=== PATIENT | male | born 1950 | race Caucasian/White ===

== ENCOUNTER 2020-05-06 09:00 | Outpatient (REF) | payer MEDICARE, SELFPAY ==
[2020-05-06 10:52] LABS: Cholesterol 159 mg/dL; HDL Cholesterol 43 mg/dL; LDL Cholesterol Calculated 104 mg/dl; Triglycerides 62 mg/dL
[2020-05-07 16:22] LABS: LDL Cholesterol Direct 100 mg/dL (<100)
== END 2020-05-06 09:01 | disposition home or self-care (01) ==
LOC: HO.LAB 09:00
PROVIDERS: PCP Internal Medicine; Visit Provider Internal Medicine Endocrinology, Diabetes & Metabolism
DX: E78.5 Hyperlipidemia, unspecified (principal)
CPT/HCPCS: 80061; 83721

== ENCOUNTER → 2020-05-09 10:55 | Outpatient (BNVA) | payer MEDICARE, SELFPAY | PROVIDERS: PCP Internal Medicine; Referring Provider Internal Medicine; Visit Provider Internal Medicine Endocrinology, Diabetes & Metabolism | DX: E11.65 Type 2 diabetes mellitus with hyperglycemia (principal); E11.649 Type 2 diabetes mellitus with hypoglycemia without coma; E11.42 Type 2 diabetes mellitus with diabetic polyneuropathy; E11.3559 Type 2 diabetes mellitus with stable proliferative diabetic retinopathy, unspecified eye; I10 Essential (primary) hypertension; E78.5 Hyperlipidemia, unspecified; E53.8 Deficiency of other specified B group vitamins; E55.9 Vitamin D deficiency, unspecified; Z79.899 Other long term (current) drug therapy | CPT/HCPCS: 99212 ==

== ENCOUNTER 2020-07-22 10:00 | Outpatient (REF) | payer MEDICARE, SELFPAY ==
[2020-07-22 10:31] LABS: MANUAL DIFF FLAG NO
[2020-07-22 10:38] LABS: Basophils Percent Auto 0.3 % (0-2); Eosinophils Absolute Auto 0.1 X10*3/uL (0.0-0.4); Eosinophils Percent Auto 3.8 % (0-4); Hemoglobin 13.2 g/dl (14.0-18.0); Imm Gran Abs Auto 0.01 X10*3/uL (0.00-0.03); Imm Gran Pct Auto 0.3 % (0.0-0.4); Lymphocytes Absolute Auto 1.2 X10*3/uL (1.2-4.9); Lymphocytes Percent Auto 31.4 % (20-40); Mean Corpuscular Hemoglobin 28.9 pg (27.0-33.0); Mean Corpuscular Volume 87.7 fL (80-98); Mean Platelet Volume 9.3 fL (9.4-12.4); Monocytes Absolute Auto 0.4 X10*3/uL (0.1-1.2); Monocytes Percent Auto 11.2 % (2-11); Neutrophils Absolute Auto 1.9 X10*3/uL (2.0-8.3); Platelet Count 273 X10*3/uL (160-400); Red Blood Count 4.56 X10*6/uL (4.60-5.80); Red Cell Distribution Width 12.2 % (11.0-16.0); White Blood Count 3.7 X10*3/uL (4.8-10.8)
[2020-07-22 11:04] LABS: Alanine Aminotransferase 38 U/L (0-40); Albumin Level 3.8 g/dL (3.5-5.0); Alkaline Phosphatase 77 U/L (39-117); Anion Gap 11 (12-20); Aspartate Amino Transferase 47 U/L (5-37); Bilirubin Total 0.5 mg/dL (0.0-1.0); Blood Urea Nitrogen 12 mg/dL (9-16); Calcium 8.7 mg/dL (8.4-10.2); Carbon Dioxide 28 mmol/L (22-29); Chloride 105 mmol/L (96-108); Cholesterol 139 mg/dL; Estimated Glomerular Filt Rate > 60; Glucose Fasting 159 mg/dL (60-99); HDL Cholesterol 41 mg/dL; LDL Cholesterol Calculated 89 mg/dl; Potassium 4.8 mmol/l (3.3-5.1); Sodium 139 mmol/L (135-145); Total Protein 6.8 g/dL (6.5-8.0); Triglycerides 46 mg/dL
[2020-07-22 11:25] LABS: TSH reflex Free T4 1.59 mIU/mL (0.32-4.0); Vitamin D 25-OH Total 34.5 ng/mL (>30)
[2020-07-22 11:49] LABS: Folate 17.1 ng/mL (> or = 4.0); Vitamin B12 807 pg/mL (200-900)
== END 2020-07-22 10:01 | disposition home or self-care (01) ==
LOC: HO.LAB 10:00
PROVIDERS: PCP Internal Medicine; Visit Provider Internal Medicine
DX: I10 Essential (primary) hypertension (principal); E11.8 Type 2 diabetes mellitus with unspecified complications; E53.8 Deficiency of other specified B group vitamins; E55.9 Vitamin D deficiency, unspecified; E03.9 Hypothyroidism, unspecified
CPT/HCPCS: 36415; 80053; 80061; 82306; 82607; 82746; 84443; 85025

== ENCOUNTER 2020-08-26 07:52 | Outpatient (REF) | payer MEDICARE, SELFPAY ==
--- NOTE | ~2020-08-26 | US_ITS ---
EXAMINATION: US ABDOMEN COMPLETE CLINICAL INFORMATION: Diseases of blood. COMPARISON: CT abdomen pelvis 03/21/2013. Ultrasound abdomen 03/09/2013. TECHNIQUE: Real-time imaging of the abdominal viscera. FINDINGS: PANCREAS: The visualized pancreatic head is normal but the majority of the pancreas is obscured by bowel gas. ABDOMINAL AORTA: The proximal, mid, and distal segments are normal in caliber. INFERIOR VENA CAVA: Visualized portions are normal. LIVER: Normal. The liver is normal in size. The liver contour is normal. Parenchymal echogenicity is normal. No focal hepatic lesion. There is no intrahepatic biliary duct dilatation seen. GALLBLADDER: Normal. The gallbladder is physiologically distended without evidence of stones, sludge, polyps, wall thickening or pericholecystic fluid. COMMON BILE DUCT: Normal in caliber measuring 0.3 cm in diameter. RIGHT KIDNEY: There are anechoic spaces in the right mid kidney and lower pole which could represent prominent calyces or parapelvic cysts. No renal calculi or focal parenchymal lesions. The kidney measures 10.9 cm in maximum dimension. LEFT KIDNEY: Anechoic structures in the left mid and lower kidney likely correspond to a previously seen parapelvic cysts. No hydronephrosis. No renal calculi or focal parenchymal lesions. The kidney measures 10.9 cm in maximum dimension. SPLEEN: Normal. The spleen measures 9.2 cm in maximum dimension. FREE FLUID: None. US/US abdomen complete IMPRESSION: The spleen is normal in size. Anechoic structures in the left renal pelvis likely correspond to renal parapelvic cysts. There are similar anechoic spaces in the right renal pelvis which may represent additional parapelvic cysts, less likely dilated calyces.
== END 2020-08-26 07:53 | disposition home or self-care (01) ==
LOC: HO.US 07:52
PROVIDERS: PCP Internal Medicine; Visit Provider Internal Medicine Medical Oncology
DX: D75.89 Other specified diseases of blood and blood-forming organs (principal)
CPT/HCPCS: 76700

== ENCOUNTER → 2020-09-06 08:44 | Outpatient (BNVA) | payer MEDICARE, SELFPAY | PROVIDERS: PCP Internal Medicine; Visit Provider Internal Medicine Endocrinology, Diabetes & Metabolism | DX: E11.65 Type 2 diabetes mellitus with hyperglycemia (principal); E11.42 Type 2 diabetes mellitus with diabetic polyneuropathy; E11.3559 Type 2 diabetes mellitus with stable proliferative diabetic retinopathy, unspecified eye; E11.649 Type 2 diabetes mellitus with hypoglycemia without coma; Z79.4 Long term (current) use of insulin; I10 Essential (primary) hypertension; E78.5 Hyperlipidemia, unspecified; E53.8 Deficiency of other specified B group vitamins; E55.9 Vitamin D deficiency, unspecified | CPT/HCPCS: 82947; 99212 ==

== ENCOUNTER → 2020-11-29 08:49 | Outpatient (BNVA) | payer MEDICARE, SELFPAY | PROVIDERS: PCP Internal Medicine; Visit Provider Nurse Practitioner Gerontology | DX: E11.42 Type 2 diabetes mellitus with diabetic polyneuropathy (principal); E11.65 Type 2 diabetes mellitus with hyperglycemia; I10 Essential (primary) hypertension; Z79.4 Long term (current) use of insulin | CPT/HCPCS: 82947; 99212 ==

== ENCOUNTER → 2020-12-20 07:49 | Outpatient (BNVA) | payer MEDICARE, SELFPAY | PROVIDERS: PCP Internal Medicine; Visit Provider Internal Medicine Endocrinology, Diabetes & Metabolism | DX: E11.65 Type 2 diabetes mellitus with hyperglycemia (principal); E11.42 Type 2 diabetes mellitus with diabetic polyneuropathy; E11.3559 Type 2 diabetes mellitus with stable proliferative diabetic retinopathy, unspecified eye; E11.649 Type 2 diabetes mellitus with hypoglycemia without coma; E78.5 Hyperlipidemia, unspecified; E53.8 Deficiency of other specified B group vitamins; E55.9 Vitamin D deficiency, unspecified; I10 Essential (primary) hypertension; Z79.4 Long term (current) use of insulin | CPT/HCPCS: Q3014 ==

== ENCOUNTER 2020-12-23 08:29 | Outpatient (REF) | payer MEDICARE, SELFPAY ==
--- NOTE | ~2020-12-23 | US_ITS ---
EXAMINATION: US ABDOMEN COMPLETE CLINICAL INFORMATION: Pancytopenia. COMPARISON: US abdomen complete 08/26/2020 and 03/09/2013. CT abdomen pelvis 03/21/2013. TECHNIQUE: Real-time imaging of the abdominal viscera. FINDINGS: PANCREAS: Normal. ABDOMINAL AORTA: The proximal, mid, and distal segments are normal in caliber. INFERIOR VENA CAVA: Visualized portions are normal. LIVER: The liver is normal in size. The liver contour is normal. There is slight increased liver echogenicity. No focal hepatic lesion. There is no intrahepatic biliary duct dilatation seen. GALLBLADDER: Normal. The gallbladder is physiologically distended without evidence of stones, sludge, polyps, wall thickening or pericholecystic fluid. COMMON BILE DUCT: Normal in caliber measuring .18 cm in diameter. RIGHT KIDNEY: There is a dilated midpole calyx or small cyst but no hydronephrosis seen. No renal calculi or focal parenchymal lesions. The kidney measures 10.8 cm in maximum dimension. LEFT KIDNEY: There is mild dilated calyces question mild caliectasis or hydronephrosis. No renal calculi or focal parenchymal lesions. The kidney measures 10.8 cm in maximum dimension. SPLEEN: Normal. The spleen measures 10.0 cm in maximum dimension. FREE FLUID: None. US/US abdomen complete IMPRESSION: Slightly increased liver echogenicity. No focal lesion seen. Focal dilated midpole calyx versus parapelvic cyst right kidney. Mild dilated calyces left kidney but no hydronephrosis. Rest of the abdominal ultrasound is unremarkable.
== END 2020-12-23 08:30 | disposition home or self-care (01) ==
LOC: HO.US 08:29
PROVIDERS: Visit Provider Internal Medicine Medical Oncology
DX: D75.89 Other specified diseases of blood and blood-forming organs (principal)
CPT/HCPCS: 76700

== ENCOUNTER 2021-01-21 09:33 | Outpatient (REF) | payer MEDICARE, SELFPAY ==
[2021-01-21 10:12] LABS: Estimated Average Glucose 160 mg/dL; Hemoglobin A1c % 7.2 %
[2021-01-21 10:24] LABS: Alanine Aminotransferase 18 U/L (0-40); Albumin Level 3.9 g/dL (3.5-5.0); Alkaline Phosphatase 87 U/L (39-117); Anion Gap 10 (12-20); Aspartate Amino Transferase 17 U/L (5-37); Bilirubin Total 0.4 mg/dL (0.0-1.0); Blood Urea Nitrogen 16 mg/dL (9-16); Calcium 9.4 mg/dL (8.4-10.2); Carbon Dioxide 28 mmol/L (22-29); Chloride 106 mmol/L (96-108); Cholesterol 146 mg/dL; Estimated Glomerular Filt Rate > 60; Glucose Fasting 179 mg/dL (60-99); HDL Cholesterol 44 mg/dL; LDL Cholesterol Calculated 91 mg/dl; Potassium 4.6 mmol/L (3.3-5.1); Sodium 139 mmol/L (135-145); Total Protein 6.8 g/dL (6.5-8.0); Triglycerides 59 mg/dL
[2021-01-21 10:43] LABS: Thyroid Stimulating Hormone 1.93 uIU/mL (0.32-4.0)
[2021-01-21 11:18] LABS: Creatinine Urine 87.02 mg/dL
[2021-01-22 15:53] LABS: Folate 13.7 ng/mL (> or = 4.0); Vitamin B12 644 pg/mL (200-900)
[2021-01-26 13:27] LABS: Vitamin D 25-OH, D2 <4 ng/mL; Vitamin D 25-OH, D3 25 ng/mL; Vitamin D 25-OH, Total 25 ng/mL (30-100)
== END 2021-01-21 09:34 | disposition home or self-care (01) ==
LOC: HO.LAB 09:33
PROVIDERS: Internal Medicine Endocrinology, Diabetes & Metabolism; PCP Internal Medicine; Visit Provider Internal Medicine
DX: E78.5 Hyperlipidemia, unspecified (principal); E55.9 Vitamin D deficiency, unspecified; E53.8 Deficiency of other specified B group vitamins; E11.42 Type 2 diabetes mellitus with diabetic polyneuropathy; E03.9 Hypothyroidism, unspecified; E11.65 Type 2 diabetes mellitus with hyperglycemia
CPT/HCPCS: 36415; 80053; 80061; 82043; 82306; 82607; 82746; 83036; 84443

== ENCOUNTER → 2021-03-24 09:51 | Outpatient (BNVA) | payer MEDICARE, SELFPAY | PROVIDERS: PCP Internal Medicine; Visit Provider Nurse Practitioner Gerontology | DX: E11.42 Type 2 diabetes mellitus with diabetic polyneuropathy (principal); E11.3559 Type 2 diabetes mellitus with stable proliferative diabetic retinopathy, unspecified eye; I10 Essential (primary) hypertension; E78.5 Hyperlipidemia, unspecified; E53.8 Deficiency of other specified B group vitamins; E55.9 Vitamin D deficiency, unspecified; Z79.4 Long term (current) use of insulin | CPT/HCPCS: 82947; 99212 ==

== ENCOUNTER 2021-05-22 09:00 | Outpatient (RCR) | payer MEDICARE, SELFPAY ==
[2020-08-22 08:06] VITALS: BP 139/65; PULSE 74; RESP 12; TEMP 36.6; O2SAT 98; BMI 25.0
[2020-08-22 09:26] LABS: Baso%MD 0.5 %; Eos%MD 3.2 %; Hemoglobin 13.2 g/dl (14.0-18.0); IG%MD 0.3 %; Lymph%MD 25.8 %; Mean Corpuscular HGB Conc 32.2 g/dl (31.0-36.0); Mean Corpuscular Hemoglobin 28.1 pg (27.0-33.0); Mean Corpuscular Volume 87.2 fL (80-98); Mean Platelet Volume 9.3 fL (9.4-12.4); Mono%MD 9.3 %; Neut%MD 60.9 %; Platelet Count 260 X10*3/uL (160-400); Red Cell Distribution Width 11.9 % (11.0-16.0); White Blood Count 3.8 X10*3/uL (4.8-10.8)
--- NOTE | 2020-08-22 09:38 | MHC.HEMONCMA ---
Patient present for bicytopenia consult. Reviewed history and vocational guidance counselor needed. Labs were drawn and patient to return for follow up in 3 months. U/S of abdomen ordered.
--- NOTE | 2020-08-22 09:58 | MHC.HEMONCMA ---
Ultrasound of abdomen was placed in order wrapper selector. I will check Wednesday to see if it was scheduled.
[2020-08-22 09:59] LABS: Alanine Aminotransferase 24 U/L (0-40); Alkaline Phosphatase 88 U/L (39-117); Anion Gap 12 (12-20); Aspartate Amino Transferase 16 U/L (5-37); Bilirubin Total 0.3 mg/dL (0.0-1.0); Blood Urea Nitrogen 14 mg/dL (9-16); Calcium 8.9 mg/dL (8.4-10.2); Carbon Dioxide 29 mmol/L (22-29); Chloride 102 mmol/L (96-108); Creatinine Clr Calc Pharmacy 59.2; Estimated Glomerular Filt Rate > 60; Glucose Random 272 mg/dL (60-115); Iron 59 mcg/dL (45-160); Lactate Dehydrogenase 190 U/L (118-273); Percent Iron Saturation 20 % (15-50); Potassium 4.5 mmol/L (3.3-5.1); Sodium 138 mmol/L (135-145); Total Iron Binding Capacity 296 mcg/dL (228-428); Total Protein 6.8 g/dL (6.5-8.0); Unsaturated Iron Binding 237 ug/dL
[2020-08-22 10:08] LABS: Rheumatoid Factor < 15.0 IU/mL (<15.0)
[2020-08-22 10:19] LABS: Ferritin 137 ng/mL (20-250)
[2020-08-22 10:32] LABS: HBS Num1 0.24 mIU/mL (0-7.99); HBc Num1 0.13 S/CO (0.00-0.79); Hepatitis B Core Antibody Nonreactive (Nonreactive); ~Hepatitis B Surface Antibody NONREACTIVE (Nonreactive)
[2020-08-22 10:35] LABS: Folate 16.7 ng/mL (> or = 4.0); Vitamin B12 815 pg/mL (200-900)
[2020-08-22 10:39] LABS: HBsAGNum1 0.21 S/CO (0.00-0.99); HIV AB/AG Nonreactive (Nonreactive); HIV Num 1 0.06 S/CO (0.00-0.99); Hepatitis B Surface Antigen Negative (Negative); ~HepC Num1 0.09 S/CO (0.00-0.79); ~Hepatitis C Antibody Nonreactive (Nonreactive)
[2020-08-22 11:06] LABS: Erythrocyte Sedimentation Rate 7 MM/HR (0-15)
[2020-08-22 11:45] LABS: Band Neutrophils Percent 1 % (3-5); Eosinophils Absolute Manual 0.1 X10*3/UL (0.0-0.8); Eosinophils Percent Manual 3 % (0-4); Lymphocytes Absolute Manual 0.8 X10*3/uL (0.6-4.8); Lymphocytes Percent Manual 20 % (20-40); Monocytes Absolute Manual 0.5 X10*3/uL (0.0-1.2); Monocytes Percent Manual 13 % (2-11); Neutrophils Absolute Manual 2.4 X10*3/uL (2.2-7.9); Neutrophils Percent Manual 63 % (45-73); Platelet Estimate NORMAL (NORMAL); Platelet Morphology Comment NORMAL
[2020-08-22 11:48] LABS: RBC Morphology NORMAL
[2020-08-23 13:21] LABS: Anti Nuclear Antibody Screen NEGATIVE (NEGATIVE)
--- NOTE | 2020-08-26 11:10 | MHC.HEMONCMA ---
Left message on voice mail letting patient know of ultrasound results.
[2020-08-26 19:01] LABS: IgA 251 mg/dL (70-320); IgG 1368 mg/dL (600-1540); IgM 25 mg/dL (50-300)
[2020-11-19 09:04] VITALS: BP 124/65; PULSE 72; RESP 12; TEMP 36.6; O2SAT 97; BMI 25.0
--- NOTE | 2020-11-19 09:23 | P.PNHO_ITS ---
Medical Summary - Medical Summary Date of Service: 11/19/20 Chief complaint: Follow-up for: Bicytopenia. Medical Summary: DIAGNOSIS: Bicytopenia. Interval History Interval history: This is a pleasant 70-year-old gentleman here for a follow-up visit. For he tells me that overall he has been doing quite well. Sometimes he feels a bit tired. He denies headache no dizziness. No chest pain or trouble breathing. Denies abdominal pain nausea vomiting heartburn indigestion. His bowels are working without any gross blood in it. His appetite is good. His weight is stable. He is in good spirits. Rest of the review of systems is unremarkable. Family history: He denies any known family history of for hematological or oncological problem. 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 He is . He has 3 children. He used to smoke but quit over 40 years ago. He does have a history of alcohol abuse but that was in the distant past as well. Review of Systems - Constitutional Reports no additional constitutional complaints - Eyes Reports no additional eye complaints - ENT Reports no additional ear, nose, mouth, and throat complaints - Cardiovascular Reports no additional cardiovascular complaints - Respiratory Reports no additional respiratory complaints - Gastrointestinal Reports no additional gastrointestinal complaints - Genitourinary Genitourinary: Reports no additional male genitourinary complaints - Musculoskeletal Reports no additional musculoskeletal complaints - Integumentary/Breasts Skin/Breast: Reports no additional skin complaints - Neurologic Reports no additional neurologic complaints - Psychiatric Reports no additional psychiatric complaints - Endocrine Reports no additional endocrine complaints - Hematologic/Lymphatic Reports no additional hematologic/lymphatic complaints - Allergic/Immunologic Reports no additional allergic/immunologic complaints COUNTS INCLUDE 234 BEDS AT THE [facility] Medical History: Medical History (Last Reviewed 11/19/20 @ 09:05 by Fe Asher) B12 deficiency Bicytopenia Daytime sleepiness Diabetes type 2, uncontrolled Diabetic polyneuropathy associated with type 2 diabetes mellitus Dyslipidemia Hypoglycemia unawareness associated with type 2 diabetes mellitus 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 Stable proliferative diabetic retinopathy Vitamin D deficiency Functional capacity: independent ambulation Patient : No Family History: Family History (Last Reviewed 11/19/20 @ 09:05 by Fe Asher) Father Hypertension Mother Diabetes Anemia Hypothyroidism Family/Other Prostate cancer Hypertension Diabetes Brother Prostate cancer Daughter Hypothyroidism Surgical History: Surgical History (Last Reviewed 11/19/20 @ 09:05 by Fe Asher) History of cardiac catheterization History of cataract surgery History of colonoscopy Social History: Social History (Last Reviewed 11/19/20 @ 09:05 by Fe Asher) Alcohol History: Alcohol intake: former Tobacco History: Smoking Status: Former smoker Tobacco Type: Cigarette Smoking status: Former smoker Oncology Screenings - ECOG Performance Status ECOG Performance Status: 0 Home Medications and Allergies Home Medications Medication Instructions Recorded Confirmed Type blood sugar diagnostic #10 ea 09/06/20 11/19/20 History lancets 28 gauge #100 ea 09/06/20 11/19/20 History Allergies Allergy/AdvReac Type Severity Reaction Status Date / Time penicillin V Allergy Unknown rash, hives Verified 07/24/20 10:45 acetaminophen [Percocet] AdvReac Unknown vomitting Verified 07/24/20 10:45 lisinopril AdvReac Unknown angioedema Verified 07/24/20 10:45 oxycodone [From PERCOCET] AdvReac Unknown STOMACH Verified 07/24/20 10:45 UPSET statins AdvReac Unknown myalgia Uncoded 07/24/20 10:45 Exam Vital signs: Vital Signs Temp 97.9 F 11/19/20 09:04 Pulse 72 11/19/20 09:04 Resp 12 11/19/20 09:04 BP 124/65 11/19/20 09:04 Pulse Ox 97 11/19/20 09:04 Intake & Output 11/18/20 11/19/20 11/19/20 18:59 06:59 18:59 Other: Weight 72.5 kg [place] Weight in Grams 54732 Weight 72.5 kg Body Mass Index 25.0 - Constitutional Present: no acute distress - Routine HEENT Exam Head: Present: normal inspection Eye: Present: normal appearance ENT: Present: mucous membranes moist - Routine Neck Exam Present: full ROM - Routine Respiratory Exam Present: CTAB - Routine Cardiovascular Exam Cardiovascular: Present: RRR, S1, S2 - Routine Abdominal Exam Present: soft, nontender - Routine Extremities Exam Present: nontender - Routine Back/Spine/Pelvis Exam Back/Spine: Present: full ROM - Routine Skin Exam Present: intact - Routine Neurological Exam Present: alert, oriented X3 - Routine Psychiatric Exam Present: normal affect Data - Labs CBC & Chem 7: 11/19/20 09:38 11/19/20 09:38 Labs: 08/22/20 09:18 GUILLERMINA Reflex Titer and Pattern Routine Complete Blood Count Man Dif Routine Comprehensive Met. Panel Routine Erythrocyte Sedimentation Rate Routine Ferritin Routine HIV Ab/Ag Routine Hep B&C Scrn (HBsAg, HBs, HBc, HCV) [Hepatitis B,C Profile] Routine IRON PROFILE Routine Immunofixation Pnl, Serum Routine Lactate Dehydrogenase Routine Rheumatoid Factor Routine Vitamin B12 and Folate Routine Laboratory Last Values WBC 3.8 X10*3/uL (4.8-10.8) L 08/22/20 09:18 RBC 4.70 X10*6/uL (4.60-5.80) 08/22/20 09:18 Hgb 13.2 g/dl (14.0-18.0) L 08/22/20 09:18 Hct 41.0 % (42-52) L 08/22/20 09:18 MCV 87.2 fL (80-98) 08/22/20 09:18 MCH 28.1 pg (27.0-33.0) 08/22/20 09:18 MCHC 32.2 g/dl (31.0-36.0) 08/22/20 09:18 RDW 11.9 % (11.0-16.0) 08/22/20 09:18 Plt Count 260 X10*3/uL (160-400) 08/22/20 09:18 MPV 9.3 fL (9.4-12.4) L 08/22/20 09:18 Absolute Nucleated RBC 0.000 X10*3/uL (0.0-0.012) 08/22/20 09:18 Nucleated RBC % (auto) 0.0 /100WBC (0.0-0.2) 08/22/20 09:18 Neutrophils % (Manual) 63 % (45-73) 08/22/20 09:18 Band Neutrophils % 1 % (3-5) L 08/22/20 09:18 Lymphocytes % (Manual) 20 % (20-40) 08/22/20 09:18 Monocytes % (Manual) 13 % (2-11) H 08/22/20 09:18 Eosinophils % (Manual) 3 % (0-4) 08/22/20 09:18 Abs Neuts (Manual) 2.4 X10*3/uL (2.2-7.9) 08/22/20 09:18 Lymphocytes # (Manual) 0.8 X10*3/uL (0.6-4.8) 08/22/20 09:18 Monocytes # (Manual) 0.5 X10*3/uL (0.0-1.2) 08/22/20 09:18 Eosinophils # (Manual) 0.1 X10*3/UL (0.0-0.8) 08/22/20 09:18 Platelet Estimate NORMAL (NORMAL) 08/22/20 09:18 Plt Morphology Comment NORMAL 08/22/20 09:18 RBC Morphology NORMAL 08/22/20 09:18 ESR 7 MM/HR (0-15) 08/22/20 09:18 Sodium 138 mmol/L (135-145) 08/22/20 09:18 Potassium 4.5 mmol/L (3.3-5.1) 08/22/20 09:18 Chloride 102 mmol/L (96-108) 08/22/20 09:18 Carbon Dioxide 29 mmol/L (22-29) 08/22/20 09:18 Anion Gap 12 (12-20) 08/22/20 09:18 BUN 14 mg/dL (9-16) 08/22/20 09:18 Creatinine 1.07 mg/dL (0.5-1.4) 08/22/20 09:18 Estim Creat Clear Calc 59.2 08/22/20 09:18 Estimated GFR > 60 08/22/20 09:18 Random Glucose 272 mg/dL (60-115) H 08/22/20 09:18 Calcium 8.9 mg/dL (8.4-10.2) 08/22/20 09:18 Iron 59 mcg/dL (45-160) 08/22/20 09:18 TIBC 296 mcg/dL (228-428) 08/22/20 09:18 % Saturation 20 % (15-50) 08/22/20 09:18 Unsat Iron Binding 237 ug/dL 08/22/20 09:18 Ferritin 137 ng/mL (20-250) 08/22/20 09:18 Total Bilirubin 0.3 mg/dL (0.0-1.0) 08/22/20 09:18 AST 16 U/L (5-37) D 08/22/20 09:18 ALT 24 U/L (0-40) 08/22/20 09:18 Alkaline Phosphatase 88 U/L (39-117) 08/22/20 09:18 Lactate Dehydrogenase 190 U/L (118-273) 08/22/20 09:18 Total Protein 6.8 g/dL (6.5-8.0) 08/22/20 09:18 Albumin 4.0 g/dL (3.5-5.0) 08/22/20 09:18 Vitamin B12 815 pg/mL (200-900) 08/22/20 09:18 Folate 16.7 ng/mL (> or = 4.0) 08/22/20 09:18 IgG Total 1368 mg/dL (600-1540) 08/22/20 09:18 IgA Total 251 mg/dL (70-320) 08/22/20 09:18 IgM 25 mg/dL (50-300) L 08/22/20 09:18 POWER Interpretation SEE NOTE 08/22/20 09:18 Rheumatoid Factor < 15.0 IU/mL (<15.0) 08/22/20 09:18 GUILLERMINA Screen NEGATIVE (NEGATIVE) 08/22/20 09:18 GUILLERMINA Titer TNP 08/22/20 09:18 GUILLERMINA Titer 2 TNP 08/22/20 09:18 GUILLERMINA Titer 3 TNP 08/22/20 09:18 GUILLERMINA Pattern TNP 08/22/20 09:18 GUILLERMINA Pattern 2 TNP 08/22/20 09:18 GUILLERMINA Pattern 3 TNP 08/22/20 09:18 Hep Bs Antigen Negative (Negative) 08/22/20 09:18 Hep Bs Antibody NONREACTIVE (Nonreactive) 08/22/20 09:18 Hep B Core Total Ab Nonreactive (Nonreactive) 08/22/20 09:18 Hepatitis C Ab (EIA) Nonreactive (Nonreactive) 08/22/20 09:18 HIV 1&2 Ab/P24 Ag 4thGn Nonreactive (Nonreactive) 08/22/20 09:18 Progress Note: A/P (1) Bicytopenia Status: Acute Assessment and plan: This is a pleasant 70-year-old gentleman, here for a follow-up visit. He has had a chronic Bicytopenia. DIFFERENTIAL DIAGNOSIS: 1. Vitamin B12/folate deficiency: He was checked for that. B12 815. Folate 16.7. 2. Hypersplenism: He does have a remote history of alcohol. 3. Underlying myelo infiltrative disorder: MDS versus multiple myeloma, versus lymphoma. 4. Collagen vascular disorder: Lupus versus rheumatoid arthritis. PLAN: Will proceed with a further evaluation. Will check an ultrasound of the abdomen. Check SIEP: No monoclonal protein and LDH: 179. Check GUILLERMINA: Negative. Rheumatoid factor: 15. He will return in 6 months for a follow-up visit. He will call for any problems prior to that time. Thank you, CC: Dr. Teresa. - Time Spent With Patient Total time spent is greater than 50% in coordination of care (as documented) at patient's floor/unit and/or counseling patient: 25 - 35 minutes
[2020-11-19 10:22] LABS: MANUAL DIFF FLAG NO
[2020-11-19 10:31] LABS: Basophils Percent Auto 0.5 % (0-2); Eosinophils Absolute Auto 0.1 X10*3/uL (0.0-0.4); Eosinophils Percent Auto 3.2 % (0-4); Hematocrit 39.7 % (42-52); Hemoglobin 12.8 g/dl (14.0-18.0); Imm Gran Abs Auto 0.01 X10*3/uL (0.00-0.03); Imm Gran Pct Auto 0.2 % (0.0-0.4); Lymphocytes Percent Auto 23.1 % (20-40); Mean Corpuscular HGB Conc 32.2 g/dl (31.0-36.0); Mean Corpuscular Hemoglobin 28.6 pg (27.0-33.0); Mean Corpuscular Volume 88.6 fL (80-98); Mean Platelet Volume 9.6 fL (9.4-12.4); Monocytes Absolute Auto 0.4 X10*3/uL (0.1-1.2); Neutrophils Absolute Auto 2.6 X10*3/uL (2.0-8.3); Platelet Count 245 X10*3/uL (160-400); Red Blood Count 4.48 X10*6/uL (4.60-5.80); Red Cell Distribution Width 12.3 % (11.0-16.0); White Blood Count 4.1 X10*3/uL (4.8-10.8)
--- NOTE | 2020-11-19 10:56 | MHC.HEMONCMA ---
Pt present to f/u bicytopenia. History reviewed, labs drawn and pt to return in 6 months.
[2020-11-19 10:59] LABS: Alanine Aminotransferase 30 U/L (0-40); Albumin Level 3.7 g/dL (3.5-5.0); Alkaline Phosphatase 80 U/L (39-117); Anion Gap 11 (12-20); Aspartate Amino Transferase 16 U/L (5-37); Bilirubin Total 0.6 mg/dL (0.0-1.0); Blood Urea Nitrogen 15 mg/dL (9-16); Calcium 8.9 mg/dL (8.4-10.2); Carbon Dioxide 30 mmol/L (22-29); Chloride 104 mmol/L (96-108); Creatinine Clr Calc Pharmacy 67.8; Estimated Glomerular Filt Rate > 60; Glucose Random 248 mg/dL (60-115); Lactate Dehydrogenase 179 U/L (118-273); Potassium 4.5 mmol/L (3.3-5.1); Rheumatoid Factor < 15.0 IU/mL (<15.0); Sodium 140 mmol/L (135-145); Total Protein 6.4 g/dL (6.5-8.0)
[2020-11-19 11:17] LABS: Erythrocyte Sedimentation Rate 6 MM/HR (0-15)
[2020-11-19 11:18] LABS: HIV AB/AG Nonreactive (Nonreactive); HIV Num 1 0.09 S/CO (0.00-0.99)
--- NOTE | 2020-11-19 16:59 | PM.HEMONCCN ---
Subjective - Subjective Chief complaint: Consult for: Bicytopenia. Patient: new to practice Consult date: 08/22/20 Requesting Physician: Mlaick. Primary Care Provider: Guillermina Hammer MD Medical Summary: DIAGNOSIS: Bicytopenia. HPI - Consult Narrative Reason for consult: Consult for bicytopenia. Narrative: This is a pleasant 70-year-old gentleman here for a new patient visit. He has been noted to have a low white count and mild anemia. This has been ongoing for years. Serial WBC count dating back from 07/23:5.5, 3.8, 3.8, 3.7, 3.8. Serial hemoglobin dating back to July of 2018:13.8, 13.9, 13.4, 13.2, 13.2. He tells me that overall he has been doing quite well. Sometimes he feels a bit tired. He denies headache no dizziness. No chest pain or trouble breathing. Denies abdominal pain nausea vomiting heartburn indigestion. His bowels are working without any gross blood in it. His appetite is good. His weight is stable. He is in good spirits. Rest of the review of systems is unremarkable. Family history: He denies any known family history of for hematological or oncological problem. 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 He has 3 children. He used to smoke but quit over 40 years ago. He does have a history of alcohol abuse but that was in the distant past as well. Review of Systems - Constitutional Reports no additional constitutional complaints - Eyes Reports no additional eye complaints - ENT Reports no additional ear, nose, mouth, and throat complaints - Cardiovascular Reports no additional cardiovascular complaints - Respiratory Reports no additional respiratory complaints - Gastrointestinal Reports no additional gastrointestinal complaints - Genitourinary Genitourinary: Reports no additional male genitourinary complaints - Musculoskeletal Reports no additional musculoskeletal complaints - Integumentary/Breasts Skin/Breast: Reports no additional skin complaints - Neurologic Reports no additional neurologic complaints - Psychiatric Reports no additional psychiatric complaints - Endocrine Reports no additional endocrine complaints - Hematologic/Lymphatic Reports no additional hematologic/lymphatic complaints - Allergic/Immunologic Reports no additional allergic/immunologic complaints Oncology Screenings - ECOG Performance Status ECOG Performance Status: 0 PMFSH Medical History: Medical History (Last Reviewed 11/19/20 @ 09:05 by Fe Asher) B12 deficiency Bicytopenia Daytime sleepiness Diabetes type 2, uncontrolled Diabetic polyneuropathy associated with type 2 diabetes mellitus Dyslipidemia Hypoglycemia unawareness associated with type 2 diabetes mellitus 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 Stable proliferative diabetic retinopathy Vitamin D deficiency Functional capacity: independent ambulation Patient : No Family History: Family History (Last Reviewed 11/19/20 @ 09:05 by Fe Asher) Father Hypertension Mother Diabetes Anemia Hypothyroidism Family/Other Prostate cancer Hypertension Diabetes Brother Prostate cancer Daughter Hypothyroidism Surgical History: Surgical History (Last Reviewed 11/19/20 @ 09:05 by Fe Asher) History of cardiac catheterization History of cataract surgery History of colonoscopy Social History: Social History (Last Reviewed 11/19/20 @ 09:05 by Fe Asher) Alcohol History: Alcohol intake: former Tobacco History: Smoking Status: Former smoker Tobacco Type: Cigarette Smoking status: Former smoker Home Medications and Allergies Home Medications Medication Instructions Recorded Confirmed Type blood sugar diagnostic #10 ea 09/06/20 11/19/20 History lancets 28 gauge #100 ea 09/06/20 11/19/20 History Allergies Allergy/AdvReac Type Severity Reaction Status Date / Time penicillin V Allergy Unknown rash, hives Verified 07/24/20 10:45 acetaminophen [Percocet] AdvReac Unknown vomitting Verified 07/24/20 10:45 lisinopril AdvReac Unknown angioedema Verified 07/24/20 10:45 oxycodone [From PERCOCET] AdvReac Unknown STOMACH Verified 07/24/20 10:45 UPSET statins AdvReac Unknown myalgia Uncoded 07/24/20 10:45 Physical Exam Vital signs: Vital Signs Temp 97.9 F 11/19/20 09:04 Pulse 72 11/19/20 09:04 Resp 12 11/19/20 09:04 BP 124/65 11/19/20 09:04 Pulse Ox 97 11/19/20 09:04 Intake & Output 11/18/20 11/19/20 11/19/20 18:59 06:59 18:59 Other: Weight 72.5 kg Weight in Grams 15947 Weight 72.5 kg - Constitutional Present: no acute distress - Routine HEENT Exam Head: Present: normal inspection ENT: Present: mucous membranes moist - Routine Neck Exam Present: supple - Routine Respiratory Exam Present: CTAB - Routine Cardiovascular Exam Cardiovascular: Present: RRR, S1, S2 - Routine Abdominal Exam Present: soft, nontender - Routine Rectal Exam Patient deferred: digital exam - Routine Extremities Exam Present: nontender - Routine Skin Exam Present: intact - Routine Neurological Exam Present: alert, oriented X3 - Detailed Neurological Exam: Coma Scale Eye Opening: Spontaneous (4) Verbal Response: Oriented (5) Motor Response: Obeys commands (6) [place] Coma Scale Total: 15 - Routine Psychiatric Exam Present: normal affect Hem/Onc Consult Result - Labs CBC & Chem 7: 11/19/20 09:38 11/19/20 09:38 Labs: Short CBC 11/19/20 Range/Units 09:38 WBC 4.1 L (4.8-10.8) X10*3/uL Hgb 12.8 L (14.0-18.0) g/dl Hct 39.7 L (42-52) % Plt Count 245 (160-400) X10*3/uL BMP 11/19/20 09:38 Sodium 140 Potassium 4.5 Chloride 104 Carbon Dioxide 30 H BUN 15 Creatinine 0.92 Calcium 8.9 Liver Function 11/19/20 Range/Units 09:38 Total Bilirubin 0.6 (0.0-1.0) mg/dL AST 16 (5-37) U/L ALT 30 (0-40) U/L Alkaline Phosphatase 80 (39-117) U/L Albumin 3.7 (3.5-5.0) g/dL Assessment and Plan (1) Bicytopenia Status: Acute (2) Bicytopenia Status: Acute This is a pleasant 70-year-old gentleman, here for a follow-up visit. He has had a chronic Bicytopenia. Serial WBC count dating back from 07/23:5.5, 3.8, 3.8, 3.7, 3.8. Serial hemoglobin dating back to July of 2018:13.8, 13.9, 13.4, 13.2, 13.2. DIFFERENTIAL DIAGNOSIS: 1. Vitamin B12/folate deficiency: He was checked for that. B12 815. Folate 16.7. 2. Hypersplenism: He does have a remote history of alcohol. 3. Underlying myelo infiltrative disorder: MDS versus multiple myeloma, versus lymphoma. 4. Collagen vascular disorder: Lupus versus rheumatoid arthritis. PLAN: Will proceed with a further evaluation. Will check an ultrasound of the abdomen. Check SIEP: No monoclonal protein and LDH: 179. Check GUILLERMINA: Negative. Rheumatoid factor: 15. He will return in 6 months for a follow-up visit. He will call for any problems prior to that time. Thank you, CC: Dr. Teresa.
[2020-11-21 14:21] LABS: IgA 233 mg/dL (70-320); IgG 1388 mg/dL (600-1540); IgM 30 mg/dL (50-300)
[2020-11-22 14:11] LABS: Anti Nuclear Antibody Screen NEGATIVE (NEGATIVE)
[2021-05-22 09:13] LABS: MANUAL DIFF FLAG NO
[2021-05-22 09:21] LABS: Basophils Percent Auto 0.3 % (0-2); Eosinophils Absolute Auto 0.1 X10*3/uL (0.0-0.4); Eosinophils Percent Auto 3.6 % (0-4); Hematocrit 38.5 % (42.0-52.0); Hemoglobin 12.8 g/dl (14.0-18.0); Imm Gran Abs Auto 0.01 X10*3/uL (0.00-0.03); Imm Gran Pct Auto 0.3 % (0.0-0.4); Lymphocytes Percent Auto 28.1 % (20-40); Mean Corpuscular HGB Conc 33.2 g/dl (31.0-36.0); Mean Corpuscular Hemoglobin 28.8 pg (27.0-33.0); Mean Corpuscular Volume 86.5 fL (80.0-98.0); Mean Platelet Volume 8.9 fL (9.4-12.4); Monocytes Absolute Auto 0.4 X10*3/uL (0.1-1.2); Monocytes Percent Auto 11.4 % (2-11); Neutrophils Percent Auto 56.3 % (45-73); Platelet Count 259 X10*3/uL (160-400); Red Blood Count 4.45 X10*6/uL (4.60-5.80); Red Cell Distribution Width 11.9 % (11.0-16.0); White Blood Count 3.6 X10*3/uL (4.8-10.8)
--- NOTE | 2021-05-22 09:22 | PM.HEMONCPN ---
Medical Summary - Medical Summary Date of Service: 05/22/21 Chief complaint: Follow-up for: Bicytopenia. Medical Summary: DIAGNOSIS: Bicytopenia. Interval History Interval history: This is a pleasant 70-year-old gentleman here for a follow-up visit. He tells me that lately he has been more fatigued than usual. He falls asleep all the time, sitting in front of the TV. He has arthritis related pain. His shoulder is acting up. Last year he had intra-articular injection which helped. He is going to be referred to orthopedic again. He denies headache no dizziness. No chest pain or trouble breathing. Denies abdominal pain nausea vomiting. He does get heartburn and indigestion. He had to give up a lot of foods since the upset his stomach. His bowels are working without any gross blood in it. His appetite is good. His weight is stable. He has not been seen by GI lately. He is in good spirits. Rest of the review of systems is unremarkable. Past history: He was noted to have a low white count and mild anemia. This has been ongoing for years. Serial WBC count dating back from 07/23:5.5, 3.8, 3.8, 3.7, 3.8. Serial hemoglobin dating back to July of 2018:13.8, 13.9, 13.4, 13.2, 13.2. Family history: He denies any known family history of for hematological or oncological problem. 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 He is . He has 3 children. He used to smoke but quit over 40 years ago. He does have a history of alcohol abuse but that was in the distant past as well. Review of Systems - Constitutional Reports no additional constitutional complaints, Reports daytime sleepiness, Reports fatigue, Reports lack of energy, Reports malaise, Reports weakness - Eyes Reports no additional eye complaints - ENT Reports no additional ear, nose, mouth, and throat complaints - Cardiovascular Reports no additional cardiovascular complaints - Respiratory Reports no additional respiratory complaints - Gastrointestinal Reports no additional gastrointestinal complaints, Reports change in bowel habits, Reports dyspepsia, Reports heartburn - Genitourinary Genitourinary: Reports no additional male genitourinary complaints - Musculoskeletal Reports no additional musculoskeletal complaints Comments: Right shoulder pain - Integumentary/Breasts Skin/Breast: Reports no additional skin complaints - Neurologic Reports no additional neurologic complaints - Psychiatric Reports no additional psychiatric complaints - Endocrine Reports no additional endocrine complaints - Hematologic/Lymphatic Reports no additional hematologic/lymphatic complaints - Allergic/Immunologic Reports no additional allergic/immunologic complaints [facility] Medical History: Medical History (Last Reviewed 05/22/21 @ 09:31 by Chuck Gamboa RN) B12 deficiency Bicytopenia Daytime sleepiness Diabetes mellitus Diabetes type 2, uncontrolled Diabetic polyneuropathy associated with type 2 diabetes mellitus Dyslipidemia Hypothyroid custodial (current) use of insulin Right shoulder pain Stable proliferative diabetic retinopathy Vitamin D deficiency Functional capacity: independent ambulation Patient : No Family History: Family History (Last Reviewed 05/22/21 @ 09:32 by Chuck Gamboa RN) Father Hypertension Mother Diabetes Anemia Hypothyroidism Family/Other Prostate cancer Hypertension Diabetes Brother Prostate cancer Daughter Hypothyroidism Surgical History: Surgical History (Last Reviewed 05/22/21 @ 09:31 by Chuck Gamboa RN) History of cardiac catheterization History of cataract surgery History of colonoscopy Social History: Social History (Last Reviewed 05/22/21 @ 09:32 by Chuck Gamboa RN) Living Situation History: Household Members: None Housing: Apartment Alcohol History: Alcohol intake: former Tobacco History: Patient Tobacco Use Status: Former Tobacco user Tobacco use type: Cigarette e-Cigarette/Vaping Use: Never Used Second Hand Smoke Exposure: No Occupation Assessmet: service: No Current occupational status: disabled Oncology Screenings - ECOG Performance Status ECOG Performance Status: 0 Home Medications and Allergies Allergies Allergy/AdvReac Type Severity Reaction Status Date / Time penicillin V Allergy Intermediate rash, hives Verified 05/21/21 10:10 acetaminophen [Percocet] AdvReac Intermediate vomitting Verified 05/21/21 10:10 lisinopril AdvReac Intermediate angioedema Verified 05/21/21 10:10 oxycodone [From PERCOCET] AdvReac Intermediate STOMACH Verified 05/21/21 10:10 UPSET statins AdvReac Intermediate myalgia Uncoded 05/21/21 10:10 Exam Vital signs: Vital Signs Temp 97.9 F 11/19/20 09:04 Pulse 72 11/19/20 09:04 Resp 12 11/19/20 09:04 BP 124/65 11/19/20 09:04 Pulse Ox 97 11/19/20 09:04 Weight 72.5 kg Body Mass Index 25.0 - Constitutional Present: no acute distress - Routine HEENT Exam Head: Present: normal inspection Eye: Present: normal appearance ENT: Present: mucous membranes moist - Routine Neck Exam Present: full ROM - Routine Respiratory Exam Present: CTAB - Routine Cardiovascular Exam Cardiovascular: Present: RRR, S1, S2 - Routine Abdominal Exam Present: soft, nontender - Routine Extremities Exam Present: nontender - Routine Back/Spine/Pelvis Exam Back/Spine: Present: full ROM - Routine Skin Exam Present: intact - Routine Neurological Exam Present: alert, oriented X3 - Detailed Neurological Exam: Coma Scale Eye Opening: Spontaneous (4) - Routine Psychiatric Exam Present: normal affect Data - Labs CBC & Chem 7: 05/22/21 09:10 05/22/21 09:10 Assessment and Plan Patient Active problem list reviewed?: Yes (1) Bicytopenia Status: Acute Assessment and plan: This is a pleasant 70-year-old gentleman, here for a follow-up visit. He has had a chronic Bicytopenia. DIFFERENTIAL DIAGNOSIS: 1. Vitamin B12/folate deficiency: He was checked for that. B12 815. Folate 16.7. 2. Hypersplenism: He does have a remote history of alcohol. 3. Underlying myelo infiltrative disorder: MDS versus multiple myeloma, versus lymphoma. 4. Collagen vascular disorder: Lupus versus rheumatoid arthritis. l proceeded with further evaluation. l checked an ultrasound of the abdomen. This was done on 12/24. It showed: Slightly increased liver echogenicity. No focal lesion seen. Focal dilated midpole calyx versus parapelvic cyst right kidney. Mild dilated calyces left kidney but no hydronephrosis. Rest of the abdominal ultrasound is unremarkable. Checked SIEP: No monoclonal protein and LDH: 179. Checked GUILLERMINA: Negative. Rheumatoid factor: 15. Iron studies: 59/296/20/137. He is feeling more fatigued. He has had some dyspepsia and heartburn symptoms. Hemoglobin has dropped. He has not had a recent GI evaluation. PLAN: I will refer him to GI, for further evaluation. Will continue to monitor his counts, over time. He will return in 6 months for a follow-up visit. He will call for any problems prior to that time. Thank you, CC: Dr. Teresa. Karina Taylor. (2) Bicytopenia Status: Acute - Time Spent With Patient Time Spent with Patient (in minutes): 25
[2021-05-22 09:25] VITALS: BP 138/70; PULSE 71; RESP 18; TEMP 36.5; O2SAT 98; BMI 23.9
[2021-05-22 09:43] LABS: Alanine Aminotransferase 16 U/L (0-40); Albumin Level 3.7 g/dL (3.5-5.0); Alkaline Phosphatase 75 U/L (39-117); Anion Gap 9 (12-20); Aspartate Amino Transferase 15 U/L (5-37); Bilirubin Total 0.4 mg/dL (0.0-1.0); Blood Urea Nitrogen 16 mg/dL (9-16); Carbon Dioxide 27 mmol/L (22-29); Chloride 104 mmol/L (96-108); Estimated Glomerular Filt Rate > 60; Glucose Random 224 mg/dL (60-115); Potassium 3.9 mmol/L (3.3-5.1); Sodium 136 mmol/L (135-145); Total Protein 6.4 g/dL (6.5-8.0)
--- NOTE | 2021-05-22 13:38 | MHC.HEMONC ---
Pt arrived for sched Hem f/u appt, [facility] automotive parts interpreter Gianna provided Pashto-language translation. VSS, labs drawn and reviewed. Pt did c/o usual arthritis pain in bilat shoulders and wrists, said he had seen Dr. Teresa yesterday, is interested in receiving another steroid injection to his R shoulder after it was effective the previous year. Pt c/o baseline fatigue, also that he does FSBS TID. Nurse reviewed pt's hx and med list. Dr. Ynag was updated, was in to see pt. Pt received d/c packet and confirmed next Hem f/u for 11/20/21. Dr. Yang asked this nurse for GI referral to ROSANNA Taylor at [facility] for pt's c/o GI upset. Nurse faxed Dr. Yang's Hem Progress note from today's visit to GI dept, spoke w/ Kacy at ROSANNA Collins's office, booked new pt appt for 07/11/21 @ 11:15. Leeanne to notify pt of GI appt by phone.
--- NOTE | 2021-05-22 14:47 | HE.ONCSEC ---
Spoke to Amina Lofton, patient's . I gave her appointment information for GI on 07/11/21 at 11:15am with Karina Taylor NP. She verbalized and agreed.
== END 2021-08-15 | disposition home or self-care (01) ==
LOC: HO.ONC 09:00
PROVIDERS: PCP Internal Medicine; Referring Provider Internal Medicine; Visit Provider Internal Medicine Medical Oncology
DX: D75.89 Other specified diseases of blood and blood-forming organs (principal)
CPT/HCPCS: 36415; 80053; 82607; 82728; 82746; 82784; 83540; 83615; 85007; 85025; 85027; 85652; 86038; 86039; 86334; 86431; 86704; 86706; 86803; 87340; 87389; 99204; 99213; 99214

== ENCOUNTER 2021-06-18 15:55 | Outpatient (REF) | payer MEDICARE, SELFPAY | END 2021-06-18 15:56 | disposition home or self-care (01) | LOC: HO.LAB 15:55 | PROVIDERS: Visit Provider Internal Medicine | DX: Z20.822 Contact with and (suspected) exposure to COVID-19 (principal) | CPT/HCPCS: C9803; U0003; U0005 ==

== ENCOUNTER 2021-06-25 22:21 | Emergency (ER) | payer MEDICARE, SELFPAY ==
--- NOTE | ~2021-06-25 | XR_ITS ---
EXAMINATION: XR CHEST CLINICAL INFORMATION: Dyspnea COMPARISON: 07/27/2018 TECHNIQUE: Frontal view of the chest was obtained. FINDINGS: Lung volumes are low. Bronchial wall thickening present. No dense consolidation or effusion. No pneumothorax. The cardiomediastinal silhouette is within normal limits. XR/XR chest 1V IMPRESSION: No consolidation. Bronchial wall thickening can be seen with a small airways process such as asthma or atypical/viral infection.
--- NOTE | 2021-06-25 22:52 | ECG_ITS ---
Test Reason : COVID SYMPTOMS Blood Pressure : / mmHG Vent. Rate : 093 BPM Atrial Rate : 093 BPM P-R Int : 124 ms QRS Dur : 116 ms QT Int : 376 ms P-R-T Axes : 052 000 020 degrees QTc Int : 467 ms Normal sinus rhythm Right bundle branch block Abnormal ECG When compared with ECG of 03-DEC-2019 12:34, No significant change was found Referred By: Generic ED Physician Electronically Signed By:REA LIM
[2021-06-25 22:56] VITALS: BP 119/66; PULSE 98; RESP 22; TEMP 36.9; O2SAT 92; BMI 23.5
--- NOTE | 2021-06-26 00:04 | ED.SOB ---
HPI - SOB/Dyspnea General Chief Complaint: Dyspnea Stated Complaint: flu like symptoms Time Seen by Provider: 06/25/21 23:00 Source: patient Mode of arrival: ambulatory Limitations: no limitations History of Present Illness HPI Narrative: Patient diabetic 70 years or been coughing since 1211 diagnosis positive on 06/18 comes here for increased cough and shortness of breath saturating 92% at room air patient not vaccinated against COVID-19 his is also sick with same patient had stable labs in 05/25 used arrival was 227 Related Data Previous Rx's Medication Instructions Recorded cyanocobalamin (vitamin B-12) 500 500 mcg SUBLINGUAL DAILY 30 Days 09/06/20 mcg sublingual tablet #30 tab repaglinide 2 mg tablet See Rx Instructions PO BID 90 Days 12/20/20 #270 tab diabetic shoes with inserts #1 ea 01/21/21 blood sugar diagnostic (FreeStyle #300 ea 03/06/21 Lite Strips) levothyroxine 125 mcg tablet 125 mcg PO QAM #90 tab 03/07/21 losartan 50 mg tablet 50 mg PO DAILY #90 tab 03/25/21 lancets 28 gauge (FreeStyle #100 ea 05/05/21 Lancets) amlodipine 2.5 mg tablet 2.5 mg PO DAILY #90 tab 05/12/21 aspirin 81 mg tablet,delayed 81 mg PO DAILY #90 tab 05/12/21 release cholecalciferol (vitamin D3) 50 50 mcg PO DAILY #90 tab 05/12/21 mcg (2,000 unit) tablet (Vitamin D3) fluticasone propionate 50 1 spray INTRANASAL DAILY 30 Days 05/12/21 mcg/actuation nasal #16 g spray,suspension dulaglutide 3 mg/0.5 mL 3 mg (0.5 mL) SUBCUT QWEEK 90 Days 06/12/21 subcutaneous pen injector #6.5 ml (Trulicity) albuterol sulfate 90 mcg/actuation 2 puff INHALATION Q4-6H PRN #8.5 g 06/26/21 aerosol inhaler (ProAir HFA) codeine 10 mg-guaifenesin 100 mg/5 10 ml PO Q6-8H PRN #237 ml 06/26/21 mL oral liquid dexamethasone 6 mg tablet 6 mg PO DAILY #7 tab 06/26/21 (Decadron) Allergies Allergy/AdvReac Type Severity Reaction Status Date / Time penicillin V Allergy Intermediate rash, hives Verified 06/25/21 22:49 acetaminophen [Percocet] AdvReac Intermediate vomitting Verified 06/25/21 22:49 lisinopril AdvReac Intermediate angioedema Verified 06/25/21 22:49 oxycodone [From PERCOCET] AdvReac Intermediate STOMACH Verified 06/25/21 22:49 UPSET statins AdvReac Intermediate myalgia Uncoded 05/21/21 10:10 Review of Systems Review of Systems: Yes all other systems are reviewed and are negative [facility] Past Medical History Medical History B12 deficiency Bicytopenia Daytime sleepiness Diabetes mellitus Diabetes type 2, uncontrolled Diabetic polyneuropathy associated with type 2 diabetes mellitus Dyslipidemia Hypothyroid terminal supervisor (current) use of insulin Right shoulder pain Stable proliferative diabetic retinopathy Vitamin D deficiency Surgical History History of cardiac catheterization History of cataract surgery History of colonoscopy Family History Family History Father Hypertension Mother Diabetes Anemia Hypothyroidism Family/Other Prostate cancer Hypertension Diabetes Brother Prostate cancer Daughter Hypothyroidism Social History Social History Household Members: None Housing: Apartment Alcohol intake: former Patient Tobacco Use Status: Former Tobacco user Tobacco use type: Cigarette e-Cigarette/Vaping Use: Never Used Second Hand Smoke Exposure: No Advance Directives: No service: No Current occupational status: disabled Physical Exam Vital Signs: Vital Signs: Last Vital Signs Temp 98.4 F 06/25/21 22:56 Pulse 98 06/25/21 22:56 Resp 22 H 06/25/21 22:56 BP 119/66 06/25/21 22:56 Pulse Ox 92 06/25/21 22:56 BMI result Body Mass Index 23.5 Appearance: Alert. Oriented X3. No acute distress. Eyes: No pallor or icterus ENT: Pharynx normal. Oral Mucosa moist Neck: Normal inspection. Neck supple. CVS: Normal heart rate and rhythm. Pulses normal. Respiratory: No respiratory distress. Equal air entry bilateral, no wheezing/rales/rhonchi prolonged expiration Abdomen: Soft and nontender. Bowel sounds are present, no mass palpable, no CVA tenderness Skin: Skin warm and dry. Normal skin color. Normal skin turgor. Extremities: No lower extremity edema. No calf tenderness Neuro: Oriented X 3. No motor deficit. MDM - SOB/Dyspnea MDM Narrative Medical decision making narrative: Patient COVID-19 positive 11 days of the sickness with No infiltrate in the chest x-ray saturating 92% on room air no prior lung issues in the past. Will discharge patient home on Decadron advised to take albuterol inhaler report to the ER if saturation less than 90% or feel increased shortness of breath Lab Data Attestation: I reviewed the patient's lab results. Labs: Lab Results 06/26/21 Range/Units 00:29 POC Glucose 227 H (60-115) mg/dL Imaging Data Chest x-ray: Radiologist's impression: [address] [address] XRay Report Signed Patient: Karan Werner MR#: [id number] : 1950 Acct:[id number] Age/Sex: 70 / M ADM Date: 06/25/21 Loc: .ED Attending Dr: Ordering Physician: Oscar Linder MD Date of Service: 06/25/21 Procedure(s): XR chest 1V Accession Number(s): [id number] cc: Oscar Linder MD~ EXAMINATION: XR CHEST CLINICAL INFORMATION: Dyspnea COMPARISON: 07/27/2018 TECHNIQUE: Frontal view of the chest was obtained. FINDINGS: Lung volumes are low. Bronchial wall thickening present. No dense consolidation or effusion. No pneumothorax. The cardiomediastinal silhouette is within normal limits. XR/XR chest 1V IMPRESSION: No consolidation. Bronchial wall thickening can be seen with a small airways process such as asthma or atypical/viral infection. Discharge Plan Discharge Clinical Impression: COVID-19 Patient Disposition: Home, Self-Care Instructions: COVID-19 (Coronavirus Disease 2019) (ED) Additional Instructions: Mantener el distanciamiento social [place] la medicaci?n seg?n lo prescrito [place] 1 tableta de repaglinida media hora antes de las comidas de 3 a 4 veces al d?a mientras wero Decadron para controlar el az?car en simon. Beber mucho l?quido Use el inhalador seg?n lo recomendado Notifique a la jesse de emergencias si la dificultad para respirar empeora Prescriptions: New dexamethasone [Decadron] 6 mg tablet 6 mg PO DAILY Qty: 7 RF: 0 codeine-guaifenesin 10-100 mg/5 mL liquid 10 ml PO Q6-8H PRN (Reason: cough) Qty: 237 RF: 0 albuterol sulfate [ProAir HFA] 90 mcg/actuation HFA aerosol inhaler 2 puff inhalation Q4-6H PRN (Reason: Wheezing) Qty: 8.5 RF: 0 No Action (DME) diabetic shoes with inserts 9 See Rx Instructions .Route .MEDSUPPLY Qty: 1 RF: 0 (DME) FreeStyle Lite Strips Strip See Rx Instructions .ROUTE .MEDSUPPLY Qty: 300 RF: 3 levothyroxine 125 mcg tablet 125 mcg PO QAM Qty: 90 RF: 2 losartan 50 mg tablet 50 mg PO DAILY Qty: 90 RF: 1 (DME) lancets [FreeStyle Lancets] 28 gauge misc See Rx Instructions .Route Qty: 100 RF: 11 cholecalciferol (vitamin D3) [Vitamin D3] 50 mcg (2,000 unit) tablet 50 mcg PO DAILY Qty: 90 RF: 1 amlodipine 2.5 mg tablet 2.5 mg PO DAILY Qty: 90 RF: 2 fluticasone propionate 50 mcg/actuation spray,suspension 1 spray intranasal DAILY 30 Days Qty: 16 RF: 5 aspirin 81 mg tablet,delayed release (DR/EC) 81 mg PO DAILY Qty: 90 RF: 3 Trulicity 3 mg/0.5 mL pen injector 3 mg subcut QWEEK 90 Days Qty: 6.5 RF: 1 repaglinide 2 mg tablet See Rx Instructions PO BID 90 Days Qty: 270 RF: 1 cyanocobalamin (vitamin B-12) 500 mcg tablet, sublingual 500 mcg sublingual DAILY 30 Days Qty: 30 RF: 6 Interventions: ED Discharge Assessment Last Done: 06/26/21 01:21 Print Language: Kinyarwanda
[2021-06-26 00:36] LABS: Glucose, Whole Blood 227 mg/dL (60-115)
[2021-06-26] MEDS: Albuterol Sulfate 90 MCG 8 GM INHALER 4 PUFF INHALE (01:02)
[2021-06-26] MEDS: Benzonatate 100 MG CAPSULE 200 MG PO (01:06)
[2021-06-26] MEDS: dexAMETHasone 6 MG TABLET PO (01:06)
== END 2021-06-26 01:22 | disposition home or self-care (01) ==
PROVIDERS: Emergency Provider Internal Medicine; PCP Internal Medicine
DX: U07.1 COVID-19 (principal); R06.02 Shortness of breath; R50.9 Fever, unspecified; Z87.891 Personal history of nicotine dependence; Z79.899 Other long term (current) drug therapy
CPT/HCPCS: 71045; 82947; 93005; 99283; 99284; J8540

== ENCOUNTER 2021-06-30 10:53 | Inpatient (IN) | payer MEDICARE, SELFPAY ==
--- NOTE | ~2021-06-30 | XR_ITS ---
EXAMINATION: XR CHEST CLINICAL INFORMATION: Hypoxia. COMPARISON: Chest radiograph dated from 06/26/2021. CTA of the chest dated from 06/30/2021. TECHNIQUE: AP view of the chest was obtained. FINDINGS: Stable appearance of the cardiomediastinal silhouette. Multifocal airspace opacities predominantly in the lung bases are increased when compared to the chest radiograph from 06/26/2021. Accurate comparison with the chest CTA from 06/30/2021 is limited given differences in technique. No pleural effusions or pneumothorax. No acute osseous abnormalities. XR/XR chest 1V IMPRESSION: Increased multifocal airspace opacities since 06/26/2021.
--- NOTE | ~2021-06-30 | CT_ITS ---
EXAMINATION: CT ANGIOGRAM OF THE CHEST WITH AND WITHOUT CONTRAST (CT PULMONARY ANGIOGRAM FOR PE) CLINICAL INFORMATION: Hypoxia. Recent COVID. COMPARISON: Chest x-ray of 06/26/2021, 07/27/2018, selected images of the abdomen and pelvic CT of 03/21/2013. TECHNIQUE: Prior to contrast administration, noncontrast localization images were obtained. Subsequently, multidetector volumetric imaging was performed from the thoracic inlet to below the diaphragms following the administration of 61 mL Omnipaque 350 intravenous contrast. No contrast reaction reported. Sagittal, coronal, and MIP oblique sagittal reformatted images were obtained on the CT workstation, uploaded to PACS, and reviewed. This CT examination was performed using dose optimization techniques as appropriate, variously including the following: *Automated exposure control *Adjustment of mA and/or kV according to patient size (this includes techniques or standardized protocols for targeted exams where dose is matched to indication/reason for exam; i.e. extremities or head) *Use of iterative reconstruction technique Total exam dose-length product 283 mGy-cm FINDINGS: QUALITY OF STUDY/CONTRAST BOLUS: Satisfactory. PULMONARY ARTERIES: Filling defects are noted in the right upper lobe segmental and subsegmental branches, right middle lobe segmental and subsegmental branches as well as a few of the left upper lobe segmental and subsegmental pulmonary arteries. No evidence of pulmonary emboli in the main pulmonary arteries. THORACIC AORTA: No aneurysm or dissection. Mild calcific atherosclerosis of the aorta. LUNG: Scattered bilateral peripheral ground-glass opacities are noted, in the mid and lower lung zones, greater in the bilateral lower lobes. PLEURA: No evidence of pleural effusion. Question artifact versus trace left apical pneumothorax anteriorly. MEDIASTINUM: Normal heart size. No pericardial effusion. There is no hilar adenopathy. Subcarinal lymph node is noted measuring 1.5 cm in short axis. No evidence of septal bowing or right heart strain. There is mild pneumomediastinum extending up to the thoracic inlet. CHEST WALL/AXILLA: No axillary or internal mammary lymphadenopathy. OSSEOUS STRUCTURES: No acute or suspicious osseous abnormality. Multilevel mild degenerative changes in the spine. UPPER ABDOMEN: Unremarkable. No reflux of contrast into the hepatic veins to suggest elevated right heart pressures. CT/CT angio chest PE protocol IMPRESSION: 1. [id number] burden pulmonary emboli. 2. Ground-glass opacities in the bilateral mid and lower lung zones, greater in the bilateral lower lobes. Commonly reported imaging features of COVID-19 pneumonia are present. Other processes such as influenza pneumonia and organizing pneumonia, as can be seen with drug toxicity and connective tissue disease, can cause a similar imaging pattern. 3. Small amount of pneumomediastinum. Question artifact versus trace left apical pneumothorax. 4. Prominent subcarinal lymph node. VTE: Positive This critical result was discussed with referring provider Makenzie Reid at 3:25 PM on 06/30/2021 and it was ascertained that the content and urgency of the report was understood at the time of direct communication.
--- NOTE | ~2021-06-30 | US_ITS ---
EXAMINATION: US VENOUS ULTRASOUND WITH DOPPLER LOWER EXTREMITY, BILATERAL CLINICAL INFORMATION: Pain. Covid positive. COMPARISON: None TECHNIQUE: Ultrasound of the deep veins is performed from the hip to the calf with compression sonography and color and pulse Doppler assessment. Spectral analysis with color-flow imaging is performed. FINDINGS: The common femoral, superficial femoral, profunda and popliteal veins are patent bilaterally. There is thrombus in the bilateral peroneal veins in the calves. The posterior tibial veins are patent. No Engel's cyst is seen. US/US venous duplex LE BI IMPRESSION: Bilateral calf DVT in the peroneal veins.
--- NOTE | 2021-06-30 11:00 | ECG_ITS ---
Test Reason : DYSPNEA Blood Pressure : / mmHG Vent. Rate : 088 BPM Atrial Rate : 088 BPM P-R Int : 120 ms QRS Dur : 112 ms QT Int : 394 ms P-R-T Axes : 062 022 031 degrees QTc Int : 476 ms Normal sinus rhythm Right bundle branch block Abnormal ECG When compared with ECG of 25-JUN-2021 23:03, No significant change was found Referred By: Makenzie Reid Electronically Signed By:Barry Long
[2021-06-30 11:01] VITALS: BP 132/64; PULSE 82; PULSE 90; RESP 20; TEMP 36.9; O2SAT 65; O2SAT 94; BMI 23.5
--- NOTE | 2021-06-30 11:25 | ED_ITS ---
HPI - SOB/Dyspnea General Chief Complaint: Dyspnea Stated Complaint: +COVID,SOB 60% RA, 98% 10L NRB PER EMS Time Seen by Provider: 06/30/21 10:58 Source: patient, EMS, old records reviewed and interpreter translator Mode of arrival: EMS Limitations: no limitations History of Present Illness MD elicited complaint: shortness of breath and cough Pertinent past history: other (dx with COVID 06/18 symptoms 06/17 has covid he is not vaccinated, started dexamethasone on 06/26 ) Onset (ago): day(s) (06/18) Context: recent illness (COVID +) Timing: progressively worsening Severity: severe Exacerbating factors: lying flat, exertion, movement and coughing Relieving factors: oxygen and rest Known history of: diabetes Associated symptoms: fever and cough Treatment prior to arrival: oxygen (10L with EMS found to be RA 65%) Related Data Home Medications Medication Instructions Recorded Confirmed levothyroxine 125 mcg tablet 125 mcg PO DAILY@0630 06/30/21 06/30/21 repaglinide 2 mg tablet 1 tab PO DAILY 06/30/21 06/30/21 repaglinide 2 mg tablet 2 tab PO DAILY@1700 06/30/21 06/30/21 Previous Rx's Medication Instructions Recorded cyanocobalamin (vitamin B-12) 500 500 mcg SUBLINGUAL DAILY 30 Days 09/06/20 mcg sublingual tablet #30 tab repaglinide 2 mg tablet See Rx Instructions PO BID 90 Days 12/20/20 #270 tab diabetic shoes with inserts #1 ea 01/21/21 blood sugar diagnostic (FreeStyle #300 ea 03/06/21 Lite Strips) losartan 50 mg tablet 50 mg PO DAILY #90 tab 03/25/21 lancets 28 gauge (FreeStyle #100 ea 05/05/21 Lancets) amlodipine 2.5 mg tablet 2.5 mg PO DAILY #90 tab 05/12/21 aspirin 81 mg tablet,delayed 81 mg PO DAILY #90 tab 05/12/21 release cholecalciferol (vitamin D3) 50 50 mcg PO DAILY #90 tab 05/12/21 mcg (2,000 unit) tablet (Vitamin D3) fluticasone propionate 50 1 spray INTRANASAL DAILY 30 Days 05/12/21 mcg/actuation nasal #16 g spray,suspension dulaglutide 3 mg/0.5 mL 3 mg (0.5 mL) SUBCUT QWEEK 90 Days 06/12/21 subcutaneous pen injector #6.5 ml (Trulicity) albuterol sulfate 90 mcg/actuation 2 puff INHALATION Q4-6H PRN #8.5 g 06/26/21 aerosol inhaler (ProAir HFA) codeine 10 mg-guaifenesin 100 mg/5 10 ml PO Q6-8H PRN #237 ml 06/26/21 mL oral liquid dexamethasone 6 mg tablet 6 mg PO DAILY #7 tab 06/26/21 (Decadron) Allergies Allergy/AdvReac Type Severity Reaction Status Date / Time penicillin V Allergy Intermediate rash, hives Verified 06/25/21 22:49 acetaminophen [Percocet] AdvReac Intermediate vomitting Verified 06/25/21 22:49 lisinopril AdvReac Intermediate angioedema Verified 06/25/21 22:49 oxycodone [From PERCOCET] AdvReac Intermediate STOMACH Verified 06/25/21 22:49 UPSET statins AdvReac Intermediate myalgia Uncoded 05/21/21 10:10 Review of Systems Review of Systems: Constitutional : No Fever, pos Chills, pos malaise, pos anorexia, ENT/Mouth : No sore throat, No Rhinorrhea, No Swallowing Difficulty Eyes: No Eye Pain, No Swelling, No Redness Cardiovascular : No Chest Pain, positive SOB, No Orthopnea, noEdema Respiratory :pos Cough, No Sputum, No Wheezing, positive dyspnea Gastrointestinal : No Nausea, No Vomiting, No Diarrhea, No abdominal Pain, No Hematochezia, No Melena Genitourinary : No Dysuria, No Urinary Frequency, No Hematuria Musculoskeletal : No joint pain, No Myalgias Skin : No Skin Lesions, No rash Neuro : pos Weakness, No Numbness, No Dizziness, No Headache Psych : No Anxiety/Panic, No Depression Heme/Lymph: No Bruising, No Lymphadenopathy Endocrine : No Polyuria, No Polydipsia All other systems reviewed and are negative [facility] Past Medical History Attestation statement: The following information was validated with the patient. 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 Right shoulder pain Stable proliferative diabetic retinopathy Vitamin D deficiency Surgical History History of cardiac catheterization History of cataract surgery History of colonoscopy Family History Family History Father Hypertension Mother Diabetes Anemia Hypothyroidism Family/Other Prostate cancer Hypertension Diabetes Brother Prostate cancer Daughter Hypothyroidism Social History Social History Household Members: None Housing: Apartment Alcohol intake: former Patient Tobacco Use Status: Former Tobacco user Tobacco use type: Cigarette e-Cigarette/Vaping Use: Never Used Second Hand Smoke Exposure: No Use of substances other than those prescribed or required for medical reasons: No Advance Directives: No Advance Directives Information Provided: No service: No Current occupational status: disabled Physical Exam Vital Signs: Vital Signs: Last Vital Signs Temp 98.5 F 06/30/21 11:01 Pulse 75 06/30/21 14:43 Resp 20 06/30/21 14:43 BP 137/66 06/30/21 14:43 Pulse Ox 96 06/30/21 14:43 Oxygen Flow Rate 15 06/30/21 11:01 BMI result Body Mass Index 23.5 Appearance: Alert. Oriented X3. Mild acute distress. Eyes: Pupils equal, round and reactive to light. ENT: Pharynx dry MM Neck: Normal inspection. Neck supple. CVS: Normal heart rate and rhythm. Pulses normal. Respiratory: No respiratory distress appears comfortable on NRB. Breath sounds very diminished in the bases, poor inspiratory effort 98% on NRB on arrival Abdomen: Soft and non-tender. Skin: Skin warm and dry. Normal skin color. Normal skin turgor. Extremities: No lower extremity edema. Neuro: Oriented X 3. No motor deficit. No sensory deficit. Course Course Course Narrative: no WBC count, procalcitonin negative, doing better on high flow RR 20, CTA lungs consistent with COVID pneumonia, antibiotics held as this is viral infection at this time labs do not suggest superimposed bacterial infection doing well on high flow - hospitalist and golf ball marker aware of pneumomediastinum started on lovenox if L PTX - trace at best , repeat images in AM MDM - SOB/Dyspnea MDM Narrative Medical decision making narrative: 70 yo male with DM, hypothyroidism, HTN, HLD, unvaccinated symptoms started 06/17 - dx 06/18 seen here on 06/25 started on dexamethasone 06/26 he comes in with c/o increased shortness of breath, weakness EMS found him 65% on RA he denies prior issues with his lungs. Completed steroid course up to 80s on 10L. In ED up to 90s on NRB - at this time labs, IV dexamethasone, CTA for PE, EKG, COVID labs, planned admit - patient to be started on high flow O2 Lab Data Result diagrams: 06/30/21 11:33 06/30/21 12:29 Labs: Lab Results 06/30/21 06/30/21 06/30/21 Range/Units 11:32 11:32 11:32 WBC (4.8-10.8) X10*3/uL RBC (4.60-5.80) X10*6/uL Hgb (14.0-18.0) g/dl Hct (42.0-52.0) % MCV (80.0-98.0) fL MCH (27.0-33.0) pg MCHC (31.0-36.0) g/dl RDW (11.0-16.0) % Plt Count (160-400) X10*3/uL MPV (9.4-12.4) fL Immature Gran % (Auto) (0.0-0.4) % Neut % (Auto) (45-73) % Lymph % (Auto) (20-40) % [place] % (Auto) (2-11) % Eos % (Auto) (0-4) % Baso % (Auto) (0-2) % Lymph # (Auto) (1.2-4.9) X10*3/uL [place] # (Auto) (0.1-1.2) X10*3/uL Eos # (Auto) (0.0-0.4) X10*3/uL Baso # (Auto) (0.0-0.2) X10*3/uL Abs Immat Gran (auto) (0.00-0.03) X10*3/uL Absolute Neuts (auto) (2.0-8.3) x10*3/uL Absolute Nucleated RBC (0.0-0.012) X10*3/uL Nucleated RBC % (auto) (0.0-0.2) /100WBC Smear Tech's Comments PT 13.1 H (9.9-13.0) SEC INR 1.2 H (0.9-1.1) APTT 25.1 (24.1-38.0) SEC D-Dimer High Sensitivty 8751 NG/ML VBG pH (7.32-7.43) VBG pCO2 mmHg VBG pO2 mmHg VBG HCO3 (22-26) mmol/L VBG O2 Saturation % VBG Base Excess mmol/L Sodium (135-145) mmol/L Potassium (3.3-5.1) mmol/L Chloride (96-108) mmol/L Carbon Dioxide (22-29) mmol/L Anion Gap (12-20) BUN (9-16) mg/dL Creatinine (0.5-1.4) mg/dL Estim Creat Clear Calc Estimated GFR Random Glucose (60-115) mg/dL Lactic Acid (0.5-2.0) mmol/L Calcium (8.4-10.2) mg/dL Magnesium (1.6-2.6) mg/dL Ferritin (20-250) ng/mL Total Bilirubin (0.0-1.0) mg/dL Direct Bilirubin (0.0-0.5) mg/dL AST (5-37) U/L ALT (0-40) U/L Alkaline Phosphatase (39-117) U/L Lactate Dehydrogenase (118-273) U/L Total Creatine Kinase (38-174) U/L Troponin I High Sens 29.0 (<3.5-35.0) ng/L C-Reactive Protein (< or = 0.50) mg/dL B-Natriuretic Peptide < 10 (<100) pg/mL Total Protein (6.5-8.0) g/dL Albumin (3.5-5.0) g/dL Lipase (8-78) U/L Procalcitonin ng/mL COVID-19 (NANI) (Negative) COVID-19 Clin Com 06/30/21 06/30/21 06/30/21 Range/Units 11:33 11:33 11:38 WBC 6.9 (4.8-10.8) X10*3/uL RBC 5.34 (4.60-5.80) X10*6/uL Hgb 15.2 (14.0-18.0) g/dl Hct 44.4 (42.0-52.0) % MCV 83.1 (80.0-98.0) fL MCH 28.5 (27.0-33.0) pg MCHC 34.2 (31.0-36.0) g/dl RDW 11.7 (11.0-16.0) % Plt Count 194 D (160-400) X10*3/uL MPV 9.5 (9.4-12.4) fL Immature Gran % (Auto) 0.6 H (0.0-0.4) % Neut % (Auto) 88.2 H (45-73) % Lymph % (Auto) 7.4 L (20-40) % [place] % (Auto) 3.8 (2-11) % Eos % (Auto) 0.0 (0-4) % Baso % (Auto) 0.0 (0-2) % Lymph # (Auto) 0.5 L (1.2-4.9) X10*3/uL [place] # (Auto) 0.3 (0.1-1.2) X10*3/uL Eos # (Auto) 0.0 (0.0-0.4) X10*3/uL Baso # (Auto) 0.0 (0.0-0.2) X10*3/uL Abs Immat Gran (auto) 0.04 H (0.00-0.03) X10*3/uL Absolute Neuts (auto) 6.0 (2.0-8.3) x10*3/uL Absolute Nucleated RBC 0.000 (0.0-0.012) X10*3/uL Nucleated RBC % (auto) 0.0 (0.0-0.2) /100WBC Smear Tech's Comments VERIFIED PT (9.9-13.0) SEC INR (0.9-1.1) APTT (24.1-38.0) SEC D-Dimer High Sensitivty NG/ML VBG pH 7.41 (7.32-7.43) VBG pCO2 41 mmHg VBG pO2 39 mmHg VBG HCO3 26 (22-26) mmol/L VBG O2 Saturation 59.0 % VBG Base Excess 2.0 mmol/L Sodium (135-145) mmol/L Potassium (3.3-5.1) mmol/L Chloride (96-108) mmol/L Carbon Dioxide (22-29) mmol/L Anion Gap (12-20) BUN (9-16) mg/dL Creatinine (0.5-1.4) mg/dL Estim Creat Clear Calc Estimated GFR Random Glucose (60-115) mg/dL Lactic Acid 1.8 (0.5-2.0) mmol/L Calcium (8.4-10.2) mg/dL Magnesium (1.6-2.6) mg/dL Ferritin (20-250) ng/mL Total Bilirubin (0.0-1.0) mg/dL Direct Bilirubin (0.0-0.5) mg/dL AST (5-37) U/L ALT (0-40) U/L Alkaline Phosphatase (39-117) U/L Lactate Dehydrogenase (118-273) U/L Total Creatine Kinase (38-174) U/L Troponin I High Sens (<3.5-35.0) ng/L C-Reactive Protein (< or = 0.50) mg/dL B-Natriuretic Peptide (<100) pg/mL Total Protein (6.5-8.0) g/dL Albumin (3.5-5.0) g/dL Lipase (8-78) U/L Procalcitonin ng/mL COVID-19 (NANI) (Negative) COVID-19 Clin Com 06/30/21 06/30/21 06/30/21 Range/Units 11:48 12:29 12:29 WBC (4.8-10.8) X10*3/uL RBC (4.60-5.80) X10*6/uL Hgb (14.0-18.0) g/dl Hct (42.0-52.0) % MCV (80.0-98.0) fL MCH (27.0-33.0) pg MCHC (31.0-36.0) g/dl RDW (11.0-16.0) % Plt Count (160-400) X10*3/uL MPV (9.4-12.4) fL Immature Gran % (Auto) (0.0-0.4) % Neut % (Auto) (45-73) % Lymph % (Auto) (20-40) % [place] % (Auto) (2-11) % Eos % (Auto) (0-4) % Baso % (Auto) (0-2) % Lymph # (Auto) (1.2-4.9) X10*3/uL [place] # (Auto) (0.1-1.2) X10*3/uL Eos # (Auto) (0.0-0.4) X10*3/uL Baso # (Auto) (0.0-0.2) X10*3/uL Abs Immat Gran (auto) (0.00-0.03) X10*3/uL Absolute Neuts (auto) (2.0-8.3) x10*3/uL Absolute Nucleated RBC (0.0-0.012) X10*3/uL Nucleated RBC % (auto) (0.0-0.2) /100WBC Smear Tech's Comments PT (9.9-13.0) SEC INR (0.9-1.1) APTT (24.1-38.0) SEC D-Dimer High Sensitivty NG/ML VBG pH (7.32-7.43) VBG pCO2 mmHg VBG pO2 mmHg VBG HCO3 (22-26) mmol/L VBG O2 Saturation % VBG Base Excess mmol/L Sodium 132 L (135-145) mmol/L Potassium 4.6 (3.3-5.1) mmol/L Chloride 97 (96-108) mmol/L Carbon Dioxide 28 (22-29) mmol/L Anion Gap 12 (12-20) BUN 18 H (9-16) mg/dL Creatinine 0.92 (0.5-1.4) mg/dL Estim Creat Clear Calc 67.8 Estimated GFR > 60 Random Glucose 250 H (60-115) mg/dL Lactic Acid (0.5-2.0) mmol/L Calcium 8.6 (8.4-10.2) mg/dL Magnesium 2.1 (1.6-2.6) mg/dL Ferritin 1231 H (20-250) ng/mL Total Bilirubin 0.9 (0.0-1.0) mg/dL Direct Bilirubin 0.4 (0.0-0.5) mg/dL AST 38 H D (5-37) U/L ALT 46 H (0-40) U/L Alkaline Phosphatase 65 (39-117) U/L Lactate Dehydrogenase 759 H (118-273) U/L Total Creatine Kinase 232 H (38-174) U/L Troponin I High Sens (<3.5-35.0) ng/L C-Reactive Protein 2.31 H (< or = 0.50) mg/dL B-Natriuretic Peptide (<100) pg/mL Total Protein 6.6 (6.5-8.0) g/dL Albumin 3.5 (3.5-5.0) g/dL Lipase 93 H (8-78) U/L Procalcitonin 0.05 ng/mL COVID-19 (NAIN) Positive A (Negative) COVID-19 Clin Com See Note ECG Data Attestation: I personally reviewed and interpreted this ECG as follows: ECG interpretation date: 06/30/21 ECG interpretation time: 11:26 Interpretation: Rate: 88 Rhythm: NSR [place]: normal Normal P waves. Normal EDITA. RBBB ST T wave : nonspecific, no NAYELY qTC: normal prior studies: no acute ischemia no change from Jun 25 2021 The study has been interpreted contemporaneously by me. . Critical Care Time Critical Care Time Critical Care Time: Yes Total Critical Care Time: 45 Attestation: review of records, high flow O2 for hypoxia, labs, CTA for PE I attest to this time spent taking care of the patient Discharge Plan Discharge Clinical Impression: COVID-19, Hypoxia, Pneumonia due to 2019 novel coronavirus, Pulmonary embolism, Pneumomediastinum Patient Disposition: Admitted As Inpatient
[2021-06-30] MEDS: dexAMETHasone sod phosphate 4 MG/ML VIAL 6 MG IVPUSH (11:36)
[2021-06-30 11:43] LABS: Hematocrit 44.4 % (42.0-52.0); Hemoglobin 15.2 g/dl (14.0-18.0); Imm Gran Abs Auto 0.04 X10*3/uL (0.00-0.03); Imm Gran Pct Auto 0.6 % (0.0-0.4); Lymphocytes Absolute Auto 0.5 X10*3/uL (1.2-4.9); Lymphocytes Percent Auto 7.4 % (20-40); MANUAL DIFF FLAG SCAN; Mean Corpuscular HGB Conc 34.2 g/dl (31.0-36.0); Mean Corpuscular Hemoglobin 28.5 pg (27.0-33.0); Mean Corpuscular Volume 83.1 fL (80.0-98.0); Mean Platelet Volume 9.5 fL (9.4-12.4); Monocytes Absolute Auto 0.3 X10*3/uL (0.1-1.2); Monocytes Percent Auto 3.8 % (2-11); Neutrophils Percent Auto 88.2 % (45-73); Platelet Count 194 X10*3/uL (160-400); Red Blood Count 5.34 X10*6/uL (4.60-5.80); Red Cell Distribution Width 11.7 % (11.0-16.0); SCAN SMEAR FLAG 1; White Blood Count 6.9 X10*3/uL (4.8-10.8)
[2021-06-30 11:43] LABS: Venous Blood Gas Refer to POC result
[2021-06-30 11:44] LABS: VBG HCO3 26 mmol/L (22-26); VBG pCO2 41 mmHg; VBG pH 7.41 (7.32-7.43); VBG pO2 39 mmHg
[2021-06-30 11:49] LABS: INTERNATIONAL NORM RATIO 1.2 (0.9-1.1); Prothrombin Time 13.1 SEC (9.9-13.0)
[2021-06-30 11:52] LABS: Partial Thromboplastin Time 25.1 SEC (24.1-38.0)
[2021-06-30 11:52] LABS: Lactic Acid 1.8 mmol/L (0.5-2.0)
[2021-06-30 12:00] LABS: D Dimer High Sensitivity 8751 NG/ML
[2021-06-30 12:02] LABS: B Type Natriuretic Peptide < 10 pg/mL (<100)
[2021-06-30 12:04] VITALS: PULSE 88; RESP 20; O2SAT 100
[2021-06-30 12:06] LABS: SLIDE REVIEW VERIFIED
[2021-06-30 12:17] LABS: COVID-19 Test Positive (Negative); IDNOW Serial# 08D9AD1C
[2021-06-30 12:58] LABS: Alanine Aminotransferase 46 U/L (0-40); Albumin Level 3.5 g/dL (3.5-5.0); Alkaline Phosphatase 65 U/L (39-117); Anion Gap 12 (12-20); Aspartate Amino Transferase 38 U/L (5-37); Bilirubin Direct 0.4 mg/dL (0.0-0.5); Bilirubin Total 0.9 mg/dL (0.0-1.0); Blood Urea Nitrogen 18 mg/dL (9-16); C Reactive Protein 2.31 mg/dL (< or = 0.50); Calcium 8.6 mg/dL (8.4-10.2); Carbon Dioxide 28 mmol/L (22-29); Chloride 97 mmol/L (96-108); Creatinine Clr Calc Pharmacy 67.8; Estimated Glomerular Filt Rate > 60; Glucose Random 250 mg/dL (60-115); Lipase 93 U/L (8-78); Magnesium 2.1 mg/dL (1.6-2.6); Potassium 4.6 mmol/L (3.3-5.1); Sodium 132 mmol/L (135-145); Total Protein 6.6 g/dL (6.5-8.0)
[2021-06-30 13:13] LABS: Procalcitonin 0.05 ng/mL
[2021-06-30 13:16] LABS: Ferritin 1231 ng/mL (20-250)
--- NOTE | 2021-06-30 13:27 | PHA.MEDREC ---
Addendum entered by Kiersten Campuzano [facility] 06/30/21 15:04: SPOKE WITH PATIENTS NIECE AND SHE CONFIRMED MEDICATIONS Original Note: Pharmacy Consult ? Medication Reconciliation Pharmacy has completed the medication reconciliation.
[2021-06-30 13:59] LABS: Lactate Dehydrogenase 759 U/L (118-273)
[2021-06-30] MEDS: iohexoL 350 MG/ML 100 ML INFUS..BTL IV (14:36)
[2021-06-30 14:43] VITALS: BP 137/66; PULSE 75; RESP 20; O2SAT 96
--- NOTE | 2021-06-30 14:44 | PC.NURSE ---
Pt to and from CT scan without incident, tolerated NRB for transport. Placed back on high flow, 45 l/min, sat 96%. Appear comfortable, breathing is unlabored,. Skin normal for ethnicity. nsr on tele
--- NOTE | 2021-06-30 15:10 | P.HPHOSP_ITS ---
History of Present Illness Date of Service: 06/30/21 Chief Complaint: Shortness of breath 70 year old male with diabetes and multiple other medical problems who is not yet vaccinated for covid 19 and tested positive for the virus on June 18, however was having symptoms for at least 2 days before that. He was seen in ED 2 days before [place] [facility] at that time was not hypoxic to be admitted. He comes back today hypoxic, persistent cough. He is put on high flow to maintain O2 and seems more comfortable with that. He has no fever, breathing at 20 and no tachycardia. CRP is 2.3, LDH 759, Ferritin 1231, Ddimer 8000+. CTA shows PE Review of Systems Review of Systems: Gen: no fever Resp: + sob, + cough CV: no chest, no GUERRERO, no leg edema GI: No n/v, no abd pain Neuro: No confusion Yes all other systems are reviewed and are negative [facility] Medical History B12 deficiency Bicytopenia Daytime sleepiness Diabetes mellitus Diabetes type 2, uncontrolled Diabetic polyneuropathy associated with type 2 diabetes mellitus Dyslipidemia Hypothyroid [facility] (current) use of insulin Right shoulder pain Stable proliferative diabetic retinopathy Vitamin D deficiency Family History Father Hypertension Mother Diabetes Anemia Hypothyroidism Family/Other Prostate cancer Hypertension Diabetes Brother Prostate cancer Daughter Hypothyroidism Surgical History History of cardiac catheterization History of cataract surgery History of colonoscopy Social History Household Members: None Housing: Apartment Alcohol intake: former Patient Tobacco Use Status: Former Tobacco user Tobacco use type: Cigarette e-Cigarette/Vaping Use: Never Used Second Hand Smoke Exposure: No Use of substances other than those prescribed or required for medical reasons: No Advance Directives: No Advance Directives Information Provided: No service: No Current occupational status: disabled Meds Allergies Allergy/AdvReac Type Severity Reaction Status Date / Time penicillin V Allergy Intermediate rash, hives Verified 06/25/21 22:49 acetaminophen [Percocet] AdvReac Intermediate vomitting Verified 06/25/21 22:49 lisinopril AdvReac Intermediate angioedema Verified 06/25/21 22:49 oxycodone [From PERCOCET] AdvReac Intermediate STOMACH Verified 06/25/21 22:49 UPSET statins AdvReac Intermediate myalgia Uncoded 05/21/21 10:10 Active Medications: Current Medications Pharmacy Consult (Consult Rx Perform Med Rec) 1 each MISCELLANE ONCE PRN PRN Reason: Consult order Home Medications Medication Instructions Recorded Confirmed Last Taken Type levothyroxine 125 mcg tablet 125 mcg PO DAILY@0630 06/30/21 06/30/21 Unknown History repaglinide 2 mg tablet 1 tab PO DAILY 06/30/21 06/30/21 Unknown History repaglinide 2 mg tablet 2 tab PO DAILY@1700 06/30/21 06/30/21 Unknown History Physical Exam Vital Signs and Narrative: Vital Signs: Last Vital Signs Temp 98.5 F 06/30/21 11:01 Pulse 75 06/30/21 14:43 Resp 20 06/30/21 14:43 BP 137/66 06/30/21 14:43 Pulse Ox 96 06/30/21 14:43 Oxygen Flow Rate 15 06/30/21 11:01 BMI result Body Mass Index 23.5 Results Labs CBC and Chem 7: 06/30/21 11:33 06/30/21 12:29 Labs: Laboratory Results - last 24 hr 06/30/21 06/30/21 06/30/21 11:32 11:32 11:32 MCV MCH MCHC RDW Plt Count MPV Immature Gran % (Auto) Neut % (Auto) Lymph % (Auto) [place] % (Auto) Eos % (Auto) Baso % (Auto) Lymph # (Auto) [place] # (Auto) Eos # (Auto) Baso # (Auto) Abs Immat Gran (auto) Absolute Neuts (auto) Absolute Nucleated RBC Nucleated RBC % (auto) Smear Tech's Comments PT 13.1 H INR 1.2 H APTT 25.1 D-Dimer High Sensitivty 8751 VBG pH VBG pCO2 VBG pO2 VBG HCO3 VBG O2 Saturation VBG Base Excess Anion Gap Estim Creat Clear Calc Estimated GFR Random Glucose Lactic Acid Calcium Magnesium Ferritin Total Bilirubin Direct Bilirubin AST ALT Alkaline Phosphatase Lactate Dehydrogenase Total Creatine Kinase Troponin I High Sens 29.0 C-Reactive Protein B-Natriuretic Peptide < 10 Total Protein Albumin Lipase Procalcitonin COVID-19 (NANI) COVID-19 Clin Com 06/30/21 06/30/21 06/30/21 11:33 11:33 11:38 MCV 83.1 MCH 28.5 MCHC 34.2 RDW 11.7 Plt Count 194 D MPV 9.5 Immature Gran % (Auto) 0.6 H Neut % (Auto) 88.2 H Lymph % (Auto) 7.4 L [place] % (Auto) 3.8 Eos % (Auto) 0.0 Baso % (Auto) 0.0 Lymph # (Auto) 0.5 L [place] # (Auto) 0.3 Eos # (Auto) 0.0 Baso # (Auto) 0.0 Abs Immat Gran (auto) 0.04 H Absolute Neuts (auto) 6.0 Absolute Nucleated RBC 0.000 Nucleated RBC % (auto) 0.0 Smear Tech's Comments VERIFIED PT INR APTT D-Dimer High Sensitivty VBG pH 7.41 VBG pCO2 41 VBG pO2 39 VBG HCO3 26 VBG O2 Saturation 59.0 VBG Base Excess 2.0 Anion Gap Estim Creat Clear Calc Estimated GFR Random Glucose Lactic Acid 1.8 Calcium Magnesium Ferritin Total Bilirubin Direct Bilirubin AST ALT Alkaline Phosphatase Lactate Dehydrogenase Total Creatine Kinase Troponin I High Sens C-Reactive Protein B-Natriuretic Peptide Total Protein Albumin Lipase Procalcitonin COVID-19 (NANI) COVID-19 Clin Com 06/30/21 06/30/21 06/30/21 11:48 12:29 12:29 MCV MCH MCHC RDW Plt Count MPV Immature Gran % (Auto) Neut % (Auto) Lymph % (Auto) [place] % (Auto) Eos % (Auto) Baso % (Auto) Lymph # (Auto) [place] # (Auto) Eos # (Auto) Baso # (Auto) Abs Immat Gran (auto) Absolute Neuts (auto) Absolute Nucleated RBC Nucleated RBC % (auto) Smear Tech's Comments PT INR APTT D-Dimer High Sensitivty VBG pH VBG pCO2 VBG pO2 VBG HCO3 VBG O2 Saturation VBG Base Excess Anion Gap 12 Estim Creat Clear Calc 67.8 Estimated GFR > 60 Random Glucose 250 H Lactic Acid Calcium 8.6 Magnesium 2.1 Ferritin 1231 H Total Bilirubin 0.9 Direct Bilirubin 0.4 AST 38 H D ALT 46 H Alkaline Phosphatase 65 Lactate Dehydrogenase 759 H Total Creatine Kinase 232 H Troponin I High Sens C-Reactive Protein 2.31 H B-Natriuretic Peptide Total Protein 6.6 Albumin 3.5 Lipase 93 H Procalcitonin 0.05 COVID-19 (NANI) Positive A COVID-19 Clin Com See Note Assessment and Plan (1) COVID-19: Status: Acute (2) Hypoxia: Status: Acute (3) Pneumonia due to 2019 novel coronavirus: Status: Acute (4) Diabetes mellitus: Status: Acute 70/ male with DM, and multiple other comorbidity, not yet vaccinated against covid vaccine and here with acute hypoxic respiratory failure due to covid--symptoms since 06/15 and tested postive 06/18, CTA shows PE #Acute hypoxic respriatory failure due to covid 19 #covid 19 PNA -Out of time frame for Remdesevir -Will ask ID or pulmonary for Baritinib' #Pulmonary emboli--started on Lovenox Diabetes--on dulaglutide and rpglinide--not on formulary, start sliding scale and if needed start Lantus HTN--continue home meds of Losartan, and amlodipine Hypothyroidism--levothyroxine B12 def--B12 replcement DVT prophylaxis;--Levenox Quality Stroke Does the patient have a stroke diagnosis?: No VTE Prior VTE?: No VTE Risk Level:: Medical - moderate - high VTE Device Contraindication: N/A - Device Ordered VTE Drug Contraindication: N/A - Med Ordered
--- NOTE | 2021-06-30 16:11 | P.CONPL_ITS ---
History of Present Illness History of Present Illness Consult date: 06/30/21 Requesting physician: Makenzie Reid Chief complaint: covid pna,hypoxia Narrative: 70-year-old gentleman, nonsmoker, COVID-19 positive on 06/18/2021, symptomatic on 06/16/2021 admitted on 06/30/2021 with progressive dyspnea and hypoxemia requiring high-flow oxygen support. On ER evaluation patient has had CT angiogram of his chest performed demonstrated pulmonary emboli and pneumomed iastinum. Pulmonary evaluation has been requested. Patient complains of shortness of breath and mild cough. Review of Systems Constitutional: Constitutional: Denies daytime sleepiness, Denies excessive sweating, Denies fatigue, Denies fever(s), Denies lethargy, Denies malaise, Denies night sweats, Denies snoring and Denies weight loss Eyes: Eyes: Denies blurry vision and Denies itchy eyes ENT: Denies nasal congestion, Denies post nasal drip, Denies sinus pain, Denies sinus pressure and Denies other ( Thrush) Cardiovascular: Cardiovascular: Denies chest pain, Denies pedal edema, Reports dyspnea, Denies orthopnea and Denies paroxysmal nocturnal dyspnea Respiratory: Respiratory: Reports cough, Denies hemoptysis, Denies excessive phlegm production, Reports dyspnea, Denies snoring and Denies wheezing Gastrointestinal: Gastrointestinal: Denies abdominal pain and Denies heartburn Musculoskeletal: Musculoskeletal: Denies myalgias, Denies arthralgias and Denies joint swelling Integumentary/Breasts: Skin/Breast: Denies rash Neurologic: Denies memory loss and Denies seizure-like activity Psychiatric: Psychiatric: Denies abnormal sleep pattern, Denies anxiety and Denies memory loss Endocrine: Endocrine: Denies excessive sweating, Denies fatigue and Denies heat intolerance Hematologic/Lymphatic: Hematologic/Lymphatic: Denies easy bruising Allergic/Immunologic: Allergic/Immunologic: Denies itchy eyes, Denies seasonal rhinorrhea and Denies wheezing PMFSH Past Medical History Medical History B12 deficiency Bicytopenia Daytime sleepiness Diabetes mellitus Diabetes type 2, uncontrolled Diabetic polyneuropathy associated with type 2 diabetes mellitus Dyslipidemia Hypothyroid meterman (current) use of insulin Right shoulder pain Stable proliferative diabetic retinopathy Vitamin D deficiency Family History Family History Father Hypertension Mother Diabetes Anemia Hypothyroidism Family/Other Prostate cancer Hypertension Diabetes Brother Prostate cancer Daughter Hypothyroidism Surgical History Surgical History History of cardiac catheterization History of cataract surgery History of colonoscopy Social History Social History Household Members: None Housing: Apartment Alcohol intake: former Patient Tobacco Use Status: Former Tobacco user Tobacco use type: Cigarette e-Cigarette/Vaping Use: Never Used Second Hand Smoke Exposure: No Use of substances other than those prescribed or required for medical reasons: No Advance Directives: No Advance Directives Information Provided: No service: No Current occupational status: disabled Meds Allergies Allergy/AdvReac Type Severity Reaction Status Date / Time penicillin V Allergy Intermediate rash, hives Verified 06/25/21 22:49 acetaminophen [Percocet] AdvReac Intermediate vomitting Verified 06/25/21 22:49 lisinopril AdvReac Intermediate angioedema Verified 06/25/21 22:49 oxycodone [From PERCOCET] AdvReac Intermediate STOMACH Verified 06/25/21 22:49 UPSET statins AdvReac Intermediate myalgia Uncoded 05/21/21 10:10 Active Medications: Current Medications Acetaminophen (Acetaminophen 325 Mg Tablet) 650 mg PO Q6H PRN PRN Reason: Pain, Mild (Pain Scale 1-3) Docusate Sodium (Docusate Sodium 100 Mg Capsule) 100 mg PO BID [facility] Enoxaparin Sodium (Enoxaparin Sodium 80 Mg/0.8 Ml Syringe) 70 mg SUBCUT Q12H [facility] Insulin Human Lispro (Insulin Lispro 100 Unit/Ml 3 Ml Vial) 0 unit SUBCUT QIDACHS [facility]; Protocol Magnesium Hydroxide (Milk Of Magnesia 30 Ml Oral.Susp) 30 ml PO DAILY PRN PRN Reason: Constipation Morphine Sulfate (Morphine Sulfate 4 Mg/Ml Cartridge) 2 mg IVPUSH Q6H PRN; Protocol PRN Reason: respiratory distress Ondansetron HCl (Ondansetron Hcl 4 Mg/2 Ml Vial) 4 mg IVPUSH Q8H PRN PRN Reason: Nausea and Vomiting Pharmacy Consult (Consult Rx Perform Med Rec) 1 each MISCELLANE ONCE PRN PRN Reason: Consult order Sodium Chloride (0.9 % Sodium Chloride Flush 3 Ml Syringe) 3 ml IVFLUSH QSHIFT [facility] Home Medications Medication Instructions Recorded Confirmed Last Taken Type levothyroxine 125 mcg tablet 125 mcg PO DAILY@0630 06/30/21 06/30/21 Unknown History repaglinide 2 mg tablet 1 tab PO DAILY 06/30/21 06/30/21 Unknown History repaglinide 2 mg tablet 2 tab PO DAILY@1700 06/30/21 06/30/21 Unknown History Physical Exam Vital Signs: Vital Signs: Last Vital Signs Temp 98.5 F 06/30/21 11:01 Pulse 75 06/30/21 14:43 Resp 20 06/30/21 14:43 BP 137/66 06/30/21 14:43 Pulse Ox 96 06/30/21 14:43 Oxygen Flow Rate 15 06/30/21 11:01 BMI result Body Mass Index 23.5 Const: General: no acute distress, alert and awake Eyes: Sclerae: sclerae normal EOM: EOMs intact bilaterally Neck: Neck: Yes no lymphadenopathy, Yes trachea midline and Yes supple Resp: Effort & Inspection: normal respiratory effort and no respiratory distress Auscultation: crackles ( Diffuse bilateral) Cardio: Rate: regular rate Rhythm: regular rhythm Heart sounds: no gallops, no murmurs and no rubs GI: Palpation (GI): Soft to palpation and Other GI palpation findings present ( Nontender) Auscultation: normal bowel sounds Extrem: General: Yes no pedal edema, No clubbing and No cyanosis Results Laboratory Findings CBC and BMP: 06/30/21 11:33 06/30/21 12:29 ABG, PT/INR, D-dimer: PT/INR, D-dimer PT 13.1 SEC (9.9-13.0) H 06/30/21 11:32 INR 1.2 (0.9-1.1) H 06/30/21 11:32 Abnormal lab findings: Abnormal Labs 06/30/21 06/30/21 06/30/21 11:32 11:33 11:48 Immature Gran % (Auto) 0.6 H Neut % (Auto) 88.2 H Lymph % (Auto) 7.4 L Lymph # (Auto) 0.5 L Abs Immat Gran (auto) 0.04 H PT 13.1 H INR 1.2 H Sodium BUN Random Glucose Ferritin AST ALT Lactate Dehydrogenase Total Creatine Kinase C-Reactive Protein Lipase COVID-19 (NANI) Positive A 06/30/21 12:29 Immature Gran % (Auto) Neut % (Auto) Lymph % (Auto) Lymph # (Auto) Abs Immat Gran (auto) PT INR Sodium 132 L BUN 18 H Random Glucose 250 H Ferritin 1231 H AST 38 H D ALT 46 H Lactate Dehydrogenase 759 H Total Creatine Kinase 232 H C-Reactive Protein 2.31 H Lipase 93 H COVID-19 (NANI) Assessment and Plan (1) Acute respiratory distress syndrome (ARDS) due to COVID-19 virus: Status: Acute (2) Acute respiratory failure with hypoxia: Status: Acute (3) Pneumomediastinum: Status: Acute Impression: 70-year-old gentleman admitted with shortness of breath secondary to COVID-19 ARDS resulting in hypoxic respiratory failure requiring high-flow supplemental oxygen support, further complicated by pneumomediastinum. Recommendation: Agree with dexamethasone and baricitinib. Continue supplemental oxygen to maintain O2 saturation above 88%. Procedures Date of Service Date of Service: 06/30/21
[2021-06-30] MEDS: Enoxaparin Sodium 80 MG/0.8 ML SYRINGE 70 MG SUBCUT (17:52)
[2021-06-30] MEDS: 0.9 % Sodium Chloride Flush 3 ML SYRINGE IVFLUSH (17:53)
[2021-06-30 18:47] LABS: Glucose, Whole Blood 321 mg/dL (60-115)
[2021-06-30 19:23] VITALS: RESP 18
[2021-06-30] MEDS: Morphine Sulfate 4 MG/ML CARTRIDGE 2 MG IVPUSH (19:23)
--- NOTE | 2021-06-30 19:39 | PC.NURSE ---
Assumed care of pt, with materials recycler pt c/o pain all over . pt medicated as per emar for discomfort. pt remains on high chris with po of 96%, will continue to monitor pt.
[2021-06-30 20:16] VITALS: PULSE 73; RESP 19; O2SAT 96
[2021-06-30 22:24] LABS: Glucose, Whole Blood 260 mg/dL (60-115)
[2021-06-30] MEDS: Insulin Lispro 100 UNIT/ML 3 ML VIAL SUBCUT (22:27)
--- NOTE | 2021-06-30 22:29 | PC.NURSE ---
pt's bs 260 pt medicated as per emar.
[2021-06-30 23:21] VITALS: BP 128/64; PULSE 63; RESP 21; O2SAT 99
--- NOTE | 2021-06-30 23:44 | PC.NURSE ---
report to ADELINA Woodruff. Awaiting for respiratory for transport to floor.
[2021-07-01] VITALS (12 sets, daily range): BP systolic 115–133; BP diastolic 60–69; PULSE 63–80; RESP 16–20; TEMP 36.4–37.2; O2SAT 92–97; BMI 20.9
[2021-07-01] MEDS: Morphine Sulfate 4 MG/ML CARTRIDGE 2 MG IVPUSH (01:01)
--- NOTE | 2021-07-01 01:02 | PC.NURSE ---
pt medicated p/t transport to floor. Pt denies complaints at this time. Report given to ADELINA Stevens.
--- NOTE | 2021-07-01 04:00 | PC.NURSE ---
pt briefly desatted to 60's with good o2 pleth, while on HF 40L 50%. Pt sat up straight in bed, continued to be A+O x3. O2 sat increased back to low 90's. Respiratory called to the room. Increased o2 to 40L 55% HFNC. Pt tolerating o2 well. Other vitals are stable. Oxygen monitoring probe was intact and working during the time of desatting. MD notified. No new orders at this time.
[2021-07-01] MEDS: Enoxaparin Sodium 80 MG/0.8 ML SYRINGE 70 MG SUBCUT ×2 (04:16→17:17)
[2021-07-01 08:04] LABS: Glucose, Whole Blood 111 mg/dL (60-115)
[2021-07-01 08:27] LABS: Eosinophils Percent Auto 0.2 % (0-4); Hematocrit 44.7 % (42.0-52.0); Imm Gran Abs Auto 0.02 X10*3/uL (0.00-0.03); Imm Gran Pct Auto 0.4 % (0.0-0.4); Lymphocytes Absolute Auto 0.8 X10*3/uL (1.2-4.9); MANUAL DIFF FLAG SCAN; Mean Corpuscular HGB Conc 33.6 g/dl (31.0-36.0); Mean Corpuscular Hemoglobin 28.1 pg (27.0-33.0); Mean Corpuscular Volume 83.9 fL (80.0-98.0); Mean Platelet Volume 9.5 fL (9.4-12.4); Monocytes Absolute Auto 0.2 X10*3/uL (0.1-1.2); Monocytes Percent Auto 4.6 % (2-11); Neutrophils Absolute Auto 3.9 x10*3/uL (2.0-8.3); Neutrophils Percent Auto 78.8 % (45-73); Platelet Count 210 X10*3/uL (160-400); Red Blood Count 5.33 X10*6/uL (4.60-5.80); Red Cell Distribution Width 11.9 % (11.0-16.0); SCAN SMEAR FLAG 1
[2021-07-01 08:44] LABS: Anion Gap 10 (12-20); Blood Urea Nitrogen 22 mg/dL (9-16); Calcium 8.7 mg/dL (8.4-10.2); Carbon Dioxide 29 mmol/L (22-29); Chloride 102 mmol/L (96-108); Creatinine Clr Calc Pharmacy 67.2; Estimated Glomerular Filt Rate > 60; Glucose Random 106 mg/dL (60-115); Potassium 4.5 mmol/L (3.3-5.1); Sodium 136 mmol/L (135-145)
[2021-07-01 08:47] LABS: SLIDE REVIEW VERIFIED
[2021-07-01] MEDS: Docusate Sodium 100 MG CAPSULE PO (09:09)
[2021-07-01] MEDS: 0.9 % Sodium Chloride Flush 3 ML SYRINGE IVFLUSH ×2 (09:10→17:17)
--- NOTE | 2021-07-01 09:51 | MHC.CM.PN ---
IMM 07/01/21 Male 70 DX Covid+ Lives with Family. He is independent all functional mobility. DP home with family assist and transport.
[2021-07-01 11:16] LABS: Glucose, Whole Blood 319 mg/dL (60-115)
[2021-07-01] MEDS: Insulin Lispro 100 UNIT/ML 3 ML VIAL SUBCUT ×2 (11:56→17:17)
--- NOTE | 2021-07-01 14:17 | HO.PM.IMPN ---
Subjective Subjective Date of Service: 07/01/21 Interval History: Acute hypoxemic respiratory failure secondary to COVID pneumonia. Review of Systems Patient has short of breath but breathin comfortably otherwise without increase in the breathing work, cough dry no fever or chest pain or nausea or vomiting Physical Exam Vital Signs: Vital Signs: Last Vital Signs Temp 98.9 F 07/01/21 11:08 Pulse 69 07/01/21 11:08 Resp 20 07/01/21 11:40 BP 127/64 07/01/21 11:08 Pulse Ox 95 07/01/21 11:08 Oxygen Flow Rate 15 06/30/21 11:01 BMI result Body Mass Index 20.9 physical exam: Appearance: Alert.? Oriented X3.? not in distress.? Eyes: Pupils equal, round and reactive to light.? Sclera nonicteric.? ENT: Pharynx normal.? Moist mucous membranes. cvs: rrr, [id number] , no murmur res: fair air entry , slightly diminshed at bases, few rhonchii abd: no rebound or guarding ,nt, bs present. ext pulses present , no cyanosis ,Gait well balanced well coordinated. neuro: axo3 , nonfocal. Objective Data Active Medications Acetaminophen (Acetaminophen 325 Mg Tablet) 650 mg PO Q6H PRN PRN Reason: Pain, Mild (Pain Scale 1-3) Baricitinib (Baricitinib 2 Mg Tablet) 4 mg PO DAILY [facility] Stop: 07/14/21 16:26 Last Admin: 07/01/21 09:03 Dose: 4 mg Documented by: MARLINE Docusate Sodium (Docusate Sodium 100 Mg Capsule) 100 mg PO BID [facility] Last Admin: 07/01/21 09:09 Dose: 100 mg Documented by: MARLINE Enoxaparin Sodium (Enoxaparin Sodium 80 Mg/0.8 Ml Syringe) 70 mg SUBCUT Q12H [facility] Last Admin: 07/01/21 04:16 Dose: 70 mg Documented by: GLYNN Insulin Human Lispro (Insulin Lispro 100 Unit/Ml 3 Ml Vial) 0 unit SUBCUT QIDACHS [facility]; Protocol Last Admin: 07/01/21 11:56 Dose: 8 unit Documented by: MARLINE Magnesium Hydroxide (Milk Of Magnesia 30 Ml Oral.Susp) 30 ml PO DAILY PRN PRN Reason: Constipation Morphine Sulfate (Morphine Sulfate 4 Mg/Ml Cartridge) 2 mg IVPUSH Q6H PRN; Protocol PRN Reason: respiratory distress Last Admin: 07/01/21 01:01 Dose: 2 mg Documented by: YENI Ondansetron HCl (Ondansetron Hcl 4 Mg/2 Ml Vial) 4 mg IVPUSH Q8H PRN PRN Reason: Nausea and Vomiting Pharmacy Consult (Consult Rx Perform Med Rec) 1 each MISCELLANE ONCE PRN PRN Reason: Consult order Sodium Chloride (0.9 % Sodium Chloride Flush 3 Ml Syringe) 3 ml IVFLUSH QSHIFT [facility] Last Admin: 07/01/21 09:10 Dose: 3 ml Documented by: MARLINE Labs CBC & Chem 7: 07/01/21 08:05 07/01/21 08:05 Labs: Laboratory Results - last 24 hr 06/30/21 06/30/21 07/01/21 18:36 22:17 07:59 MCV MCH MCHC RDW Plt Count MPV Immature Gran % (Auto) Neut % (Auto) Lymph % (Auto) Knott % (Auto) Eos % (Auto) Baso % (Auto) Lymph # (Auto) Knott # (Auto) Eos # (Auto) Baso # (Auto) Abs Immat Gran (auto) Absolute Neuts (auto) Absolute Nucleated RBC Nucleated RBC % (auto) Smear Tech's Comments Anion Gap Estim Creat Clear Calc Estimated GFR POC Glucose 321 H 260 H 111 Random Glucose Calcium 07/01/21 07/01/21 07/01/21 08:05 08:05 11:10 MCV 83.9 MCH 28.1 MCHC 33.6 RDW 11.9 Plt Count 210 MPV 9.5 Immature Gran % (Auto) 0.4 Neut % (Auto) 78.8 H Lymph % (Auto) 16.0 L Knott % (Auto) 4.6 Eos % (Auto) 0.2 Baso % (Auto) 0.0 Lymph # (Auto) 0.8 L Knott # (Auto) 0.2 Eos # (Auto) 0.0 Baso # (Auto) 0.0 Abs Immat Gran (auto) 0.02 Absolute Neuts (auto) 3.9 Absolute Nucleated RBC 0.000 Nucleated RBC % (auto) 0.0 Smear Tech's Comments VERIFIED Anion Gap 10 L Estim Creat Clear Calc 67.2 Estimated GFR > 60 POC Glucose 319 H Random Glucose 106 D Calcium 8.7 Microbiology Microbiology Results: Microbiology 06/30/21 12:03 Blood Culture - Preliminary Blood - Venous No growth after 24 hours. 06/30/21 11:33 Blood Culture - Preliminary Blood - Venous No growth after 24 hours. Assessment and Plan (1) Acute respiratory failure with hypoxia: Status: Acute (2) COVID-19: Status: Acute Assessment and Plan: 70/ male with DM, and multiple other comorbidity, not yet vaccinated against covid vaccine and here with acute hypoxic respiratory failure due to covid--symptoms since 06/15 and tested postive 06/18, CTA shows PE 1.Acute hypoxic respriatory failure due to covid 19 #covid 19 PNA Out of time frame for Remdesevir onr Baritinib day2 2.Pulmonary emboli--started on Lovenox 3.Diabetes--fs flactuating from 100-300's: on dulaglutide and rpglinide--not on formulary, start sliding scale and if needed start Lantus Hba1c levels 4.HTN--continue home meds of Losartan, and amlodipine 5.Hypothyroidism--levothyroxine 6.B12 def--B12 replcement DVT prophylaxis;--Levenox Quality Stroke Does the patient have a stroke diagnosis?: No VTE Prior VTE?: No VTE Risk Level:: Medical - moderate - high VTE Device Contraindication: N/A - Device Ordered VTE Drug Contraindication: N/A - Med Ordered
[2021-07-01 15:06] LABS: Estimated Average Glucose 197 mg/dL; Hemoglobin A1c % 8.5 %
[2021-07-01 16:49] LABS: Glucose, Whole Blood 251 mg/dL (60-115)
[2021-07-01 20:37] LABS: Glucose, Whole Blood 108 mg/dL (60-115)
[2021-07-02] VITALS (8 sets, daily range): BP systolic 115–153; BP diastolic 60–69; PULSE 71–98; RESP 16–20; TEMP 36.7–37.4; O2SAT 89–95; BMI 20.9
[2021-07-02] MEDS: Enoxaparin Sodium 80 MG/0.8 ML SYRINGE 70 MG SUBCUT ×2 (02:29→17:39)
[2021-07-02] MEDS: 0.9 % Sodium Chloride Flush 3 ML SYRINGE IVFLUSH ×4 (02:30→22:05)
[2021-07-02 06:58] LABS: Anion Gap 11 (12-20); Blood Urea Nitrogen 23 mg/dL (9-16); C Reactive Protein 6.56 mg/dL (< or = 0.50); Calcium 8.6 mg/dL (8.4-10.2); Carbon Dioxide 28 mmol/L (22-29); Chloride 102 mmol/L (96-108); Creatinine Clr Calc Pharmacy 68.8; Estimated Glomerular Filt Rate > 60; Glucose Random 162 mg/dL (60-115); Lactate Dehydrogenase 675 U/L (118-273); Potassium 4.7 mmol/L (3.3-5.1); Sodium 136 mmol/L (135-145)
--- NOTE | 2021-07-02 07:28 | MHC.PIE ---
At start of shift patient oxygen down to 70's on 5 liters nasal cannula - Patient put on non rebreather with good affect. Patient oxygen upper 90's at rest - at 0230, put patient on villafana 15 liters - patient tolerated and oxygen low to mid 90's. Patient denies SOB - no distress noted.
[2021-07-02 07:30] LABS: Glucose, Whole Blood 206 mg/dL (60-115)
[2021-07-02] MEDS: Insulin Lispro 100 UNIT/ML 3 ML VIAL SUBCUT ×3 (07:55→22:05)
[2021-07-02] MEDS: Docusate Sodium 100 MG CAPSULE PO ×2 (07:56→22:05)
[2021-07-02 10:50] LABS: VBG Base Excess -6.2 mmol/L; VBG HCO3 13 mmol/L (22-26); VBG pCO2 16 mmHg; VBG pH 7.51 (7.32-7.43); VBG pO2 77 mmHg
[2021-07-02 10:51] LABS: Venous Blood Gas Refer to POC result
[2021-07-02 11:15] LABS: Glucose, Whole Blood 327 mg/dL (60-115)
--- NOTE | 2021-07-02 12:02 | MHC.CM.PN ---
Per ROUNDS discussion, Patient is not yet medically cleared for dc (10Lo2); Home is the goal for dc and CM will follow for possible need to adjust the dc plan.
--- NOTE | 2021-07-02 14:51 | HO.PM.IMPN ---
Subjective Subjective Date of Service: 07/02/21 Interval History: Acute hypoxemic respiratory failure secondary to COVID. Review of Systems Patient had worsening or shortness of breath last night but feeling comfortable this morning, oxygen demand is increased - 11 L now. This morning otherwise was talking in full sentences, no chest pain or abdominal pain or fever chills. Physical Exam Vital Signs: Vital Signs: Last Vital Signs Temp 98.7 F 07/02/21 11:17 Pulse 79 07/02/21 11:17 Resp 20 07/02/21 11:17 BP 126/62 07/02/21 11:17 Pulse Ox 95 07/02/21 11:17 Oxygen Flow Rate 15 06/30/21 11:01 BMI result Body Mass Index 20.9 ?Appearance: Alert.? Oriented X3.? not in distress.? Eyes: Pupils equal, round and reactive to light.? Sclera nonicteric.? ENT: Pharynx normal.? Moist mucous membranes. cvs: rrr, [id number] , no murmur res: fair air entry , slightly diminshed at bases few sacttered rhonchii abd: no rebound or guarding ,nt, bs present. ext pulses present , no cyanosis ,Gait well balanced well coordinated. neuro: axo3 , nonfocal. ? Objective Data Active Medications Acetaminophen (Acetaminophen 325 Mg Tablet) 650 mg PO Q6H PRN PRN Reason: Pain, Mild (Pain Scale 1-3) Baricitinib (Baricitinib 2 Mg Tablet) 4 mg PO DAILY [facility] Stop: 07/14/21 16:26 Last Admin: 07/02/21 07:55 Dose: 4 mg Documented by: CHERYLE Docusate Sodium (Docusate Sodium 100 Mg Capsule) 100 mg PO BID [facility] Last Admin: 07/02/21 07:56 Dose: 100 mg Documented by: CHERYLE Enoxaparin Sodium (Enoxaparin Sodium 80 Mg/0.8 Ml Syringe) 70 mg SUBCUT Q12H [facility] Last Admin: 07/02/21 02:29 Dose: 70 mg Documented by: CASH Insulin Human Lispro (Insulin Lispro 100 Unit/Ml 3 Ml Vial) 0 unit SUBCUT QIDACHS [facility]; Protocol Last Admin: 07/02/21 11:32 Dose: 8 unit Documented by: CHERYLE Magnesium Hydroxide (Milk Of Magnesia 30 Ml Oral.Susp) 30 ml PO DAILY PRN PRN Reason: Constipation Morphine Sulfate (Morphine Sulfate 4 Mg/Ml Cartridge) 2 mg IVPUSH Q6H PRN; Protocol PRN Reason: respiratory distress Last Admin: 07/01/21 01:01 Dose: 2 mg Documented by: YENI Ondansetron HCl (Ondansetron Hcl 4 Mg/2 Ml Vial) 4 mg IVPUSH Q8H PRN PRN Reason: Nausea and Vomiting Pharmacy Consult (Consult Rx Perform Med Rec) 1 each MISCELLANE ONCE PRN PRN Reason: Consult order Sodium Chloride (0.9 % Sodium Chloride Flush 3 Ml Syringe) 3 ml IVFLUSH QSHIFT [facility] Last Admin: 07/02/21 07:55 Dose: 3 ml Documented by: CHERYLE Labs CBC & Chem 7: 07/01/21 08:05 07/02/21 06:12 Labs: Laboratory Results - last 24 hr 07/01/21 07/01/21 07/01/21 08:05 16:45 20:32 VBG pH VBG pCO2 VBG pO2 VBG HCO3 VBG O2 Saturation VBG Base Excess Anion Gap Estim Creat Clear Calc Estimated GFR POC Glucose 251 H 108 Random Glucose Estimat Average Glucose 197 Hemoglobin A1c % 8.5 Calcium Lactate Dehydrogenase C-Reactive Protein 07/02/21 07/02/21 07/02/21 06:12 07:17 10:44 VBG pH 7.51 H VBG pCO2 16 VBG pO2 77 VBG HCO3 13 L VBG O2 Saturation 96.0 VBG Base Excess -6.2 Anion Gap 11 L Estim Creat Clear Calc 68.8 Estimated GFR > 60 POC Glucose 206 H Random Glucose 162 H D Estimat Average Glucose Hemoglobin A1c % Calcium 8.6 Lactate Dehydrogenase 675 H C-Reactive Protein 6.56 H 07/02/21 11:09 VBG pH VBG pCO2 VBG pO2 VBG HCO3 VBG O2 Saturation VBG Base Excess Anion Gap Estim Creat Clear Calc Estimated GFR POC Glucose 327 H Random Glucose Estimat Average Glucose Hemoglobin A1c % Calcium Lactate Dehydrogenase C-Reactive Protein Microbiology Microbiology Results: Microbiology 06/30/21 12:03 Blood Culture - Preliminary Blood - Venous No growth after 48 hours. 06/30/21 11:33 Blood Culture - Preliminary Blood - Venous No growth after 48 hours. Assessment and Plan (1) Acute respiratory failure with hypoxia: Status: Acute (2) Acute respiratory distress syndrome (ARDS) due to COVID-19 virus: Status: Acute (3) Diabetes mellitus: Status: Acute Assessment and Plan: 70/ male with DM, and multiple other comorbidity, not yet vaccinated against covid vaccine and here with acute hypoxic respiratory failure due to covid--symptoms since 06/15 and tested postive 06/18, CTA shows PE 1.Acute hypoxic respriatory failure due to covid 19 covid 19 PNA Out of time frame for Remdesevir onr Baritinib day3 2.Pulmonary emboli--started on Lovenox 3.Diabetes--fs flactuating from 100-300's: on dulaglutide and rpglinide--not on formulary, start sliding scale and if needed start Lantus Hba1c levels: 8.5 4.HTN--continue home meds of Losartan, and amlodipine 5.Hypothyroidism--levothyroxine 6.B12 def--B12 replcement DVT prophylaxis;--Levenox Quality Stroke Does the patient have a stroke diagnosis?: No VTE Prior VTE?: No VTE Risk Level:: Medical - moderate - high VTE Device Contraindication: N/A - Device Ordered VTE Drug Contraindication: N/A - Med Ordered
[2021-07-02 16:23] LABS: Glucose, Whole Blood 168 mg/dL (60-115)
--- NOTE | 2021-07-02 16:40 | MHC.CLN ---
NUTRITION CONSULT FOR POOR PO AND WEIGHT LOSS. CURRENT WEIGHT NOT IN LINE WITH PRIOR WEIGHTS. POSSIBLE 14.8% WEIGHT LOSS X 7 MONTHS. ADDING GLUCERNA BID FOR ADDITIONAL CALORIES/NUTRITION (474 KCAL, 20 G PROTEIN).
[2021-07-02 20:50] LABS: Glucose, Whole Blood 275 mg/dL (60-115)
[2021-07-02] MEDS: Acetaminophen 325 MG TABLET 650 MG PO (22:16)
[2021-07-03] VITALS (12 sets, daily range): BP systolic 112–146; BP diastolic 58–83; PULSE 62–88; RESP 2–20; TEMP 36.4–38.9; O2SAT 93–99
[2021-07-03] MEDS: Enoxaparin Sodium 80 MG/0.8 ML SYRINGE 70 MG SUBCUT ×2 (03:09→15:05)
[2021-07-03] MEDS: Morphine Sulfate 4 MG/ML CARTRIDGE 2 MG IVPUSH (03:09)
--- NOTE | 2021-07-03 04:40 | PC.NURSE ---
Attempted to call daughter Laura last night for updates as requested but phone number is unreachable. Pt seen on bed alert and oriented, still with SOB and plueritic pain with deep breathing, LS dim with scattered fine crackles and exp rhonchi, was on 8L/min via fonseca at first but was maintaining only high 80s, O2 increased to 12L/min via [place] and sats on the low 90s. Around 3am, pt desats and sustained at low 80s again ,O2 increased to 15L/min via fonseca and sats only went up to 85%,alert but more tachypneic, prn Morphine given, RT paged, pt was shifted to HFNC at 55L/min 100% Fio2 with 15L NRB mask, pt recovered slowly to high 90s after, NRB mask was removed by RT after an hr, O2 sats was maintained at low to mid 90s. will cont to monitor.
[2021-07-03] MEDS: Acetaminophen 325 MG TABLET 650 MG PO (05:32)
[2021-07-03 07:21] LABS: Glucose, Whole Blood 180 mg/dL (60-115)
[2021-07-03] MEDS: Insulin Lispro 100 UNIT/ML 3 ML VIAL SUBCUT ×4 (08:20→20:39)
[2021-07-03] MEDS: 0.9 % Sodium Chloride Flush 3 ML SYRINGE IVFLUSH ×3 (08:20→20:39)
[2021-07-03] MEDS: Docusate Sodium 100 MG CAPSULE PO ×2 (08:21→20:38)
--- NOTE | 2021-07-03 08:25 | HO.PM.IMPN ---
Subjective Subjective Date of Service: 07/03/21 Interval History: Acute hypoxemic respiratory failure secondary to COVID. Review of Systems Still short of breath but could able to speak still in full sentences does not seem to be using any accessory muscles, denies any chest pain or abdominal pain or fever chills or cough or phlegm. Physical Exam Vital Signs: Vital Signs: Last Vital Signs Temp 99.3 F 07/03/21 03:56 Pulse 86 07/03/21 03:56 Resp 20 07/03/21 07:20 BP 141/72 H 07/03/21 03:56 Pulse Ox 96 07/03/21 03:56 Oxygen Flow Rate 15 06/30/21 11:01 BMI result Body Mass Index 20.9 ?Appearance: Alert.? Oriented X3.? not in distress.? cvs: rrr, [id number] , no murmur res: fair air entry , slightly diminshed at bases similar as yesterday. abd: no rebound or guarding ,nt, bs present. ext pulses present , no cyanosis. neuro: axo3 , nonfocal. Objective Data Active Medications Acetaminophen (Acetaminophen 325 Mg Tablet) 650 mg PO Q6H PRN PRN Reason: Pain, Mild (Pain Scale 1-3) Last Admin: 07/03/21 05:32 Dose: 650 mg Documented by: HORACIO Baricitinib (Baricitinib 2 Mg Tablet) 4 mg PO DAILY [facility] Stop: 07/14/21 16:26 Last Admin: 07/03/21 08:21 Dose: 4 mg Documented by: CIARA Docusate Sodium (Docusate Sodium 100 Mg Capsule) 100 mg PO BID [facility] Last Admin: 07/03/21 08:21 Dose: 100 mg Documented by: CIARA Enoxaparin Sodium (Enoxaparin Sodium 80 Mg/0.8 Ml Syringe) 70 mg SUBCUT Q12H [facility] Last Admin: 07/03/21 03:09 Dose: 70 mg Documented by: HORACIO Insulin Human Lispro (Insulin Lispro 100 Unit/Ml 3 Ml Vial) 0 unit SUBCUT QIDACHS [facility]; Protocol Last Admin: 07/03/21 08:20 Dose: 2 unit Documented by: CIARA Magnesium Hydroxide (Milk Of Magnesia 30 Ml Oral.Susp) 30 ml PO DAILY PRN PRN Reason: Constipation Morphine Sulfate (Morphine Sulfate 4 Mg/Ml Cartridge) 2 mg IVPUSH Q6H PRN; Protocol PRN Reason: respiratory distress Last Admin: 07/03/21 03:09 Dose: 2 mg Documented by: HORACIO Ondansetron HCl (Ondansetron Hcl 4 Mg/2 Ml Vial) 4 mg IVPUSH Q8H PRN PRN Reason: Nausea and Vomiting Pharmacy Consult (Consult Rx Perform Med Rec) 1 each MISCELLANE ONCE PRN PRN Reason: Consult order Sodium Chloride (0.9 % Sodium Chloride Flush 3 Ml Syringe) 3 ml IVFLUSH QSHIFT [facility] Last Admin: 07/03/21 08:20 Dose: 3 ml Documented by: CIARA Labs CBC & Chem 7: 07/01/21 08:05 07/02/21 06:12 Labs: Laboratory Results - last 24 hr 07/02/21 07/02/21 07/02/21 10:44 11:09 16:18 VBG pH 7.51 H VBG pCO2 16 VBG pO2 77 VBG HCO3 13 L VBG O2 Saturation 96.0 VBG Base Excess -6.2 POC Glucose 327 H 168 H 07/02/21 07/03/21 20:44 07:17 VBG pH VBG pCO2 VBG pO2 VBG HCO3 VBG O2 Saturation VBG Base Excess POC Glucose 275 H 180 H Microbiology Microbiology Results: Microbiology 06/30/21 12:03 Blood Culture - Preliminary Blood - Venous No growth after 48 hours. 06/30/21 11:33 Blood Culture - Preliminary Blood - Venous No growth after 48 hours. Assessment and Plan (1) Acute respiratory failure with hypoxia: Status: Acute (2) Diabetes mellitus: Status: Acute Assessment and Plan: 70/ male with DM, and multiple other comorbidity, not yet vaccinated against covid vaccine and here with acute hypoxic respiratory failure due to covid--symptoms since 06/15 and tested postive 06/18, CTA shows PE 1.Acute hypoxic respriatory failure due to covid 19 covid 19 PNA Out of time frame for Remdesevir onr Baritinib day4 2.Pulmonary emboli--started on Lovenox 3.Diabetes--fs flactuating from 100-200's: on dulaglutide and rpglinide--not on formulary, start sliding scale and if needed start Lantus Hba1c levels: 8.5 4.HTN--continue home meds of Losartan, and amlodipine 5.Hypothyroidism--levothyroxine 6.B12 def--B12 replcement DVT prophylaxis;--Levenox Quality Stroke Does the patient have a stroke diagnosis?: No VTE Prior VTE?: No VTE Risk Level:: Medical - moderate - high VTE Device Contraindication: N/A - Device Ordered VTE Drug Contraindication: N/A - Med Ordered
[2021-07-03 11:04] LABS: Glucose, Whole Blood 227 mg/dL (60-115)
[2021-07-03 16:04] LABS: Glucose, Whole Blood 220 mg/dL (60-115)
[2021-07-03 20:26] LABS: Glucose, Whole Blood 240 mg/dL (60-115)
[2021-07-04] VITALS (14 sets, daily range): BP systolic 122–143; BP diastolic 60–66; PULSE 74–83; RESP 16–20; TEMP 36.6–38.3; O2SAT 90–97
[2021-07-04] MEDS: Acetaminophen 325 MG TABLET 650 MG PO ×2 (00:43→22:58)
[2021-07-04] MEDS: Enoxaparin Sodium 80 MG/0.8 ML SYRINGE 70 MG SUBCUT ×2 (03:56→18:08)
[2021-07-04] MEDS: Insulin Lispro 100 UNIT/ML 3 ML VIAL SUBCUT ×2 (07:28→22:06)
[2021-07-04 07:41] LABS: Glucose, Whole Blood 169 mg/dL (60-115)
[2021-07-04] MEDS: Docusate Sodium 100 MG CAPSULE PO ×2 (10:28→22:06)
[2021-07-04] MEDS: 0.9 % Sodium Chloride Flush 3 ML SYRINGE IVFLUSH ×2 (10:28→16:09)
[2021-07-04 12:15] LABS: Glucose, Whole Blood 141 mg/dL (60-115)
--- NOTE | 2021-07-04 12:22 | P.PNIM_ITS ---
Subjective Subjective Date of Service: 07/04/21 Interval History: Acute hypoxemic respiratory failure secondary to COVID. Review of Systems sob seems improving denies any chest pain or abdominal pain or fever chills or cough or phlegm. Physical Exam Vital Signs: Vital Signs: Last Vital Signs Temp 99.9 F 07/04/21 08:00 Pulse 81 07/04/21 08:00 Resp 19 07/04/21 11:29 BP 143/63 H 07/04/21 08:00 Pulse Ox 92 07/04/21 08:00 Oxygen Flow Rate 15 06/30/21 11:01 BMI result Body Mass Index 20.9 ?Appearance: Alert.? Oriented X3.? not in distress.? cvs: rrr, [id number] , no murmur res: fair air entry , slightly diminshed at bases similar as yesterday. abd: no rebound or guarding ,nt, bs present. ext pulses present , no cyanosis. neuro: axo3 , nonfocal. Objective Data Active Medications Acetaminophen (Acetaminophen 325 Mg Tablet) 650 mg PO Q6H PRN PRN Reason: Pain, Mild (Pain Scale 1-3) Last Admin: 07/04/21 00:43 Dose: 650 mg Documented by: ERICH Baricitinib (Baricitinib 2 Mg Tablet) 4 mg PO DAILY [facility] Stop: 07/14/21 16:26 Last Admin: 07/04/21 10:27 Dose: 4 mg Documented by: NATHEN Docusate Sodium (Docusate Sodium 100 Mg Capsule) 100 mg PO BID [facility] Last Admin: 07/04/21 10:28 Dose: 100 mg Documented by: NATHEN Enoxaparin Sodium (Enoxaparin Sodium 80 Mg/0.8 Ml Syringe) 70 mg SUBCUT Q12H [facility] Last Admin: 07/04/21 03:56 Dose: 70 mg Documented by: ERICH Insulin Human Lispro (Insulin Lispro 100 Unit/Ml 3 Ml Vial) 0 unit SUBCUT QIDACHS [facility]; Protocol Last Admin: 07/04/21 07:28 Dose: 2 unit Documented by: NATHEN Magnesium Hydroxide (Milk Of Magnesia 30 Ml Oral.Susp) 30 ml PO DAILY PRN PRN Reason: Constipation Morphine Sulfate (Morphine Sulfate 4 Mg/Ml Cartridge) 2 mg IVPUSH Q6H PRN; Protocol PRN Reason: respiratory distress Last Admin: 07/03/21 03:09 Dose: 2 mg Documented by: HORACIO Ondansetron HCl (Ondansetron Hcl 4 Mg/2 Ml Vial) 4 mg IVPUSH Q8H PRN PRN Reason: Nausea and Vomiting Pharmacy Consult (Consult Rx Perform Med Rec) 1 each MISCELLANE ONCE PRN PRN Reason: Consult order Sodium Chloride (0.9 % Sodium Chloride Flush 3 Ml Syringe) 3 ml IVFLUSH QSHIFT [facility] Last Admin: 07/04/21 10:28 Dose: 3 ml Documented by: NATHEN Labs CBC & Chem 7: 07/01/21 08:05 07/02/21 06:12 Labs: Laboratory Results - last 24 hr 07/03/21 07/03/21 07/04/21 15:53 20:12 07:34 POC Glucose 220 H 240 H 169 H 07/04/21 12:08 POC Glucose 141 H Assessment and Plan (1) Acute respiratory failure with hypoxia: Status: Acute (2) Acute respiratory distress syndrome (ARDS) due to COVID-19 virus: Status: Acute Assessment and Plan: 70/ male with DM, and multiple other comorbidity, not yet vaccinated against covid vaccine and here with acute hypoxic respiratory failure due to covid--symptoms since 06/15 and tested postive 06/18, CTA shows PE 1.Acute hypoxic respriatory failure due to covid 19 covid 19 PNA Out of time frame for Remdesevir onr Baritinib day5 2.Pulmonary emboli--started on Lovenox 3.Diabetes--fs flactuating from 140-200's: on dulaglutide and rpglinide--not on formulary, start sliding scale and if needed start Lantus Hba1c levels: 8.5 4.HTN--continue home meds of Losartan, and amlodipine 5.Hypothyroidism--levothyroxine 6.B12 def--B12 replcement DVT prophylaxis;--Levenox Quality Stroke Does the patient have a stroke diagnosis?: No VTE Prior VTE?: No VTE Risk Level:: Medical - moderate - high VTE Device Contraindication: N/A - Device Ordered VTE Drug Contraindication: N/A - Med Ordered
[2021-07-04 16:35] LABS: Glucose, Whole Blood 112 mg/dL (60-115)
--- NOTE | 2021-07-04 19:00 | MHC.CLN ---
F/U PO PER DOCUMENTATION 75-100% MOST MEALS. CONTINUE DIET DIABETIC 1800 KCAL WITH GLUCERNA BID.
[2021-07-04 20:53] LABS: Glucose, Whole Blood 169 mg/dL (60-115)
[2021-07-05] VITALS (12 sets, daily range): BP systolic 121–142; BP diastolic 57–66; PULSE 63–92; RESP 18–20; TEMP 36.4–38.3; O2SAT 91–98
[2021-07-05] MEDS: 0.9 % Sodium Chloride Flush 3 ML SYRINGE IVFLUSH ×4 (00:23→22:14)
[2021-07-05] MEDS: Enoxaparin Sodium 80 MG/0.8 ML SYRINGE 70 MG SUBCUT ×2 (03:55→16:25)
[2021-07-05 08:33] LABS: Glucose, Whole Blood 114 mg/dL (60-115)
[2021-07-05] MEDS: Docusate Sodium 100 MG CAPSULE PO ×2 (09:12→22:13)
[2021-07-05 11:47] LABS: Glucose, Whole Blood 221 mg/dL (60-115)
[2021-07-05] MEDS: Insulin Lispro 100 UNIT/ML 3 ML VIAL SUBCUT ×3 (11:59→22:14)
--- NOTE | 2021-07-05 12:21 | P.PNIM_ITS ---
Subjective Subjective Date of Service: 07/05/21 Interval History: Acute hypoxemic respiratory failure secondary to COVID. Review of Systems sob seems improving denies any chest pain or abdominal pain or fever chills or cough or phlegm. Physical Exam Vital Signs: Vital Signs: Last Vital Signs Temp 99.7 F 07/05/21 08:00 Pulse 92 07/05/21 08:00 Resp 20 07/05/21 11:37 BP 121/57 L 07/05/21 08:00 Pulse Ox 92 07/05/21 08:00 Oxygen Flow Rate 15 06/30/21 11:01 BMI result Body Mass Index 20.9 Appearance: Alert.? Oriented X3.? not in distress.? cvs: rrr, [id number] , no murmur res: fair air entry , slightly diminshed at bases similar as yesterday. abd: no rebound or guarding ,nt, bs present. ext pulses present , no cyanosis. neuro: axo3 , nonfocal. Objective Data Active Medications Acetaminophen (Acetaminophen 325 Mg Tablet) 650 mg PO Q6H PRN PRN Reason: Pain, Mild (Pain Scale 1-3) Last Admin: 07/04/21 22:58 Dose: 650 mg Documented by: GLYNN Baricitinib (Baricitinib 2 Mg Tablet) 4 mg PO DAILY [facility] Stop: 07/14/21 16:26 Last Admin: 07/05/21 09:12 Dose: 4 mg Documented by: ERIC Docusate Sodium (Docusate Sodium 100 Mg Capsule) 100 mg PO BID [facility] Last Admin: 07/05/21 09:12 Dose: 100 mg Documented by: ERIC Enoxaparin Sodium (Enoxaparin Sodium 80 Mg/0.8 Ml Syringe) 70 mg SUBCUT Q12H [facility] Last Admin: 07/05/21 03:55 Dose: 70 mg Documented by: GLYNN Insulin Human Lispro (Insulin Lispro 100 Unit/Ml 3 Ml Vial) 0 unit SUBCUT QIDACHS [facility]; Protocol Last Admin: 07/05/21 11:59 Dose: 4 unit Documented by: ERIC Magnesium Hydroxide (Milk Of Magnesia 30 Ml Oral.Susp) 30 ml PO DAILY PRN PRN Reason: Constipation Morphine Sulfate (Morphine Sulfate 4 Mg/Ml Cartridge) 2 mg IVPUSH Q6H PRN; Protocol PRN Reason: respiratory distress Last Admin: 07/03/21 03:09 Dose: 2 mg Documented by: HORACIO Ondansetron HCl (Ondansetron Hcl 4 Mg/2 Ml Vial) 4 mg IVPUSH Q8H PRN PRN Reason: Nausea and Vomiting Pharmacy Consult (Consult Rx Perform Med Rec) 1 each MISCELLANE ONCE PRN PRN Reason: Consult order Sodium Chloride (0.9 % Sodium Chloride Flush 3 Ml Syringe) 3 ml IVFLUSH QSHIFT [facility] Last Admin: 07/05/21 09:12 Dose: 3 ml Documented by: ERIC Labs CBC & Chem 7: 07/01/21 08:05 07/02/21 06:12 Labs: Laboratory Results - last 24 hr 07/04/21 07/04/21 07/05/21 16:25 20:47 07:23 POC Glucose 112 169 H 114 07/05/21 11:34 POC Glucose 221 H Assessment and Plan (1) Acute respiratory failure with hypoxia: Status: Acute (2) COVID-19: Status: Acute Assessment and Plan: 70/ male with DM, and multiple other comorbidity, not yet vaccinated against covid vaccine and here with acute hypoxic respiratory failure due to covid--symptoms since 06/15 and tested postive 06/18, CTA shows PE 1.Acute hypoxic respriatory failure due to covid 19 covid 19 PNA Out of time frame for Remdesevir onr Baritinib day5 2.Pulmonary emboli--started on Lovenox 3.Diabetes--fs flactuating from 110-200's: on dulaglutide and rpglinide--not on formulary, start sliding scale and if needed start Lantus Hba1c levels: 8.5 4.HTN--continue home meds of Losartan, and amlodipine 5.Hypothyroidism--levothyroxine 6.B12 def--B12 replcement DVT prophylaxis;--Levenox Quality Stroke Does the patient have a stroke diagnosis?: No VTE Prior VTE?: No VTE Risk Level:: Medical - moderate - high VTE Device Contraindication: N/A - Device Ordered VTE Drug Contraindication: N/A - Med Ordered
[2021-07-05 16:37] LABS: Glucose, Whole Blood 207 mg/dL (60-115)
[2021-07-05 20:43] LABS: Glucose, Whole Blood 307 mg/dL (60-115)
--- NOTE | 2021-07-05 22:03 | PC.NURSE ---
pt oral temp 101. Given tylenol, notified . ordered Tylenol for now, no labs.
[2021-07-05] MEDS: Acetaminophen 325 MG TABLET 650 MG PO (22:13)
[2021-07-06] VITALS (10 sets, daily range): BP systolic 100–135; BP diastolic 59–71; PULSE 64–77; RESP 16–18; TEMP 36.2–38.3; O2SAT 95–98
[2021-07-06] MEDS: Enoxaparin Sodium 80 MG/0.8 ML SYRINGE 70 MG SUBCUT ×2 (05:16→17:20)
[2021-07-06 07:50] LABS: Glucose, Whole Blood 122 mg/dL (60-115)
[2021-07-06] MEDS: Docusate Sodium 100 MG CAPSULE PO ×2 (08:20→20:45)
[2021-07-06] MEDS: 0.9 % Sodium Chloride Flush 3 ML SYRINGE IVFLUSH ×3 (08:20→20:46)
[2021-07-06 09:23] LABS: Hematocrit 39.7 % (42.0-52.0); Hemoglobin 13.5 g/dl (14.0-18.0); Mean Corpuscular Hemoglobin 28.4 pg (27.0-33.0); Mean Corpuscular Volume 83.4 fL (80.0-98.0); Mean Platelet Volume 8.9 fL (9.4-12.4); Platelet Count 300 X10*3/uL (160-400); Red Blood Count 4.76 X10*6/uL (4.60-5.80); Red Cell Distribution Width 11.7 % (11.0-16.0); White Blood Count 5.2 X10*3/uL (4.8-10.8)
[2021-07-06 09:48] LABS: Anion Gap 9 (12-20); Blood Urea Nitrogen 13 mg/dL (9-16); Calcium 7.9 mg/dL (8.4-10.2); Carbon Dioxide 30 mmol/L (22-29); Chloride 97 mmol/L (96-108); Creatinine Clr Calc Pharmacy 78.2; Estimated Glomerular Filt Rate > 60; Glucose Random 160 mg/dL (60-115); Sodium 132 mmol/L (135-145)
[2021-07-06 11:14] LABS: Glucose, Whole Blood 258 mg/dL (60-115)
--- NOTE | 2021-07-06 11:25 | HO.PM.IMPN ---
Subjective Subjective Date of Service: 07/06/21 Interval History: Acute hypoxemic respiratory failure secondary to COVID pneumonia. Review of Systems Shortness of breath seems to be improving slowly. Denies any chest pain or abdominal pain or fever chills. Physical Exam Vital Signs: Vital Signs: Last Vital Signs Temp 98.1 F 07/06/21 07:48 Pulse 72 07/06/21 07:48 Resp 18 07/06/21 08:09 BP 135/65 07/06/21 07:48 Pulse Ox 98 07/06/21 07:48 Oxygen Flow Rate 15 06/30/21 11:01 BMI result Body Mass Index 20.9 Appearance: Alert.? Oriented X3.? not in distress.? cvs: rrr, [id number] , no murmur res: fair air entry , slightly diminshed at bases similar as yesterday. abd: no rebound or guarding ,nt, bs present. ext pulses present , no cyanosis. neuro: axo3 , nonfocal. Objective Data Active Medications Acetaminophen (Acetaminophen 325 Mg Tablet) 650 mg PO Q6H PRN PRN Reason: Pain, Mild (Pain Scale 1-3) Last Admin: 07/05/21 22:13 Dose: 650 mg Documented by: GLYNN Baricitinib (Baricitinib 2 Mg Tablet) 4 mg PO DAILY [facility] Stop: 07/14/21 16:26 Last Admin: 07/06/21 08:20 Dose: 4 mg Documented by: CIARA Docusate Sodium (Docusate Sodium 100 Mg Capsule) 100 mg PO BID [facility] Last Admin: 07/06/21 08:20 Dose: 100 mg Documented by: CIARA Enoxaparin Sodium (Enoxaparin Sodium 80 Mg/0.8 Ml Syringe) 70 mg SUBCUT Q12H [facility] Last Admin: 07/06/21 05:16 Dose: 70 mg Documented by: GLYNN Insulin Human Lispro (Insulin Lispro 100 Unit/Ml 3 Ml Vial) 0 unit SUBCUT QIDACHS [facility]; Protocol Last Admin: 07/06/21 08:16 Dose: Not Given Documented by: CIARA Non-Admin Reason: No Insulin Coverage Magnesium Hydroxide (Milk Of Magnesia 30 Ml Oral.Susp) 30 ml PO DAILY PRN PRN Reason: Constipation Ondansetron HCl (Ondansetron Hcl 4 Mg/2 Ml Vial) 4 mg IVPUSH Q8H PRN PRN Reason: Nausea and Vomiting Pharmacy Consult (Consult Rx Perform Med Rec) 1 each MISCELLANE ONCE PRN PRN Reason: Consult order Sodium Chloride (0.9 % Sodium Chloride Flush 3 Ml Syringe) 3 ml IVFLUSH QSHIFT [facility] Last Admin: 07/06/21 08:20 Dose: 3 ml Documented by: CIARA Labs CBC & Chem 7: 07/06/21 09:01 07/06/21 09:01 Labs: Laboratory Results - last 24 hr 07/05/21 07/05/21 07/05/21 11:34 16:25 20:35 MCV MCH MCHC RDW Plt Count MPV Absolute Nucleated RBC Nucleated RBC % (auto) Anion Gap Estim Creat Clear Calc Estimated GFR POC Glucose 221 H 207 H 307 H Random Glucose Calcium 07/06/21 07/06/21 07/06/21 07:32 09:01 09:01 MCV 83.4 MCH 28.4 MCHC 34.0 RDW 11.7 Plt Count 300 D MPV 8.9 L Absolute Nucleated RBC 0.000 Nucleated RBC % (auto) 0.0 Anion Gap 9 L Estim Creat Clear Calc 78.2 Estimated GFR > 60 POC Glucose 122 H Random Glucose 160 H Calcium 7.9 L D 07/06/21 11:10 MCV MCH MCHC RDW Plt Count MPV Absolute Nucleated RBC Nucleated RBC % (auto) Anion Gap Estim Creat Clear Calc Estimated GFR POC Glucose 258 H Random Glucose Calcium Microbiology Microbiology Results: Microbiology 06/30/21 12:03 Blood Culture - Final Blood - Venous No growth after 5 days. 06/30/21 11:33 Blood Culture - Final Blood - Venous No growth after 5 days. Assessment and Plan (1) Acute respiratory failure with hypoxia: Status: Acute (2) Pneumomediastinum: Status: Acute Assessment and Plan: 70/ male with DM, and multiple other comorbidity, not yet vaccinated against covid vaccine and here with acute hypoxic respiratory failure due to covid--symptoms since 06/15 and tested postive 06/18, CTA shows PE 1.Acute hypoxic respriatory failure due to covid 19 covid 19 PNA Out of time frame for Remdesevir onr Baritinib day7 2.Pulmonary emboli--started on Lovenox 3.Diabetes--fs flactuating from 110-200's: on dulaglutide and rpglinide--not on formulary, start sliding scale and if needed start Lantus Hba1c levels: 8.5 4.HTN--continue home meds of Losartan, and amlodipine 5.Hypothyroidism--levothyroxine 6.B12 def--B12 replcement DVT prophylaxis;--Levenox Quality Stroke Does the patient have a stroke diagnosis?: No VTE Prior VTE?: No VTE Risk Level:: Medical - moderate - high VTE Device Contraindication: N/A - Device Ordered VTE Drug Contraindication: N/A - Med Ordered
[2021-07-06] MEDS: Insulin Lispro 100 UNIT/ML 3 ML VIAL SUBCUT ×3 (12:26→20:46)
[2021-07-06 16:07] LABS: Glucose, Whole Blood 264 mg/dL (60-115)
[2021-07-06 20:05] LABS: Glucose, Whole Blood 213 mg/dL (60-115)
[2021-07-07 03:35] VITALS: BP 127/60; PULSE 74; RESP 18; TEMP 37.1; O2SAT 95
[2021-07-07] MEDS: Enoxaparin Sodium 80 MG/0.8 ML SYRINGE 70 MG SUBCUT ×2 (04:44→17:29)
[2021-07-07 07:32] LABS: Glucose, Whole Blood 129 mg/dL (60-115)
[2021-07-07 07:49] VITALS: BP 122/72; PULSE 69; RESP 18; TEMP 37.1; O2SAT 97
[2021-07-07] MEDS: Docusate Sodium 100 MG CAPSULE PO ×2 (08:51→20:53)
[2021-07-07] MEDS: 0.9 % Sodium Chloride Flush 3 ML SYRINGE IVFLUSH ×3 (08:52→20:54)
[2021-07-07 11:06] LABS: Glucose, Whole Blood 248 mg/dL (60-115)
[2021-07-07 11:27] VITALS: BP 119/60; PULSE 73; RESP 19; TEMP 36.5; O2SAT 96
[2021-07-07] MEDS: Insulin Lispro 100 UNIT/ML 3 ML VIAL SUBCUT ×3 (11:51→20:54)
--- NOTE | 2021-07-07 12:11 | MHC.CLN ---
F/U PO INTAKE 75-100% DIET RX: 1800DM -APPROPRIATE PT RECEIVING GLUCERNA BID TO INCREASE KCALS SUPP PROVIDES 474KCALS, 20G PROTEIN WILL F/U X 7DAYS
--- NOTE | 2021-07-07 13:16 | HO.PM.IMPN ---
Subjective Subjective Date of Service: 07/07/21 Interval History: Acute hypoxemic respiratory failure secondary to COVID pneumonia. Review of Systems Oxygen demand improving, shortness of breath also improving Denies any chest pain or abdominal pain or nausea or vomiting or fever Physical Exam Vital Signs: Vital Signs: Last Vital Signs Temp 97.7 F 07/07/21 11:27 Pulse 73 07/07/21 11:27 Resp 19 07/07/21 11:27 BP 119/60 07/07/21 11:27 Pulse Ox 96 07/07/21 11:27 Oxygen Flow Rate 15 06/30/21 11:01 BMI result Body Mass Index 20.9 Appearance: Alert.? Oriented X3.? not in distress.? cvs: rrr, [id number] , no murmur res: fair air entry , slightly diminshed at bases similar as yesterday. abd: no rebound or guarding ,nt, bs present. ext pulses present , no cyanosis. neuro: axo3 , nonfocal. Objective Data Active Medications Acetaminophen (Acetaminophen 325 Mg Tablet) 650 mg PO Q6H PRN PRN Reason: Pain, Mild (Pain Scale 1-3) Last Admin: 07/05/21 22:13 Dose: 650 mg Documented by: GLYNN Baricitinib (Baricitinib 2 Mg Tablet) 4 mg PO DAILY [facility] Stop: 07/14/21 16:26 Last Admin: 07/07/21 08:51 Dose: 4 mg Documented by: AG Docusate Sodium (Docusate Sodium 100 Mg Capsule) 100 mg PO BID [facility] Last Admin: 07/07/21 08:51 Dose: 100 mg Documented by: AG Enoxaparin Sodium (Enoxaparin Sodium 80 Mg/0.8 Ml Syringe) 70 mg SUBCUT Q12H [facility] Last Admin: 07/07/21 04:44 Dose: 70 mg Documented by: ALDO Insulin Human Lispro (Insulin Lispro 100 Unit/Ml 3 Ml Vial) 0 unit SUBCUT QIDACHS [facility]; Protocol Last Admin: 07/07/21 11:51 Dose: 4 unit Documented by: AG Magnesium Hydroxide (Milk Of Magnesia 30 Ml Oral.Susp) 30 ml PO DAILY PRN PRN Reason: Constipation Ondansetron HCl (Ondansetron Hcl 4 Mg/2 Ml Vial) 4 mg IVPUSH Q8H PRN PRN Reason: Nausea and Vomiting Pharmacy Consult (Consult Rx Perform Med Rec) 1 each MISCELLANE ONCE PRN PRN Reason: Consult order Sodium Chloride (0.9 % Sodium Chloride Flush 3 Ml Syringe) 3 ml IVFLUSH QSHIFT [facility] Last Admin: 07/07/21 08:52 Dose: 3 ml Documented by: AG Labs CBC & Chem 7: 07/06/21 09:01 07/06/21 09:01 Labs: Laboratory Results - last 24 hr 07/06/21 07/06/21 07/07/21 15:56 19:56 07:19 POC Glucose 264 H 213 H 129 H 07/07/21 11:01 POC Glucose 248 H Assessment and Plan (1) Acute respiratory failure with hypoxia: Status: Acute Assessment and Plan: 70/ male with DM, and multiple other comorbidity, not yet vaccinated against covid vaccine and here with acute hypoxic respiratory failure due to covid--symptoms since 06/15 and tested postive 06/18, CTA shows PE 1.Acute hypoxic respriatory failure due to covid 19 Of high-flow, oxygen demand is improving now on 4 L covid 19 PNA Out of time frame for Remdesevir onr Baritinib day8 2.Pulmonary emboli--started on Lovenox 3.Diabetes--fs flactuating from 110-200's: on dulaglutide and rpglinide--not on formulary, start sliding scale and if needed start Lantus Hba1c levels: 8.5 4.HTN--continue home meds of Losartan, and amlodipine 5.Hypothyroidism--levothyroxine 6.B12 def--B12 replcement DVT prophylaxis;--Levenox Quality Stroke Does the patient have a stroke diagnosis?: No VTE Prior VTE?: No VTE Risk Level:: Medical - moderate - high VTE Device Contraindication: N/A - Device Ordered VTE Drug Contraindication: N/A - Med Ordered
[2021-07-07 15:36] VITALS: BP 114/56; PULSE 66; RESP 18; TEMP 36.6; O2SAT 95
[2021-07-07 16:27] LABS: Glucose, Whole Blood 202 mg/dL (60-115)
[2021-07-07 19:37] VITALS: BP 120/68; PULSE 66; RESP 15; TEMP 36.6; O2SAT 99
[2021-07-07 20:43] LABS: Glucose, Whole Blood 179 mg/dL (60-115)
[2021-07-07] MEDS: Ibuprofen 400 MG TABLET PO (21:33)
[2021-07-07 23:59] VITALS: BP 121/64; PULSE 55; RESP 18; TEMP 36.4; O2SAT 99
[2021-07-08] VITALS (7 sets, daily range): BP systolic 104–138; BP diastolic 58–70; PULSE 51–75; RESP 16–20; TEMP 36–37.3; O2SAT 90–98
[2021-07-08] MEDS: Enoxaparin Sodium 80 MG/0.8 ML SYRINGE 70 MG SUBCUT (03:35)
[2021-07-08 07:12] LABS: Glucose, Whole Blood 87 mg/dL (60-115)
[2021-07-08] MEDS: Acetaminophen 325 MG TABLET 650 MG PO ×2 (09:12→22:58)
[2021-07-08] MEDS: Docusate Sodium 100 MG CAPSULE PO ×2 (09:12→20:41)
[2021-07-08] MEDS: 0.9 % Sodium Chloride Flush 3 ML SYRINGE IVFLUSH ×2 (09:13→16:13)
[2021-07-08 11:20] LABS: Glucose, Whole Blood 256 mg/dL (60-115)
--- NOTE | 2021-07-08 12:14 | P.PNIM_ITS ---
Subjective Subjective Date of Service: 07/08/21 Interval History: f/u on covid, off 2, unsteady gait Review of Systems no fever no hypoxia Physical Exam Vital Signs: Vital Signs: Last Vital Signs Temp 97.5 F 07/08/21 11:03 Pulse 71 07/08/21 11:03 Resp 16 07/08/21 11:03 BP 104/58 L 07/08/21 11:03 Pulse Ox 96 07/08/21 11:03 Oxygen Flow Rate 15 06/30/21 11:01 BMI result Body Mass Index 20.9 Const: Other: General: AO X 3, no acute distress Resp: CTA bilateral CVS: S1,S2,RRR GI: +BS, NT, no distention Skin: No rash Neuro: motor grossly intact Psych: appropriate affect Objective Data Active Medications Acetaminophen (Acetaminophen 325 Mg Tablet) 650 mg PO Q6H PRN PRN Reason: Pain, Mild (Pain Scale 1-3) Last Admin: 07/08/21 09:12 Dose: 650 mg Documented by: AG Baricitinib (Baricitinib 2 Mg Tablet) 4 mg PO DAILY [facility] Stop: 07/14/21 16:26 Last Admin: 07/08/21 09:12 Dose: 4 mg Documented by: AG Docusate Sodium (Docusate Sodium 100 Mg Capsule) 100 mg PO BID [facility] Last Admin: 07/08/21 09:12 Dose: 100 mg Documented by: AG Enoxaparin Sodium (Enoxaparin Sodium 80 Mg/0.8 Ml Syringe) 70 mg SUBCUT Q12H [facility] Last Admin: 07/08/21 03:35 Dose: 70 mg Documented by: ALDO Insulin Human Lispro (Insulin Lispro 100 Unit/Ml 3 Ml Vial) 0 unit SUBCUT QIDACHS [facility]; Protocol Last Admin: 07/08/21 09:11 Dose: Not Given Documented by: AG Non-Admin Reason: No Insulin Coverage Magnesium Hydroxide (Milk Of Magnesia 30 Ml Oral.Susp) 30 ml PO DAILY PRN PRN Reason: Constipation Ondansetron HCl (Ondansetron Hcl 4 Mg/2 Ml Vial) 4 mg IVPUSH Q8H PRN PRN Reason: Nausea and Vomiting Pharmacy Consult (Consult Rx Perform Med Rec) 1 each MISCELLANE ONCE PRN PRN Reason: Consult order Sodium Chloride (0.9 % Sodium Chloride Flush 3 Ml Syringe) 3 ml IVFLUSH QSHIFT [facility] Last Admin: 07/08/21 09:13 Dose: 3 ml Documented by: AG Labs CBC & Chem 7: 07/06/21 09:01 07/06/21 09:01 Labs: Laboratory Results - last 24 hr 07/07/21 07/07/21 07/08/21 16:20 20:24 07:05 POC Glucose 202 H 179 H 87 07/08/21 11:02 POC Glucose 256 H Assessment and Plan (1) Acute respiratory failure with hypoxia: Status: Acute Assessment and Plan: 70/ male with DM, and multiple other comorbidity, not yet vaccinated against covid vaccine and here with acute hypoxic respiratory failure due to covid--symptoms since 06/15 and tested postive 06/18, CTA shows PE 1.Acute hypoxic respriatory failure due to covid 19 Of high-flow, oxygen demand is improving now on 4 L covid 19 PNA Out of time frame for Remdesevir onr Baritinib day9 2.Pulmonary emboli--started on Lovenox, change to Eliquis 3.Diabetes--fs flactuating from 110-200's: on dulaglutide and rpglinide--not on formulary, start sliding scale and if needed start Lantus Hba1c levels: 8.5 4.HTN--continue home meds of Losartan, and amlodipine 5.Hypothyroidism--levothyroxine 6.B12 def--B12 replcement DVT prophylaxis;--Levenox Quality Stroke Does the patient have a stroke diagnosis?: No VTE Prior VTE?: No VTE Risk Level:: Medical - moderate - high VTE Device Contraindication: N/A - Device Ordered VTE Drug Contraindication: N/A - Med Ordered
--- NOTE | 2021-07-08 12:17 | PC.NURSE ---
venous doppler being done at this time at bedside
[2021-07-08] MEDS: Insulin Lispro 100 UNIT/ML 3 ML VIAL SUBCUT ×3 (12:32→20:41)
--- NOTE | 2021-07-08 14:48 | PC.NURSE ---
Dr Hollins made aware of Venous duplex results
--- NOTE | 2021-07-08 15:09 | MHC.CM.PN ---
CM spoke with Patient over the phone on his cell to discuss PT'S recommendation for STR. Per this conversation, referrals to snf's have been made and CM will follow for dc planning.
[2021-07-08 16:20] LABS: Glucose, Whole Blood 196 mg/dL (60-115)
[2021-07-08] MEDS: Enoxaparin Sodium 60 MG/0.6 ML SYRINGE SUBCUT (16:45)
[2021-07-08 19:58] LABS: Glucose, Whole Blood 231 mg/dL (60-115)
[2021-07-08] MEDS: Milk of Magnesia 30 ML ORAL.SUSP PO (22:58)
[2021-07-09] MEDS: 0.9 % Sodium Chloride Flush 3 ML SYRINGE IVFLUSH ×4 (00:03→21:59)
[2021-07-09 03:25] VITALS: BP 130/66; PULSE 73; RESP 18; TEMP 37.2; O2SAT 94
[2021-07-09] MEDS: Enoxaparin Sodium 60 MG/0.6 ML SYRINGE SUBCUT (04:48)
[2021-07-09 06:39] LABS: Anion Gap 11 (12-20); Blood Urea Nitrogen 17 mg/dL (9-16); Calcium 7.9 mg/dL (8.4-10.2); Carbon Dioxide 29 mmol/L (22-29); Chloride 98 mmol/L (96-108); Creatinine Clr Calc Pharmacy 68.8; Estimated Glomerular Filt Rate > 60; Glucose Random 162 mg/dL (60-115); Potassium 5.1 mmol/L (3.3-5.1); Sodium 133 mmol/L (135-145)
[2021-07-09 07:20] VITALS: BP 139/64; PULSE 74; RESP 18; TEMP 36.4; O2SAT 94
[2021-07-09 07:42] LABS: Glucose, Whole Blood 145 mg/dL (60-115)
[2021-07-09] MEDS: Docusate Sodium 100 MG CAPSULE PO ×2 (08:59→21:53)
[2021-07-09 11:13] VITALS: BP 133/65; PULSE 74; RESP 18; TEMP 36.4; O2SAT 96
[2021-07-09 11:27] LABS: Glucose, Whole Blood 256 mg/dL (60-115)
--- NOTE | 2021-07-09 11:41 | PC.NURSE ---
1045- Patient OOB to commode, stand and pivot, x2 assist. While on the commode patient oxygen level noted to be 85% on RA. Per patient he was feeling SOB and shaky. O2 place on 2L via NC with no affect. O2 increased in 2L increments, until patient O2 was above 90%. O2 reached 90% on 6L via NC. Patient assisted back to bed. Patient starting to feel better. O2 weaned down once patient had fully recovered. Patient O2 now at 95% on RA. Dr. Hollins made aware. No new orders. Patient has no complaints at this time.
[2021-07-09] MEDS: Insulin Lispro 100 UNIT/ML 3 ML VIAL SUBCUT ×3 (11:52→21:53)
--- NOTE | 2021-07-09 12:03 | P.PNIM_ITS ---
Subjective Subjective Date of Service: 07/09/21 Interval History: f/u on covid, off 2, unsteady gait Review of Systems no fever no hypoxia Physical Exam Vital Signs: Vital Signs: Last Vital Signs Temp 97.6 F 07/09/21 11:13 Pulse 74 07/09/21 11:13 Resp 18 07/09/21 11:13 BP 133/65 07/09/21 11:13 Pulse Ox 96 07/09/21 11:13 Oxygen Flow Rate 15 06/30/21 11:01 BMI result Body Mass Index 20.9 Const: Other: General: AO X 3, no acute distress Resp: CTA bilateral CVS: S1,S2,RRR GI: +BS, NT, no distention Skin: No rash Neuro: motor grossly intact Psych: appropriate affect Objective Data Active Medications Acetaminophen (Acetaminophen 325 Mg Tablet) 650 mg PO Q6H PRN PRN Reason: Pain, Mild (Pain Scale 1-3) Last Admin: 07/08/21 22:58 Dose: 650 mg Documented by: MELANIE Baricitinib (Baricitinib 2 Mg Tablet) 4 mg PO DAILY [facility] Stop: 07/14/21 16:26 Last Admin: 07/09/21 08:59 Dose: 4 mg Documented by: CATRACHITA Docusate Sodium (Docusate Sodium 100 Mg Capsule) 100 mg PO BID [facility] Last Admin: 07/09/21 08:59 Dose: 100 mg Documented by: CATRACHITA Enoxaparin Sodium (Enoxaparin Sodium 60 Mg/0.6 Ml Syringe) 60 mg 1 mg/kg (60 mg) SUBCUT Q12H [facility] Last Admin: 07/09/21 04:48 Dose: 60 mg Documented by: FRANCESCO Insulin Human Lispro (Insulin Lispro 100 Unit/Ml 3 Ml Vial) 0 unit SUBCUT QIDACHS [facility]; Protocol Last Admin: 07/09/21 11:52 Dose: 6 unit Documented by: CATRACHITA Magnesium Hydroxide (Milk Of Magnesia 30 Ml Oral.Susp) 30 ml PO DAILY PRN PRN Reason: Constipation Last Admin: 07/08/21 22:58 Dose: 30 ml Documented by: MELANIE Ondansetron HCl (Ondansetron Hcl 4 Mg/2 Ml Vial) 4 mg IVPUSH Q8H PRN PRN Reason: Nausea and Vomiting Pharmacy Consult (Consult Rx Perform Med Rec) 1 each MISCELLANE ONCE PRN PRN Reason: Consult order Sodium Chloride (0.9 % Sodium Chloride Flush 3 Ml Syringe) [facility] Last Admin: 07/09/21 08:58 Dose: 3 ml Documented by: CATRACHITA Labs CBC & Chem 7: 07/06/21 09:01 07/09/21 05:51 Labs: Laboratory Results - last 24 hr 07/08/21 07/08/21 07/09/21 16:10 19:38 05:51 Anion Gap 11 L Estim Creat Clear Calc 68.8 Estimated GFR > 60 POC Glucose 196 H 231 H Random Glucose 162 H Calcium 7.9 L 07/09/21 07/09/21 07:22 11:12 Anion Gap Estim Creat Clear Calc Estimated GFR POC Glucose 145 H 256 H Random Glucose Calcium Assessment and Plan (1) Acute respiratory failure with hypoxia: Status: Acute Assessment and Plan: 70/ male with DM, and multiple other comorbidity, not yet vaccinated against covid vaccine and here with acute hypoxic respiratory failure due to covid--symptoms since 06/15 and tested postive 06/18, CTA shows PE 1.Acute hypoxic respriatory failure due to covid 19 Of high-flow, oxygen demand is improving now on 4 L covid 19 PNA Out of time frame for Remdesevir onr Baritinib [id number], doesn't need to comlete 14 days if has bed for dc 2.Pulmonary emboli and bilteral -started on Lovenox, change to Eliquis at dc, vascular consult to see if filter indicated 3.Diabetes--fs flactuating from 110-200's: on dulaglutide and rpglinide--not on formulary, start sliding scale and if needed start Lantus Hba1c levels: 8.5 4.HTN--continue home meds of Losartan, and amlodipine 5.Hypothyroidism--levothyroxine 6.B12 def--B12 replcement DVT prophylaxis;--[facility] PT is recommending SOB rehab Quality Stroke Does the patient have a stroke diagnosis?: No VTE Prior VTE?: No VTE Risk Level:: Medical - moderate - high VTE Device Contraindication: N/A - Device Ordered VTE Drug Contraindication: N/A - Med Ordered
--- NOTE | 2021-07-09 12:15 | MHC.CM.PN ---
STR is the goal for dc and a broad SNF search is ongoing. CM will follow.
[2021-07-09 15:58] VITALS: BP 128/66; PULSE 76; RESP 18; TEMP 36.9; O2SAT 94
[2021-07-09 16:29] LABS: Glucose, Whole Blood 201 mg/dL (60-115)
[2021-07-09] MEDS: Apixaban 5 MG TABLET 10 MG PO (16:37)
[2021-07-09 19:23] VITALS: BP 132/61; PULSE 89; RESP 18; TEMP 36.6; O2SAT 98
[2021-07-09 20:15] LABS: Glucose, Whole Blood 250 mg/dL (60-115)
[2021-07-10] VITALS (7 sets, daily range): BP systolic 115–145; BP diastolic 58–80; PULSE 61–80; RESP 16–19; TEMP 36.3–37; O2SAT 92–98
[2021-07-10] MEDS: Acetaminophen 325 MG TABLET 650 MG PO (04:17)
[2021-07-10] MEDS: Apixaban 5 MG TABLET 10 MG PO ×2 (05:11→17:37)
[2021-07-10 07:18] LABS: Glucose, Whole Blood 182 mg/dL (60-115)
[2021-07-10] MEDS: Insulin Lispro 100 UNIT/ML 3 ML VIAL SUBCUT ×4 (08:02→21:18)
[2021-07-10] MEDS: Docusate Sodium 100 MG CAPSULE PO ×2 (08:02→21:17)
[2021-07-10] MEDS: 0.9 % Sodium Chloride Flush 3 ML SYRINGE IVFLUSH ×3 (08:03→21:19)
[2021-07-10 11:04] LABS: Glucose, Whole Blood 272 mg/dL (60-115)
--- NOTE | 2021-07-10 13:04 | P.PNIM_ITS ---
Subjective Subjective Date of Service: 07/10/21 Interval History: f/u on covid, put back on O2 this morning, not sure if he needs it, awaiting placement Review of Systems no fever no hypoxia Physical Exam Vital Signs: Vital Signs: Last Vital Signs Temp 97.4 F 07/10/21 11:50 Pulse 69 07/10/21 11:50 Resp 18 07/10/21 11:50 BP 119/69 07/10/21 11:50 Pulse Ox 97 07/10/21 11:50 Oxygen Flow Rate 15 06/30/21 11:01 BMI result Body Mass Index 20.9 Const: Other: General: AO X 3, no acute distress Resp: CTA bilateral CVS: S1,S2,RRR GI: +BS, NT, no distention Skin: No rash Neuro: motor grossly intact Psych: appropriate affect Objective Data Active Medications Acetaminophen (Acetaminophen 325 Mg Tablet) 650 mg PO Q6H PRN PRN Reason: Pain, Mild (Pain Scale 1-3) Last Admin: 07/10/21 04:17 Dose: 650 mg Documented by: SHANNA Apixaban (Apixaban 5 Mg Tablet) 10 mg PO Q12H COUNTS [facility]CLUDE 234 BEDS AT THE [facility] Stop: 07/16/21 18:01 Last Admin: 07/10/21 05:11 Dose: 10 mg Documented by: SHANNA Baricitinib (Baricitinib 2 Mg Tablet) 4 mg PO DAILY [facility]S [facility] 234 BEDS AT THE [facility] Stop: 07/14/21 16:26 Last Admin: 07/10/21 08:02 Dose: 4 mg Documented by: WILL Docusate Sodium (Docusate Sodium 100 Mg Capsule) 100 mg PO BID [facility]S [facility]CLUDE 234 BEDS AT THE [facility] Last Admin: 07/10/21 08:02 Dose: 100 mg Documented by: WILL Insulin Human Lispro (Insulin Lispro 100 Unit/Ml 3 Ml Vial) 0 unit SUBCUT QIDACHS COUNTS [facility]CLUDE 234 BEDS AT THE [facility]; Protocol Last Admin: 07/10/21 12:00 Dose: 6 unit Documented by: WILL Magnesium Hydroxide (Milk Of Magnesia 30 Ml Oral.Susp) 30 ml PO DAILY PRN PRN Reason: Constipation Last Admin: 07/08/21 22:58 Dose: 30 ml Documented by: MELANIE Ondansetron HCl (Ondansetron Hcl 4 Mg/2 Ml Vial) 4 mg IVPUSH Q8H PRN PRN Reason: Nausea and Vomiting Pharmacy Consult (Consult Rx Perform Med Rec) 1 each MISCELLANE ONCE PRN PRN Reason: Consult order Sodium Chloride (0.9 % Sodium Chloride Flush 3 Ml Syringe) [facility] Last Admin: 07/10/21 08:03 Dose: 3 ml Documented by: WILL Labs CBC & Chem 7: 07/06/21 09:01 07/09/21 05:51 Labs: Laboratory Results - last 24 hr 07/09/21 07/09/21 07/10/21 16:23 20:09 07:04 POC Glucose 201 H 250 H 182 H 07/10/21 10:57 POC Glucose 272 H Assessment and Plan (1) Acute respiratory failure with hypoxia: Status: Acute Assessment and Plan: 70/ male with DM, and multiple other comorbidity, not yet vaccinated against covid vaccine and here with acute hypoxic respiratory failure due to covid--symptoms since 06/15 and tested postive 06/18, CTA shows PE 1.Acute hypoxic respriatory failure due to covid 19 Was off O2 yesterday and now back was out of time frame for Remdesevir onr Baritinib day 11, doesn't need to comlete 14 days if has bed for dc 2.Pulmonary emboli and bilteral -started on Lovenox, change to Eliquis at dc, vascular consult= non indication for filter 3.Diabetes-- on dulaglutide and rpglinide--not on formulary, start sliding scale and if needed start Lantus Hba1c levels: 8.5 4.HTN--continue home meds of Losartan, and amlodipine 5.Hypothyroidism--levothyroxine 6.B12 def--B12 replcement DVT prophylaxis;--[facility] PT is recommending SOB rehab, placement limitted d/t covid status Quality Stroke Does the patient have a stroke diagnosis?: No VTE Prior VTE?: No VTE Risk Level:: Medical - moderate - high VTE Device Contraindication: N/A - Device Ordered VTE Drug Contraindication: N/A - Med Ordered
[2021-07-10 16:28] LABS: Glucose, Whole Blood 221 mg/dL (60-115)
[2021-07-10 20:51] LABS: Glucose, Whole Blood 202 mg/dL (60-115)
[2021-07-11] VITALS (7 sets, daily range): BP systolic 98–134; BP diastolic 57–72; PULSE 65–77; RESP 16–22; TEMP 36.4–37.8; O2SAT 93–98
[2021-07-11] MEDS: Apixaban 5 MG TABLET 10 MG PO ×2 (05:12→17:19)
[2021-07-11 07:56] LABS: Glucose, Whole Blood 131 mg/dL (60-115)
[2021-07-11] MEDS: Docusate Sodium 100 MG CAPSULE PO ×2 (09:44→21:12)
[2021-07-11] MEDS: 0.9 % Sodium Chloride Flush 3 ML SYRINGE IVFLUSH ×2 (09:44→17:19)
--- NOTE | 2021-07-11 10:18 | HO.PM.IMPN ---
Subjective Subjective Date of Service: 07/12/21 Interval History: f/u on covid, put back on O2 this morning, not sure if he needs it, awaiting placement Physical Exam Vital Signs: Vital Signs: Last Vital Signs Temp 98.6 F 07/11/21 08:45 Pulse 77 07/11/21 08:45 Resp 22 H 07/11/21 08:45 BP 98/57 L 07/11/21 08:45 Pulse Ox 96 07/11/21 08:45 Oxygen Flow Rate 15 06/30/21 11:01 BMI result Body Mass Index 20.9 Const: Other: General: AO X 3, no acute distress Resp: CTA bilateral CVS: S1,S2,RRR GI: +BS, NT, no distention Skin: No rash Neuro: motor grossly intact Psych: appropriate affect Objective Data Active Medications Acetaminophen (Acetaminophen 325 Mg Tablet) 650 mg PO Q6H PRN PRN Reason: Pain, Mild (Pain Scale 1-3) Last Admin: 07/10/21 04:17 Dose: 650 mg Documented by: SHANNA Apixaban (Apixaban 5 Mg Tablet) 10 mg PO Q12H [facility] Stop: 07/16/21 18:01 Last Admin: 07/11/21 05:12 Dose: 10 mg Documented by: SHANNA Baricitinib (Baricitinib 2 Mg Tablet) 4 mg PO DAILY [facility] Stop: 07/14/21 16:26 Last Admin: 07/11/21 09:43 Dose: 4 mg Documented by: NATHEN Docusate Sodium (Docusate Sodium 100 Mg Capsule) 100 mg PO BID [facility] Last Admin: 07/11/21 09:44 Dose: 100 mg Documented by: NATHEN Insulin Human Lispro (Insulin Lispro 100 Unit/Ml 3 Ml Vial) 0 unit SUBCUT QIDACHS [facility]; Protocol Last Admin: 07/11/21 07:30 Dose: Not Given Documented by: NATHEN Non-Admin Reason: No Insulin Coverage Magnesium Hydroxide (Milk Of Magnesia 30 Ml Oral.Susp) 30 ml PO DAILY PRN PRN Reason: Constipation Last Admin: 07/08/21 22:58 Dose: 30 ml Documented by: MELANIE Ondansetron HCl (Ondansetron Hcl 4 Mg/2 Ml Vial) 4 mg IVPUSH Q8H PRN PRN Reason: Nausea and Vomiting Pharmacy Consult (Consult Rx Perform Med Rec) 1 each MISCELLANE ONCE PRN PRN Reason: Consult order Sodium Chloride (0.9 % Sodium Chloride Flush 3 Ml Syringe) 3 ml IVFLUSH QSHIFT [facility] Last Admin: 07/11/21 09:44 Dose: 3 ml Documented by: NATHEN Labs CBC & Chem 7: 07/06/21 09:01 07/09/21 05:51 Labs: Laboratory Results - last 24 hr 07/10/21 07/10/21 07/10/21 10:57 16:19 20:47 POC Glucose 272 H 221 H 202 H 07/11/21 07:48 POC Glucose 131 H Assessment and Plan (1) Acute respiratory failure with hypoxia: Status: Acute Assessment and Plan: 70/ male with DM, and multiple other comorbidity, not yet vaccinated against covid vaccine and here with acute hypoxic respiratory failure due to covid--symptoms since 06/15 and tested postive 06/18, CTA shows PE 1.Acute hypoxic respriatory failure due to covid 19 Was off O2 yesterday and now back was out of time frame for Remdesevir onr Baritinib day 11, doesn't need to comlete 14 days if has bed for dc 2.Pulmonary emboli and bilteral -started on Lovenox, change to Eliquis at dc, vascular consult= non indication for filter 3.Diabetes-- on dulaglutide and rpglinide--not on formulary, start sliding scale and if needed start Lantus Hba1c levels: 8.5 4.HTN--continue home meds of Losartan, and amlodipine 5.Hypothyroidism--levothyroxine 6.B12 def--B12 replcement DVT prophylaxis;--[facility] PT is recommending SOB rehab, placement limitted d/t covid status Quality Stroke Does the patient have a stroke diagnosis?: No VTE Prior VTE?: No VTE Risk Level:: Medical - moderate - high VTE Device Contraindication: N/A - Device Ordered VTE Drug Contraindication: N/A - Med Ordered
[2021-07-11 11:28] LABS: Glucose, Whole Blood 235 mg/dL (60-115)
[2021-07-11] MEDS: Insulin Lispro 100 UNIT/ML 3 ML VIAL SUBCUT ×3 (11:35→21:12)
--- NOTE | 2021-07-11 13:13 | MHC.CM.PN ---
Broad SNF search is ongoing and all referrals have been updated. Patient is covid (+) and not vaccinated which appears to be the barriers to dc. CM will follow.
[2021-07-11 16:27] LABS: Glucose, Whole Blood 273 mg/dL (60-115)
[2021-07-11 20:44] LABS: Glucose, Whole Blood 285 mg/dL (60-115)
[2021-07-12] VITALS (7 sets, daily range): BP systolic 112–130; BP diastolic 62–69; PULSE 74–93; RESP 18–20; TEMP 36.6–39.3; O2SAT 92–99
[2021-07-12] MEDS: Apixaban 5 MG TABLET 10 MG PO ×2 (06:14→16:48)
[2021-07-12] MEDS: 0.9 % Sodium Chloride Flush 3 ML SYRINGE IVFLUSH ×4 (06:15→21:05)
[2021-07-12 08:00] LABS: Glucose, Whole Blood 150 mg/dL (60-115)
[2021-07-12] MEDS: Docusate Sodium 100 MG CAPSULE PO ×2 (08:36→21:04)
--- NOTE | 2021-07-12 11:04 | HO.PM.IMPN ---
Subjective Subjective Date of Service: 07/12/21 Interval History: f/u on covid, No sob, on room air Review of Systems no fever no hypoxia Physical Exam Vital Signs: Vital Signs: Last Vital Signs Temp 98.2 F 07/12/21 07:36 Pulse 74 07/12/21 07:36 Resp 18 07/12/21 07:36 BP 112/65 07/12/21 07:36 Pulse Ox 93 07/12/21 07:36 Oxygen Flow Rate 15 06/30/21 11:01 BMI result Body Mass Index 20.9 Const: Other: General: AO X 3, no acute distress Resp: CTA bilateral CVS: S1,S2,RRR GI: +BS, NT, no distention Skin: No rash Neuro: motor grossly intact Psych: appropriate affect Objective Data Active Medications Acetaminophen (Acetaminophen 325 Mg Tablet) 650 mg PO Q6H PRN PRN Reason: Pain, Mild (Pain Scale 1-3) Last Admin: 07/10/21 04:17 Dose: 650 mg Documented by: SHANNA Apixaban (Apixaban 5 Mg Tablet) 10 mg PO Q12H [facility] Stop: 07/16/21 18:01 Last Admin: 07/12/21 06:14 Dose: 10 mg Documented by: ALDO Baricitinib (Baricitinib 2 Mg Tablet) 4 mg PO DAILY [facility] Stop: 07/14/21 16:26 Last Admin: 07/12/21 08:36 Dose: 4 mg Documented by: KALIA Docusate Sodium (Docusate Sodium 100 Mg Capsule) 100 mg PO BID [facility] Last Admin: 07/12/21 08:36 Dose: 100 mg Documented by: KALIA Insulin Human Lispro (Insulin Lispro 100 Unit/Ml 3 Ml Vial) 0 unit SUBCUT QIDACHS [facility]; Protocol Last Admin: 07/12/21 08:11 Dose: Not Given Documented by: KALIA Non-Admin Reason: No Insulin Coverage Magnesium Hydroxide (Milk Of Magnesia 30 Ml Oral.Susp) 30 ml PO DAILY PRN PRN Reason: Constipation Last Admin: 07/08/21 22:58 Dose: 30 ml Documented by: MELANIE Ondansetron HCl (Ondansetron Hcl 4 Mg/2 Ml Vial) 4 mg IVPUSH Q8H PRN PRN Reason: Nausea and Vomiting Pharmacy Consult (Consult Rx Perform Med Rec) 1 each MISCELLANE ONCE PRN PRN Reason: Consult order Sodium Chloride (0.9 % Sodium Chloride Flush 3 Ml Syringe) [facility] Last Admin: 07/12/21 08:37 Dose: 3 ml Documented by: KALIA Labs CBC & Chem 7: 07/06/21 09:01 07/09/21 05:51 Labs: Laboratory Results - last 24 hr 07/11/21 07/11/21 07/11/21 11:12 16:16 20:40 POC Glucose 235 H 273 H 285 H 07/12/21 07:38 POC Glucose 150 H Assessment and Plan (1) Acute respiratory failure with hypoxia: Status: Acute Assessment and Plan: 70/ male with DM, and multiple other comorbidity, not yet vaccinated against covid vaccine and here with acute hypoxic respiratory failure due to covid--symptoms since 06/15 and tested postive 06/18, CTA shows PE 1.Acute hypoxic respriatory failure due to covid 19 Was off O2 yesterday and now back was out of time frame for Remdesevir onr Baritinib day 11, doesn't need to comlete 14 days if has bed for dc 2.Pulmonary emboli and bilteral -started on Lovenox, changed to Eliquis for dc, vascular consult= non indication for filter 3.Diabetes-- on dulaglutide and rpglinide--not on formulary, start sliding scale and if needed start Lantus Hba1c levels: 8.5 4.HTN--continue home meds of Losartan, and amlodipine 5.Hypothyroidism--levothyroxine 6.B12 def--B12 replcement DVT prophylaxis;--[facility] PT is recommending SOB rehab, placement limitted d/t covid status Quality Stroke Does the patient have a stroke diagnosis?: No VTE Prior VTE?: No VTE Risk Level:: Medical - moderate - high VTE Device Contraindication: N/A - Device Ordered VTE Drug Contraindication: N/A - Med Ordered
[2021-07-12 11:15] LABS: Glucose, Whole Blood 294 mg/dL (60-115)
[2021-07-12] MEDS: Insulin Lispro 100 UNIT/ML 3 ML VIAL SUBCUT ×3 (12:02→21:04)
[2021-07-12 16:23] LABS: Glucose, Whole Blood 258 mg/dL (60-115)
[2021-07-12 20:10] LABS: Glucose, Whole Blood 350 mg/dL (60-115)
[2021-07-12] MEDS: Acetaminophen 325 MG TABLET 650 MG PO (21:04)
[2021-07-13] VITALS (7 sets, daily range): BP systolic 100–125; BP diastolic 56–72; PULSE 73–118; RESP 18–20; TEMP 36.1–37.9; O2SAT 91–97
[2021-07-13] MEDS: Acetaminophen 325 MG TABLET 650 MG PO (05:55)
[2021-07-13] MEDS: Apixaban 5 MG TABLET 10 MG PO ×2 (05:55→17:50)
[2021-07-13 07:36] LABS: Glucose, Whole Blood 207 mg/dL (60-115)
[2021-07-13] MEDS: 0.9 % Sodium Chloride Flush 3 ML SYRINGE IVFLUSH ×3 (08:05→21:09)
[2021-07-13] MEDS: Insulin Lispro 100 UNIT/ML 3 ML VIAL SUBCUT ×4 (08:05→21:09)
[2021-07-13] MEDS: Docusate Sodium 100 MG CAPSULE PO ×2 (08:06→21:09)
--- NOTE | 2021-07-13 10:06 | HO.PM.IMPN ---
Subjective Subjective Date of Service: 07/13/21 Interval History: f/u on covid, No sob, on room air..no new issues Physical Exam Vital Signs: Vital Signs: Last Vital Signs Temp 98.9 F 07/13/21 08:00 Pulse 73 07/13/21 08:00 Resp 20 07/13/21 08:00 BP 113/60 07/13/21 08:00 Pulse Ox 94 07/13/21 08:00 Oxygen Flow Rate 15 06/30/21 11:01 BMI result Body Mass Index 20.9 Const: Other: General: AO X 3, no acute distress Resp: CTA bilateral CVS: S1,S2,RRR GI: +BS, NT, no distention Skin: No rash Neuro: motor grossly intact Psych: appropriate affect Objective Data Active Medications Acetaminophen (Acetaminophen 325 Mg Tablet) 650 mg PO Q6H PRN PRN Reason: Pain, Mild (Pain Scale 1-3) Last Admin: 07/13/21 05:55 Dose: 650 mg Documented by: ALDO Apixaban (Apixaban 5 Mg Tablet) 10 mg PO Q12H [facility] Stop: 07/16/21 18:01 Last Admin: 07/13/21 05:55 Dose: 10 mg Documented by: ALDO Baricitinib (Baricitinib 2 Mg Tablet) 4 mg PO DAILY [facility] Stop: 07/14/21 16:26 Last Admin: 07/13/21 08:06 Dose: 4 mg Documented by: DANIELA Docusate Sodium (Docusate Sodium 100 Mg Capsule) 100 mg PO BID [facility] Last Admin: 07/13/21 08:06 Dose: 100 mg Documented by: DANIELA Insulin Human Lispro (Insulin Lispro 100 Unit/Ml 3 Ml Vial) 0 unit SUBCUT QIDACHS [facility]; Protocol Last Admin: 07/13/21 08:05 Dose: 4 unit Documented by: DANIELA Magnesium Hydroxide (Milk Of Magnesia 30 Ml Oral.Susp) 30 ml PO DAILY PRN PRN Reason: Constipation Last Admin: 07/08/21 22:58 Dose: 30 ml Documented by: MELANIE Ondansetron HCl (Ondansetron Hcl 4 Mg/2 Ml Vial) 4 mg IVPUSH Q8H PRN PRN Reason: Nausea and Vomiting Pharmacy Consult (Consult Rx Perform Med Rec) 1 each MISCELLANE ONCE PRN PRN Reason: Consult order Sodium Chloride (0.9 % Sodium Chloride Flush 3 Ml Syringe) 3 ml IVFLUSH QSHIFT [facility] Last Admin: 07/13/21 08:05 Dose: 3 ml Documented by: DANIELA Labs CBC & Chem 7: 07/06/21 09:01 07/09/21 05:51 Labs: Laboratory Results - last 24 hr 07/12/21 07/12/21 07/12/21 11:08 16:14 20:04 POC Glucose 294 H 258 H 350 H* 07/13/21 07:31 POC Glucose 207 H Assessment and Plan (1) Acute respiratory failure with hypoxia: Status: Acute Assessment and Plan: 70/ male with DM, and multiple other comorbidity, not yet vaccinated against covid vaccine and here with acute hypoxic respiratory failure due to covid--symptoms since 06/15 and tested postive 06/18, CTA shows PE 1.Acute hypoxic respriatory failure due to covid 19 On room air was out of time frame for Remdesevir onr Baritinib day 11, doesn't need to comlete 14 days if has bed for dc 2.Pulmonary emboli and bilteral -started on Lovenox, and now on Eliquis for dc, vascular consult => non indication for filter 3.Diabetes-- on dulaglutide and rpglinide--not on formulary, start sliding scale and if needed start Lantus Hba1c levels: 8.5 4.HTN--continue home meds of Losartan, and amlodipine 5.Hypothyroidism--levothyroxine 6.B12 def--B12 replcement DVT prophylaxis;--[facility] PT is recommending SOB rehab, placement limitted d/t covid status retest for covid today Quality Stroke Does the patient have a stroke diagnosis?: No VTE Prior VTE?: No VTE Risk Level:: Medical - moderate - high VTE Device Contraindication: N/A - Device Ordered VTE Drug Contraindication: N/A - Med Ordered
[2021-07-13 11:47] LABS: Glucose, Whole Blood 263 mg/dL (60-115)
[2021-07-13 12:59] LABS: COVID-19 Test Negative (Negative)
--- NOTE | 2021-07-13 14:22 | PM.EVENT ---
Event Note Date of Service: 07/13/21 Event Note: first tested postivie for shanti li 2020, admitted on presently assymptomatic, has been off oxygen and tested negative today. Moving out of isolation discussed with ID
--- NOTE | 2021-07-13 15:53 | PC.NURSE ---
Pt transferred to [facility] and report given to RN.
[2021-07-13 16:42] LABS: Glucose, Whole Blood 264 mg/dL (60-115)
[2021-07-13 21:14] LABS: Glucose, Whole Blood 261 mg/dL (60-115)
[2021-07-14] VITALS (7 sets, daily range): BP systolic 114–135; BP diastolic 61–73; PULSE 69–79; RESP 18–20; TEMP 36.3–37.4; O2SAT 94–96
[2021-07-14] MEDS: Apixaban 5 MG TABLET 10 MG PO ×2 (05:02→17:44)
[2021-07-14 07:51] LABS: Glucose, Whole Blood 147 mg/dL (60-115)
[2021-07-14] MEDS: Docusate Sodium 100 MG CAPSULE PO ×2 (08:44→21:41)
[2021-07-14] MEDS: 0.9 % Sodium Chloride Flush 3 ML SYRINGE IVFLUSH ×2 (08:44→17:46)
[2021-07-14 09:15] LABS: Anion Gap 11 (12-20); Blood Urea Nitrogen 13 mg/dL (9-16); Calcium 8.3 mg/dL (8.4-10.2); Carbon Dioxide 30 mmol/L (22-29); Chloride 94 mmol/L (96-108); Creatinine Clr Calc Pharmacy 65.6; Estimated Glomerular Filt Rate > 60; Glucose Random 202 mg/dL (60-115); Potassium 4.5 mmol/L (3.3-5.1); Sodium 130 mmol/L (135-145)
--- NOTE | 2021-07-14 10:16 | P.PNIM_ITS ---
Subjective Subjective Date of Service: 07/14/21 Interval History: f/u on covid, No sob, on room air..no new issues Physical Exam Vital Signs: Vital Signs: Last Vital Signs Temp 98.1 F 07/14/21 07:34 Pulse 72 07/14/21 07:34 Resp 18 07/14/21 07:34 BP 124/63 07/14/21 07:34 Pulse Ox 95 07/14/21 07:34 Oxygen Flow Rate 15 06/30/21 11:01 BMI result Body Mass Index 20.9 Const: Other: General: AO X 3, no acute distress Resp: CTA bilateral CVS: S1,S2,RRR GI: +BS, NT, no distention Skin: No rash Neuro: motor grossly intact Psych: appropriate affect Objective Data Active Medications Acetaminophen (Acetaminophen 325 Mg Tablet) 650 mg PO Q6H PRN PRN Reason: Pain, Mild (Pain Scale 1-3) Last Admin: 07/13/21 05:55 Dose: 650 mg Documented by: ALDO Apixaban (Apixaban 5 Mg Tablet) 10 mg PO Q12H [facility] Stop: 07/16/21 18:01 Last Admin: 07/14/21 05:02 Dose: 10 mg Documented by: FRANCESCO Baricitinib (Baricitinib 2 Mg Tablet) 4 mg PO DAILY [facility] Stop: 07/14/21 16:26 Last Admin: 07/14/21 08:44 Dose: 4 mg Documented by: AG Docusate Sodium (Docusate Sodium 100 Mg Capsule) 100 mg PO BID [facility] Last Admin: 07/14/21 08:44 Dose: 100 mg Documented by: AG Insulin Human Lispro (Insulin Lispro 100 Unit/Ml 3 Ml Vial) 0 unit SUBCUT QIDACHS [facility]; Protocol Last Admin: 07/14/21 08:43 Dose: Not Given Documented by: AG Non-Admin Reason: No Insulin Coverage Magnesium Hydroxide (Milk Of Magnesia 30 Ml Oral.Susp) 30 ml PO DAILY PRN PRN Reason: Constipation Last Admin: 07/08/21 22:58 Dose: 30 ml Documented by: MELANIE Ondansetron HCl (Ondansetron Hcl 4 Mg/2 Ml Vial) 4 mg IVPUSH Q8H PRN PRN Reason: Nausea and Vomiting Pharmacy Consult (Consult Rx Perform Med Rec) 1 each MISCELLANE ONCE PRN PRN Reason: Consult order Sodium Chloride (0.9 % Sodium Chloride Flush 3 Ml Syringe) 3 ml IVFLUSH QSHIFT [facility] Last Admin: 07/14/21 08:44 Dose: 3 ml Documented by: AG Labs CBC & Chem 7: 07/06/21 09:01 07/14/21 08:34 Labs: Laboratory Results - last 24 hr 07/13/21 07/13/21 07/13/21 11:30 12:29 16:35 Anion Gap Estim Creat Clear Calc Estimated GFR POC Glucose 263 H 264 H Random Glucose Calcium COVID-19 (NANI) Negative COVID-19 Clin Com See Note 07/13/21 07/14/21 07/14/21 21:05 07:36 08:34 Anion Gap 11 L Estim Creat Clear Calc 65.6 Estimated GFR > 60 POC Glucose 261 H 147 H Random Glucose 202 H Calcium 8.3 L COVID-19 (NANI) COVID-19 Clin Com Assessment and Plan (1) Acute respiratory failure with hypoxia: Status: Acute Assessment and Plan: 70/ male with DM, and multiple other comorbidity, not yet vaccinated against covid vaccine and here with acute hypoxic respiratory failure due to covid--symptoms since 06/15 and tested postive 06/18, CTA shows PE 1.Acute hypoxic respriatory failure due to covid 19 On room air was out of time frame for Remdesevir onr Baritinib day 11, doesn't need to comlete 14 days if has bed for dc 2.Pulmonary emboli and bilteral -started on Lovenox, and now on Eliquis for dc, vascular consult => non indication for filter 3.Diabetes-- on dulaglutide and rpglinide--not on formulary, start sliding scale and if needed start Lantus Hba1c levels: 8.5 4.HTN--continue home meds of Losartan, and amlodipine 5.Hypothyroidism--levothyroxine 6.B12 def--B12 replcement DVT prophylaxis;--Eliquis PT is recommending SOB rehab, placement limitted d/t covid status retest for covid on 07/13 negative Quality Stroke Does the patient have a stroke diagnosis?: No VTE Prior VTE?: No VTE Risk Level:: Medical - moderate - high VTE Device Contraindication: N/A - Device Ordered VTE Drug Contraindication: N/A - Med Ordered
[2021-07-14 11:23] LABS: Glucose, Whole Blood 231 mg/dL (60-115)
[2021-07-14] MEDS: Insulin Lispro 100 UNIT/ML 3 ML VIAL SUBCUT ×3 (13:13→21:41)
[2021-07-14 16:22] LABS: Glucose, Whole Blood 247 mg/dL (60-115)
[2021-07-14 19:59] LABS: Glucose, Whole Blood 211 mg/dL (60-115)
--- NOTE | 2021-07-14 22:12 | PC.NURSE ---
Tonight patient reported some freqency urination and burning sensation with urination. Patient reported that burning sensation started 3 days ago. Patient is urinating 150 ml per one void,urine is clear no odor. Bladder scanned for 97 ml
[2021-07-14 22:53] LABS: Appearance Urine HAZY; Color Urine YELLOW; Glucose Urine UA NEG (NEG); Leukocyte Esterase Urine 3+ (NEG); Nitrite Urine NEG (NEG); PH 5.5 (5.0-8.0); Urine Blood 2+ (NEG); Urine Ketones NEG (NEG); Urine Protein NEG (NEG-TRACE)
[2021-07-14 23:20] LABS: Bacteria Urine 3+ /LPF; Squamous Epithelial Cell Urine TRACE /LPF
[2021-07-15 04:00] VITALS: BP 140/65; PULSE 72; RESP 18; TEMP 36.4; O2SAT 98
[2021-07-15] MEDS: Apixaban 5 MG TABLET 10 MG PO ×2 (05:40→16:44)
[2021-07-15 07:08] VITALS: BP 112/61; PULSE 67; RESP 18; TEMP 37.6; O2SAT 95
[2021-07-15 07:19] LABS: Glucose, Whole Blood 107 mg/dL (60-115)
[2021-07-15] MEDS: 0.9 % Sodium Chloride Flush 3 ML SYRINGE IVFLUSH ×2 (07:29→16:44)
[2021-07-15] MEDS: Docusate Sodium 100 MG CAPSULE PO (07:29)
--- NOTE | 2021-07-15 10:57 | P.PNIM_ITS ---
Subjective Subjective Date of Service: 07/15/21 Interval History: f/u on covid, No sob, on room air..no new issues, pain in the leg is better Review of Systems no fever no hypoxia Physical Exam Vital Signs: Vital Signs: Last Vital Signs Temp 99.7 F 07/15/21 07:08 Pulse 67 07/15/21 07:08 Resp 18 07/15/21 07:08 BP 112/61 07/15/21 07:08 Pulse Ox 95 07/15/21 07:08 Oxygen Flow Rate 15 06/30/21 11:01 BMI result Body Mass Index 20.9 Const: Other: General: AO X 3, no acute distress Resp: CTA bilateral CVS: S1,S2,RRR GI: +BS, NT, no distention Skin: No rash Neuro: motor grossly intact Psych: appropriate affect Objective Data Active Medications Acetaminophen (Acetaminophen 325 Mg Tablet) 650 mg PO Q6H PRN PRN Reason: Pain, Mild (Pain Scale 1-3) Last Admin: 07/13/21 05:55 Dose: 650 mg Documented by: ALDO Apixaban (Apixaban 5 Mg Tablet) 10 mg PO Q12H [facility] Stop: 07/16/21 18:01 Last Admin: 07/15/21 05:40 Dose: 10 mg Documented by: ANITA Docusate Sodium (Docusate Sodium 100 Mg Capsule) 100 mg PO BID [facility] Last Admin: 07/15/21 07:29 Dose: 100 mg Documented by: EDEL Insulin Human Lispro (Insulin Lispro 100 Unit/Ml 3 Ml Vial) 0 unit SUBCUT QIDACHS [facility]; Protocol Last Admin: 07/15/21 07:25 Dose: Not Given Documented by: EDEL Non-Admin Reason: No Insulin Coverage Magnesium Hydroxide (Milk Of Magnesia 30 Ml Oral.Susp) 30 ml PO DAILY PRN PRN Reason: Constipation Last Admin: 07/08/21 22:58 Dose: 30 ml Documented by: MELANIE Ondansetron HCl (Ondansetron Hcl 4 Mg/2 Ml Vial) 4 mg IVPUSH Q8H PRN PRN Reason: Nausea and Vomiting Pharmacy Consult (Consult Rx Perform Med Rec) 1 each MISCELLANE ONCE PRN PRN Reason: Consult order Sodium Chloride (0.9 % Sodium Chloride Flush 3 Ml Syringe) 3 ml IVFLUSH QSHIFT [facility] Last Admin: 07/15/21 07:29 Dose: 3 ml Documented by: EDEL Labs CBC & Chem 7: 07/06/21 09:01 07/14/21 08:34 Labs: Laboratory Results - last 24 hr 07/14/21 07/14/21 07/14/21 11:14 16:12 19:55 POC Glucose 231 H 247 H 211 H Urine Color Urine Appearance Urine pH Ur Specific Clare Urine Protein Urine Glucose (UA) Urine Ketones Urine Blood Urine Nitrite Ur Leukocyte Esterase Urine RBC Urine WBC Ur Squamous Epith Cells Urine Bacteria 07/14/21 07/15/21 22:41 07:15 POC Glucose 107 Urine Color YELLOW Urine Appearance HAZY Urine pH 5.5 Ur Specific Clare 1.010 Urine Protein NEG Urine Glucose (UA) NEG Urine Ketones NEG Urine Blood 2+ H Urine Nitrite NEG Ur Leukocyte Esterase 3+ H Urine RBC 1-4 Urine WBC 15-29 H Ur Squamous Epith Cells TRACE Urine Bacteria 3+ Assessment and Plan (1) Acute respiratory failure with hypoxia: Status: Acute Assessment and Plan: 70/ male with DM, and multiple other comorbidity, not yet vaccinated against covid vaccine and here with acute hypoxic respiratory failure due to covid--symptoms since 06/15 and tested postive 06/18, CTA shows PE 1.Acute hypoxic respriatory failure due to covid 19 On room air was out of time frame for Remdesevir onr Baritinib day 12, doesn't need to complete 14 days if has bed for dc 2.Pulmonary emboli and bilteral -started on Lovenox, and now on Eliquis for dc, vascular consult => non indication for filter 3.Diabetes-- on dulaglutide and rpglinide--not on formulary, start sliding scale and if needed start Lantus Hba1c levels: 8.5 4.HTN--continue home meds of Losartan, and amlodipine 5.Hypothyroidism--levothyroxine 6.B12 def--B12 replcement DVT prophylaxis;--Eliquis PT is recommending SOB rehab, placement limitted d/t covid status retest for covid on 07/13 negative Awaiting rehab placment Quality Stroke Does the patient have a stroke diagnosis?: No VTE Prior VTE?: No VTE Risk Level:: Medical - moderate - high VTE Device Contraindication: N/A - Device Ordered VTE Drug Contraindication: N/A - Med Ordered
[2021-07-15 11:05] VITALS: BP 126/71; PULSE 71; RESP 20; TEMP 36.8; O2SAT 94
[2021-07-15 11:14] LABS: Glucose, Whole Blood 214 mg/dL (60-115)
[2021-07-15] MEDS: Insulin Lispro 100 UNIT/ML 3 ML VIAL SUBCUT ×3 (11:27→20:53)
[2021-07-15 14:57] VITALS: BP 135/70; PULSE 68; RESP 18; TEMP 36.7; O2SAT 95
[2021-07-15 16:05] LABS: Glucose, Whole Blood 226 mg/dL (60-115)
[2021-07-15 20:00] VITALS: BP 145/73; PULSE 88; RESP 18; TEMP 36.9; O2SAT 98
[2021-07-15 20:26] LABS: Glucose, Whole Blood 192 mg/dL (60-115)
[2021-07-15 23:08] VITALS: BP 145/73; PULSE 89; RESP 19; TEMP 36.4; O2SAT 92
[2021-07-16] VITALS (7 sets, daily range): BP systolic 128–135; BP diastolic 60–70; PULSE 66–88; RESP 18–20; TEMP 36.2–37.2; O2SAT 91–95
[2021-07-16] MEDS: 0.9 % Sodium Chloride Flush 3 ML SYRINGE IVFLUSH ×3 (00:19→16:25)
[2021-07-16] MEDS: Acetaminophen 325 MG TABLET 650 MG PO (00:19)
[2021-07-16] MEDS: Apixaban 5 MG TABLET 10 MG PO ×2 (06:23→16:25)
[2021-07-16 08:03] LABS: Glucose, Whole Blood 168 mg/dL (60-115)
[2021-07-16] MEDS: Insulin Lispro 100 UNIT/ML 3 ML VIAL SUBCUT ×4 (08:19→22:11)
[2021-07-16 11:08] LABS: Glucose, Whole Blood 273 mg/dL (60-115)
--- NOTE | 2021-07-16 12:30 | MHC.CM.PN ---
pt remanins ready for dc bed search in progress
--- NOTE | 2021-07-16 14:15 | HO.PM.IMPN ---
Subjective Subjective Date of Service: 07/16/21 Interval History: no acute events overnight. Sats improving Review of Systems denies chest pain Denies shortness of breath Denies nausea vomiting diarrhea Physical Exam Vital Signs: Vital Signs: Last Vital Signs Temp 98.6 F 07/16/21 11:15 Pulse 88 07/16/21 11:15 Resp 20 07/16/21 11:15 BP 132/69 07/16/21 11:15 Pulse Ox 91 L 07/16/21 11:15 Oxygen Flow Rate 15 06/30/21 11:01 BMI result Body Mass Index 20.9 Const: Other: no acute distress Resp: Other: clear to auscultation bilaterally no rales rhonchi or wheezes Cardio: Other: no S4; positive S1-S2; no S3 murmurs rubs or gallops GI: Other: soft nontender nondistended with normoactive bowel sounds Extrem: Other: no edema bilaterally Objective Data Active Medications Acetaminophen (Acetaminophen 325 Mg Tablet) 650 mg PO Q6H PRN PRN Reason: Pain, Mild (Pain Scale 1-3) Last Admin: 07/16/21 00:19 Dose: 650 mg Documented by: NINO Apixaban (Apixaban 5 Mg Tablet) 10 mg PO Q12H [facility] Stop: 07/16/21 18:01 Last Admin: 07/16/21 06:23 Dose: 10 mg Documented by: NINO Docusate Sodium (Docusate Sodium 100 Mg Capsule) 100 mg PO BID [facility] Last Admin: 07/16/21 08:21 Dose: Not Given Documented by: NICHOLE Non-Admin Reason: Patient Refused Insulin Human Lispro (Insulin Lispro 100 Unit/Ml 3 Ml Vial) 0 unit SUBCUT QIDACHS [facility]; Protocol Last Admin: 07/16/21 11:26 Dose: 6 unit Documented by: NICHOLE Magnesium Hydroxide (Milk Of Magnesia 30 Ml Oral.Susp) 30 ml PO DAILY PRN PRN Reason: Constipation Last Admin: 07/08/21 22:58 Dose: 30 ml Documented by: MELANIE Ondansetron HCl (Ondansetron Hcl 4 Mg/2 Ml Vial) 4 mg IVPUSH Q8H PRN PRN Reason: Nausea and Vomiting Pharmacy Consult (Consult Rx Perform Med Rec) 1 each MISCELLANE ONCE PRN PRN Reason: Consult order Sodium Chloride (0.9 % Sodium Chloride Flush 3 Ml Syringe) 3 ml IVFLUSH QSHIFT [facility] Last Admin: 07/16/21 07:43 Dose: 3 ml Documented by: NICHOLE Labs CBC & Chem 7: 07/06/21 09:01 07/14/21 08:34 Labs: Laboratory Results - last 24 hr 07/15/21 07/15/21 07/16/21 15:00 20:23 07:59 POC Glucose 226 H 192 H 168 H 07/16/21 10:56 POC Glucose 273 H Assessment and Plan (1) Acute respiratory distress syndrome (ARDS) due to COVID-19 virus: Status: Acute (2) Diabetes mellitus: Status: Acute (3) Hypothyroid: Status: Acute Assessment and Plan: 70/ male with DM, and multiple other comorbidity, not yet vaccinated against covid vaccine and here with acute hypoxic respiratory failure due to covid--symptoms since 06/15 and tested postive 06/18, CTA shows PE 1.Acute hypoxic respriatory failure due to covid 19 good response to therapy . . . Conservatives at this time 2.Pulmonary emboli continue Eliquis as ordered 3.DMII acceptable control Add back oral therapies upon discharge 4.HTN Acceptable control Continue Losartan/ amlodipine 5.Hypothyroidism Continue levothyroxine DVT prophylaxis;--Eliquis PT is recommending SOB rehab, placement limitted d/t covid status Quality Stroke Does the patient have a stroke diagnosis?: No VTE Prior VTE?: No VTE Risk Level:: Medical - moderate - high VTE Device Contraindication: N/A - Device Ordered VTE Drug Contraindication: N/A - Med Ordered
[2021-07-16 16:09] LABS: Glucose, Whole Blood 267 mg/dL (60-115)
[2021-07-16 21:09] LABS: Glucose, Whole Blood 202 mg/dL (60-115)
[2021-07-17] MEDS: 0.9 % Sodium Chloride Flush 3 ML SYRINGE IVFLUSH ×4 (00:38→21:23)
[2021-07-17 03:27] VITALS: BP 110/60; PULSE 72; RESP 18; TEMP 36.3; O2SAT 91
[2021-07-17 07:25] VITALS: BP 111/67; PULSE 74; RESP 18; TEMP 36.7; O2SAT 94
[2021-07-17 08:16] LABS: Glucose, Whole Blood 118 mg/dL (60-115)
[2021-07-17 11:17] VITALS: BP 117/60; PULSE 77; RESP 18; TEMP 36.9; O2SAT 96
[2021-07-17 11:23] LABS: Glucose, Whole Blood 257 mg/dL (60-115)
[2021-07-17] MEDS: Insulin Lispro 100 UNIT/ML 3 ML VIAL SUBCUT ×3 (11:36→21:18)
[2021-07-17] MEDS: Acetaminophen 325 MG TABLET 650 MG PO (12:39)
--- NOTE | 2021-07-17 13:24 | P.PNIM_ITS ---
Subjective Subjective Date of Service: 07/17/21 Interval History: no acute changes overnight Review of Systems denies chest pain Denies shortness of breath Denies nausea vomiting diarrhea Physical Exam Vital Signs: Vital Signs: Last Vital Signs Temp 98.4 F 07/17/21 11:17 Pulse 77 07/17/21 11:17 Resp 18 07/17/21 11:17 BP 117/60 07/17/21 11:17 Pulse Ox 96 07/17/21 11:17 Oxygen Flow Rate 15 06/30/21 11:01 BMI result Body Mass Index 20.9 Const: Other: no acute distress Resp: Other: clear to auscultation bilaterally no rales rhonchi or wheezes Cardio: Other: no S4; positive S1-S2; no S3 murmurs rubs or gallops GI: Other: soft nontender nondistended with normoactive bowel sounds Extrem: Other: no edema bilaterally Objective Data Active Medications Acetaminophen (Acetaminophen 325 Mg Tablet) 650 mg PO Q6H PRN PRN Reason: Pain, Mild (Pain Scale 1-3) Last Admin: 07/17/21 12:39 Dose: 650 mg Documented by: NICHOLE Docusate Sodium (Docusate Sodium 100 Mg Capsule) 100 mg PO BID [facility] Last Admin: 07/17/21 07:52 Dose: Not Given Documented by: NICHOLE Non-Admin Reason: Patient Refused Insulin Human Lispro (Insulin Lispro 100 Unit/Ml 3 Ml Vial) 0 unit SUBCUT QIDAS [facility]; Protocol Last Admin: 07/17/21 11:36 Dose: 6 unit Documented by: NICHOLE Magnesium Hydroxide (Milk Of Magnesia 30 Ml Oral.Susp) 30 ml PO DAILY PRN PRN Reason: Constipation Last Admin: 07/08/21 22:58 Dose: 30 ml Documented by: MELANIE Ondansetron HCl (Ondansetron Hcl 4 Mg/2 Ml Vial) 4 mg IVPUSH Q8H PRN PRN Reason: Nausea and Vomiting Pharmacy Consult (Consult Rx Perform Med Rec) 1 each MISCELLANE ONCE PRN PRN Reason: Consult order Sodium Chloride (0.9 % Sodium Chloride Flush 3 Ml Syringe) 3 ml IVFLUSH [facility] Last Admin: 07/17/21 08:48 Dose: 3 ml Documented by: NICHOLE Labs CBC & Chem 7: 07/06/21 09:01 07/14/21 08:34 Labs: Laboratory Results - last 24 hr 07/16/21 07/16/21 07/17/21 15:37 21:02 07:23 POC Glucose 267 H 202 H 118 H 07/17/21 11:20 POC Glucose 257 H Assessment and Plan (1) COVID-19: Status: Acute (2) Diabetes type 2, uncontrolled: Status: Acute Assessment and Plan: 70/ male with DM, and multiple other comorbidity, not yet vaccinated against covid vaccine and here with acute hypoxic respiratory failure due to covid--symptoms since 06/15 and tested postive 06/18, CTA shows PE 1.Acute hypoxic respriatory failure due to covid 19 good response to therapy . . . Conservatives at this time 2.Pulmonary emboli continue Eliquis as ordered 3.DMII acceptable control Add back oral therapies upon discharge 4.HTN Acceptable control Continue Losartan/ amlodipine 5.Hypothyroidism Continue levothyroxine DVT prophylaxis;--Eliquis PT is recommending SOB rehab, placement limitted d/t covid status Quality Stroke Does the patient have a stroke diagnosis?: No VTE Prior VTE?: No VTE Risk Level:: Medical - moderate - high VTE Device Contraindication: N/A - Device Ordered VTE Drug Contraindication: N/A - Med Ordered
[2021-07-17 15:34] VITALS: BP 109/68; PULSE 67; RESP 20; TEMP 37.2; O2SAT 98
[2021-07-17 17:04] LABS: Glucose, Whole Blood 187 mg/dL (60-115)
[2021-07-17 19:24] VITALS: BP 127/66; PULSE 69; RESP 14; TEMP 36.6; O2SAT 96
[2021-07-17 21:06] LABS: Glucose, Whole Blood 216 mg/dL (60-115)
[2021-07-17] MEDS: Docusate Sodium 100 MG CAPSULE PO (21:18)
[2021-07-17 23:44] VITALS: BP 130/70; PULSE 67; RESP 20; TEMP 37.1; O2SAT 97
[2021-07-18] VITALS (7 sets, daily range): BP systolic 117–146; BP diastolic 64–73; PULSE 68–80; RESP 18–20; TEMP 36.2–37.2; O2SAT 95–99
[2021-07-18 07:40] LABS: Glucose, Whole Blood 122 mg/dL (60-115)
[2021-07-18] MEDS: 0.9 % Sodium Chloride Flush 3 ML SYRINGE IVFLUSH ×3 (09:51→22:11)
[2021-07-18 11:44] LABS: Glucose, Whole Blood 291 mg/dL (60-115)
[2021-07-18] MEDS: Insulin Lispro 100 UNIT/ML 3 ML VIAL SUBCUT ×3 (12:24→22:11)
--- NOTE | 2021-07-18 12:43 | PM.DS ---
DS: Providers Provider Date of Service: 07/18/21 Date of admission: 06/30/21 15:50 Date of discharge: 07/18/21 Primary care physician: Amina Hammer MD Consults: 07/09/21 10:03 Consult to Vascular Surgery Routine Consulting Provider: Felipe Jimenes Reason for consultation: dvts DS: Diagnosis Discharge Diagnosis (1) COVID-19: Status: Acute (2) Diabetes type 2, uncontrolled: Status: Acute DS: Summary Hospital Course Hospital Course: 70 year old male with diabetes and multiple other medical problems who is not yet vaccinated for covid 19 and tested positive for the virus on June 18, however was having symptoms for at least 2 days before that. He was seen in ED 2 days before [place] [facility] at that time was not hypoxic? to be admitted. He comes back today hypoxic, persistent cough. He is put on high flow to maintain O2 and seems more comfortable with that. He has no fever, breathing at 20 and no tachycardia. CRP is 2.3, LDH 759, Ferritin 1231, Ddimer 8000+. CTA shows PE Hospital Course patient was admitted to the floor and given supplemental oxygen for hypoxia. He was out of time frame for remdesivir. Completed 14 days of Baritinib without issue. He was transitioned from Lovenox to Eliquis after completing at 10 mg course of Eliquis b.i.d. he is now on Eliquis 5 mg b.i.d.. He has remained afebrile his white count has been stable. He will be discharged to SNF for rehab as purpose of therapy ? Time Spent with Patient Time attestation: Total time spent providing and/or coordinating discharge services: Discharge coordination time: Greater than 30 minutes Quality: Stroke Does the patient have a stroke diagnosis?: No Physical Exam Vital Signs: Vital Signs: Last Vital Signs Temp 97.6 F 07/18/21 11:32 Pulse 73 07/18/21 11:32 Resp 18 07/18/21 11:32 BP 146/73 H 07/18/21 11:32 Pulse Ox 96 07/18/21 11:32 Oxygen Flow Rate 15 06/30/21 11:01 BMI result Body Mass Index 20.9 Const: Other: no acute distress Resp: Other: clear to auscultation bilaterally no rales rhonchi or wheezes Cardio: Other: no S4; positive S1-S2; no S3 murmurs rubs or gallops GI: Other: soft nontender nondistended with normoactive bowel sounds Extrem: Other: no edema bilaterally DS: Data Data Completed and Pending Labs on day of discharge: Laboratory Results - last 24 hr 07/17/21 07/17/21 07/18/21 17:00 20:49 07:33 POC Glucose 187 H 216 H 122 H 07/18/21 11:33 POC Glucose 291 H Discharge Plan Discharge Patient Disposition: er Inpatient Rehab Fac Discharge Diagnosis: Pulmonary Embolus Referrals: Amina Ochoa MD [Primary Care Provider] - 1 Week Discharge Medications: Continued (DME) diabetic shoes with inserts 9 See Rx Instructions .Route .MEDSUPPLY Qty: 1 RF: 0 (DME) FreeStyle Lite Strips Strip See Rx Instructions .ROUTE .MEDSUPPLY Qty: 300 RF: 3 losartan 50 mg tablet 50 mg PO DAILY Qty: 90 RF: 1 (DME) lancets [FreeStyle Lancets] 28 gauge misc See Rx Instructions .Route Qty: 100 RF: 11 cholecalciferol (vitamin D3) [Vitamin D3] 50 mcg (2,000 unit) tablet 50 mcg PO DAILY Qty: 90 RF: 1 amlodipine 2.5 mg tablet 2.5 mg PO DAILY Qty: 90 RF: 2 fluticasone propionate 50 mcg/actuation spray,suspension 1 spray intranasal DAILY 30 Days Qty: 16 RF: 5 aspirin 81 mg tablet,delayed release (DR/EC) 81 mg PO DAILY Qty: 90 RF: 3 Trulicity 3 mg/0.5 mL pen injector 3 mg subcut QWEEK 90 Days Qty: 6.5 RF: 1 repaglinide 2 mg tablet 2 tab PO DAILY@1700 RF: 0 repaglinide 2 mg tablet 1 tab PO DAILY RF: 0 levothyroxine 125 mcg tablet 125 mcg PO DAILY@0630 RF: 0 dexamethasone [Decadron] 6 mg tablet 6 mg PO DAILY Qty: 7 RF: 0 codeine-guaifenesin 10-100 mg/5 mL liquid 10 ml PO Q6-8H PRN (Reason: cough) Qty: 237 RF: 0 albuterol sulfate [ProAir HFA] 90 mcg/actuation HFA aerosol inhaler 2 puff inhalation Q4-6H PRN (Reason: Wheezing) Qty: 8.5 RF: 0 repaglinide 2 mg tablet See Rx Instructions PO BID 90 Days Qty: 270 RF: 1 cyanocobalamin (vitamin B-12) 500 mcg tablet, sublingual 500 mcg sublingual DAILY 30 Days Qty: 30 RF: 6 Discharge Orders: Discharge Order (Routine); Ordered 07/18/21 Ordered By: Dustin Bee Diet: advance to usual diet Activity on Discharge: As tolerated Stand Alone Forms: Patient Portal Discharge page Care Plan Goals: complete at least 6 months course of Eliquis to. Follow-up as per receiving physician Health Concerns: recovered from COVID-19; treatment for pulmonary embolus Plan of Treatment: maintain highest level of function Assessment: as per DC summary Patient Instructions: Enoxaparin (By injection), Deep Vein Thrombosis (GEN)
[2021-07-18 16:21] LABS: Glucose, Whole Blood 205 mg/dL (60-115)
[2021-07-18 19:58] LABS: Glucose, Whole Blood 206 mg/dL (60-115)
[2021-07-18] MEDS: Apixaban 5 MG TABLET PO (22:11)
[2021-07-18] MEDS: Docusate Sodium 100 MG CAPSULE PO (22:11)
[2021-07-19 03:14] VITALS: BP 126/69; PULSE 80; RESP 20; TEMP 36.3; O2SAT 96
[2021-07-19 07:43] LABS: Glucose, Whole Blood 172 mg/dL (60-115)
[2021-07-19 08:00] VITALS: BP 120/66; PULSE 84; RESP 22; TEMP 37.3; O2SAT 94
[2021-07-19] MEDS: 0.9 % Sodium Chloride Flush 3 ML SYRINGE IVFLUSH ×3 (08:36→22:07)
[2021-07-19] MEDS: Apixaban 5 MG TABLET PO ×2 (08:36→22:05)
[2021-07-19] MEDS: Docusate Sodium 100 MG CAPSULE PO ×2 (08:36→22:05)
[2021-07-19] MEDS: Insulin Lispro 100 UNIT/ML 3 ML VIAL SUBCUT ×4 (08:36→22:05)
[2021-07-19] MEDS: Acetaminophen 325 MG TABLET 650 MG PO (08:42)
[2021-07-19 12:00] VITALS: BP 105/57; PULSE 71; RESP 20; TEMP 37.1; O2SAT 96
[2021-07-19 12:07] LABS: Glucose, Whole Blood 264 mg/dL (60-115)
--- NOTE | 2021-07-19 14:03 | P.PNIM_ITS ---
Subjective Subjective Date of Service: 07/19/21 Interval History: no acute changes overnight Review of Systems denies chest pain Denies nausea vomiting diarrhea Denies shortness of breath Physical Exam Vital Signs: Vital Signs: Last Vital Signs Temp 99.2 F 07/19/21 08:00 Pulse 84 07/19/21 08:00 Resp 22 H 07/19/21 08:00 BP 120/66 07/19/21 08:00 Pulse Ox 94 07/19/21 08:00 Oxygen Flow Rate 15 06/30/21 11:01 BMI result Body Mass Index 20.9 Const: Other: no acute distress Resp: Other: clear to auscultation bilaterally no rales rhonchi or wheezes Cardio: Other: no S4; positive S1-S2; no S3 murmurs rubs or gallops GI: Other: soft nontender nondistended with normoactive bowel sounds Extrem: Other: no edema bilaterally Objective Data Active Medications Acetaminophen (Acetaminophen 325 Mg Tablet) 650 mg PO Q6H PRN PRN Reason: Pain, Mild (Pain Scale 1-3) Last Admin: 07/19/21 08:42 Dose: 650 mg Documented by: RAJEEV Apixaban (Apixaban 5 Mg Tablet) 5 mg PO BID [facility] Last Admin: 07/19/21 08:36 Dose: 5 mg Documented by: RAJEEV Docusate Sodium (Docusate Sodium 100 Mg Capsule) 100 mg PO BID [facility] Last Admin: 07/19/21 08:36 Dose: 100 mg Documented by: RAJEEV Insulin Human Lispro (Insulin Lispro 100 Unit/Ml 3 Ml Vial) 0 unit SUBCUT QIDAS [facility]; Protocol Last Admin: 07/19/21 12:38 Dose: 6 unit Documented by: RAJEEV Magnesium Hydroxide (Milk Of Magnesia 30 Ml Oral.Susp) 30 ml PO DAILY PRN PRN Reason: Constipation Last Admin: 07/08/21 22:58 Dose: 30 ml Documented by: MELANIE Ondansetron HCl (Ondansetron Hcl 4 Mg/2 Ml Vial) 4 mg IVPUSH Q8H PRN PRN Reason: Nausea and Vomiting Pharmacy Consult (Consult Rx Perform Med Rec) 1 each MISCELLANE ONCE PRN PRN Reason: Consult order Sodium Chloride (0.9 % Sodium Chloride Flush 3 Ml Syringe) 3 ml IVFLUSH QSHIFT [facility] Last Admin: 07/19/21 08:36 Dose: 3 ml Documented by: RAJEEV Labs CBC & Chem 7: 07/06/21 09:01 07/14/21 08:34 Labs: Laboratory Results - last 24 hr 07/18/21 07/18/21 07/19/21 16:13 19:51 07:35 POC Glucose 205 H 206 H 172 H 07/19/21 11:59 POC Glucose 264 H Assessment and Plan (1) COVID-19: Status: Acute (2) Pulmonary emboli: Status: Acute Assessment and Plan: 70/ male with DM, and multiple other comorbidity, not yet vaccinated against covid vaccine and here with acute hypoxic respiratory failure due to covid--symptoms since 06/15 and tested postive 06/18, CTA shows PE 1.Acute hypoxic respriatory failure due to covid 19 good response to therapy . . . Conservatives at this time 2.Pulmonary emboli continue Eliquis 3.DMII acceptable control Add back oral therapies upon discharge 4.HTN Acceptable control Continue Losartan/ amlodipine 5.Hypothyroidism Continue levothyroxine DVT prophylaxis;--Eliquis PT is recommending SOB rehab, placement limitted d/t covid status Quality Stroke Does the patient have a stroke diagnosis?: No VTE Prior VTE?: No VTE Risk Level:: Medical - moderate - high VTE Device Contraindication: N/A - Device Ordered VTE Drug Contraindication: N/A - Med Ordered
[2021-07-19 15:39] VITALS: BP 112/58; PULSE 69; RESP 20; TEMP 36.9; O2SAT 97
[2021-07-19 16:32] LABS: Glucose, Whole Blood 206 mg/dL (60-115)
[2021-07-19 19:20] VITALS: BP 118/59; PULSE 80; RESP 20; TEMP 37.1; O2SAT 97
[2021-07-19 20:36] LABS: Glucose, Whole Blood 205 mg/dL (60-115)
[2021-07-19 23:24] VITALS: BP 130/65; PULSE 80; RESP 20; TEMP 37.3; O2SAT 98
[2021-07-20 03:22] VITALS: BP 138/65; PULSE 93; RESP 18; TEMP 36.7; O2SAT 92
[2021-07-20 07:39] LABS: Glucose, Whole Blood 171 mg/dL (60-115)
[2021-07-20 08:00] VITALS: BP 155/79; PULSE 95; RESP 20; TEMP 38; O2SAT 94
[2021-07-20] MEDS: Insulin Lispro 100 UNIT/ML 3 ML VIAL SUBCUT ×4 (09:33→20:31)
[2021-07-20] MEDS: Acetaminophen 325 MG TABLET 650 MG PO (09:33)
[2021-07-20] MEDS: Apixaban 5 MG TABLET PO ×2 (09:34→20:31)
[2021-07-20] MEDS: 0.9 % Sodium Chloride Flush 3 ML SYRINGE IVFLUSH ×2 (09:34→16:59)
[2021-07-20 11:09] LABS: Glucose, Whole Blood 223 mg/dL (60-115)
[2021-07-20 12:00] VITALS: BP 130/70; PULSE 82; RESP 20; TEMP 37.2; O2SAT 95
--- NOTE | 2021-07-20 14:23 | HO.PM.IMPN ---
Subjective Subjective Date of Service: 07/20/21 Interval History: No acute interval issues...awaiting placement Review of Systems Denies chest pain Denies SOB Denies N/V/D Physical Exam Vital Signs: Vital Signs: Last Vital Signs Temp 98.9 F 07/20/21 12:00 Pulse 82 07/20/21 12:00 Resp 20 07/20/21 12:00 BP 130/70 07/20/21 12:00 Pulse Ox 95 07/20/21 12:00 Oxygen Flow Rate 15 06/30/21 11:01 BMI result Body Mass Index 20.9 Const: Other: no acute distress Resp: Other: clear to auscultation bilaterally no rales rhonchi or wheezes Cardio: Other: no S4; positive S1-S2; no S3 murmurs rubs or gallops GI: Other: soft nontender nondistended with normoactive bowel sounds Extrem: Other: no edema bilaterally Objective Data Active Medications Acetaminophen (Acetaminophen 325 Mg Tablet) 650 mg PO Q6H PRN PRN Reason: Pain, Mild (Pain Scale 1-3) Last Admin: 07/20/21 09:33 Dose: 650 mg Documented by: RAJEEV Apixaban (Apixaban 5 Mg Tablet) 5 mg PO BID [facility] Last Admin: 07/20/21 09:34 Dose: 5 mg Documented by: RAJEEV Docusate Sodium (Docusate Sodium 100 Mg Capsule) 100 mg PO BID [facility] Last Admin: 07/20/21 09:34 Dose: Not Given Documented by: RAJEEV Non-Admin Reason: loose stools Insulin Human Lispro (Insulin Lispro 100 Unit/Ml 3 Ml Vial) 0 unit SUBCUT QIDACHS [facility]; Protocol Last Admin: 07/20/21 12:27 Dose: 4 unit Documented by: RAJEEV Magnesium Hydroxide (Milk Of Magnesia 30 Ml Oral.Susp) 30 ml PO DAILY PRN PRN Reason: Constipation Last Admin: 07/08/21 22:58 Dose: 30 ml Documented by: MELANIE Ondansetron HCl (Ondansetron Hcl 4 Mg/2 Ml Vial) 4 mg IVPUSH Q8H PRN PRN Reason: Nausea and Vomiting Pharmacy Consult (Consult Rx Perform Med Rec) 1 each MISCELLANE ONCE PRN PRN Reason: Consult order Sodium Chloride (0.9 % Sodium Chloride Flush 3 Ml Syringe) 3 ml IVFLUSH QSHIFT [facility] Last Admin: 07/20/21 09:34 Dose: 3 ml Documented by: RAJEEV Labs CBC & Chem 7: 07/06/21 09:01 07/14/21 08:34 Labs: Laboratory Results - last 24 hr 07/19/21 07/19/21 07/20/21 16:26 20:10 07:29 POC Glucose 206 H 205 H 171 H 07/20/21 10:54 POC Glucose 223 H Assessment and Plan (1) Acute respiratory failure with hypoxia: Status: Acute (2) COVID-19: Status: Acute (3) Diabetes mellitus: Status: Acute Assessment and Plan: 70/ male with DM, and multiple other comorbidity, not yet vaccinated against covid vaccine and here with acute hypoxic respiratory failure due to covid--symptoms since 06/15 and tested postive 06/18, CTA shows PE 1.Acute hypoxic respriatory failure due to covid 19 good response to therapy . . . Conservatives at this time 2.Pulmonary emboli continue Eliquis 3.DMII acceptable control Add back oral therapies upon discharge 4.HTN Acceptable control Continue Losartan/ amlodipine 5.Hypothyroidism Continue levothyroxine DVT prophylaxis;--Eliquis PT is recommending SOB rehab, placement limitted d/t covid status Quality Stroke Does the patient have a stroke diagnosis?: No VTE Prior VTE?: No VTE Risk Level:: Medical - moderate - high VTE Device Contraindication: N/A - Device Ordered VTE Drug Contraindication: N/A - Med Ordered
[2021-07-20 16:00] VITALS: BP 129/66; PULSE 79; RESP 20; TEMP 37.3; O2SAT 100
[2021-07-20 16:31] LABS: Glucose, Whole Blood 288 mg/dL (60-115)
[2021-07-20 19:43] LABS: Glucose, Whole Blood 257 mg/dL (60-115)
[2021-07-20 19:48] VITALS: BP 127/60; PULSE 89; RESP 18; TEMP 37.3; O2SAT 94
[2021-07-20] MEDS: Docusate Sodium 100 MG CAPSULE PO (20:31)
[2021-07-20 23:13] VITALS: BP 128/66; PULSE 122; RESP 20; TEMP 36.5; O2SAT 97
[2021-07-21] VITALS (7 sets, daily range): BP systolic 118–134; BP diastolic 59–81; PULSE 74–94; RESP 16–24; TEMP 36.3–37.5; O2SAT 92–96
[2021-07-21] MEDS: 0.9 % Sodium Chloride Flush 3 ML SYRINGE IVFLUSH ×4 (03:37→22:26)
[2021-07-21 07:40] LABS: Glucose, Whole Blood 183 mg/dL (60-115)
[2021-07-21] MEDS: Docusate Sodium 100 MG CAPSULE PO ×2 (08:30→22:26)
[2021-07-21] MEDS: Apixaban 5 MG TABLET PO ×2 (08:30→22:25)
[2021-07-21] MEDS: Insulin Lispro 100 UNIT/ML 3 ML VIAL SUBCUT ×4 (08:31→22:26)
[2021-07-21 11:13] LABS: Glucose, Whole Blood 290 mg/dL (60-115)
--- NOTE | 2021-07-21 13:52 | MHC.CM.PN ---
Requested STR bed today from facilities that accept Covid patients. Patient also not vaccinated. No beds available. Call to and discussed possible dc home. They live in 2 story home with bathroom on 1st and 2nd floor. Bedroom on 2nd floor. She would like patient to come home and feels able to help him with help of HUM[employer]OURCES BENEFITS ASSISTANT and VNA. Question if able to get hospital bed for 1st floor until patient able to climb stairs. Health insurance, [facility] closed today. Call to Jenna, transitions of care case management coordinator at [facility] and left voice message requesting hospital bed, CONTROL INSPECTOR, and VNA for dc home tomorrow. Informed
--- NOTE | 2021-07-21 14:12 | HO.PM.IMPN ---
Subjective Subjective Date of Service: 07/21/21 Interval History: no acute issues. Remains clinically stable but week Review of Systems denies chest pain Denies shortness of breath denies nausea vomiting diarrhea Physical Exam Vital Signs: Vital Signs: Last Vital Signs Temp 97.4 F 07/21/21 11:30 Pulse 81 07/21/21 11:52 Resp 24 H 07/21/21 11:30 BP 127/60 07/21/21 11:52 Pulse Ox 92 07/21/21 11:52 Oxygen Flow Rate 15 06/30/21 11:01 BMI result Body Mass Index 20.9 Const: Other: no acute distress Resp: Other: clear to auscultation bilaterally no rales rhonchi or wheezes Cardio: Other: no S4; positive S1-S2; no S3 murmurs rubs or gallops GI: Other: soft nontender nondistended with normoactive bowel sounds Extrem: Other: no edema bilaterally Objective Data Active Medications Acetaminophen (Acetaminophen 325 Mg Tablet) 650 mg PO Q6H PRN PRN Reason: Pain, Mild (Pain Scale 1-3) Last Admin: 07/20/21 09:33 Dose: 650 mg Documented by: RAJEEV Apixaban (Apixaban 5 Mg Tablet) 5 mg PO BID [facility] Last Admin: 07/21/21 08:30 Dose: 5 mg Documented by: KALIA Docusate Sodium (Docusate Sodium 100 Mg Capsule) 100 mg PO BID [facility] Last Admin: 07/21/21 08:30 Dose: 100 mg Documented by: KALIA Insulin Human Lispro (Insulin Lispro 100 Unit/Ml 3 Ml Vial) 0 unit SUBCUT QIDACHS [facility]; Protocol Last Admin: 07/21/21 12:22 Dose: 6 unit Documented by: KALIA Magnesium Hydroxide (Milk Of Magnesia 30 Ml Oral.Susp) 30 ml PO DAILY PRN PRN Reason: Constipation Last Admin: 07/08/21 22:58 Dose: 30 ml Documented by: MELANIE Ondansetron HCl (Ondansetron Hcl 4 Mg/2 Ml Vial) 4 mg IVPUSH Q8H PRN PRN Reason: Nausea and Vomiting Pharmacy Consult (Consult Rx Perform Med Rec) 1 each MISCELLANE ONCE PRN PRN Reason: Consult order Sodium Chloride (0.9 % Sodium Chloride Flush 3 Ml Syringe) 3 ml IVFLUSH QSHIFT [facility] Last Admin: 07/21/21 08:31 Dose: 3 ml Documented by: KALIA Labs CBC & Chem 7: 07/06/21 09:01 07/14/21 08:34 Labs: Laboratory Results - last 24 hr 07/20/21 07/20/21 07/21/21 16:15 19:38 07:36 POC Glucose 288 H 257 H 183 H 07/21/21 11:08 POC Glucose 290 H Assessment and Plan (1) COVID-19: Status: Acute (2) Pneumonia due to 2019 novel coronavirus: Status: Acute (3) Hypertension: Status: Acute Assessment and Plan: 70/ male with DM, and multiple other comorbidity, not yet vaccinated against covid vaccine and here with acute hypoxic respiratory failure due to covid--symptoms since 06/15 and tested postive 06/18, CTA shows PE 1.Acute hypoxic respriatory failure due to covid 19 good response to therapy . . . [employer] at this time 2.Pulmonary emboli continue Eliquis 3.DMII acceptable control Add back oral therapies upon discharge 4.HTN Acceptable control Continue Losartan/ amlodipine 5.Hypothyroidism Continue levothyroxine DVT prophylaxis;--Eliquis PT is recommending SOB rehab, placement limitted d/t covid status. per therapy notes patient increasingly fatigable and did not participate today. Will reassess Quality Stroke Does the patient have a stroke diagnosis?: No VTE Prior VTE?: No VTE Risk Level:: Medical - moderate - high VTE Device Contraindication: N/A - Device Ordered VTE Drug Contraindication: N/A - Med Ordered
[2021-07-21 16:22] LABS: Glucose, Whole Blood 312 mg/dL (60-115)
[2021-07-21 21:18] LABS: Glucose, Whole Blood 234 mg/dL (60-115)
[2021-07-22 04:00] VITALS: BP 116/66; PULSE 75; RESP 18; TEMP 36.9; O2SAT 96
[2021-07-22 07:56] VITALS: BP 109/60; PULSE 74; RESP 18; TEMP 36.7; O2SAT 94
[2021-07-22 07:58] LABS: Glucose, Whole Blood 124 mg/dL (60-115)
[2021-07-22] MEDS: Docusate Sodium 100 MG CAPSULE PO (09:18)
[2021-07-22] MEDS: 0.9 % Sodium Chloride Flush 3 ML SYRINGE IVFLUSH ×3 (09:18→21:18)
[2021-07-22] MEDS: Apixaban 5 MG TABLET PO ×2 (09:18→21:18)
--- NOTE | 2021-07-22 09:32 | MHC.CM.PN ---
DP call received fro [facility]. She does not appove dc to home with hospital bed. She requested additional and follow up on referrals made. ELS she specifically requested be reproached for placement. Will F/U late am with [facility] with results of search. Updatedclinical info has been sent out. CM will follow.
[2021-07-22 11:10] VITALS: BP 133/64; PULSE 76; RESP 18; TEMP 37.1; O2SAT 97
[2021-07-22 11:40] LABS: Glucose, Whole Blood 279 mg/dL (60-115)
[2021-07-22] MEDS: Insulin Lispro 100 UNIT/ML 3 ML VIAL SUBCUT ×2 (11:57→16:50)
--- NOTE | 2021-07-22 13:06 | HO.PM.IMPN ---
Subjective Subjective Date of Service: 07/22/21 Interval History: cc: sob itnerval history: feeling well Cardiovascular Cardiovascular: Reports no additional cardiovascular complaints Gastrointestinal Gastrointestinal: Reports no additional gastrointestinal complaints Physical Exam Vital Signs: Vital Signs: Last Vital Signs Temp 98.7 F 07/22/21 11:10 Pulse 76 07/22/21 11:10 Resp 18 07/22/21 11:10 BP 133/64 07/22/21 11:10 Pulse Ox 97 07/22/21 11:10 Oxygen Flow Rate 15 06/30/21 11:01 BMI result Body Mass Index 20.9 General: AO X 3, no acute distress Resp: CTA bilateral, no accessory muscles used CVS: S1,S2,RRR GI: soft, non tender, non distended Neuro: motor grossly intact, alert Psych: appropriate affect, appropriate insight Objective Data Active Medications Acetaminophen (Acetaminophen 325 Mg Tablet) 650 mg PO Q6H PRN PRN Reason: Pain, Mild (Pain Scale 1-3) Last Admin: 07/20/21 09:33 Dose: 650 mg Documented by: RAJEEV Apixaban (Apixaban 5 Mg Tablet) 5 mg PO BID [facility] Last Admin: 07/22/21 09:18 Dose: 5 mg Documented by: PAT Docusate Sodium (Docusate Sodium 100 Mg Capsule) 100 mg PO BID [facility] Last Admin: 07/22/21 09:18 Dose: 100 mg Documented by: PAT Insulin Human Lispro (Insulin Lispro 100 Unit/Ml 3 Ml Vial) [facility]; Protocol Last Admin: 07/22/21 11:57 Dose: 6 unit Documented by: PAT Magnesium Hydroxide (Milk Of Magnesia 30 Ml Oral.Susp) 30 ml PO DAILY PRN PRN Reason: Constipation Last Admin: 07/08/21 22:58 Dose: 30 ml Documented by: MELANIE Ondansetron HCl (Ondansetron Hcl 4 Mg/2 Ml Vial) 4 mg IVPUSH Q8H PRN PRN Reason: Nausea and Vomiting Pharmacy Consult (Consult Rx Perform Med Rec) 1 each MISCELLANE ONCE PRN PRN Reason: Consult order Sodium Chloride (0.9 % Sodium Chloride Flush 3 Ml Syringe) 3 ml IVFLUSH [facility] Last Admin: 07/22/21 09:18 Dose: 3 ml Documented by: PAT Labs CBC & Chem 7: 07/06/21 09:01 07/14/21 08:34 Labs: Laboratory Results - last 24 hr 07/21/21 07/21/21 07/22/21 15:55 21:11 07:54 POC Glucose 312 H 234 H 124 H 07/22/21 11:07 POC Glucose 279 H Assessment and Plan (1) COVID-19: Status: Acute (2) Pneumonia due to 2019 novel coronavirus: Status: Acute (3) Hypertension: Status: Acute Assessment and Plan: 70/ male with DM, and multiple other comorbidity, not yet vaccinated against covid vaccine and here with acute hypoxic respiratory failure due to covid--symptoms since 06/15 and tested postive 06/18, CTA shows PE Acute hypoxic respiratory failure due to covid 19 resolved negative from 07/13/21 acute Pulmonary emboli continue Eliquis DMII insulin Hypothyroidism levothyroxine DVT prophylaxis;--Eliquis Quality Stroke Does the patient have a stroke diagnosis?: No VTE Prior VTE?: No VTE Risk Level:: Medical - moderate - high VTE Device Contraindication: N/A - Device Ordered VTE Drug Contraindication: N/A - Med Ordered
[2021-07-22 15:31] VITALS: BP 120/65; PULSE 70; RESP 20; TEMP 37.3; O2SAT 96
[2021-07-22 16:08] LABS: Glucose, Whole Blood 182 mg/dL (60-115)
--- NOTE | 2021-07-22 18:30 | PC.NURSE ---
Pt alert and oriented x3. C/O Arthritic pain to the left hand/shoulder. Scheduled pain medications given with good effect. LS clear but dim to the bases. pt is indepedent OOB with a walk to the bedside commode. Pt si satting in the mid-high 90s on RA.pt is pending placement.
[2021-07-22 19:13] VITALS: BP 113/62; PULSE 93; RESP 20; TEMP 36.2; O2SAT 90
[2021-07-22 19:50] LABS: Glucose, Whole Blood 127 mg/dL (60-115)
[2021-07-22 23:21] VITALS: BP 106/62; PULSE 65; RESP 20; TEMP 36.1; O2SAT 96
[2021-07-23 04:00] VITALS: BP 95/53; PULSE 70; RESP 18; TEMP 36.6; O2SAT 97
[2021-07-23 07:20] LABS: Leukocytes Stool Qualitative FEW: < 2/OIF (NEGATIVE)
[2021-07-23 07:37] VITALS: BP 118/67; PULSE 65; RESP 18; TEMP 36.8; O2SAT 98
[2021-07-23 07:37] LABS: Glucose, Whole Blood 117 mg/dL (60-115)
[2021-07-23] MEDS: 0.9 % Sodium Chloride Flush 3 ML SYRINGE IVFLUSH ×3 (08:15→21:42)
[2021-07-23] MEDS: Apixaban 5 MG TABLET PO ×2 (08:15→21:42)
--- NOTE | 2021-07-23 10:53 | HO.PM.IMPN ---
Subjective Subjective Date of Service: 07/23/21 Interval History: cc: sob itnerval history: feeling well Cardiovascular Cardiovascular: Reports no additional cardiovascular complaints Gastrointestinal Gastrointestinal: Reports no additional gastrointestinal complaints Physical Exam Vital Signs: Vital Signs: Last Vital Signs Temp 98.3 F 07/23/21 07:37 Pulse 65 07/23/21 07:37 Resp 18 07/23/21 07:37 BP 118/67 07/23/21 07:37 Pulse Ox 98 07/23/21 07:37 Oxygen Flow Rate 15 06/30/21 11:01 BMI result Body Mass Index 20.9 General: AO X 3, no acute distress Resp:? CTA bilateral, no accessory muscles used CVS: S1,S2,RRR GI: soft, non tender, non distended Neuro:? motor grossly intact, alert Psych: appropriate affect, appropriate insight? Objective Data Active Medications Acetaminophen (Acetaminophen 325 Mg Tablet) 650 mg PO Q6H PRN PRN Reason: Pain, Mild (Pain Scale 1-3) Last Admin: 07/20/21 09:33 Dose: 650 mg Documented by: RAJEEV Apixaban (Apixaban 5 Mg Tablet) 5 mg PO BID [facility] Last Admin: 07/23/21 08:15 Dose: 5 mg Documented by: PAT Docusate Sodium (Docusate Sodium 100 Mg Capsule) 100 mg PO BID [facility] Last Admin: 07/23/21 08:14 Dose: Not Given Documented by: PAT Non-Admin Reason: Physician Held Med Insulin Human Lispro (Insulin Lispro 100 Unit/Ml 3 Ml Vial) 0 unit SUBCUT QIDACHS [facility]; Protocol Last Admin: 07/23/21 08:09 Dose: Not Given Documented by: PAT Non-Admin Reason: No Insulin Coverage Magnesium Hydroxide (Milk Of Magnesia 30 Ml Oral.Susp) 30 ml PO DAILY PRN PRN Reason: Constipation Last Admin: 07/08/21 22:58 Dose: 30 ml Documented by: MELANIE Ondansetron HCl (Ondansetron Hcl 4 Mg/2 Ml Vial) 4 mg IVPUSH Q8H PRN PRN Reason: Nausea and Vomiting Pharmacy Consult (Consult Rx Perform Med Rec) 1 each MISCELLANE ONCE PRN PRN Reason: Consult order Sodium Chloride (0.9 % Sodium Chloride Flush 3 Ml Syringe) 3 ml IVFLUSH QSHIFT [facility] Last Admin: 07/23/21 08:15 Dose: 3 ml Documented by: PAT Labs CBC & Chem 7: 07/06/21 09:01 07/14/21 08:34 Labs: Laboratory Results - last 24 hr 07/22/21 07/22/21 07/22/21 11:07 16:03 19:46 POC Glucose 279 H 182 H 127 H Stool Leukocytes, Qual 07/23/21 07/23/21 04:58 07:34 POC Glucose 117 H Stool Leukocytes, Qual FEW: < 2/OIF Assessment and Plan (1) COVID-19: Status: Acute (2) Pneumonia due to 2019 novel coronavirus: Status: Acute (3) Hypertension: Status: Acute Assessment and Plan: 70/ male with DM, and multiple other comorbidity, not yet vaccinated against covid vaccine and here with acute hypoxic respiratory failure due to covid--symptoms since 06/15 and tested postive 06/18, CTA shows PE Acute hypoxic respiratory failure due to covid 19 resolved negative from 07/13/21 acute Pulmonary emboli continue Eliquis DMII insulin Hypothyroidism levothyroxine DVT prophylaxis;--Eliquis dispo: ? snf vs home with services Quality Stroke Does the patient have a stroke diagnosis?: No VTE Prior VTE?: No VTE Risk Level:: Medical - moderate - high VTE Device Contraindication: N/A - Device Ordered VTE Drug Contraindication: N/A - Med Ordered
[2021-07-23 12:00] VITALS: BP 117/61; PULSE 71; RESP 18; TEMP 36.4; O2SAT 98
[2021-07-23 12:06] LABS: Glucose, Whole Blood 228 mg/dL (60-115)
[2021-07-23] MEDS: Insulin Lispro 100 UNIT/ML 3 ML VIAL SUBCUT ×3 (12:23→21:42)
[2021-07-23 15:16] VITALS: BP 108/62; PULSE 80; RESP 20; TEMP 36.2; O2SAT 96
[2021-07-23 16:30] LABS: Glucose, Whole Blood 236 mg/dL (60-115)
[2021-07-23 19:17] VITALS: BP 119/59; PULSE 80; RESP 20; TEMP 36.3; O2SAT 92
[2021-07-23 19:50] LABS: Glucose, Whole Blood 219 mg/dL (60-115)
[2021-07-23 23:16] VITALS: BP 114/68; PULSE 87; RESP 20; TEMP 36.7; O2SAT 99
[2021-07-24 03:30] VITALS: BP 116/64; PULSE 65; RESP 16; TEMP 36.6; O2SAT 97
[2021-07-24 07:12] VITALS: BP 114/64; PULSE 67; RESP 18; TEMP 37.2; O2SAT 96
[2021-07-24 07:22] LABS: Glucose, Whole Blood 126 mg/dL (60-115)
[2021-07-24] MEDS: 0.9 % Sodium Chloride Flush 3 ML SYRINGE IVFLUSH (07:55)
[2021-07-24] MEDS: Apixaban 5 MG TABLET PO (07:55)
[2021-07-24 11:13] VITALS: BP 144/72; PULSE 81; RESP 18; TEMP 36.6; O2SAT 96
[2021-07-24 11:39] LABS: Glucose, Whole Blood 301 mg/dL (60-115)
[2021-07-24] MEDS: Insulin Lispro 100 UNIT/ML 3 ML VIAL SUBCUT (11:47)
--- NOTE | 2021-07-24 12:04 | P.DS_ITS ---
DS: Providers Provider Date of Service: 07/24/21 Date of admission: 06/30/21 15:50 Primary care physician: Amina Hammer MD Consults: 07/09/21 10:03 Consult to Vascular Surgery Routine Consulting Provider: Felipe Jimenes Reason for consultation: dvts DS: Diagnosis Discharge Diagnosis (1) COVID-19: Status: Acute (2) Pneumonia due to 2019 novel coronavirus: Status: Acute (3) Hypertension: Status: Acute DS: Summary Hospital Course Hospital Course: 70 year old male with diabetes and multiple other medical problems who is not yet vaccinated for covid 19 and tested positive for the virus on June 18, however was having symptoms for at least 2 days before that. He was seen in ED 2 days before [facility] at that time was not hypoxic? to be admitted. He comes back today hypoxic, persistent cough. He is put on high flow to maintain O2 and seems more comfortable with that. He has no fever, breathing at 20 and no tachycardia. CRP is 2.3, LDH 759, Ferritin 1231, Ddimer 8000+. CTA shows PE Hospital Course patient was admitted to the floor and given supplemental oxygen for hypoxia. He was out of time frame for remdesivir. Completed 14 days of Baritinib without issue. He was transitioned from Lovenox to Eliquis after completing at 10 mg course of Eliquis b.i.d. he is now on Eliquis 5 mg b.i.d.. He has remained afebrile his white count has been stable. He will be discharged home with home pt Time Spent with Patient Time attestation: Total time spent providing and/or coordinating discharge services: Discharge coordination time: Greater than 30 minutes Quality: Stroke Does the patient have a stroke diagnosis?: No Physical Exam Vital Signs: Vital Signs: Last Vital Signs Temp 97.9 F 07/24/21 11:13 Pulse 81 07/24/21 11:13 Resp 18 07/24/21 11:13 BP 144/72 H 07/24/21 11:13 Pulse Ox 96 07/24/21 11:13 Oxygen Flow Rate 15 06/30/21 11:01 BMI result Body Mass Index 20.9 General: AO X 3, no acute distress Resp: CTA bilateral, no accessory muscles used CVS: S1,S2,RRR GI: soft, non tender, non distended Neuro: motor grossly intact, alert Psych: appropriate affect, appropriate insight DS: Data Data Completed and Pending Labs on day of discharge: Laboratory Results - last 24 hr 07/23/21 07/23/21 07/23/21 11:59 16:16 19:45 POC Glucose 228 H 236 H 219 H 07/24/21 07/24/21 07:12 11:19 POC Glucose 126 H 301 H Preliminary micro results at discharge 07/23/21 04:58 Stool Culture - Preliminary Stool Culture in progress. Discharge Plan Discharge Patient Disposition: Home Health Service Discharge Diagnosis: Pulmonary Embolus Referrals: [facility] [place] [Outside] - 1 Week Amina Ochoa MD [Primary Care Provider] - 1 Week Discharge Medications: New Eliquis 5 mg Tablet 5 mg PO BID Qty: 60 RF: 0 Continued (DME) diabetic shoes with inserts 9 See Rx Instructions .Route .MEDSUPPLY Qty: 1 RF: 0 (DME) FreeStyle Lite Strips Strip See Rx Instructions .ROUTE .MEDSUPPLY Qty: 300 RF: 3 losartan 50 mg tablet 50 mg PO DAILY Qty: 90 RF: 1 (DME) lancets [FreeStyle Lancets] 28 gauge misc See Rx Instructions .Route Qty: 100 RF: 11 cholecalciferol (vitamin D3) [Vitamin D3] 50 mcg (2,000 unit) tablet 50 mcg PO DAILY Qty: 90 RF: 1 fluticasone propionate 50 mcg/actuation spray,suspension 1 spray intranasal DAILY 30 Days Qty: 16 RF: 5 Trulicity 3 mg/0.5 mL pen injector 3 mg subcut QWEEK 90 Days Qty: 6.5 RF: 1 repaglinide 2 mg tablet 2 tab PO DAILY@1700 RF: 0 repaglinide 2 mg tablet 1 tab PO DAILY RF: 0 levothyroxine 125 mcg tablet 125 mcg PO DAILY@0630 RF: 0 codeine-guaifenesin 10-100 mg/5 mL liquid 10 ml PO Q6-8H PRN (Reason: cough) Qty: 237 RF: 0 albuterol sulfate [ProAir HFA] 90 mcg/actuation HFA aerosol inhaler 2 puff inhalation Q4-6H PRN (Reason: Wheezing) Qty: 8.5 RF: 0 repaglinide 2 mg tablet See Rx Instructions PO BID 90 Days Qty: 270 RF: 1 cyanocobalamin (vitamin B-12) 500 mcg tablet, sublingual 500 mcg sublingual DAILY 30 Days Qty: 30 RF: 6 Discontinued amlodipine 2.5 mg tablet 2.5 mg PO DAILY Qty: 90 RF: 2 aspirin 81 mg tablet,delayed release (DR/EC) 81 mg PO DAILY Qty: 90 RF: 3 dexamethasone [Decadron] 6 mg tablet 6 mg PO DAILY Qty: 7 RF: 0 Discharge Orders: Discharge Order (Routine); Ordered 07/18/21 Ordered By: Dustin Bee Diet: advance to usual diet Activity on Discharge: As tolerated Stand Alone Forms: Patient Portal Discharge page Care Plan Goals: complete at least 6 months course of Eliquis to. Follow-up as per receiving physician Health Concerns: recovered from COVID-19; treatment for pulmonary embolus Plan of Treatment: maintain highest level of function Assessment: as per DC summary Patient Instructions: Enoxaparin (By injection), Deep Vein Thrombosis (GEN) Discharge Date/Time: 07/24/21 14:56
--- NOTE | 2021-07-24 12:49 | MHC.CM.PN ---
IMM 07/24/21 Male 70 DX Covid now recovered. He is discharged to home with PT services provided by [facility]. [facility] agreed to transport. He will leave via Chair van. His has been notified and agrees with the discharge plan.
== END 2021-07-24 14:56 | disposition home health service (06) | DRG 177 ==
LOC: HO.ED 11:55 → HO.EDOVER 16:08 → HO.IMC 22:43
PROVIDERS: Hospitalist; Internal Medicine; Admitting Provider Internal Medicine; Emergency Provider Emergency Medicine; PCP Internal Medicine; Visit Provider Internal Medicine
DX: U07.1 COVID-19 (principal); J12.82 Pneumonia due to coronavirus disease 2019; I26.99 Other pulmonary embolism without acute cor pulmonale; J80 Acute respiratory distress syndrome; E11.9 Type 2 diabetes mellitus without complications; I10 Essential (primary) hypertension; E03.9 Hypothyroidism, unspecified; E53.8 Deficiency of other specified B group vitamins; Z87.891 Personal history of nicotine dependence; Z88.0 Allergy status to penicillin; J98.2 Interstitial emphysema; Z88.5 Allergy status to narcotic agent; Z88.6 Allergy status to analgesic agent; Z79.01 Long term (current) use of anticoagulants; Z79.4 Long term (current) use of insulin; Z79.890 Hormone replacement therapy; Z79.899 Other long term (current) drug therapy
CPT/HCPCS: 36415; 71045; 71275; 80048; 80076; 81001; 82550; 82728; 82803; 82947; 83036; 83605; 83615; 83690; 83735; 83880; 84145; 84484; 85025; 85027; 85379; 85610; 85730; 86140; 87040; 87045; 87046; 87635; 89055; 93005; 93970; 96374; 97110; 97116; 97162; 97530; 99285; 99291; J1100; J1650; J2270; Q9967

== ENCOUNTER 2021-07-29 07:55 | Inpatient (IN) | payer MEDICARE, SELFPAY ==
[2021-07-29] VITALS (18 sets, daily range): BP systolic 105–130; BP diastolic 62–76; PULSE 85–122; RESP 18–30; TEMP 36.7–36.9; O2SAT 50–100; BMI 22.4
--- NOTE | ~2021-07-29 | XR_ITS ---
EXAMINATION: XR CHEST CLINICAL INFORMATION: Hypoxia COMPARISON: Chest x-ray earlier this morning at 6:30 AM TECHNIQUE: Frontal view of the chest was obtained. FINDINGS: Endotracheal tube terminates approximately 4 cm above the level the riky. Enteric tube terminates well below the level the diaphragm. Left-sided jugular catheter is stable with tip terminating at the cavoatrial junction. Patchy bilateral airspace disease is unchanged from earlier today. No gross lobar consolidation identified. No large pleural effusion. No pneumothorax appreciated. Lucency beneath the left hemidiaphragm possibly represents mild gaseous distention of the stomach or prominent gaseous distention of the splenic flexure. This may be further evaluated with dedicated abdominal radiographs as deemed clinically appropriate. XR/XR chest 1V IMPRESSION: -Support apparatus in expected position. -Patchy bilateral airspace disease.
--- NOTE | ~2021-07-29 | US_ITS ---
EXAMINATION: US VENOUS ULTRASOUND WITH DOPPLER LOWER EXTREMITY, BILATERAL CLINICAL INFORMATION: Evaluate for DVT COMPARISON: None TECHNIQUE: Ultrasound of the deep veins is performed from the hip to the calf with compression sonography and color and pulse Doppler assessment. Spectral analysis with color-flow imaging is performed. FINDINGS: RIGHT: There is normal venous compression and respiratory variation and augmented flow. The visualized common femoral vein, superficial femoral vein, profunda femoral vein, popliteal vein, and the trifurcation region shows no evidence of deep venous thrombosis. There is no significant popliteal fossa cyst. LEFT: There is normal venous compression and respiratory variation and augmented flow. The visualized common femoral vein, superficial femoral vein, profunda femoral vein, popliteal vein, and the trifurcation region shows no evidence of deep venous thrombosis. There is no significant popliteal fossa cyst. If the patient's symptoms persist, followup ultrasound in 5 days 7 days might be of value to exclude proximal propagation from a non-visualized calf vein. US/US venous duplex LE BI IMPRESSION: No DVT demonstrated in the bilateral lower extremities.
--- NOTE | ~2021-07-29 | CT_ITS ---
EXAMINATION: CTA OF THE HEAD/NECK CLINICAL INFORMATION: Head CT showing evolving CVA. Altered mental status. COMPARISON: CT head from earlier in the evening. TECHNIQUE: A routine non contrast head CT was performed earlier in the evening. This is followed by a 70 mL bolus of Omnipaque 350. Subsequent multidetector helical imaging was performed of the head and neck. Delayed post contrast imaging was also performed through the head. Multiplanar reformats and MIP were also obtained. Internal carotid artery stenoses are assessed in accordance with NASCET criteria unless otherwise indicated. This CT examination was performed using dose optimization techniques as appropriate, variously including the following: *Automated exposure control *Adjustment of mA and/or kV according to patient size (this includes techniques or standardized protocols for targeted exams where dose is matched to indication/reason for exam; i.e. extremities or head) *Use of iterative reconstruction technique DLP: 1338 mGy-cm. FINDINGS: CT HEAD: There is no evidence of acute intracranial hemorrhage or territorial infarction. No abnormal mass effect or midline shift is seen. As seen on the recent prior head CT, area of hypoattenuation in the left MCA territory losing steward to white matter differentiation, mostly through the left frontal and parietal lobes.. No extra-axial fluid collections are identified. No suspicious leptomeningeal or parenchymal enhancement on the post-contrast images. No hydrocephalus. Proportional prominence of the ventricles and sulcal spaces is consistent with mild volume loss. Patchy periventricular and deep white matter hypoattenuation is consistent with mild small vessel ischemic changes. The osseous structures and soft tissues are normal. The mastoid air cells and visualized portions of the paranasal sinuses are well aerated. CTA NECK: The aortic arch is of normal caliber and the origins of the great vessels are patent without evidence of significant stenosis. The cervical portion of the vertebral arteries are patent bilaterally. No luminal irregularities in the common carotid arteries and the carotid bifurcations are patent bilaterally. The cervical portion of the internal carotid arteries are of normal caliber. The laryngeal structures and pharyngeal mucosal spaces are unremarkable. The oral cavity appears normal. The parotid and submandibular glands are normal. No pathologically enlarged lymph nodes. The thyroid gland is unremarkable. Extensive groundglass opacities are seen in the lungs, increased from the prior chest CT . More dependent consolidation. No pneumothorax. Spinal alignment is maintained. Mild cervical spondylosis is noted. CTA HEAD: The intradural portion of the vertebral arteries are of normal caliber. The basilar, superior cerebellar, and posterior communicating arteries are patent. The posterior, middle, and anterior cerebral arteries are of normal caliber without evidence of significant luminal irregularity. No definite intracranial aneurysms. CT/CT angio head neck stroke IMPRESSION: 1. No acute vascular abnormality. No large vessel occlusion or flow-limiting stenosis. 2. Redemonstration of the regions of hypoattenuation throughout the left MCA territory. This is suggestive of infarct of uncertain chronicity. This critical result was discussed with Ilya Bonner MD by telephone at 08/01/2021 12:58 AM and it was ascertained that the content and urgency of the report was understood at the time of direct communication.
--- NOTE | ~2021-07-29 | XR_ITS ---
EXAMINATION: XR CHEST CLINICAL INFORMATION: Follow-up pneumothoraces COMPARISON: 08/10/2021 TECHNIQUE: Frontal view of the chest was obtained. FINDINGS: Endotracheal tube tip lies 5.3 cm above the riky. Enteric tube courses into the stomach. Left IJ central line tip lies in the region of the proximal right atrium. No appreciable pneumothorax. Lungs are somewhat. Heterogeneous bilateral opacities diffusely appear overall mildly improved since 08/10/2021. Small pleural effusions are difficult to exclude. The cardiomediastinal silhouette is stable. No acute osseous findings are seen. XR/XR chest 1V IMPRESSION: No appreciable pneumothorax. Extensive heterogeneous bilateral opacities appear overall mildly improved since 08/10/2021.
--- NOTE | ~2021-07-29 | XR_ITS ---
EXAMINATION: XR CHEST CLINICAL INFORMATION: Hypoxia. COMPARISON: Chest x-ray 08/10/2021 TECHNIQUE: Frontal view of the chest was obtained. FINDINGS: The lungs are hyperinflated with bilateral patchy diffuse airspace disease similar to previous study. At size is normal. Pulmonary vascularity is normal. Left central venous catheter, endotracheal tube and enteric tube are in satisfactory position. No gross bony abnormality seen. Previously questioned tiny pneumothorax is apparently visible acute stable. No gross bony abnormality seen. XR/XR chest 1V IMPRESSION: Stable, hypovolemic lungs with bilateral airspace disease. Support lines and catheters and bilateral barely visible pneumothoraces are all stable. Support lines and catheters are stable as well from last exam.
--- NOTE | ~2021-07-29 | CT_ITS ---
EXAMINATION: CT ANGIOGRAM OF THE CHEST WITH AND WITHOUT CONTRAST (CT PULMONARY ANGIOGRAM FOR PE) CLINICAL INFORMATION: Increased shortness of breath. Recent COVID/PE. COMPARISON: Chest x-ray 07/29/2021 and CTA chest 06/30/2021. TECHNIQUE: Prior to contrast administration, noncontrast localization images were obtained. Subsequently, multidetector volumetric imaging was performed from the thoracic inlet to below the diaphragms following the administration of 65 mL Omnipaque 350 intravenous contrast. No contrast reaction reported. Sagittal, coronal, and MIP oblique sagittal reformatted images were obtained on the CT workstation, uploaded to PACS, and reviewed. This CT examination was performed using dose optimization techniques as appropriate, variously including the following: *Automated exposure control *Adjustment of mA and/or kV according to patient size (this includes techniques or standardized protocols for targeted exams where dose is matched to indication/reason for exam; i.e. extremities or head) *Use of iterative reconstruction technique Total exam dose-length product 466 mGy-cm. FINDINGS: QUALITY OF STUDY/CONTRAST BOLUS: Satisfactory. PULMONARY ARTERIES: No central or segmental pulmonary emboli. THORACIC AORTA: No aneurysm or dissection. LUNGS: The lungs are expanded with diffuse ground-glass attenuation in both upper lobes, lower lobes, lingula and right middle lobe. There is airspace bronchogram in both lower lobes. Findings are consistent panlobular infiltrate. PLEURA: No pleural effusion or pneumothorax. MEDIASTINUM: The heart size is normal. There is no pericardial effusion. Central trachea and the bronchi are widely patent. There are small shotty lymph nodes in the pretracheal space, anterior mediastinum and subcarinal space. The largest lymph node in the subcarinal space measures 1.8 cm in the anterior mediastinum. No evidence of septal bowing or right heart strain. CHEST WALL/AXILLAE: No axillary or internal mammary lymphadenopathy. OSSEOUS STRUCTURES: No lytic or sclerotic process is seen. There is moderate ventral spondylosis in the mid and dorsal spine. UPPER ABDOMEN: Visualized liver, spleen, pancreas and gallbladder appear unremarkable. No reflux of contrast into the hepatic veins to suggest elevated right heart pressures. CT/CT angio chest PE protocol IMPRESSION: No evidence of PE. No evidence aortic dissection or aneurysm. Panlobular infiltrate and residual changes. The infiltrate has progressed into the upper lobes at this time. There appears be no change in infiltrate in the lower lobe and lingular segments. Inflammatory lymph nodes in the mediastinum. VTE: negative
--- NOTE | ~2021-07-29 | XR_ITS ---
EXAMINATION: XR CHEST CLINICAL INFORMATION: Hypoxia. COMPARISON: Chest radiograph done on 08/06/2021. TECHNIQUE: Frontal view of the chest was obtained. FINDINGS: The tip of the endotracheal tube is located 4.3 cm above the level of the riky. A left IJ central line tip is projecting at the level of the SVC/RA junction. The tip of the NG tube is below the level of the diaphragm with proximal most sidehole also below the level of the diaphragm. Bilateral low lung volume is present with bilateral patchy diffuse airspace disease, appears similar to prior study. Specific note is made of curvilinear peripheral radiopaque density seen at both upper lung field superolaterally with subtle radiolucencies, may represent calcified pleural plaque within without subtle pneumothorax. Evaluation is technically limited. However, this appears to be new since 08/24/2021. XR/XR chest 1V IMPRESSION: 1. The tip of the endotracheal tube is located 4.3 cm above the level of the riky. 2. The remainder of the catheter and tubes appear unchanged since the prior study dated 08/06/2021. 3. Persistent stable low lung volume and superimposed patchy bilateral near diffuse airspace disease, appear unchanged 2021. 4. Subtle curvilinear peripheral radiopaque density associated with radiolucencies are noted along the superolateral aspect of the both upper lung herrera, appear new since prior study, may represent calcified pleural plaque within without. Pneumothoraces. Attention to follow up is recommended. This critical result was discussed with Dr. Roblero at 7:40 AM on 08/10/2021 and it was ascertained that the content and urgency of the report was understood at the time of direct communication.
--- NOTE | ~2021-07-29 | XR_ITS ---
EXAMINATION: XR CHEST CLINICAL INFORMATION: Previous chest x-ray and chest CTA June 2021 COMPARISON: Shortness of breath TECHNIQUE: Frontal view of the chest was obtained. FINDINGS: The cardiac and mediastinal contours are stable. The lung volumes are low. There is dense bilateral multilobar airspace disease. There are air bronchograms seen throughout the left lung and at the right lung base. No pleural effusion is appreciated. There is no pneumothorax. There are degenerative changes of the spine. XR/XR chest 1V IMPRESSION: Low lung volumes and dense multilobar airspace disease, left greater than right, significantly increased from June 2021 exams. Differential would include pneumonia, pulmonary edema in the right clinical setting pulmonary hemorrhage.
--- NOTE | ~2021-07-29 | CT_ITS ---
EXAMINATION: CT ANGIOGRAM OF THE CHEST WITH AND WITHOUT CONTRAST (CT PULMONARY ANGIOGRAM FOR PE) CLINICAL INFORMATION: Reason for Exam hypxia; recent PE; recent covid COMPARISON: CT PE study 3 days ago on 07/29/2021 TECHNIQUE: Prior to contrast administration, noncontrast localization images were obtained. Subsequently, multidetector volumetric imaging was performed from the thoracic inlet to below the diaphragms following the administration of 65 mL Omnipaque 350 intravenous contrast. No contrast reaction reported Sagittal, coronal, and MIP oblique sagittal reformatted images were obtained on the CT workstation, uploaded to PACS, and reviewed. This CT examination was performed using dose optimization techniques as appropriate, variously including the following: *Automated exposure control *Adjustment of mA and/or kV according to patient size (this includes techniques or standardized protocols for targeted exams where dose is matched to indication/reason for exam; i.e. extremities or head) *Use of iterative reconstruction technique Total exam dose-length product 119 mGy-cm FINDINGS: QUALITY OF STUDY/CONTRAST BOLUS: Satisfactory. PULMONARY ARTERIES: No central or segmental pulmonary emboli. THORACIC AORTA: No aneurysm or dissection. LUNG: Diffuse groundglass infiltrates are present throughout the lungs with some relative sparing in the apices. There is more confluence with air bronchograms at the lung bases. Compared to the prior study, findings appear slightly worse. PLEURA: No significant pleural effusion or pneumothorax. MEDIASTINUM: Normal heart size. No pericardial effusion. Again seen are some small shotty lymph nodes but no hilar or mediastinal lymphadenopathy. No evidence of septal bowing or right heart strain. CHEST WALL/AXILLA: No axillary or internal mammary lymphadenopathy. OSSEOUS STRUCTURES: No acute or suspicious osseous abnormality. UPPER ABDOMEN: No reflux of contrast into the hepatic veins to suggest elevated right heart pressures. CT/CT angio chest PE protocol IMPRESSION: 1. No pulmonary emboli detected. 2. Diffuse pulmonary infiltrates slightly worse when compared to prior. VTE: negative
--- NOTE | ~2021-07-29 | CT_ITS ---
EXAMINATION: CT HEAD WITHOUT CONTRAST CLINICAL INFORMATION: Altered mental status COMPARISON: CT head 10/07/2012 TECHNIQUE: Contiguous axial imaging was performed from the skull base to vertex without intravenous administration of contrast. Coronal and sagittal reformatted images are performed at the CT scanner. [This CT examination was performed using dose optimization techniques as appropriate, variously including the following: *Automated exposure control *Adjustment of mA and/or kV according to patient size (this includes techniques or standardized protocols for targeted exams where dose is matched to indication/reason for exam; i.e. extremities or head) *Use of iterative reconstruction technique] DLP: 630 mGy-cm. FINDINGS: There is a large area of patchy low attenuation involving the left cerebral hemisphere involving the left MCA territory consistent with developing infarct. Regions of the frontal parietal lobes are involved. No intracranial hemorrhage. No significant mass effect. No hydrocephalus. There is generalized global volume loss. There is moderate prominence of the ventricles and the sulci . There is mild hypodensity of the periventricular white matter due to chronic small vessel ischemic disease. There are vascular calcifications of the internal carotid arteries bilaterally. There is no osseous abnormality. The mastoid air cells and visualized portions of the paranasal sinuses are well-aerated. CT/CT head/brain wo con IMPRESSION: Large area of patchy low attenuation involving the left cerebral hemisphere in the left MCA territory is joint effusion consistent with developing infarct. MRI would be helpful for further evaluation. No intracranial hemorrhage.
--- NOTE | ~2021-07-29 | XR_ITS ---
EXAMINATION: XR CHEST CLINICAL INFORMATION: Line and tube placement COMPARISON: Previous chest x-ray 07/29/2021 and CTA of the chest most recent 08/01/2021 TECHNIQUE: Frontal view of the chest was obtained. FINDINGS: There is an endotracheal tube with tip 1 cm above the riky. There is a left jugular line with tip projecting over the cavoatrial junction. There is a nasogastric tube that projects over the distal stomach. The cardiac and mediastinal contours are stable. There is bilateral diffuse airspace disease. This appears slightly improved from 07/29/2021 chest x-ray. There is no pleural effusion or pneumothorax. There are degenerative changes of the spine. XR/XR chest 1V IMPRESSION: Endotracheal tube 1 cm above the riky and should be pulled back slightly. Left jugular line projects over cavoatrial junction. Nasogastric tube tip projects over distal stomach. Bilateral diffuse airspace disease which appears improved from most recent chest x-ray. No pneumothorax. Findings will be communicated by the [place] work flow special services director Joanne Chaudhary.
--- NOTE | 2021-07-29 08:12 | ED_ITS ---
HPI - General Adult General Chief complaint: Dyspnea Stated complaint: ?SEPSIS,PNEUMONIA Time Seen by Provider: 07/29/21 08:07 Source: patient and EMS Limitations: altered mental status History of Present Illness HPI narrative: This is a 70-year-old male with a history recently of pulmonary embolism and COVID infection, pneumonia, who was discharged a few weeks ago and is supposed to be on Eliquis. The patient has had increasing weakness and shortness of breath and the family called an ambulance this morning. EMS said that the patient was too weak to get up and walk. They noted his oxygen saturation was initially in the 50s, came up to around 93% on a non-rebreather. Patient self is a poor historian, seems mildly confused, answers questions but does not seem to answer accurately as he denies any significant past medical history. Patient has been weak and short of breath. He denies fever. Denies headache. Denies any swelling in his legs, abdominal pain, vomiting, chest pain. Related Data Home Medications Medication Instructions Recorded Confirmed levothyroxine 125 mcg tablet 125 mcg PO DAILY@0630 06/30/21 07/29/21 repaglinide 2 mg tablet 1 tab PO DAILY 06/30/21 07/29/21 repaglinide 2 mg tablet 2 tab PO DAILY@1700 06/30/21 07/29/21 albuterol sulfate 90 mcg/actuation 2 puff INHALATION Q4H PRN 07/29/21 07/29/21 aerosol inhaler (ProAir HFA) doxycycline hyclate 100 mg capsule 1 cap PO BID 07/29/21 07/29/21 prednisone 50 mg tablet 1 tab PO DAILY 07/29/21 07/29/21 Previous Rx's Medication Instructions Recorded cyanocobalamin (vitamin B-12) 500 500 mcg SUBLINGUAL DAILY 30 Days 09/06/20 mcg sublingual tablet #30 tab diabetic shoes with inserts #1 ea 01/21/21 blood sugar diagnostic (FreeStyle #300 ea 03/06/21 Lite Strips) losartan 50 mg tablet 50 mg PO DAILY #90 tab 03/25/21 lancets 28 gauge (FreeStyle #100 ea 05/05/21 Lancets) cholecalciferol (vitamin D3) 50 50 mcg PO DAILY #90 tab 05/12/21 mcg (2,000 unit) tablet (Vitamin D3) fluticasone propionate 50 1 spray INTRANASAL DAILY 30 Days 05/12/21 mcg/actuation nasal #16 g spray,suspension dulaglutide 3 mg/0.5 mL 3 mg (0.5 mL) SUBCUT QWEEK 90 Days 06/12/21 subcutaneous pen injector #6.5 ml (Trulicity) apixaban 5 mg tablet (Eliquis) 5 mg PO BID #60 tab 07/24/21 Allergies Allergy/AdvReac Type Severity Reaction Status Date / Time penicillin V Allergy Intermediate rash, hives Verified 06/25/21 22:49 acetaminophen [Percocet] AdvReac Intermediate vomitting Verified 06/25/21 22:49 lisinopril AdvReac Intermediate angioedema Verified 06/25/21 22:49 oxycodone [From PERCOCET] AdvReac Intermediate STOMACH Verified 06/25/21 22:49 UPSET statins AdvReac Intermediate myalgia Uncoded 05/21/21 10:10 Review of Systems Review of Systems: Yes Unobtainable due to mental status Constitutional: Constitutional: Denies fever(s) and Reports weakness Eyes: Eyes: Reports no additional eye complaints ENT: Reports system reviewed and no additional complaints, except as documented Cardiovascular: Cardiovascular: Reports no additional cardiovascular complaints and Reports dyspnea Respiratory: Respiratory: Reports dyspnea Gastrointestinal: Gastrointestinal: Denies abdominal pain and Denies vomiting Musculoskeletal: Musculoskeletal: Reports no additional musculoskeletal complaints Neurologic: Reports system reviewed and no additional complaints, except as documented, Denies Sensory deficit (Neuro) and Reports weakness PMFSH Past Medical History Medical History B12 deficiency Bicytopenia Daytime sleepiness Diabetes mellitus Diabetes type 2, uncontrolled Diabetic polyneuropathy associated with type 2 diabetes mellitus Dyslipidemia 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 Right shoulder pain Stable proliferative diabetic retinopathy Vitamin D deficiency Surgical History History of cardiac catheterization History of cataract surgery History of colonoscopy Family History Family History Father Hypertension Mother Diabetes Anemia Hypothyroidism Family/Other Prostate cancer Hypertension Diabetes Brother Prostate cancer Daughter Hypothyroidism Social History Social History Household Members: Spouse and Family Housing: House Do you presently have visiting nurse or other home services: No Alcohol intake: former Patient Tobacco Use Status: Former Tobacco user Tobacco use type: Cigarette e-Cigarette/Vaping Use: Never Used Second Hand Smoke Exposure: No Use of substances other than those prescribed or required for medical reasons: No Advance Directives: No Advance Directives Information Provided: No service: No Current occupational status: disabled Physical Exam Vital Signs: Vital Signs: Last Vital Signs Temp 98.0 F 07/29/21 08:03 Pulse 94 07/29/21 13:35 Resp 29 H 07/29/21 13:35 BP 117/62 07/29/21 13:35 Pulse Ox 100 07/29/21 12:51 BMI result Body Mass Index 22.4 Const: Other: Patient mildly tachypneic, but is speaking in full sentences. Patient mildly pale appearing. General: cooperative, no acute distress and alert Orientation/consciousness: oriented to person HENMT: Head: Yes normal to inspection Eyes: General: appearance normal, both eyes and all related structures Eyelids: Yes eyelids normal Conjunctivae: conjunctivae normal Pupils: Equal, round and reactive pupils present Neck: Neck: Yes normal visual inspection and Yes supple Chest: Chest palpation & inspection: normal inspection of the chest Resp: Auscultation: crackles (Bilateral posterolateral) Cardio: Rate: regular rate and tachycardic Rhythm: regular rhythm Heart sounds: S1 normal heart sound present, S2 normal heart sound present, no gallops, no murmurs and no rubs GI: Palpation (GI): Soft to palpation, nontender and Other GI palpation findings present (Non-distended) Auscultation: normal bowel sounds Skin: General skin exam: no rashes or lesions noted Neuro: General: oriented to person, no focal motor deficits and CN's II-XI intact bilaterally Cranial nerves: Yes Equal, round and reactive pupils present Cognition (Neuro): normal cognition Motor exam (neuro): 5/5 motor strength present throughout Sensory Exam: No Sensory deficit (Neuro) Extrem: General: Yes normal to inspection and Yes no pedal edema Psych: Appearance: grossly normal Affect: normal affect Medical Decision Making MDM Narrative Medical decision making narrative: Patient presents with shortness of breath and hypoxia approximately 7 weeks after he may have initially contracted COVID-19. Patient had been discharged on July 24, 5 days ago, with normal pulse oximetry on room air. Patient did have pulmonary emboli diagnosed during his hospitalization has been on Eliquis. CTA today did not show any pulmonary emboli. Patient does have some progression of his infiltrates, the many are similar to they were previously. The patient presumably has pneumonia superimposed on his COVID pneumonitis. His white blood cell count is elevated. Lactate was elevated, which could be due to sepsis or due to his profound hypoxia when he was 1st found by EMS. His creatinine is increased over baseline but is not elevated, at 1.2. Was not clear if this patient should be treated as COVID pneumonitis versus bacterial pneumonia with sepsis. I consulted Dr. Riggins of the handicraft or hobby shop manager service, who assessed the patient at bedside, did a bedside echo and then the patient was not in fluid overload. He stated initially that he did not feel that the patient's decompensation this many weeks later should be due to COVID. He also felt the patient likely did not have bacterial pneumonia given that he is not in respiratory distress. Patient's blood gas, which was done when the patient was put on a nasal cannula, revealed a pH is 7.49, pCO2 of 31, PO2 55. This demonstrates a respiratory alkalosis, as well as hypoxia. Patient was subsequently placed on high-flow oxygen by face mask. His pulse oximetry was in the mid 90s. Patient was given a total of 3 L of normal saline IV, also was given Levaquin IV, vancomycin, cefoxipime. The case was discussed with the plant technician/control room operator on-call, Dr. Lyons , who felt the patient likely had a bacterial superinfection and should be treated with steroids and antibiotics. Case was discussed with Dr. Jacinto of the hospitalist service who will admit the patient. The patient had an initial potassium was 6.4 but given his lack of acidosis and his lack of renal failure, I felt this was likely artifactual and a repeat 1 was done it was 5.4. Patient initially had an elevated troponin, and this checked about 3 hours later and had increased. This was likely due to tachycardia and hypoxia. Lab Data Lab results reviewed: Yes I reviewed the patient's lab results. Result diagrams: 07/29/21 08:54 07/29/21 11:32 Labs: Lab Results 07/29/21 07/29/21 07/29/21 Range/Units 08:07 08:53 08:53 WBC (4.8-10.8) X10*3/uL RBC (4.60-5.80) X10*6/uL Hgb (14.0-18.0) g/dl Hct (42.0-52.0) % MCV (80.0-98.0) fL MCH (27.0-33.0) pg MCHC (31.0-36.0) g/dl RDW (11.0-16.0) % Plt Count (160-400) X10*3/uL MPV (9.4-12.4) fL Immature Gran % (Auto) (0.0-0.4) % Neut % (Auto) (45-73) % Lymph % (Auto) (20-40) % [place] % (Auto) (2-11) % Eos % (Auto) (0-4) % Baso % (Auto) (0-2) % Lymph # (Auto) (1.2-4.9) X10*3/uL [place] # (Auto) (0.1-1.2) X10*3/uL Eos # (Auto) (0.0-0.4) X10*3/uL Baso # (Auto) (0.0-0.2) X10*3/uL Abs Immat Gran (auto) (0.00-0.03) X10*3/uL Absolute Neuts (auto) (2.0-8.3) x10*3/uL Absolute Nucleated RBC (0.0-0.012) X10*3/uL Nucleated RBC % (auto) (0.0-0.2) /100WBC PT (9.9-13.0) SEC INR (0.9-1.1) APTT (24.1-38.0) SEC D-Dimer High Sensitivty NG/ML O2 Saturation % ABG pH at Pt Temp (7.35-7.45) ABG pH (Temp Correct) (7.35-7.45) ABG pCO2 at Pt Temp (32-45) mmHg ABG pCO2 (Temp Corrct (32-45) mmHg ABG pO2 at Pt Temp (83-108) mmHg ABG pO2 (Temp Correct (83-108) ABG HCO3 (22-26) mmol/L ABG Base Excess (Actual) mmol/L Sodium 123 L (135-145) mmol/L Potassium 6.5 H* D (3.3-5.1) mmol/L Chloride 90 L (96-108) mmol/L Carbon Dioxide 22 (22-29) mmol/L Anion Gap 18 (12-20) BUN 20 H D (9-16) mg/dL Creatinine 1.21 (0.5-1.4) mg/dL Estim Creat Clear Calc 50.8 Estimated GFR 59 POC Glucose 401 H* (60-115) mg/dL Random Glucose 403 H* (60-115) mg/dL Lactic Acid 4.2 H* (0.5-2.0) mmol/L Lactic Acid F/U @ 2Hr (0.5-2.0) mmol/L Calcium 8.0 L (8.4-10.2) mg/dL Total Bilirubin 0.5 (0.0-1.0) mg/dL AST 65 H (5-37) U/L ALT 90 H (0-40) U/L Alkaline Phosphatase 90 D (39-117) U/L Lactate Dehydrogenase 742 H (118-273) U/L Troponin I High Sens (<3.5-35.0) ng/L B-Natriuretic Peptide (<100) pg/mL Total Protein 6.5 (6.5-8.0) g/dL Albumin 2.7 L D (3.5-5.0) g/dL Urine Color Urine Appearance Urine pH (5.0-8.0) Ur Specific [place] (1.005-1.025) Urine Protein (NEG-TRACE) MG/DL Urine Glucose (UA) (NEG) MG/DL Urine Ketones (NEG) MG/DL Urine Blood (NEG) Urine Nitrite (NEG) Ur Leukocyte Esterase (NEG) Urine RBC (0) /HPF Urine WBC (0-4) /HPF Ur Squamous Epith Cells /LPF Urine Bacteria /LPF Urine Mucus /LPF Urine Sperm COVID-19 (NANI) (Negative) COVID-19 Clin Com 07/29/21 07/29/21 07/29/21 Range/Units 08:53 08:53 08:54 WBC 15.2 H (4.8-10.8) X10*3/uL RBC 4.16 L (4.60-5.80) X10*6/uL Hgb 11.7 L (14.0-18.0) g/dl Hct 34.4 L (42.0-52.0) % MCV 82.7 (80.0-98.0) fL MCH 28.1 (27.0-33.0) pg MCHC 34.0 (31.0-36.0) g/dl RDW 12.7 (11.0-16.0) % Plt Count 435 H D (160-400) X10*3/uL MPV 8.4 L (9.4-12.4) fL Immature Gran % (Auto) 0.9 H (0.0-0.4) % Neut % (Auto) 87.9 H (45-73) % Lymph % (Auto) 6.7 L (20-40) % [place] % (Auto) 4.4 (2-11) % Eos % (Auto) 0.0 (0-4) % Baso % (Auto) 0.1 (0-2) % Lymph # (Auto) 1.0 L (1.2-4.9) X10*3/uL [place] # (Auto) 0.7 (0.1-1.2) X10*3/uL Eos # (Auto) 0.0 (0.0-0.4) X10*3/uL Baso # (Auto) 0.0 (0.0-0.2) X10*3/uL Abs Immat Gran (auto) 0.13 H (0.00-0.03) X10*3/uL Absolute Neuts (auto) 13.3 H (2.0-8.3) x10*3/uL Absolute Nucleated RBC 0.000 (0.0-0.012) X10*3/uL Nucleated RBC % (auto) 0.0 (0.0-0.2) /100WBC PT 27.2 H (9.9-13.0) SEC INR 2.3 H (0.9-1.1) APTT 30.1 (24.1-38.0) SEC D-Dimer High Sensitivty 2150 NG/ML O2 Saturation % ABG pH at Pt Temp (7.35-7.45) ABG pH (Temp Correct) (7.35-7.45) ABG pCO2 at Pt Temp (32-45) mmHg ABG pCO2 (Temp Corrct (32-45) mmHg ABG pO2 at Pt Temp (83-108) mmHg ABG pO2 (Temp Correct (83-108) ABG HCO3 (22-26) mmol/L ABG Base Excess (Actual) mmol/L Sodium (135-145) mmol/L Potassium (3.3-5.1) mmol/L Chloride (96-108) mmol/L Carbon Dioxide (22-29) mmol/L Anion Gap (12-20) BUN (9-16) mg/dL Creatinine (0.5-1.4) mg/dL Estim Creat Clear Calc Estimated GFR POC Glucose (60-115) mg/dL Random Glucose (60-115) mg/dL Lactic Acid (0.5-2.0) mmol/L Lactic Acid F/U @ 2Hr (0.5-2.0) mmol/L Calcium (8.4-10.2) mg/dL Total Bilirubin (0.0-1.0) mg/dL AST (5-37) U/L ALT (0-40) U/L Alkaline Phosphatase (39-117) U/L Lactate Dehydrogenase (118-273) U/L Troponin I High Sens (<3.5-35.0) ng/L B-Natriuretic Peptide (<100) pg/mL Total Protein (6.5-8.0) g/dL Albumin (3.5-5.0) g/dL Urine Color Urine Appearance Urine pH (5.0-8.0) Ur Specific [place] (1.005-1.025) Urine Protein (NEG-TRACE) MG/DL Urine Glucose (UA) (NEG) MG/DL Urine Ketones (NEG) MG/DL Urine Blood (NEG) Urine Nitrite (NEG) Ur Leukocyte Esterase (NEG) Urine RBC (0) /HPF Urine WBC (0-4) /HPF Ur Squamous Epith Cells /LPF Urine Bacteria /LPF Urine Mucus /LPF Urine Sperm COVID-19 (NANI) (Negative) COVID-19 Clin Com 07/29/21 07/29/21 07/29/21 Range/Units 09:11 09:34 10:02 WBC (4.8-10.8) X10*3/uL RBC (4.60-5.80) X10*6/uL Hgb (14.0-18.0) g/dl Hct (42.0-52.0) % MCV (80.0-98.0) fL MCH (27.0-33.0) pg MCHC (31.0-36.0) g/dl RDW (11.0-16.0) % Plt Count (160-400) X10*3/uL MPV (9.4-12.4) fL Immature Gran % (Auto) (0.0-0.4) % Neut % (Auto) (45-73) % Lymph % (Auto) (20-40) % [place] % (Auto) (2-11) % Eos % (Auto) (0-4) % Baso % (Auto) (0-2) % Lymph # (Auto) (1.2-4.9) X10*3/uL [place] # (Auto) (0.1-1.2) X10*3/uL Eos # (Auto) (0.0-0.4) X10*3/uL Baso # (Auto) (0.0-0.2) X10*3/uL Abs Immat Gran (auto) (0.00-0.03) X10*3/uL Absolute Neuts (auto) (2.0-8.3) x10*3/uL Absolute Nucleated RBC (0.0-0.012) X10*3/uL Nucleated RBC % (auto) (0.0-0.2) /100WBC PT (9.9-13.0) SEC INR (0.9-1.1) APTT (24.1-38.0) SEC D-Dimer High Sensitivty NG/ML O2 Saturation 83.0 % ABG pH at Pt Temp 7.49 H (7.35-7.45) ABG pH (Temp Correct) 7.49 H (7.35-7.45) ABG pCO2 at Pt Temp 31 L (32-45) mmHg ABG pCO2 (Temp Corrct 30 L (32-45) mmHg ABG pO2 at Pt Temp 55 L (83-108) mmHg ABG pO2 (Temp Correct 54 L (83-108) ABG HCO3 23 (22-26) mmol/L ABG Base Excess (Actual) 1.4 mmol/L Sodium (135-145) mmol/L Potassium (3.3-5.1) mmol/L Chloride (96-108) mmol/L Carbon Dioxide (22-29) mmol/L Anion Gap (12-20) BUN (9-16) mg/dL Creatinine (0.5-1.4) mg/dL Estim Creat Clear Calc Estimated GFR POC Glucose (60-115) mg/dL Random Glucose (60-115) mg/dL Lactic Acid (0.5-2.0) mmol/L Lactic Acid F/U @ 2Hr (0.5-2.0) mmol/L Calcium (8.4-10.2) mg/dL Total Bilirubin (0.0-1.0) mg/dL AST (5-37) U/L ALT (0-40) U/L Alkaline Phosphatase (39-117) U/L Lactate Dehydrogenase (118-273) U/L Troponin I High Sens 127.8 H* D (<3.5-35.0) ng/L B-Natriuretic Peptide 343 H (<100) pg/mL Total Protein (6.5-8.0) g/dL Albumin (3.5-5.0) g/dL Urine Color YELLOW Urine Appearance CLEAR Urine pH 5.5 (5.0-8.0) Ur Specific [place] 1.020 (1.005-1.025) Urine Protein 1+ H (NEG-TRACE) MG/DL Urine Glucose (UA) >=1000 H (NEG) MG/DL Urine Ketones NEG (NEG) MG/DL Urine Blood 1+ H (NEG) Urine Nitrite NEG (NEG) Ur Leukocyte Esterase NEG (NEG) Urine RBC 0 (0) /HPF Urine WBC 1-4 (0-4) /HPF Ur Squamous Epith Cells TRACE /LPF Urine Bacteria NONE /LPF Urine Mucus 1+ /LPF Urine Sperm NOTED COVID-19 (NANI) (Negative) COVID-19 Clin Com 07/29/21 07/29/21 07/29/21 Range/Units 11:29 11:32 11:32 WBC (4.8-10.8) X10*3/uL RBC (4.60-5.80) X10*6/uL Hgb (14.0-18.0) g/dl Hct (42.0-52.0) % MCV (80.0-98.0) fL MCH (27.0-33.0) pg MCHC (31.0-36.0) g/dl RDW (11.0-16.0) % Plt Count (160-400) X10*3/uL MPV (9.4-12.4) fL Immature Gran % (Auto) (0.0-0.4) % Neut % (Auto) (45-73) % Lymph % (Auto) (20-40) % [place] % (Auto) (2-11) % Eos % (Auto) (0-4) % Baso % (Auto) (0-2) % Lymph # (Auto) (1.2-4.9) X10*3/uL [place] # (Auto) (0.1-1.2) X10*3/uL Eos # (Auto) (0.0-0.4) X10*3/uL Baso # (Auto) (0.0-0.2) X10*3/uL Abs Immat Gran (auto) (0.00-0.03) X10*3/uL Absolute Neuts (auto) (2.0-8.3) x10*3/uL Absolute Nucleated RBC (0.0-0.012) X10*3/uL Nucleated RBC % (auto) (0.0-0.2) /100WBC PT (9.9-13.0) SEC INR (0.9-1.1) APTT (24.1-38.0) SEC D-Dimer High Sensitivty NG/ML O2 Saturation % ABG pH at Pt Temp (7.35-7.45) ABG pH (Temp Correct) (7.35-7.45) ABG pCO2 at Pt Temp (32-45) mmHg ABG pCO2 (Temp Corrct (32-45) mmHg ABG pO2 at Pt Temp (83-108) mmHg ABG pO2 (Temp Correct (83-108) ABG HCO3 (22-26) mmol/L ABG Base Excess (Actual) mmol/L Sodium (135-145) mmol/L Potassium 5.4 H (3.3-5.1) mmol/L Chloride (96-108) mmol/L Carbon Dioxide (22-29) mmol/L Anion Gap (12-20) BUN (9-16) mg/dL Creatinine (0.5-1.4) mg/dL Estim Creat Clear Calc Estimated GFR POC Glucose (60-115) mg/dL Random Glucose (60-115) mg/dL Lactic Acid (0.5-2.0) mmol/L Lactic Acid F/U @ 2Hr 3.1 H* (0.5-2.0) mmol/L Calcium (8.4-10.2) mg/dL Total Bilirubin (0.0-1.0) mg/dL AST (5-37) U/L ALT (0-40) U/L Alkaline Phosphatase (39-117) U/L Lactate Dehydrogenase (118-273) U/L Troponin I High Sens (<3.5-35.0) ng/L B-Natriuretic Peptide (<100) pg/mL Total Protein (6.5-8.0) g/dL Albumin (3.5-5.0) g/dL Urine Color Urine Appearance Urine pH (5.0-8.0) Ur Specific [place] (1.005-1.025) Urine Protein (NEG-TRACE) MG/DL Urine Glucose (UA) (NEG) MG/DL Urine Ketones (NEG) MG/DL Urine Blood (NEG) Urine Nitrite (NEG) Ur Leukocyte Esterase (NEG) Urine RBC (0) /HPF Urine WBC (0-4) /HPF Ur Squamous Epith Cells /LPF Urine Bacteria /LPF Urine Mucus /LPF Urine Sperm COVID-19 (NANI) Negative (Negative) COVID-19 Clin Com See Note Imaging Data Chest x-ray: Radiologist's impression: IMPRESSION: Low lung volumes and dense multilobar airspace disease, left greater than right, significantly increased from June 2021 exams. Differential would include pneumonia, pulmonary edema in the right clinical setting pulmonary hemorrhage. ? CTA of the chest: Radiologist's impression: No evidence of PE. ? No evidence aortic dissection or aneurysm. ? Panlobular infiltrate and residual changes. The infiltrate has progressed into the upper lobes at this time. There appears be no change in infiltrate in the lower lobe and lingular segments. ? Inflammatory lymph nodes in the mediastinum. ECG Data Attestation: I personally reviewed and interpreted this ECG as follows: Interpretation: Sinus rhythm with a rate of 99. Right bundle-branch block. Baseline artifact. Inverted T-waves in leads 3 and F. Critical Care Time Critical Care Time Critical Care Time: Yes Total Critical Care Time: 80 Attestation: Critical care time for this life-threatening illness exclusive of all other billable procedures was approximately 80 minutes including initial evaluation of the patient, ordering tests, x-ray interpretation, EKG interpretation, medical consultation, documentation, reevaluation. Discharge Plan Discharge Clinical Impression: Pneumonia, Hypoxia, Sepsis, Acute respiratory alkalosis Patient Disposition: Admitted As Inpatient Prescriptions: No Action (DME) diabetic shoes with inserts 9 See Rx Instructions .Route .MEDSUPPLY Qty: 1 RF: 0 (DME) FreeStyle Lite Strips Strip See Rx Instructions .ROUTE .MEDSUPPLY Qty: 300 RF: 3 losartan 50 mg tablet 50 mg PO DAILY Qty: 90 RF: 1 (DME) lancets [FreeStyle Lancets] 28 gauge misc See Rx Instructions .Route Qty: 100 RF: 11 cholecalciferol (vitamin D3) [Vitamin D3] 50 mcg (2,000 unit) tablet 50 mcg PO DAILY Qty: 90 RF: 1 fluticasone propionate 50 mcg/actuation spray,suspension 1 spray intranasal DAILY 30 Days Qty: 16 RF: 5 Trulicity 3 mg/0.5 mL pen injector 3 mg subcut QWEEK 90 Days Qty: 6.5 RF: 1 repaglinide 2 mg tablet 2 tab PO DAILY@1700 RF: 0 repaglinide 2 mg tablet 1 tab PO DAILY RF: 0 levothyroxine 125 mcg tablet 125 mcg PO DAILY@0630 RF: 0 Eliquis 5 mg Tablet 5 mg PO BID Qty: 60 RF: 0 doxycycline hyclate 100 mg capsule 1 cap PO BID RF: 0 prednisone 50 mg tablet 1 tab PO DAILY RF: 0 albuterol sulfate [ProAir HFA] 90 mcg/actuation HFA aerosol inhaler 2 puff inhalation Q4H PRN (Reason: Wheezing) RF: 0 cyanocobalamin (vitamin B-12) 500 mcg tablet, sublingual 500 mcg sublingual DAILY 30 Days Qty: 30 RF: 6
[2021-07-29] MEDS: 0.9 % Sodium Chloride 500 ML 999 ML IV (08:13)
[2021-07-29 08:14] LABS: Glucose, Whole Blood 401 mg/dL (60-115)
--- NOTE | 2021-07-29 08:18 | ECG_ITS ---
Test Reason : SOB Blood Pressure : / mmHG Vent. Rate : 099 BPM Atrial Rate : 099 BPM P-R Int : 132 ms QRS Dur : 124 ms QT Int : 362 ms P-R-T Axes : 049 003 -09 degrees QTc Int : 464 ms Normal sinus rhythm Right bundle branch block T wave abnormality, consider inferior ischemia Abnormal ECG When compared with ECG of 30-JUN-2021 11:15, T wave inversion now evident in Inferior leads T wave inversion now evident in Anterior leads Referred By: Mauricio Beatty Electronically Signed By:CHON MAK MD
[2021-07-29 09:03] LABS: MANUAL DIFF FLAG NO
[2021-07-29 09:05] LABS: Basophils Percent Auto 0.1 % (0-2); Hematocrit 34.4 % (42.0-52.0); Hemoglobin 11.7 g/dl (14.0-18.0); Imm Gran Abs Auto 0.13 X10*3/uL (0.00-0.03); Imm Gran Pct Auto 0.9 % (0.0-0.4); Lymphocytes Percent Auto 6.7 % (20-40); Mean Corpuscular Hemoglobin 28.1 pg (27.0-33.0); Mean Corpuscular Volume 82.7 fL (80.0-98.0); Mean Platelet Volume 8.4 fL (9.4-12.4); Monocytes Absolute Auto 0.7 X10*3/uL (0.1-1.2); Monocytes Percent Auto 4.4 % (2-11); Neutrophils Absolute Auto 13.3 x10*3/uL (2.0-8.3); Neutrophils Percent Auto 87.9 % (45-73); Platelet Count 435 X10*3/uL (160-400); Red Blood Count 4.16 X10*6/uL (4.60-5.80); Red Cell Distribution Width 12.7 % (11.0-16.0); White Blood Count 15.2 X10*3/uL (4.8-10.8)
[2021-07-29 09:12] LABS: INTERNATIONAL NORM RATIO 2.3 (0.9-1.1); Prothrombin Time 27.2 SEC (9.9-13.0)
[2021-07-29 09:14] LABS: D Dimer High Sensitivity 2150 NG/ML
[2021-07-29 09:15] LABS: Partial Thromboplastin Time 30.1 SEC (24.1-38.0)
[2021-07-29 09:17] LABS: ABG Base Excess 1.4 mmol/L; ABG HCO3 23 mmol/L (22-26); ABG pCO2 31 mmHg (32-45); ABG pCO2 TC 30 mmHg (32-45); ABG pH 7.49 (7.35-7.45); ABG pH TC 7.49 (7.35-7.45); ABG pO2 55 mmHg (83-108); ABG pO2 TC 54 (83-108)
[2021-07-29 09:28] LABS: Lactic Acid 4.2 mmol/L (0.5-2.0)
--- NOTE | 2021-07-29 09:30 | PC.NURSE ---
pt was seen in the ed approximately 2wks ago for +covid and PE. pt returns today with difficulty breathing with sats mid - high 80s. pt sleepy and lethargic, easily awakes when spoken to. Respiratory Therapist at bedside, pt placed on high flow with non rebreather 100% @55 L, pt currently satting 97-100% will continue to monitor.
[2021-07-29 09:57] LABS: ABG Refer to POC result
[2021-07-29 09:57] LABS: Alanine Aminotransferase 90 U/L (0-40); Albumin Level 2.7 g/dL (3.5-5.0); Alkaline Phosphatase 90 U/L (39-117); Anion Gap 18 (12-20); Aspartate Amino Transferase 65 U/L (5-37); Bilirubin Total 0.5 mg/dL (0.0-1.0); Blood Urea Nitrogen 20 mg/dL (9-16); Carbon Dioxide 22 mmol/L (22-29); Chloride 90 mmol/L (96-108); Creatinine Clr Calc Pharmacy 50.8; Estimated Glomerular Filt Rate 59; Glucose Random 403 mg/dL (60-115); Potassium 6.5 mmol/L (3.3-5.1); Sodium 123 mmol/L (135-145); Total Protein 6.5 g/dL (6.5-8.0)
[2021-07-29 10:09] LABS: Appearance Urine CLEAR; Color Urine YELLOW; Glucose Urine UA >=1000 MG/DL (NEG); Leukocyte Esterase Urine NEG (NEG); Nitrite Urine NEG (NEG); PH 5.5 (5.0-8.0); UACC Culture Trigger NO; Urine Blood 1+ (NEG); Urine Ketones NEG (NEG); Urine Protein 1+ MG/DL (NEG-TRACE)
[2021-07-29 10:19] LABS: B Type Natriuretic Peptide 343 pg/mL (<100); Troponin-I High Sensitivity 127.8 ng/L (<3.5-35.0)
[2021-07-29] MEDS: levoFLOXacin/D5W 750 MG/150 ML PIGGYBACK 100 MG IV (10:45)
[2021-07-29] MEDS: 0.9 % Sodium Chloride 1,000 ML 999 ML IV ×2 (10:46→12:13)
--- NOTE | 2021-07-29 10:55 | PC.NURSE ---
pt returns from ct scan. o2 sat 99% on high flow with nonrebreather 100% @ 55L. vss. pt sleeping awakes easily when spoken to.
[2021-07-29 11:01] LABS: Reflex Lactate? Lactic Acid Added
--- NOTE | 2021-07-29 11:25 | CA_ITS ---
Transthoracic Echocardiogram Patient (Last, First, Middle): Karan Werner, Gender: Male Date of : 1950 Age: 70 Procedure Date: 07/29/2021 Procedure Type: Transthoracic Echocardiogram Location: ER Height: 170.18 cm Weight: 64.86 kg BSA: 1.75 m2 Heart Rate: bpm BP: 118 / 70 mmHg Car Rental Service Attendant: CAMPBELL Referring MD: Rom Riggins MD Tour Production Supervisor: Renny Mo MD Symptoms: Acute resp failure; r/o CHF, r/o RHF, STAT Study Quality: Technically Difficult ECG Rhythm: Sinus Conclusions: - 1. Normal LV systolic function 2. Small loculated pericardial effusion more prominent near the LV 3. RV systolic pressure of 36 mmHg plus right atrial pressures 4. This was a limited study Findings Left Ventricle Normal left ventricular size and systolic function. The visually estimated ejection fraction is between 55-60%. Right Ventricle The right ventricle was not well visualized. Tricuspid Valve RV systolic pressure could not be accurately estimated, is equal to 36 mmHg plus right atrial pressures which are difficult to determine on this study Venous The inferior vena cava was not well visualized. Pericardium/Pleural There is a small loculated pericardial effusion overlying the left ventricle. Prior Study Comparison no previous study in the last 5 years for comparison Measurements Diastolic Function IVC Diam Insp: 1.53 IVC Diam Exp: 2.53 Tricuspid Valve TR Pk Roque: 2.22 TR Pk Grad: 36.00 IVC Diam Exp: 2.53 IVC Diam Insp: 1.53 Updated in Other Vendor System with Status of Final Renny Mo MD electronically signed on 07/29/2021 3:43:52 PM with status of Final
[2021-07-29 11:51] LABS: Potassium 5.4 mmol/L (3.3-5.1)
[2021-07-29 11:57] LABS: COVID-19 Test Negative (Negative)
[2021-07-29 12:04] LABS: ~Lactic Acid-LAB USE ONLY 3.1 mmol/L (0.5-2.0)
[2021-07-29 12:05] LABS: Lactate Dehydrogenase 742 U/L (118-273)
--- NOTE | 2021-07-29 12:23 | W.PM.CCCN ---
History of Present Illness Data of Consult Service Date: 07/29/21 Requesting physician: Mauricio Beatty Primary Care Provider: Amina Hammer MD HPI I was asked by Dr. Beatty in the ED to look at Mr. Rolly Mc who was BIBA this morning bec of weakness and SOB. The patient is a 70 yo M with PMHx of Bicytopenia, DM on insulin, diabetic polyneuropathy and diabetic retinopathy, hypothyroidism, and vitamin-D deficiency.? The patient has not been COVID vaccinated. On June 18, the patient had a positive COVID test here.? His symptom onset date was June 14.? On June 26, the patient presented to the ED here with shortness of breath.? A chest x-ray was normal or near normal.? The sat was 92% on room air.? The patient was discharged home on Decadron.? On June 30, the patient was admitted to the hospital with COVID pneumonia.? D-dimer that day was 8751. ?CTA at that time showed moderate disease. ?The CTA also showed multiple segmental and subsegmental pulmonary emboli on both sides.? On that CT scan (my reading), the pulmonary artery is normal-sized, the LV is normally filled, and the right heart is normal or top-normal sized.? BNP was < 10.? Patient was treated in the hospital for COVID pneumonia and pulmonary embolism and was discharged on July 24 on Eliquis, asymptomatic, with a room air SpO2 of 96-99%.? Notably, during that hospitalization, the patient's white count and hemoglobin were normal.? I spoke with Dr. Yang, and she said that that rules out the diagnosis of bicytopenia. HISTORY OF PRESENT ILLNESS: ?The family called the ambulance this morning because of weakness and shortness of breath.? In the field, the sat was in the 50s on room air, and came up to 93% on a NRBFM.? In the ED, sat was 87% on the NRBFM, with respiratory rate of 30.? HFNC was added to the NRBFM, and the Sat pedro to 100%. Labs in the ED notable for white count of 15.2, and hemoglobin down to 11.7 (down from 13.5 on July 06).? INR today is 2.3 (suggesting that the patient is in fact taking his Eliquis).? D-dimer today's 2150.? Sodium is 123, BUN/creatinine 20/1.2 (previously 17/0.8).? Bicarb 22, potassium 6.5, random glucose 403, mild transaminase elevation, LDH 742 (was 759 on 06/30), troponin 127, BNP 343, albumin 2.7, and Lactic acid 4.2.? Arterial blood gas (on unstated FiO2) showed 7.49/31/55/+1. Chest x-ray shows severe dense multilobar airspace disease markedly different than the previous film from last month.? Differential includes pneumonia, pulmonary edema, and pulmonary hemorrhage.? CT pulmonary angiogram shows no pulmonary emboli.? The main pulmonary joanne is normal sized.? By my reading, the right heart is definitely enlarged and the LV is under filled.? The lungs showed diffuse ground-glass attenuation in both lungs, with air bronchograms in both lower lobes. I saw the patient in the ED at approximately 11:30.? On my exam, the patient was tachypneic with minimal accessory muscle.? He looked quite comfortable, and thoroughly nontoxic.? He talked easily.? His mental status looked intact from the few words that he understood me saying.? Sat was 98% on HFNC 55L/98%.? The patient had no jugular venous distension and no peripheral edema.? Mucous membranes looked on the dry side to me. I watched the consulting technical manager do a limited bedside echo.? Image quality was excellent.? Findings:? LV wall thickness normal.? LV cavity size normal.? LV function probably normal, with no gross RWMAs.? RV size and fxn normal.? Normal AV, MV, TV.? No AI or .? No MR.? Trace TR, with CWD measuring 3.0m/sec (gradient 36mm).? IVC measured about 2.5 cm with about 50% insp collapse.? CVP estimate 8mm, RVSP 44mm.? Both atria were enlarged. IMPRESSION: 1. S/P COVID infection.? The patient left the hospital on Jul 24 with a room air Sat of up to 99%, which means his lungs were normal (or very close to it).? Symptom onset date for that infection was Jun 14.? So at 40 days, he should have significant wainwright immune protection that?s good against any COVID variant. 2. Acute bilat pulmon infiltrates.? Unclear etiology.? On the one hand, COVID is highl unlikely, for two reasons: First, it is unlikely that he would have COVID again so soon.? I have never heard of such a case.? And secondly, the patient's symptom onset date for this episode of whatever it is he has is probably July 26, according to the .? In other words, 3 days ago.? The pulmonary phase of COVID, typically starts about 9 days or so after symptom onset, [facility] In this patient, we are talking about 2 days.? That would be almost unheard of. ??? On the other hand, the only disease I know of that manifests with a horrendous looking CXR, but a patient who is breathing easy and looks thoroughly nontoxic is COVID. ??? It is a certainty that the primary process involved here is not any typical bacterial pneumonia.? If this were bacterial pneumonia, the patient would be .? The chest x-ray could conceivably be an atypical pneumonia (e.g. mycoplasma), but in 20 minutes or so that I was with the patient, I didn?t hear him cough once. ??? The pulmonary infiltrates could be PCP pneumonia.? But the clinical picture is inconsistent with that, in that the patient is almost completely lacking in respiratory distress. ??? Pulmonary infiltrates and the CT scan could be consistent with pulmonary edema, and the patient's oxygenation is certainly consistent with pulmonary edema of the degrees shown in the chest x-ray and CT scan.? The BNP is also elevated, c/w the Rt heart enlargement on CT. However, even there, I would expect the patient's work of breathing to be much much greater than it is now.? A patient with a chest x-ray/CT scan such as this caused by pulmonary edema would almost certainly be intubated. ??? Lastly, could this be diffuse alveolar hemorrhage, especially given that the patient is on anticoagulation?? I?m no expert on that, but I discussed it with Dr. Villareal from Radiology and he didn't think that the CT scan was consistent with DAH. 3. ?Acute hypoxemic respiratory failure.? Should be managed with high-flow nasal cannula + opiates.? The patient can be admitted to [facility]. 4.? Other issues to be addressed include the hyperglycemia and the hyponatremia and the hyperkalemia. 5.? Regardless of the cause of the pulmonary infiltrates, the patient needs to be run as dry as possible.? I would not be bamboozled by the lactate into volume resuscitating him. 6.? IMO, the patient is not septic (ie. bacterial sepsis). I have discussed the case at great length, in mult conversations, with Dr. Beatty, Dr. Sloan, and Dr. Jacinto. Time:? 130 min.? ([id number] [phone]) [facility] Past Medical History Medical History B12 deficiency Bicytopenia Daytime sleepiness Diabetes mellitus Diabetes type 2, uncontrolled Diabetic polyneuropathy associated with type 2 diabetes mellitus Dyslipidemia Hypothyroid long-term (current) use of insulin Right shoulder pain Stable proliferative diabetic retinopathy Vitamin D deficiency Family History Family History Father Hypertension Mother Diabetes Anemia Hypothyroidism Family/Other Prostate cancer Hypertension Diabetes Brother Prostate cancer Daughter Hypothyroidism Surgical History Surgical History History of cardiac catheterization History of cataract surgery History of colonoscopy Social History Social History Household Members: Spouse and Family Housing: House Do you presently have visiting nurse or other home services: No Alcohol intake: former Patient Tobacco Use Status: Former Tobacco user Tobacco use type: Cigarette e-Cigarette/Vaping Use: Never Used Second Hand Smoke Exposure: No Use of substances other than those prescribed or required for medical reasons: No Advance Directives: No Advance Directives Information Provided: No service: No Current occupational status: disabled Meds Allergies Allergy/AdvReac Type Severity Reaction Status Date / Time penicillin V Allergy Intermediate rash, hives Verified 06/25/21 22:49 acetaminophen [Percocet] AdvReac Intermediate vomitting Verified 06/25/21 22:49 lisinopril AdvReac Intermediate angioedema Verified 06/25/21 22:49 oxycodone [From PERCOCET] AdvReac Intermediate STOMACH Verified 06/25/21 22:49 UPSET statins AdvReac Intermediate myalgia Uncoded 05/21/21 10:10 Active Medications: Current Medications Vancomycin HCl 1,500 mg/ (Sodium Chloride) 500 mls @ 333.333 mls/hr IV ONCE ONE Stop: 07/29/21 12:28 Home Medications Medication Instructions Recorded Confirmed Last Taken Type levothyroxine 125 mcg tablet 125 mcg PO DAILY@0630 06/30/21 06/30/21 Unknown History repaglinide 2 mg tablet 1 tab PO DAILY 06/30/21 06/30/21 Unknown History repaglinide 2 mg tablet 2 tab PO DAILY@1700 06/30/21 06/30/21 Unknown History albuterol sulfate 90 mcg/actuation 2 puff INHALATION Q4H PRN 07/29/21 07/29/21 Unknown History aerosol inhaler (ProAir HFA) doxycycline hyclate 100 mg capsule 1 cap PO BID 07/29/21 07/29/21 Unknown History prednisone 50 mg tablet 1 tab PO DAILY 07/29/21 07/29/21 Unknown History Physical Exam Vital Signs: Vital Signs: Last Vital Signs Temp 98.0 F 07/29/21 08:03 Pulse 96 07/29/21 12:00 Resp 28 H 07/29/21 12:00 BP 106/72 07/29/21 12:00 Pulse Ox 100 07/29/21 11:10 BMI result Body Mass Index 22.4 Results Labs CBC & Chem 7: 07/29/21 08:54 07/29/21 11:32 Labs: Short CBC 07/29/21 Range/Units 08:54 WBC 15.2 H (4.8-10.8) X10*3/uL Hgb 11.7 L (14.0-18.0) g/dl Hct 34.4 L (42.0-52.0) % Plt Count 435 H D (160-400) X10*3/uL BMP 07/29/21 07/29/21 08:53 11:32 Sodium 123 L Potassium 6.5 H* D 5.4 H Chloride 90 L Carbon Dioxide 22 BUN 20 H D Creatinine 1.21 Calcium 8.0 L Liver Function 07/29/21 Range/Units 08:53 Total Bilirubin 0.5 (0.0-1.0) mg/dL AST 65 H (5-37) U/L ALT 90 H (0-40) U/L Alkaline Phosphatase 90 D (39-117) U/L Albumin 2.7 L D (3.5-5.0) g/dL Urine 07/29/21 Range/Units 10:02 Urine Color YELLOW Urine Appearance CLEAR Urine pH 5.5 (5.0-8.0) Ur Specific [place] 1.020 (1.005-1.025) Urine Protein 1+ H (NEG-TRACE) MG/DL Urine Glucose (UA) >=1000 H (NEG) MG/DL
[2021-07-29] MEDS: cefEPime HCl 2 GM in 0.9 % Sodium Chloride 50 ML IV (12:30)
[2021-07-29] MEDS: Morphine Sulfate 4 MG/ML CARTRIDGE 2 MG IVPUSH ×2 (12:31→20:01)
[2021-07-29] MEDS: dexAMETHasone sod phosphate 4 MG/ML VIAL 6 MG IVPUSH (12:31)
[2021-07-29] MEDS: vancomycin HCL 1,500 MG in 0.9 % Sodium Chloride 500 ML 333.33 MG IV (12:32)
[2021-07-29 12:56] LABS: RBC Urine 0 /HPF (0)
[2021-07-29 12:57] LABS: Mucus Urine 1+ /LPF; Sperm Urine NOTED; Squamous Epithelial Cell Urine TRACE /LPF
--- NOTE | 2021-07-29 13:12 | PHA.MEDREC ---
Pharmacy Consult ? Medication Reconciliation Pharmacy has completed the medication reconciliation. Doxycycline was to be started on 07/27/21 for 10 days and prednisone also to be started 07/27/21 for a 7 day supply. Esthela Mendoza, DanaeD
[2021-07-29 13:36] LABS: Reflex Lactate? 2 Y
--- NOTE | 2021-07-29 13:39 | PC.NURSE ---
fluids infused, vs documented. pt seen by Dr. Jacinto. pt desatted to high 70s to mid 80s. respiratory therapist increased oxygen to 60 L/m which brought sat up to mid to high 90s. pt on high flow nonrebreather 100% @60 l/m. will continue to monitor.
[2021-07-29] MEDS: Furosemide 40 MG/4 ML VIAL IVPUSH (13:59)
--- NOTE | 2021-07-29 14:12 | P.HPHOSP_ITS ---
History of Present Illness Date of Service: 07/29/21 Chief Complaint: fevers This is a 70 yo M who was admitted to [facility] [place] from 06/30/2021 to 07/24/2021 for a prolonged course of COVID, complicated by Pulmonary Embolism/DVT, acute respiratory failure with hypoxia and generalized weakness. The patient was initially positive for COVID on 06/18/21. At the time of previous admission, his CTA confirmed mild to moderate PE burden. He was treated with Lovenox and subsequently transitioned to Eliuqis. In regards to his COVID, he was out of the window for Remdesivir, but did complete a 14 day course of Baricitinib. Mirela mistry reveals that he was off oxygen at least from July 08 and was discharge without any supplemental oxygen. He now arrives with complaints of generalized weakness. Despite the use of a foreman/project manager, the history if limited from the patient himself and as such, a phone conversation with the patients was pursued. She reports that since Wednesday (3 days HVAC ENGINEERING TECHNICIAN) the patient has had fevers with TMax 101.5. She reports that he was evaluated Wednesday (? by [facility]) and was subsequently placed on dual antibiotics. She reports that the day prior to admission, she noticed that he was experiencing labored breathing and was becoming increasing confused. Today, she reports that he was so weak that he was unable to ambulate and hence the reason for ED visit. Upon arrival to the ED, the patient was in visible respiratory distress. He was stablized with HFNC 100%. Work up in the ED revealed Leukocytosis with a left shift. CTA of the chest revealed significant findings (see report below), but no PE. He was found to have an elevated BNP with mild elevation in HS trop-I. His EKG did have some t-wave inversions. His Rapid COVID was negative. He was given broad spec IV antibiotics, IVF, IV decadron and admission was requested. He has been evaluated by critical care and at this time, has been deemed stable for admission to [facility] [place]. Review of Systems Review of Systems: negative exept HPI [facility] Medical History B12 deficiency Bicytopenia Daytime sleepiness Diabetes mellitus Diabetes type 2, uncontrolled Diabetic polyneuropathy associated with type 2 diabetes mellitus Dyslipidemia Hypothyroid long term care phlebotomist (current) use of insulin Right shoulder pain Stable proliferative diabetic retinopathy Vitamin D deficiency Family History Father Hypertension Mother Diabetes Anemia Hypothyroidism Family/Other Prostate cancer Hypertension Diabetes Brother Prostate cancer Daughter Hypothyroidism Surgical History History of cardiac catheterization History of cataract surgery History of colonoscopy Social History Household Members: Spouse and Family Housing: House Do you presently have visiting nurse or other home services: No Alcohol intake: former Patient Tobacco Use Status: Former Tobacco user Tobacco use type: Cigarette e-Cigarette/Vaping Use: Never Used Second Hand Smoke Exposure: No Use of substances other than those prescribed or required for medical reasons: No Advance Directives: No Advance Directives Information Provided: No service: No Current occupational status: disabled Meds Allergies Allergy/AdvReac Type Severity Reaction Status Date / Time penicillin V Allergy Intermediate rash, hives Verified 06/25/21 22:49 acetaminophen [Percocet] AdvReac Intermediate vomitting Verified 06/25/21 22:49 lisinopril AdvReac Intermediate angioedema Verified 06/25/21 22:49 oxycodone [From PERCOCET] AdvReac Intermediate STOMACH Verified 06/25/21 22:49 UPSET statins AdvReac Intermediate myalgia Uncoded 05/21/21 10:10 Active Medications: Current Medications Pharmacy Consult (Consult Rx Perform Med Rec) 1 each MISCELLANE ONCE PRN PRN Reason: Consult order Home Medications Medication Instructions Recorded Confirmed Last Taken Type levothyroxine 125 mcg tablet 125 mcg PO DAILY@0630 06/30/21 07/29/21 Unknown History repaglinide 2 mg tablet 1 tab PO DAILY 06/30/21 07/29/21 Unknown History repaglinide 2 mg tablet 2 tab PO DAILY@1700 06/30/21 07/29/21 Unknown History albuterol sulfate 90 mcg/actuation 2 puff INHALATION Q4H PRN 07/29/21 07/29/21 Unknown History aerosol inhaler (ProAir HFA) doxycycline hyclate 100 mg capsule 1 cap PO BID 07/29/21 07/29/21 Unknown History prednisone 50 mg tablet 1 tab PO DAILY 07/29/21 07/29/21 Unknown History Physical Exam Vital Signs and Narrative: Vital Signs: Last Vital Signs Temp 98.0 F 07/29/21 08:03 Pulse 94 07/29/21 13:35 Resp 29 H 07/29/21 13:35 BP 117/62 07/29/21 13:35 Pulse Ox 100 07/29/21 12:51 BMI result Body Mass Index 22.4 Const: Other: Constitutional - Awake and Alert, +respiratory distress with pursed lip breathing, able to speak in full sentences Eyes - PERRLA, EOMI Cardiovascular - S1S2, No significant JVD appreciated; minimal b/l LE edema Respiratory - Mild accessory muscle use with RR in the mid to uppers 20s; bilateral lower lobe fine rales Gastrointestinal - NT / ND; +BS; No rebound or guarding - No CVA tenderness Extremities - no calf tenderness bilaterally, no swelling Musculoskeletal - Normal inspection, normal ROM Skin - Warm/Dry Neurological - Oriented to year, but otherwise disoriented; able to move all 4 extremities; no focal deficits Psychological - Appropriate affect Results Labs CBC and Chem 7: 07/29/21 08:54 07/29/21 11:32 Labs: Laboratory Results - last 24 hr 07/29/21 07/29/21 07/29/21 08:07 08:53 08:53 MCV MCH MCHC RDW Plt Count MPV Immature Gran % (Auto) Neut % (Auto) Lymph % (Auto) [place] % (Auto) Eos % (Auto) Baso % (Auto) Lymph # (Auto) [place] # (Auto) Eos # (Auto) Baso # (Auto) Abs Immat Gran (auto) Absolute Neuts (auto) Absolute Nucleated RBC Nucleated RBC % (auto) PT INR APTT D-Dimer High Sensitivty O2 Saturation ABG pH at Pt Temp ABG pH (Temp Correct) ABG pCO2 at Pt Temp ABG pCO2 (Temp Corrct ABG pO2 at Pt Temp ABG pO2 (Temp Correct ABG HCO3 ABG Base Excess (Actual) Anion Gap 18 Estim Creat Clear Calc 50.8 Estimated GFR 59 POC Glucose 401 H* Random Glucose 403 H* Lactic Acid 4.2 H* Lactic Acid F/U @ 2Hr Calcium 8.0 L Total Bilirubin 0.5 AST 65 H ALT 90 H Alkaline Phosphatase 90 D Lactate Dehydrogenase 742 H Troponin I High Sens B-Natriuretic Peptide Total Protein 6.5 Albumin 2.7 L D Urine Color Urine Appearance Urine pH Ur Specific [place] Urine Protein Urine Glucose (UA) Urine Ketones Urine Blood Urine Nitrite Ur Leukocyte Esterase Urine RBC Urine WBC Ur Squamous Epith Cells Urine Bacteria Urine Mucus Urine Sperm COVID-19 (NANI) COVID-19 FOLUP Com 07/29/21 07/29/21 07/29/21 08:53 08:53 08:54 MCV 82.7 MCH 28.1 MCHC 34.0 RDW 12.7 Plt Count 435 H D MPV 8.4 L Immature Gran % (Auto) 0.9 H Neut % (Auto) 87.9 H Lymph % (Auto) 6.7 L [place] % (Auto) 4.4 Eos % (Auto) 0.0 Baso % (Auto) 0.1 Lymph # (Auto) 1.0 L [place] # (Auto) 0.7 Eos # (Auto) 0.0 Baso # (Auto) 0.0 Abs Immat Gran (auto) 0.13 H Absolute Neuts (auto) 13.3 H Absolute Nucleated RBC 0.000 Nucleated RBC % (auto) 0.0 PT 27.2 H INR 2.3 H APTT 30.1 D-Dimer High Sensitivty 2150 O2 Saturation ABG pH at Pt Temp ABG pH (Temp Correct) ABG pCO2 at Pt Temp ABG pCO2 (Temp Corrct ABG pO2 at Pt Temp ABG pO2 (Temp Correct ABG HCO3 ABG Base Excess (Actual) Anion Gap Estim Creat Clear Calc Estimated GFR POC Glucose Random Glucose Lactic Acid Lactic Acid F/U @ 2Hr Calcium Total Bilirubin AST ALT Alkaline Phosphatase Lactate Dehydrogenase Troponin I High Sens B-Natriuretic Peptide Total Protein Albumin Urine Color Urine Appearance Urine pH Ur Specific [place] Urine Protein Urine Glucose (UA) Urine Ketones Urine Blood Urine Nitrite Ur Leukocyte Esterase Urine RBC Urine WBC Ur Squamous Epith Cells Urine Bacteria Urine Mucus Urine Sperm COVID-19 (NANI) COVID-19 FOLUP Com 07/29/21 07/29/21 07/29/21 09:11 09:34 10:02 MCV MCH MCHC RDW Plt Count MPV Immature Gran % (Auto) Neut % (Auto) Lymph % (Auto) [place] % (Auto) Eos % (Auto) Baso % (Auto) Lymph # (Auto) [place] # (Auto) Eos # (Auto) Baso # (Auto) Abs Immat Gran (auto) Absolute Neuts (auto) Absolute Nucleated RBC Nucleated RBC % (auto) PT INR APTT D-Dimer High Sensitivty O2 Saturation 83.0 ABG pH at Pt Temp 7.49 H ABG pH (Temp Correct) 7.49 H ABG pCO2 at Pt Temp 31 L ABG pCO2 (Temp Corrct 30 L ABG pO2 at Pt Temp 55 L ABG pO2 (Temp Correct 54 L ABG HCO3 23 ABG Base Excess (Actual) 1.4 Anion Gap Estim Creat Clear Calc Estimated GFR POC Glucose Random Glucose Lactic Acid Lactic Acid F/U @ 2Hr Calcium Total Bilirubin AST ALT Alkaline Phosphatase Lactate Dehydrogenase Troponin I High Sens 127.8 H* D B-Natriuretic Peptide 343 H Total Protein Albumin Urine Color YELLOW Urine Appearance CLEAR Urine pH 5.5 Ur Specific [place] 1.020 Urine Protein 1+ H Urine Glucose (UA) >=1000 H Urine Ketones NEG Urine Blood 1+ H Urine Nitrite NEG Ur Leukocyte Esterase NEG Urine RBC 0 Urine WBC 1-4 Ur Squamous Epith Cells TRACE Urine Bacteria NONE Urine Mucus 1+ Urine Sperm NOTED COVID-19 (NANI) COVID-19 Clin Com 07/29/21 07/29/21 07/29/21 11:29 11:32 13:39 MCV MCH MCHC RDW Plt Count MPV Immature Gran % (Auto) Neut % (Auto) Lymph % (Auto) [place] % (Auto) Eos % (Auto) Baso % (Auto) Lymph # (Auto) [place] # (Auto) Eos # (Auto) Baso # (Auto) Abs Immat Gran (auto) Absolute Neuts (auto) Absolute Nucleated RBC Nucleated RBC % (auto) PT INR APTT D-Dimer High Sensitivty O2 Saturation ABG pH at Pt Temp ABG pH (Temp Correct) ABG pCO2 at Pt Temp ABG pCO2 (Temp Corrct ABG pO2 at Pt Temp ABG pO2 (Temp Correct ABG HCO3 ABG Base Excess (Actual) Anion Gap Estim Creat Clear Calc Estimated GFR POC Glucose Random Glucose Lactic Acid Lactic Acid F/U @ 2Hr 3.1 H* Calcium Total Bilirubin AST ALT Alkaline Phosphatase Lactate Dehydrogenase Troponin I High Sens 41.0 H D B-Natriuretic Peptide Total Protein Albumin Urine Color Urine Appearance Urine pH Ur Specific [place] Urine Protein Urine Glucose (UA) Urine Ketones Urine Blood Urine Nitrite Ur Leukocyte Esterase Urine RBC Urine WBC Ur Squamous Epith Cells Urine Bacteria Urine Mucus Urine Sperm COVID-19 (NANI) Negative COVID-19 Clin Com See Note Imaging Radiologist's Impressions: Impressions Chest X-Ray 07/29/21 09:55 IMPRESSION: Low lung volumes and dense multilobar airspace disease, left greater than right, significantly increased from June 2021 exams. Differential would include pneumonia, pulmonary edema in the right clinical setting pulmonary hemorrhage. Chest CTA 07/29/21 10:55 IMPRESSION: No evidence of PE. No evidence aortic dissection or aneurysm. Panlobular infiltrate and residual changes. The infiltrate has progressed into the upper lobes at this time. There appears be no change in infiltrate in the lower lobe and lingular segments. Inflammatory lymph nodes in the mediastinum. VTE: negative Assessment and Plan (1) Sepsis: Status: Acute (2) Acute and chronic respiratory failure with hypoxia: Status: Acute This is a 70 yo M with PMH of DM, recent prolonged COVID hospitalization who presents to the emergency room with fevers, generalized weakness and confusion. His work-up thus far reveals CT findings suggestive of lungs findings related to covid with ? superimposed bacterial pneumonia. Furthermore, he has profounding hypoxia requiring HFNC 100% (he was off oxygen for the last 16 days of his hospitalization previous prior to discharge). He will be admitted for further work up. 1. Severe Sepsis secondary to supsected bacterial vs atypical pneumonia causing acute respiratory failure with hypoxemia Meets sepsis criteria with leukocytosis + tachypnea + tachycardia; severe features include elevated lactate; SOFA criteria met with degree of hypoxemia (see ABG) IV vancomcyin/cefepime; doxy for atypical coverage check COVID PCR (rapid negative) follow up cultures Infectious Disease + Pulmonary consults Sepsis focus exam completed at 1pm 2. Toxic/Metabolic Encephalopathy due to above 3. Question Acute CHF BNP elevated and has rales on echo Limieted Echo completed -- pending official read IV lasix 40mg x 1 now, repeat further pending labs 4. HyperK improving, monitor 5. Elevated trop-I; t-wave inversions Trop-I downtrending; repeat EKG Echo completed and pending 6. Uncotrolled DM with hyperglycemia basal+bolus (start lantus 10 qhs) 7. HypoNa suspected at least partially pseudo from hyperglycemia repeat chem now 8. Hypothryoidism synthroid Full Code DVT pptx, Eliquis Quality Stroke Does the patient have a stroke diagnosis?: No VTE Prior VTE?: No VTE Risk Level:: Medical - moderate - high VTE Device Contraindication: Treatment Not Indicated VTE Drug Contraindication: N/A - Med Ordered
[2021-07-29 14:17] LABS: Procalcitonin 0.48 ng/mL
[2021-07-29 14:31] LABS: C Reactive Protein 25.24 mg/dL (< or = 0.50)
[2021-07-29 14:34] LABS: Influenza A PCR NEGATIVE (Negative); Influenza B PCR NEGATIVE (Negative); Resp Syncy Virus RNA Qual PCR NEGATIVE (Negative); SARS COV2 PCR INHOUSE NEGATIVE (Negative)
[2021-07-29 14:54] LABS: Ferritin 1029 ng/mL (20-250)
[2021-07-29] MEDS: 0.9 % Sodium Chloride Flush 3 ML SYRINGE IVFLUSH (15:44)
[2021-07-29] MEDS: Doxycycline Hyclate 100 MG in 0.9 % Sodium Chloride 250 ML 166.67 MG IV (15:44)
[2021-07-29] MEDS: methylPREDNISolone Sod Succ 40 MG/ML VIAL IVPUSH (15:44)
[2021-07-29 16:54] LABS: Anion Gap 13 (12-20); Blood Urea Nitrogen 16 mg/dL (9-16); Calcium 7.6 mg/dL (8.4-10.2); Carbon Dioxide 25 mmol/L (22-29); Chloride 96 mmol/L (96-108); Creatinine Clr Calc Pharmacy 59.6; Estimated Glomerular Filt Rate > 60; Glucose Random 392 mg/dL (60-115); Potassium 4.9 mmol/L (3.3-5.1); Sodium 129 mmol/L (135-145)
--- NOTE | 2021-07-29 17:12 | PC.NURSE ---
pt remains on high flow with nonrebreather 100% @55 L/m satting mid to high 90s
[2021-07-29 17:51] LABS: Glucose, Whole Blood 341 mg/dL (60-115)
[2021-07-29] MEDS: Insulin Lispro 100 UNIT/ML 3 ML VIAL SUBCUT ×2 (18:07→21:37)
[2021-07-29 21:27] LABS: Glucose, Whole Blood 354 mg/dL (60-115)
[2021-07-29] MEDS: Apixaban 5 MG TABLET PO (21:36)
[2021-07-29] MEDS: Insulin Glargine,Hum.rec.anlog 100 UNIT/ML 10 ML VIAL 10 UNIT SUBCUT (21:38)
--- NOTE | 2021-07-29 21:43 | PC.NURSE ---
BS 354 pT MEDICATED WITH INSULIN PER EMAR. PT REMAINS ON MONITOR,, VS OBTAINED. PT IN NAD AND REMAINS ON HIGH MAIA AND NRB. PT TOLERATED WELL. PT SITTING UP AND ALERT SPEAKING PORTUGUESE. PT AWAITING FOR ROOM ASSIGNMENT.
[2021-07-30] VITALS (15 sets, daily range): BP systolic 98–131; BP diastolic 59–76; PULSE 74–95; RESP 14–29; TEMP 35.8–37.3; O2SAT 90–99; BMI 21.0
[2021-07-30] MEDS: methylPREDNISolone Sod Succ 40 MG/ML VIAL IVPUSH ×4 (00:30→21:05)
[2021-07-30] MEDS: cefEPime HCl 2 GM in 0.9 % Sodium Chloride 50 ML IV ×3 (00:30→21:05)
[2021-07-30] MEDS: Morphine Sulfate 4 MG/ML CARTRIDGE 2 MG IVPUSH (02:05)
--- NOTE | 2021-07-30 02:09 | PC.NURSE ---
Respiratory in room and chg to only high-flow and took off NRB. Pt tolerating well. pt medicated as per emar. Pt remains on monitor with hr 74, PO 97%, awaiting to call report to [facility].
--- NOTE | 2021-07-30 02:38 | PC.NURSE ---
report to [facility]. pt awaiting for transfer to floor.
[2021-07-30] MEDS: Doxycycline Hyclate 100 MG in 0.9 % Sodium Chloride 250 ML 166.67 MG IV ×2 (03:44→17:28)
[2021-07-30] MEDS: Levothyroxine Sodium 125 MCG TABLET PO (06:03)
[2021-07-30 06:38] LABS: Lactic Acid 2.1 mmol/L (0.5-2.0)
[2021-07-30 06:47] LABS: Hematocrit 35.1 % (42.0-52.0); Mean Corpuscular HGB Conc 34.2 g/dl (31.0-36.0); Mean Corpuscular Hemoglobin 28.4 pg (27.0-33.0); Mean Corpuscular Volume 83.2 fL (80.0-98.0); Platelet Count 272 X10*3/uL (160-400); Red Blood Count 4.22 X10*6/uL (4.60-5.80); Red Cell Distribution Width 12.9 % (11.0-16.0); White Blood Count 13.4 X10*3/uL (4.8-10.8)
[2021-07-30 07:07] LABS: Anion Gap 13 (12-20); Blood Urea Nitrogen 17 mg/dL (9-16); Calcium 7.8 mg/dL (8.4-10.2); Carbon Dioxide 27 mmol/L (22-29); Chloride 98 mmol/L (96-108); Creatinine Clr Calc Pharmacy 72.9; Estimated Glomerular Filt Rate > 60; Glucose Random 184 mg/dL (60-115); Potassium 4.1 mmol/L (3.3-5.1); Sodium 134 mmol/L (135-145)
[2021-07-30 07:31] LABS: Glucose, Whole Blood 165 mg/dL (60-115)
[2021-07-30 08:14] LABS: Reflex Lactate? Lactic Acid Added
[2021-07-30] MEDS: Insulin Lispro 100 UNIT/ML 3 ML VIAL SUBCUT ×4 (08:46→21:04)
[2021-07-30] MEDS: Cholecalciferol (Vitamin D3) 25 MCG TABLET 50 MCG PO (08:46)
[2021-07-30] MEDS: 0.9 % Sodium Chloride Flush 3 ML SYRINGE IVFLUSH ×3 (08:47→19:40)
[2021-07-30] MEDS: Apixaban 5 MG TABLET PO ×2 (08:47→19:40)
--- NOTE | 2021-07-30 09:17 | MHC.CM.PN ---
Patient is documented to be disoriented; CM spoke with /Amina at [phone], with the assist of a telephonic Clinical Support Nurse, and addressed IMM with her (original will be mailed certified letter to Amina and a copy has been placed on the chart). Patient lives in a house with his and he uses no DME to assist with mobility. Patient receives a [facility] RN visit every 6 months to a year.Home is the goal for dc and CM has initiated and will follow for dc planning. PCP is Dr. Greg Hammer. One of Patient's 2 Sons or a neighbor will provide transportation to home.
[2021-07-30 09:19] LABS: B Type Natriuretic Peptide 171 pg/mL (<100)
[2021-07-30 09:36] LABS: ~Lactic Acid-LAB USE ONLY 2.5 mmol/L (0.5-2.0)
--- NOTE | 2021-07-30 09:42 | P.CONPL_ITS ---
History of Present Illness History of Present Illness Consult date: 07/30/21 Reason for consult: dyspnea, cough and hypoxemia Chief complaint: Fevers, confusion, weakness Narrative: I HAVE SEEN THIS 70 YEARS OLD GENTLEMAN THIS MORNING FOR PULMONARY CONSULT. History reviewed, and the course in the hospital is also reviewed. This gentleman was initially admitted on June 30 with severe shortness of breath, cough and low-grade fever. Diagnosed to have acute COVID pneumonitis, and along with that he was positive for pulmonary embolism. He was treated from 06/30 to July 24, and then discharged home. His the initial positive test for COVID was on 06/18, so he had passed the time window for use of REMDESVIr but he received Baricitinib, for 14 days. Initially on lower neck is was transition to Eliquis before discharge. When discharged on July 24 this gentleman was actually off oxygen. At home his condition has deteriorated and for about 3 days he was having increased shortness of breath low-grade fever lethargy minimal cough, And presented to the emergency room yesterday. His chest x-ray and CT scan of the chest or grossly abnormal. Patient is requiring high-flow O2. Past medical history is positive for multiple comorbidities especially in in cluding diabetes mellitus history of past pneumonia in 2019 due to COVID hypothyroidism, peripheral neuropathy, bicytopenia. Review of Systems Verdana 4l Review of Systems: Yes Unobtainable due to mental Verdana 4d condition PMFSH Past Medical History Medical History B12 deficiency Bicytopenia Daytime sleepiness Diabetes mellitus Diabetes type 2, uncontrolled Diabetic polyneuropathy associated with type 2 diabetes mellitus Dyslipidemia Hypothyroid prison (current) use of insulin Right shoulder pain Stable proliferative diabetic retinopathy Vitamin D deficiency Family History Family History Father Hypertension Mother Diabetes Anemia Hypothyroidism Family/Other Prostate cancer Hypertension Diabetes Brother Prostate cancer Daughter Hypothyroidism Surgical History Surgical History History of cardiac catheterization History of cataract surgery History of colonoscopy Social History Social History Household Members: Spouse Housing: Apartment Do you presently have visiting nurse or other home services: Yes Alcohol intake: former Patient Tobacco Use Status: Former Tobacco user Tobacco use type: Cigarette e-Cigarette/Vaping Use: Never Used Second Hand Smoke Exposure: No service: No Current occupational status: retired and disabled Meds Allergies Allergy/AdvReac Type Severity Reaction Status Date / Time penicillin V Allergy Intermediate rash, hives Verified 06/25/21 22:49 acetaminophen AdvReac Intermediate vomitting Verified 06/25/21 22:49 [Percocet] lisinopril AdvReac Intermediate angioedema Verified 06/25/21 22:49 oxycodone [From AdvReac Intermediate STOMACH Verified 06/25/21 22:49 PERCOCET] UPSET statins AdvReac Intermediate myalgia Uncoded 05/21/21 10:10 Active Medications: Current Medications Acetaminophen (Acetaminophen 325 Mg Tablet) 650 mg PO Q6H PRN PRN Reason: Pain, Mild (Pain Scale 1-3) Apixaban (Apixaban 5 Mg Tablet) 5 mg PO BID [facility] Last Admin: 07/30/21 08:47 Dose: 5 mg Documented by: Cefepime HCl 2 gm/ Sodium (Chloride) 50 mls @ 100 mls/hr IV Q12H [facility] Last Infusion: 07/30/21 02:33 Dose: Infused Documented by: Doxycycline Hyclate 100 mg/ (Sodium Chloride) 250 mls @ 166.67 mls/hr IV Q12H [facility] Last Infusion: 07/30/21 06:02 Dose: Infused Documented by: Vancomycin HCl 1,250 mg/ (Sodium Chloride) 250 mls @ 166.667 mls/hr IV Q24H [facility] Insulin Glargine (Insulin Glargine,Hum.Rec.Anlog 100 Unit/Ml 10 Ml Vial) 10 unit SUBCUT BEDTIME [facility] Last Admin: 07/29/21 21:38 Dose: 10 unit Documented by: Insulin Human Lispro (Insulin Lispro 100 Unit/Ml 3 Ml Vial) 0 unit SUBCUT QIDACHS [facility]; Protocol Last Admin: 07/30/21 08:46 Dose: 2 unit Documented by: Levothyroxine Sodium (Levothyroxine Sodium 125 Mcg Tablet) 125 mcg PO DAILY@0630 [facility] Last Admin: 07/30/21 06:03 Dose: 125 mcg Documented by: Methylprednisolone Sodium Succinate (Methylprednisolone Sod Succ 40 Mg/Ml Vial) 40 mg IVPUSH Q8H [facility] Last Admin: 07/30/21 08:46 Dose: 40 mg Documented by: Morphine Sulfate (Morphine Sulfate 4 Mg/Ml Cartridge) 2 mg IVPUSH Q2H PRN; Protocol PRN Reason: Shortness of Breath Last Admin: 07/30/21 02:05 Dose: 2 mg Documented by: Ondansetron HCl (Ondansetron Hcl 4 Mg/2 Ml Vial) 4 mg IVPUSH Q8H PRN PRN Reason: Nausea and Vomiting Pharmacy Consult (Consult Rx Perform Med Rec) 1 each MISCELLANE ONCE PRN PRN Reason: Consult order Pharmacy Consult (Consult Rx Vancomycin Dosing) 1 each MISCELLANE DAILY PRN PRN Reason: Consult order Sodium Chloride (0.9 % Sodium Chloride Flush 3 Ml Syringe) 3 ml IVFLUSH QSHIFT [facility] Last Admin: 07/30/21 08:47 Dose: 3 ml Documented by: Vitamin D (Cholecalciferol (Vitamin D3) 25 Mcg Tablet) 50 mcg PO DAILY [facility] Last Admin: 07/30/21 08:46 Dose: 50 mcg Documented by: Home Medications Medication Instructions Recorded Confirmed Last Taken Type levothyroxine 125 125 mcg PO 06/30/21 07/29/21 Unknown History mcg tablet DAILY@0630 repaglinide 2 mg 1 tab PO DAILY 06/30/21 07/29/21 Unknown History tablet repaglinide 2 mg 2 tab PO 06/30/21 07/29/21 Unknown History tablet DAILY@1700 albuterol sulfate 2 puff 07/29/21 07/29/21 Unknown History 90 mcg/actuation INHALATION Q4H PRN aerosol inhaler (ProAir HFA) doxycycline 1 cap PO BID 07/29/21 07/29/21 Unknown History hyclate 100 mg capsule prednisone 50 mg 1 tab PO DAILY 07/29/21 07/29/21 Unknown History tablet Physical Exam Verdana 4l Vital Signs: Verdana 4d Verdana 4d Vital Signs: Verdana 4d Verdana 4Bd Last Vital Signs Verdana 4d Regulatory Compliance Officer New 4d Regulatory Compliance Officer New 4d Temp 98.3 F 07/30/21 07:53 Regulatory Compliance Officer New 4d Pulse 83 07/30/21 07:53 Regulatory Compliance Officer New 4d Resp 20 07/30/21 07:53 BP 98/61 07/30/21 07:53 Pulse Ox 93 07/30/21 07:53 BMI result Body Mass Index 21.0 Const: General: comfortable and no acute distress HENMT: Other: Not examined Head: Yes normal to inspection General nose exam: No nasal polyps present and No nasal discharge present Face and sinus: Yes sinuses nontender Mouth: oropharynx normal Throat: Yes posterior oropharynx normal Eyes: General: appearance normal, both eyes and all related structures Neck: Neck: Yes normal visual inspection, Yes no lymphadenopathy, Yes trachea midline and Yes no JVD Thyroid: Thyroid normal Chest: Chest palpation & inspection: normal inspection of the chest, normal palpation of entire chest wall and no tenderness Resp: Other: Breath sounds are distant, but equal on both sides Fine inspiratory crackles heard over the lower lobes especially posteriorly. Cardio: Palpation: normal PMI Rate: regular rate Rhythm: regular rhythm Heart sounds: no gallops and no murmurs Peripheral pulses: Peripheral pulses 2+ throughout GI: Palpation (GI): Soft to palpation, nontender, No hepatosplenomegaly present and no masses Auscultation: normal bowel sounds Back/Spine/Pelvis: Thoracic/Lumbar Spine: thoracic and lumbar spine normal to inspection Skin: General skin exam: no rashes or lesions noted Neuro: Other: Not evaluated Extrem: General: Yes normal to inspection, Yes no clubbing, cyanosis or edema and Yes no calf tenderness Psych: Speech and movement: Normal speech and movement present Results Laboratory Findings CBC and BMP: 07/30/21 06:04 07/30/21 06:04 ABG, PT/INR, D-dimer: PT/INR, D-dimer PT 27.2 SEC (9.9-13.0) H 07/29/21 08:53 INR 2.3 (0.9-1.1) H 07/29/21 08:53 Abnormal lab findings: Abnormal Labs 07/29/21 07/29/21 07/29/21 08:07 08:53 08:53 WBC RBC Hgb Hct Plt Count MPV Immature Gran % (Auto) Neut % (Auto) Lymph % (Auto) Lymph # (Auto) Abs Immat Gran (auto) Absolute Neuts (auto) PT INR ABG pH at Pt Temp ABG pH (Temp Correct) ABG pCO2 at Pt Temp ABG pCO2 (Temp Corrct ABG pO2 at Pt Temp ABG pO2 (Temp Correct Sodium 123 L Potassium 6.5 H* D Chloride 90 L BUN 20 H D POC Glucose 401 H* Random Glucose 403 H* Lactic Acid 4.2 H* Lactic Acid F/U @ 2Hr Lactic Acid F/U @ 4Hr Calcium 8.0 L Ferritin 1029 H AST 65 H ALT 90 H Lactate Dehydrogenase 742 H Troponin I High Sens C-Reactive Protein 25.24 H B-Natriuretic Peptide Albumin 2.7 L D Urine Protein Urine Glucose (UA) Urine Blood 07/29/21 07/29/21 07/29/21 08:53 08:54 09:11 WBC 15.2 H RBC 4.16 L Hgb 11.7 L Hct 34.4 L Plt Count 435 H D MPV 8.4 L Immature Gran % (Auto) 0.9 H Neut % (Auto) 87.9 H Lymph % (Auto) 6.7 L Lymph # (Auto) 1.0 L Abs Immat Gran (auto) 0.13 H Absolute Neuts (auto) 13.3 H PT 27.2 H INR 2.3 H ABG pH at Pt Temp 7.49 H ABG pH (Temp Correct) 7.49 H ABG pCO2 at Pt Temp 31 L ABG pCO2 (Temp Corrct 30 L ABG pO2 at Pt Temp 55 L ABG pO2 (Temp Correct 54 L Sodium Potassium Chloride BUN POC Glucose Random Glucose Lactic Acid Lactic Acid F/U @ 2Hr Lactic Acid F/U @ 4Hr Calcium Ferritin AST ALT Lactate Dehydrogenase Troponin I High Sens C-Reactive Protein B-Natriuretic Peptide Albumin Urine Protein Urine Glucose (UA) Urine Blood 07/29/21 07/29/21 07/29/21 09:34 10:02 11:32 WBC RBC Hgb Hct Plt Count MPV Immature Gran % (Auto) Neut % (Auto) Lymph % (Auto) Lymph # (Auto) Abs Immat Gran (auto) Absolute Neuts (auto) PT INR ABG pH at Pt Temp ABG pH (Temp Correct) ABG pCO2 at Pt Temp ABG pCO2 (Temp Corrct ABG pO2 at Pt Temp ABG pO2 (Temp Correct Sodium Potassium 5.4 H Chloride BUN POC Glucose Random Glucose Lactic Acid Lactic Acid F/U @ 2Hr Lactic Acid F/U @ 4Hr Calcium Ferritin AST ALT Lactate Dehydrogenase Troponin I High Sens 127.8 H* D C-Reactive Protein B-Natriuretic Peptide 343 H Albumin Urine Protein 1+ H Urine Glucose (UA) >=1000 H Urine Blood 1+ H 07/29/21 07/29/21 07/29/21 11:32 13:39 16:13 WBC RBC Hgb Hct Plt Count MPV Immature Gran % (Auto) Neut % (Auto) Lymph % (Auto) Lymph # (Auto) Abs Immat Gran (auto) Absolute Neuts (auto) PT INR ABG pH at Pt Temp ABG pH (Temp Correct) ABG pCO2 at Pt Temp ABG pCO2 (Temp Corrct ABG pO2 at Pt Temp ABG pO2 (Temp Correct Sodium Potassium Chloride BUN POC Glucose Random Glucose Lactic Acid Lactic Acid F/U @ 2Hr 3.1 H* Lactic Acid F/U @ 4Hr 3.0 H* Calcium Ferritin AST ALT Lactate Dehydrogenase Troponin I High Sens 41.0 H D C-Reactive Protein B-Natriuretic Peptide Albumin Urine Protein Urine Glucose (UA) Urine Blood 07/29/21 07/29/21 07/29/21 16:13 17:47 21:23 WBC RBC Hgb Hct Plt Count MPV Immature Gran % (Auto) Neut % (Auto) Lymph % (Auto) Lymph # (Auto) Abs Immat Gran (auto) Absolute Neuts (auto) PT INR ABG pH at Pt Temp ABG pH (Temp Correct) ABG pCO2 at Pt Temp ABG pCO2 (Temp Corrct ABG pO2 at Pt Temp ABG pO2 (Temp Correct Sodium 129 L Potassium Chloride BUN POC Glucose 341 H 354 H* Random Glucose 392 H* Lactic Acid Lactic Acid F/U @ 2Hr Lactic Acid F/U @ 4Hr Calcium 7.6 L Ferritin AST ALT Lactate Dehydrogenase Troponin I High Sens C-Reactive Protein B-Natriuretic Peptide Albumin Urine Protein Urine Glucose (UA) Urine Blood 07/30/21 07/30/21 07/30/21 06:04 06:04 06:04 WBC 13.4 H RBC 4.22 L Hgb 12.0 L Hct 35.1 L Plt Count MPV 9.0 L Immature Gran % (Auto) Neut % (Auto) Lymph % (Auto) Lymph # (Auto) Abs Immat Gran (auto) Absolute Neuts (auto) PT INR ABG pH at Pt Temp ABG pH (Temp Correct) ABG pCO2 at Pt Temp ABG pCO2 (Temp Corrct ABG pO2 at Pt Temp ABG pO2 (Temp Correct Sodium 134 L Potassium Chloride BUN 17 H POC Glucose Random Glucose 184 H D Lactic Acid 2.1 H* Lactic Acid F/U @ 2Hr Lactic Acid F/U @ 4Hr Calcium 7.8 L Ferritin AST ALT Lactate Dehydrogenase Troponin I High Sens C-Reactive Protein B-Natriuretic Peptide Albumin Urine Protein Urine Glucose (UA) Urine Blood 07/30/21 07/30/21 07/30/21 06:04 07:12 08:53 WBC RBC Hgb Hct Plt Count MPV Immature Gran % (Auto) Neut % (Auto) Lymph % (Auto) Lymph # (Auto) Abs Immat Gran (auto) Absolute Neuts (auto) PT INR ABG pH at Pt Temp ABG pH (Temp Correct) ABG pCO2 at Pt Temp ABG pCO2 (Temp Corrct ABG pO2 at Pt Temp ABG pO2 (Temp Correct Sodium Potassium Chloride BUN POC Glucose 165 H Random Glucose Lactic Acid Lactic Acid F/U @ 2Hr 2.5 H* Lactic Acid F/U @ 4Hr Calcium Ferritin AST ALT Lactate Dehydrogenase Troponin I High Sens C-Reactive Protein B-Natriuretic Peptide 171 H Albumin Urine Protein Urine Glucose (UA) Urine Blood Diagnostic Findings Chest x-ray: report reviewed and image reviewed CT scan - chest: report reviewed and image reviewed Assessment and Plan (1) Acute respiratory distress syndrome (ARDS) due to COVID-19 virus: Status: Acute (2) COVID-19: Status: Acute (3) Pneumonia: Status: Acute Plan This gentleman has delayed, post COVID pneumonitis , extensive bilateral. Multifocal pneumonia secondary to super added bacterial infection cannot be ruled out. Case of pulmonary embolism being treated with anticoagulation. Acute respiratory failure mainly hypoxemic is secondary to ARDS, caused by a new COVID pneumonitis. RECC. IV Solu-Medrol 40 mg q 8 hours to be continued until we start seeing some improvement. Broad-spectrum antibiotic coverage at least for the 1st 5 days, then if cultures are negative it can be discontinued. O2 by high-flow, to maintain O2 sat above 90%, continue attempts to wean down to Ventimask or nasal cannula when feasible. Continue anticoagulation therapy. Procedures Date of Service Date of Service: 07/30/21
[2021-07-30 11:12] LABS: Reflex Lactate? 2 Y
[2021-07-30 11:29] LABS: Glucose, Whole Blood 291 mg/dL (60-115)
[2021-07-30 12:29] LABS: ~Lactic Acid-LAB USE ONLY 1.9 mmol/L (0.5-2.0)
[2021-07-30] MEDS: vancomycin HCL 1,250 MG in 0.9 % Sodium Chloride 250 ML 166.67 MG IV (13:07)
--- NOTE | 2021-07-30 15:14 | P.PNIM_ITS ---
Subjective Subjective Date of Service: 07/30/21 Review of Systems Follow up covid pna, hypoxia still confused and unable to give hx on high flow oxygen Physical Exam Verdana 4l Vital Signs: Verdana 4d Verdana 4d Vital Signs: Verdana 4d Verdana 4Bd Last Vital Signs Verdana 4d Protector Plate Attacher New 4d Protector Plate Attacher New 4d Temp 96.5 F L 07/30/21 15:03 Protector Plate Attacher New 4d Pulse 86 07/30/21 15:03 Protector Plate Attacher New 4d Resp 16 07/30/21 15:03 BP 105/65 07/30/21 15:03 Pulse Ox 95 07/30/21 15:03 BMI result Body Mass Index 21.0 Appearing in no acute distress lung sounds normal expansion heart regular rate rhythm, clear S1, S2 positive bowel sounds, abdomen is soft, nontender neuro patient is alert, confused Objective Data Active Medications Acetaminophen (Acetaminophen 325 Mg Tablet) 650 mg PO Q6H PRN PRN Reason: Pain, Mild (Pain Scale 1-3) Apixaban (Apixaban 5 Mg Tablet) 5 mg PO BID [facility] Last Admin: 07/30/21 08:47 Dose: 5 mg Documented by: RM Cefepime HCl 2 gm/ Sodium (Chloride) 50 mls @ 100 mls/hr IV Q12H [facility] Last Infusion: 07/30/21 13:08 Dose: 0 mls/hr Documented by: RM Doxycycline Hyclate 100 mg/ (Sodium Chloride) 250 mls @ 166.67 mls/hr IV Q12H [facility] Last Infusion: 07/30/21 06:02 Dose: 0 mls/hr Documented by: NINO Vancomycin HCl 1,250 mg/ (Sodium Chloride) 250 mls @ 166.667 mls/hr IV Q24H [facility] Last Infusion: 07/30/21 14:55 Dose: 0 mls/hr Documented by: RM Insulin Glargine (Insulin Glargine,Hum.Rec.Anlog 100 Unit/Ml 10 Ml Vial) 10 unit SUBCUT BEDTIME [facility] Last Admin: 07/29/21 21:38 Dose: 10 unit Documented by: YENI Insulin Human Lispro (Insulin Lispro 100 Unit/Ml 3 Ml Vial) 0 unit SUBCUT QIDACHS [facility]; Protocol Last Admin: 07/30/21 12:22 Dose: 6 unit Documented by: RM Levothyroxine Sodium (Levothyroxine Sodium 125 Mcg Tablet) 125 mcg PO DAILY @0630 [facility] Last Admin: 07/30/21 06:03 Dose: 125 mcg Documented by: NINO Methylprednisolone Sodium Succinate (Methylprednisolone Sod Succ 40 Mg/Ml Vial) 40 mg IVPUSH Q8H [facility] Last Admin: 07/30/21 08:46 Dose: 40 mg Documented by: RM Morphine Sulfate (Morphine Sulfate 4 Mg/Ml Cartridge) 2 mg IVPUSH Q2H PRN; Protocol PRN Reason: Shortness of Breath Last Admin: 07/30/21 02:05 Dose: 2 mg Documented by: YENI Ondansetron HCl (Ondansetron Hcl 4 Mg/2 Ml Vial) 4 mg IVPUSH Q8H PRN PRN Reason: Nausea and Vomiting Pharmacy Consult (Consult Rx Perform Med Rec) 1 each MISCELLANE ONCE PRN PRN Reason: Consult order Pharmacy Consult (Consult Rx Vancomycin Dosing) 1 each MISCELLANE DAILY PRN PRN Reason: Consult order Sodium Chloride (0.9 % Sodium Chloride Flush 3 Ml Syringe) 3 ml IVFLUSH QSHIFT [facility] Last Admin: 07/30/21 08:47 Dose: 3 ml Documented by: RM Vitamin D (Cholecalciferol (Vitamin D3) 25 Mcg Tablet) 50 mcg PO DAILY [facility] Last Admin: 07/30/21 08:46 Dose: 50 mcg Documented by: RM Labs CBC & Chem 7: 07/30/21 06:04 07/30/21 06:04 Labs: Laboratory Results - last 24 hr 07/29/21 07/29/21 07/29/21 16:13 16:13 17:47 MCV MCH MCHC RDW Plt Count MPV Absolute Nucleated RBC Nucleated RBC % (auto) Anion Gap 13 Estim Creat Clear Calc 59.6 Estimated GFR > 60 POC Glucose 341 H Random Glucose 392 H* Lactic Acid Lactic Acid F/U @ 2Hr Lactic Acid F/U @ 4Hr 3.0 H* Calcium 7.6 L B-Natriuretic Peptide 07/29/21 07/30/21 07/30/21 21:23 06:04 06:04 MCV 83.2 MCH 28.4 MCHC 34.2 RDW 12.9 Plt Count 272 D MPV 9.0 L Absolute Nucleated RBC 0.000 Nucleated RBC % (auto) 0.0 Anion Gap 13 Estim Creat Clear Calc 72.9 Estimated GFR > 60 POC Glucose 354 H* Random Glucose 184 H D Lactic Acid Lactic Acid F/U @ 2Hr Lactic Acid F/U @ 4Hr Calcium 7.8 L B-Natriuretic Peptide 07/30/21 07/30/21 07/30/21 06:04 06:04 07:12 MCV MCH MCHC RDW Plt Count MPV Absolute Nucleated RBC Nucleated RBC % (auto) Anion Gap Estim Creat Clear Calc Estimated GFR POC Glucose 165 H Random Glucose Lactic Acid 2.1 H* Lactic Acid F/U @ 2Hr Lactic Acid F/U @ 4Hr Calcium B-Natriuretic Peptide 171 H 07/30/21 07/30/21 07/30/21 08:53 10:58 12:04 MCV MCH MCHC RDW Plt Count MPV Absolute Nucleated RBC Nucleated RBC % (auto) Anion Gap Estim Creat Clear Calc Estimated GFR POC Glucose 291 H Random Glucose Lactic Acid Lactic Acid F/U @ 2Hr 2.5 H* Lactic Acid F/U @ 4Hr 1.9 Calcium B-Natriuretic Peptide Microbiology Microbiology Results: Microbiology 07/29/21 09:18 Blood Culture - Preliminary Blood - Venous No growth after 24 hours. 07/29/21 08:53 Blood Culture - Preliminary Blood - Venous No growth after 24 hours. Assessment and Plan (1) Acute and chronic respiratory failure with hypoxia: Status: Acute (2) COVID-19: Status: Acute Plan This is a 70 yo M with PMH of DM, recent prolonged COVID hospitalization who presents to the emergency room with fevers, generalized weakness and confusion. His work-up thus far reveals CT findings suggestive of lungs findings related to covid with ? superimposed bacterial pneumonia. Furthermore, he has profounding h ypoxia requiring HFNC 100% (he was off oxygen for the last 16 days of his hospitalization previous prior to discharge). He will be admitted for further work up. Severe Sepsis secondary to suspected bacterial vs atypical pneumonia causing acute respiratory failure with hypoxemia Meets sepsis criteria with leukocytosis + tachypnea + tachycardia; severe features include elevated lactate; SOFA criteria met with degree of hypoxemia (see ABG) IV vancomcyin/cefepime; doxy for atypical coverage check COVID PCR (rapid negative) follow up cultures Infectious Disease seen and evaluated by pulmonology, extensive pneumonitis noted secondary to COVID, ARDS appearing, bacterial pneumonia Treat with Solumedrol 40mg Q8h, continue abx therapy and high flow Toxic/Metabolic Encephalopathy due to above Question Acute CHF BNP elevated and has rales on echo Limited Echo completed -- pending official read IV lasix 40mg x 1 now, repeat further pending labs HyperK improving, monitor Elevated trop-I; t-wave inversions Trop-I downtrending; repeat EKG Echo completed and pending Uncontrolled DM with hyperglycemia basal+bolus (start lantus 10 qhs) HypoNa suspected at least partially pseudo from hyperglycemia repeat chem now Hx PE on Eliquis Hypothryoidism synthroid Full Code DVT pptx, Eliquis Attending Dr. Jacinto ? Quality Stroke Does the patient have a stroke diagnosis?: No VTE Prior VTE?: No VTE Risk Level:: Medical - moderate - high VTE Device Contraindication: Treatment Not Indicated VTE Drug Contraindication: N/A - Med Ordered
[2021-07-30 16:21] LABS: Glucose, Whole Blood 261 mg/dL (60-115)
[2021-07-30 20:16] LABS: Glucose, Whole Blood 281 mg/dL (60-115)
[2021-07-30] MEDS: Insulin Glargine,Hum.rec.anlog 100 UNIT/ML 10 ML VIAL 10 UNIT SUBCUT (21:05)
[2021-07-31] VITALS (14 sets, daily range): BP systolic 110–139; BP diastolic 64–70; PULSE 73–92; RESP 13–24; TEMP 36.3–37.6; O2SAT 90–96
[2021-07-31] MEDS: Doxycycline Hyclate 100 MG in 0.9 % Sodium Chloride 250 ML 166.67 MG IV ×2 (03:20→14:42)
[2021-07-31] MEDS: Levothyroxine Sodium 125 MCG TABLET PO (05:25)
[2021-07-31 07:01] LABS: Anion Gap 10 (12-20); B Type Natriuretic Peptide 290 pg/mL (<100); Blood Urea Nitrogen 18 mg/dL (9-16); Calcium 8.1 mg/dL (8.4-10.2); Carbon Dioxide 30 mmol/L (22-29); Chloride 99 mmol/L (96-108); Creatinine Clr Calc Pharmacy 72.9; Estimated Glomerular Filt Rate > 60; Glucose Random 170 mg/dL (60-115); Potassium 4.2 mmol/L (3.3-5.1); Sodium 135 mmol/L (135-145)
[2021-07-31 07:09] LABS: Lactate Dehydrogenase 578 U/L (118-273)
[2021-07-31 07:16] LABS: Glucose, Whole Blood 164 mg/dL (60-115)
[2021-07-31 07:21] LABS: Ferritin 836 ng/mL (20-250)
[2021-07-31 07:23] LABS: Procalcitonin 0.46 ng/mL
[2021-07-31] MEDS: 0.9 % Sodium Chloride Flush 3 ML SYRINGE IVFLUSH ×3 (09:03→21:18)
[2021-07-31] MEDS: methylPREDNISolone Sod Succ 40 MG/ML VIAL IVPUSH ×2 (09:05→14:42)
[2021-07-31] MEDS: Cholecalciferol (Vitamin D3) 25 MCG TABLET 50 MCG PO (09:06)
[2021-07-31] MEDS: Insulin Lispro 100 UNIT/ML 3 ML VIAL SUBCUT ×2 (09:06→11:45)
[2021-07-31] MEDS: Apixaban 5 MG TABLET PO ×2 (09:07→21:18)
[2021-07-31 11:37] LABS: Glucose, Whole Blood 178 mg/dL (60-115)
[2021-07-31] MEDS: cefEPime HCl 2 GM in 0.9 % Sodium Chloride 50 ML IV (11:45)
[2021-07-31] MEDS: vancomycin HCL 1,250 MG in 0.9 % Sodium Chloride 250 ML 166.67 MG IV (12:30)
[2021-07-31 13:07] LABS: Creatinine Clr Calc Pharmacy 77.8; Estimated Glomerular Filt Rate > 60
--- NOTE | 2021-07-31 14:56 | HE.PHANOTE ---
VANCOMYCIN DOSING ADDENDUM CHECKED LABS AND CONTINUED SAME DOSE OF 1250MG Q 24H
--- NOTE | 2021-07-31 15:39 | P.PNIM_ITS ---
Subjective Subjective Date of Service: 07/31/21 Interval History: seen and examined this morning follow up for respiratory failure, encephalopathy awake and alert but seems confused; unreliable ROS Review of Systems Review of Systems: Yes Unobtainable due to mental condition Neurologic Neurologic: Reports confusion Psychiatric Psychiatric: Reports confusion Physical Exam Verdana 4l Vital Signs: Verdana 4d Verdana 4d Vital Signs: Verdana 4d Verdana 4Bd Last Vital Signs Verdana 4d Financial Services Technician New 4d Financial Services Technician New 4d Temp 99.7 F 07/31/21 15:02 Financial Services Technician New 4d Pulse 85 07/31/21 15:02 Financial Services Technician New 4d Resp 20 07/31/21 15:21 BP 119/68 07/31/21 15:02 Pulse Ox 95 07/31/21 15:02 BMI result Body Mass Index 21.0 Const: General: cooperative, alert, awake and confusion Nutritional Appearance: well nourished Orientation/consciousness: confusion Resp: Effort & Inspection: tachypneic Cardio: Rate: regular rate Rhythm: regular rhythm GI: Inspection: No distended Palpation (GI): Soft to palpation Neuro: General: confusion Objective Data Active Medications Acetaminophen (Acetaminophen 325 Mg Tablet) 650 mg PO Q6H PRN PRN Reason: Pain, Mild (Pain Scale 1-3) Apixaban (Apixaban 5 Mg Tablet) 5 mg PO BID [facility] Last Admin: 07/31/21 09:07 Dose: 5 mg Documented by: NICHOLE Cefepime HCl 2 gm/ Sodium (Chloride) 50 mls @ 100 mls/hr IV Q12H [facility] Last Infusion: 07/31/21 12:27 Dose: 0 mls/hr Documented by: NICHOLE Doxycycline Hyclate 100 mg/ (Sodium Chloride) 250 mls @ 166.67 mls/hr IV Q12H [facility] Last Admin: 07/31/21 14:42 Dose: 166.67 mls/hr Documented by: NICHOLE Vancomycin HCl 1,250 mg/ (Sodium Chloride) 250 mls @ 166.667 mls/hr IV Q24H [facility] Last Infusion: 07/31/21 14:26 Dose: 0 mls/hr Documented by: NICHOLE Insulin Glargine (Insulin Glargine,Hum.Rec.Anlog 100 Unit/Ml 10 Ml Vial) 10 unit SUBCUT BEDTIME [facility] Last Admin: 07/30/21 21:05 Dose: 10 unit Documented by: CAMACHO Insulin Human Lispro (Insulin Lispro 100 Unit/Ml 3 Ml Vial) 0 unit SUBCUT QIDACHS [facility]; Protocol Last Admin: 07/31/21 11:45 Dose: 2 unit Documented by: NICHOLE Levothyroxine Sodium (Levothyroxine Sodium 125 Mcg Tablet) 125 mcg PO DAILY@0630 [facility] Last Admin: 07/31/21 05:25 Dose: 125 mcg Documented by: CAMACHO Methylprednisolone Sodium Succinate (Methylprednisolone Sod Succ 40 Mg/Ml Vial) 40 mg IVPUSH Q8H [facility] Last Admin: 07/31/21 14:42 Dose: 40 mg Documented by: NICHOLE Morphine Sulfate (Morphine Sulfate 4 Mg/Ml Cartridge) 2 mg IVPUSH Q2H PRN; Protocol PRN Reason: Shortness of Breath Last Admin: 07/30/21 02:05 Dose: 2 mg Documented by: YENI Ondansetron HCl (Ondansetron Hcl 4 Mg/2 Ml Vial) 4 mg IVPUSH Q8H PRN PRN Reason: Nausea and Vomiting Pharmacy Consult (Consult Rx Perform Med Rec) 1 each MISCELLANE ONCE PRN PRN Reason: Consult order Pharmacy Consult (Consult Rx Vancomycin Dosing) 1 each MISCELLANE DAILY PRN PRN Reason: Consult order Sodium Chloride (0.9 % Sodium Chloride Flush 3 Ml Syringe) 3 ml IVFLUSH QSHIFT [facility] Last Admin: 07/31/21 14:42 Dose: 3 ml Documented by: NICHOLE Vitamin D (Cholecalciferol (Vitamin D3) 25 Mcg Tablet) 50 mcg PO DAILY [facility] Last Admin: 07/31/21 09:06 Dose: 50 mcg Documented by: NICHOLE Labs CBC & Chem 7: 07/30/21 06:04 07/31/21 12:47 Labs: Laboratory Results - last 24 hr 07/30/21 07/30/21 07/31/21 16:12 20:02 06:10 Anion Gap Estim Creat Clear Calc Estimated GFR POC Glucose 261 H 281 H Random Glucose Calcium Ferritin Lactate Dehydrogenase B-Natriuretic Peptide 290 H Procalcitonin 07/31/21 07/31/21 07/31/21 06:10 06:10 06:10 Anion Gap 10 L Estim Creat Clear Calc 72.9 Estimated GFR > 60 POC Glucose Random Glucose 170 H Calcium 8.1 L Ferritin 836 H Lactate Dehydrogenase 578 H B-Natriuretic Peptide Procalcitonin 0.46 07/31/21 07/31/21 07/31/21 07:10 11:31 12:47 Anion Gap Estim Creat Clear Calc 77.8 Estimated GFR > 60 POC Glucose 164 H 178 H Random Glucose Calcium Ferritin Lactate Dehydrogenase B-Natriuretic Peptide Procalcitonin Microbiology Microbiology Results: Microbiology 07/29/21 09:18 Blood Culture - Preliminary Blood - Venous No growth after 48 hours. 07/29/21 08:53 Blood Culture - Preliminary Blood - Venous No growth after 48 hours. Assessment and Plan (1) Acute and chronic respiratory failure with hypoxia: Status: Acute (2) Pneumonia: Status: Acute (3) Pulmonary emboli: Status: Acute Plan This is a 70 yo M with PMH of DM, recent prolonged COVID hospitalization who presents to the emergency room with fevers, generalized weakness and confusion. His work-up thus far reveals CT findings suggestive of lungs findings related to covid with ? superimposed bacterial pneumonia. Furthermore, he has profounding hypoxia requiring HFNC 100% (he was off oxygen for the last 16 days of his hospitalization previous prior to discharge). He will be admitted for further work up. Severe Sepsis secondary to suspected bacterial vs atypical pneumonia causing acute respiratory failure with hypoxemia Meets sepsis criteria with leukocytosis + tachypnea + tachycardia; severe features include elevated lactate; SOFA criteria met with degree of hypoxemia (see ABG) IV vancomcyin/cefepime; doxy for atypical coverage COVID PCR negative follow up cultures Infectious Disease consult pending seen and evaluated by pulmonology, extensive pneumonitis noted secondary to post-COVID pneumonitis, ARDS appearing, bacterial pneumonia Treat with Solumedrol 40mg Q8h, continue abx therapy and high flow oxygen Toxic/Metabolic Encephalopathy due to above Question Acute CHF BNP elevated Limited Echo completed, EF 55-60%; small loculated pericardial effusion follow BNP HyperK resolved Elevated trop-I; t-wave inversions Trop-I downtrending likely r/t hypoxia Uncontrolled DM with hyperglycemia basal+bolus (start lantus 10 qhs) HypoNa. resolved. suspected at least partially pseudo from hyperglycemia Hx PE on Eliquis Hypothryoidism synthroid Full Code DVT pptx, Eliquis Attending Dr. Jacinto ? Quality Stroke Does the patient have a stroke diagnosis?: No VTE Prior VTE?: No VTE Risk Level:: Medical - moderate - high VTE Device Contraindication: Treatment Not Indicated VTE Drug Contraindication: N/A - Med Ordered
[2021-07-31 15:57] LABS: Glucose, Whole Blood 112 mg/dL (60-115)
[2021-07-31] MEDS: Furosemide 20 MG/2 ML VIAL IVPUSH (16:49)
--- NOTE | 2021-07-31 19:24 | PC.NURSE ---
1700 lethargic, weak, appetite poor. Remains on High Flow 02.
[2021-07-31 20:06] LABS: Glucose, Whole Blood 178 mg/dL (60-115)
[2021-07-31] MEDS: Insulin Glargine,Hum.rec.anlog 100 UNIT/ML 10 ML VIAL 10 UNIT SUBCUT (21:18)
[2021-07-31 23:26] LABS: ABG Base Excess 4.1 mmol/L; ABG HCO3 27 mmol/L (22-26); ABG pCO2 35 mmHg (32-45); ABG pCO2 TC 34 mmHg (32-45); ABG pH 7.49 (7.35-7.45); ABG pH TC 7.49 (7.35-7.45); ABG pO2 66 mmHg (83-108); ABG pO2 TC 64 (83-108)
[2021-07-31 23:27] LABS: ABG Refer to POC result
--- NOTE | 2021-07-31 23:47 | PM.EVENT ---
Event Note Date of Service: 07/31/21 Event Note: nursing staff noticed pt to be non-verbal and only says yea to all questions, in day reports pt was lethargic but unclear what his last well known time was. he also had complete weakness of the left side. exam was obtianed with help of foreign language interpreter. concern for stroke. head ct obtained, showed left CVA will consult neurology CTA/head and neck bedside swallow eval, PT?OT lipid battery and statin started
[2021-08-01] VITALS (11 sets, daily range): BP systolic 108–128; BP diastolic 66–74; PULSE 76–97; RESP 17–30; TEMP 36.3–36.9; O2SAT 88–99
[2021-08-01 00:15] LABS: Glucose, Whole Blood 160 mg/dL (60-115)
[2021-08-01] MEDS: iohexoL 350 MG/ML 100 ML INFUS..BTL 70 ML IV (00:48)
[2021-08-01] MEDS: methylPREDNISolone Sod Succ 40 MG/ML VIAL IVPUSH ×3 (00:52→16:35)
[2021-08-01] MEDS: cefEPime HCl 2 GM in 0.9 % Sodium Chloride 50 ML IV ×2 (00:52→12:05)
[2021-08-01] MEDS: Doxycycline Hyclate 100 MG in 0.9 % Sodium Chloride 250 ML 166.67 MG IV ×2 (04:28→16:35)
[2021-08-01] MEDS: Levothyroxine Sodium 125 MCG TABLET PO (05:46)
[2021-08-01 06:46] LABS: Basophils Percent Auto 0.1 % (0-2); Hematocrit 36.6 % (42.0-52.0); Hemoglobin 12.2 g/dl (14.0-18.0); Imm Gran Abs Auto 0.14 X10*3/uL (0.00-0.03); Imm Gran Pct Auto 0.8 % (0.0-0.4); Lymphocytes Absolute Auto 0.6 X10*3/uL (1.2-4.9); Lymphocytes Percent Auto 3.3 % (20-40); MANUAL DIFF FLAG SCAN; Mean Corpuscular HGB Conc 33.3 g/dl (31.0-36.0); Mean Corpuscular Volume 83.9 fL (80.0-98.0); Mean Platelet Volume 9.6 fL (9.4-12.4); Monocytes Absolute Auto 0.4 X10*3/uL (0.1-1.2); Monocytes Percent Auto 2.2 % (2-11); Neutrophils Absolute Auto 16.4 x10*3/uL (2.0-8.3); Neutrophils Percent Auto 93.6 % (45-73); Platelet Count 215 X10*3/uL (160-400); Red Blood Count 4.36 X10*6/uL (4.60-5.80); Red Cell Distribution Width 13.3 % (11.0-16.0); SCAN SMEAR FLAG 1; White Blood Count 17.5 X10*3/uL (4.8-10.8)
[2021-08-01 06:54] LABS: B Type Natriuretic Peptide 395 pg/mL (<100)
[2021-08-01 07:00] LABS: Anion Gap 12 (12-20); Blood Urea Nitrogen 20 mg/dL (9-16); Calcium 7.8 mg/dL (8.4-10.2); Carbon Dioxide 27 mmol/L (22-29); Chloride 103 mmol/L (96-108); Cholesterol 120 mg/dL; Creatinine Clr Calc Pharmacy 78.9; Estimated Glomerular Filt Rate > 60; Glucose Random 142 mg/dL (60-115); HDL Cholesterol 28 mg/dL; LDL Cholesterol Calculated 68 mg/dl; Potassium 4.1 mmol/L (3.3-5.1); Sodium 138 mmol/L (135-145); Triglycerides 120 mg/dL
--- NOTE | 2021-08-01 07:00 | ECG_ITS ---
Test Reason : repeat Blood Pressure : / mmHG Vent. Rate : 077 BPM Atrial Rate : 077 BPM P-R Int : 116 ms QRS Dur : 122 ms QT Int : 428 ms P-R-T Axes : 044 012 -09 degrees QTc Int : 484 ms Normal sinus rhythm Right bundle branch block T wave abnormality, consider inferior ischemia Abnormal ECG When compared with ECG of 29-JUL-2021 08:42, ST now depressed in Anterior leads Referred By: Alisa Mendieta Electronically Signed By:CHON MAK MD
[2021-08-01 07:15] LABS: SLIDE REVIEW VERIFIED
[2021-08-01 07:47] LABS: Glucose, Whole Blood 147 mg/dL (60-115)
--- NOTE | 2021-08-01 08:27 | CA_ITS ---
Transthoracic Echocardiogram Patient (Last, First, Middle): Karan Werner, Gender: Male Date of : 1950 Age: 70 Procedure Date: 08/01/2021 Procedure Type: Transthoracic [place] [facility] [place]: 170.18 cm Weight: 60.78 kg BSA: 1.71 m2 Heart Rate: bpm BP: 126 / 74 mmHg Garment Supervisor: GAETANO Referring MD: Alisa CHURCHILL Program Officer: Renny Mo MD Symptoms: stroke protocol, chf Study Quality: Fair ECG Rhythm: Sinus Conclusions: - 1. Normal LV systolic function with impaired relaxation filling pattern 2. Moderately dilated right ventricle with free wall hypokinesis, finding usually seen with acute cor pulmonale 3. Moderate tricuspid regurgitation 4. Severely elevated right ventricular systolic pressure with measured RV systolic pressure of 71 mmHg plus right atrial pressures 5. No significant pericardial effusion Findings Left Ventricle Normal left ventricular size, thickness, and systolic function. The visually estimated ejection fraction is between 55-60%. There is a flattened septum in systole consistent with right ventricular pressure overload. Spectral Doppler is indicative of an impaired relaxation filling pattern. E/E prime ratio is between 8 and 15 consistent with indeterminate filling pressures. Right Ventricle Moderately increased right ventricular cavity size. There is borderline right ventricular systolic function. The right ventricular free wall is hypokinetic. overall findings are consistent with acute cor pulmonale Atria The left atrium is likely dilated. There is no evidence of interatrial shunt. The right atrium is mildly dilated. Aortic Valve The aortic valve structure and function is likely normal. There is no aortic valve stenosis. There is no aortic valve regurgitation. Mitral Valve There is mild anterior mitral leaflet thickening. There is mild mitral annular calcification. There is trace mitral valve regurgitation. There is no mitral valve stenosis. Pulmonic Valve The pulmonic valve is likely normal. There is mild pulmonic valve regurgitation. Tricuspid Valve Normal tricuspid valve structure. There is moderate tricuspid valve regurgitation. Severe pulmonary hypertension is present. Great Vessels All visible segments of the aorta are normal in size. The pulmonary artery was not well visualized. Venous The inferior vena cava was not well visualized. Pericardium/Pleural There is no evidence of pericardial effusion. Prior Study Comparison Changes noted compared to prior study dated: 07/29/2021. RV systolic pressures are significantly elevated Measurements 2D Linear Measurements IVSd: 0.92 0.6-0.9/0.6-1.0 cm LVIDd: 3.67 3.9-5.3/4.2-5.9 cm LVIDd Index: 2.15 2.4-3.2/2.2-3.1 cm/m2 LVIDs: 1.97 2.0-3.6 cm LVPWd: 1.37 0.7-1.1 cm Ao Root: 3.10 2.1-3.5 cm LA Diam: 3.00 2.7-3.8/3.0-4.0 cm LAIDs Index: 1.75 1.5-2.3 cm/m2 LV Mass: 169.21 67-162/88-224 g LV Mass Index: 98.95 43-95/49-115 g/m2 LVOT Diam: 2.00 3.0+(-)1.3 cm 2D Systolic Function EF 4C: 56.40 >55% EF 2C: 57.90 >55% EF BiP: 58.60 >55% Mitral Valve MV Pk E: 0.74 MV PK A: 1.11 MV Decel Time: 227.00 E/A: 0.70 E'Lateral: 8.16 E'Medial: 5.55 E/E' Med: 13.30 E/E' Lat: 9.00 PHT: 67.00 MVA PHT: 3.28 Decel Mifflin: 3.24 Aortic Valve AoV Pk Roque: 1.37 AoV Mn Roque: 0.93 AoV VTI: 0.24 AoV Pk Grad: 8.00 Aov Mn Grad: 4.00 KYM Cont.VTI: 2.30 LVOT LVOT Pk Roque: 0.86 LVOT Mn Roque: 0.60 LVOT VTI: 0.18 LVOT Pk Grad: 3.00 LVOT Mn Grad: 2.00 LVOT Diam: 2.00 LVOT Area: 3.14 Diastolic Function MV Pk E: 0.74 MV Pk A: 1.11 E/A: 0.70 E'Medial: 5.55 E/E' Med: 13.30 E' Laterial: 8.16 E/E' Lat: 9.00 Right Ventricle TAPSE (mm): 18.30 TVS' Roque: 8.49 Tricuspid Valve TR Pk Roque: 4.21 TR Pk Grad: 71.00 Great Vessels Aorta Ao Root-2D: 3.10 2.0-3.7 cm Ao Asc: 2.70 2.1-3.4 cm Ao Arch: 3.30 Updated in Other Vendor System with Status of Final Renny Mo MD electronically signed on 08/01/2021 3:46:04 PM with status of Final
[2021-08-01] MEDS: 0.9 % Sodium Chloride Flush 3 ML SYRINGE IVFLUSH ×2 (09:19→21:03)
[2021-08-01] MEDS: Cholecalciferol (Vitamin D3) 25 MCG TABLET 50 MCG PO (09:20)
[2021-08-01] MEDS: Apixaban 5 MG TABLET PO (09:20)
[2021-08-01] MEDS: Furosemide 40 MG/4 ML VIAL IVPUSH (09:20)
--- NOTE | 2021-08-01 10:12 | P.PNIM_ITS ---
Subjective Subjective Date of Service: 08/01/21 Interval History: seen and examined this AM keeps repeating yes, but intermittenty says thank you and okay. said his name once later seen by PA with last sawyer and did not say things other than yes and okay Review of Systems unable to obtain Physical Exam Verdana 4l Vital Signs: Verdana 4d Verdana 4d Vital Signs: Verdana 4d Verdana 4Bd Last Vital Signs Verdana 4d Tractor Trailer Mechanic New 4d Tractor Trailer Mechanic New 4d Temp 98.5 F 08/01/21 08:00 Tractor Trailer Mechanic New 4d Pulse 88 08/01/21 08:00 Tractor Trailer Mechanic New 4d Resp 18 08/01/21 08:00 BP 126/74 08/01/21 08:00 Pulse Ox 89 L 08/01/21 08:00 BMI result Body Mass Index 21.0 Const: Other: General - no acute distress, appears comfortable Cardiovascular - regular rate and rhythm, S1-S2 Lungs - normal respiratory effort, clear to auscultation bilaterally, no wheezing Abdomen - soft, nontender, no rebound or guarding Extremities - no edema bilaterally Neuro - awake and alert, R tayla paresis; speech does not appear slurred; remains disoriented, now repeating the same words Objective Data Active Medications Acetaminophen (Acetaminophen 325 Mg Tablet) 650 mg PO Q6H PRN PRN Reason: Pain, Mild (Pain Scale 1-3) Apixaban (Apixaban 5 Mg Tablet) 5 mg PO BID [facility] Last Admin: 08/01/21 09:20 Dose: 5 mg Documented by: BROGayle Atorvastatin Calcium (Atorvastatin Calcium 80 Mg Tablet) 80 mg PO BEDTIME [facility] Furosemide (Furosemide 40 Mg/4 Ml Vial) 40 mg IVPUSH DAILY [facility]; Protocol Last Admin: 08/01/21 09:20 Dose: 40 mg Documented by: RM Cefepime HCl 2 gm/ Sodium (Chloride) 50 mls @ 100 mls/hr IV Q12H [facility] Last Infusion: 08/01/21 01:44 Dose: 0 mls/hr Documented by: JOHANNA Doxycycline Hyclate 100 mg/ (Sodium Chloride) 250 mls @ 166.67 mls/hr IV Q12H [facility] Last Infusion: 08/01/21 06:47 Dose: 0 mls/hr Documented by: JOHANNA Vancomycin HCl 1,250 mg/ (Sodium Chloride) 250 mls @ 166.667 mls/hr IV Q24H [facility] Last Infusion: 07/31/21 14:26 Dose: 0 mls/hr Documented by: NICHOLE Insulin Glargine (Insulin Glargine,Hum.Rec.Anlog 100 Unit/Ml 10 Ml Vial) 10 unit SUBCUT BEDTIME [facility] Last Admin: 07/31/21 21:18 Dose: 10 unit Documented by: JOHANNA Insulin Human Lispro (Insulin Lispro 100 Unit/Ml 3 Ml Vial) 0 unit SUBCUT QIDACHS [facility]; Protocol Last Admin: 08/01/21 07:50 Dose: Not Given Documented by: RM Non-Admin Reason: No Insulin Coverage Levothyroxine Sodium (Levothyroxine Sodium 125 Mcg Tablet) 125 mcg PO DAILY@0630 [facility] Last Admin: 08/01/21 05:46 Dose: 125 mcg Documented by: JOHANNA Methylprednisolone Sodium Succinate (Methylprednisolone Sod Succ 40 Mg/Ml Vial) 40 mg IVPUSH Q8H [facility] Last Admin: 08/01/21 09:20 Dose: 40 mg Documented by: RM Morphine Sulfate (Morphine Sulfate 4 Mg/Ml Cartridge) 2 mg IVPUSH Q2H [facility]; Protocol PRN Reason: Shortness of Breath Last Admin: 07/30/21 02:05 Dose: 2 mg Documented by: YENI Ondansetron HCl (Ondansetron Hcl 4 Mg/2 Ml Vial) 4 mg IVPUSH Q8H PRN PRN Reason: Nausea and Vomiting Pharmacy Consult (Consult Rx Perform Med Rec) 1 each MISCELLANE ONCE PRN PRN Reason: Consult order Pharmacy Consult (Consult Rx Vancomycin Dosing) 1 each MISCELLANE DAILY PRN PRN Reason: Consult order Sodium Chloride (0.9 % Sodium Chloride Flush 3 Ml Syringe) 3 ml IVFLUSH QSHIFT [facility] Last Admin: 08/01/21 09:19 Dose: 3 ml Documented by: RM Vitamin D (Cholecalciferol (Vitamin D3) 25 Mcg Tablet) 50 mcg PO DAILY [facility] Last Admin: 08/01/21 09:20 Dose: 50 mcg Documented by: RM Labs CBC & Chem 7: 08/01/21 05:56 08/01/21 05:56 Labs: Laboratory Results - last 24 hr 07/31/21 07/31/21 07/31/21 11:31 12:47 15:46 MCV MCH MCHC RDW Plt Count MPV Immature Gran % (Auto) Neut % (Auto) Lymph % (Auto) Calvert % (Auto) Eos % (Auto) Baso % (Auto) Lymph # (Auto) Calvert # (Auto) Eos # (Auto) Baso # (Auto) Abs Immat Gran (auto) Absolute Neuts (auto) Absolute Nucleated RBC Nucleated RBC % (auto) Smear Tech's Comments O2 Saturation ABG pH at Pt Temp ABG pH (Temp Correct) ABG pCO2 at Pt Temp ABG pCO2 (Temp Corrct ABG pO2 at Pt Temp ABG pO2 (Temp Correct ABG HCO3 ABG Base Excess (Actual) Anion Gap Estim Creat Clear Calc 77.8 Estimated GFR > 60 POC Glucose 178 H 112 Random Glucose Calcium B-Natriuretic Peptide Triglycerides Cholesterol LDL Cholesterol, Calc HDL Cholesterol 07/31/21 07/31/21 08/01/21 19:55 23:18 00:11 MCV MCH MCHC RDW Plt Count MPV Immature Gran % (Auto) Neut % (Auto) Lymph % (Auto) Calvert % (Auto) Eos % (Auto) Baso % (Auto) Lymph # (Auto) Calvert # (Auto) Eos # (Auto) Baso # (Auto) Abs Immat Gran (auto) Absolute Neuts (auto) Absolute Nucleated RBC Nucleated RBC % (auto) Smear Tech's Comments O2 Saturation 93.0 ABG pH at Pt Temp 7.49 H ABG pH (Temp Correct) 7.49 H ABG pCO2 at Pt Temp 35 ABG pCO2 (Temp Corrct 34 ABG pO2 at Pt Temp 66 L ABG pO2 (Temp Correct 64 L ABG HCO3 27 H ABG Base Excess (Actual) 4.1 Anion Gap Estim Creat Clear Calc Estimated GFR POC Glucose 178 H 160 H Random Glucose Calcium B-Natriuretic Peptide Triglycerides Cholesterol LDL Cholesterol, Calc HDL Cholesterol 08/01/21 08/01/21 08/01/21 05:56 05:56 05:56 MCV 83.9 MCH 28.0 MCHC 33.3 RDW 13.3 Plt Count 215 MPV 9.6 Immature Gran % (Auto) 0.8 H Neut % (Auto) 93.6 H Lymph % (Auto) 3.3 L Calvert % (Auto) 2.2 Eos % (Auto) 0.0 Baso % (Auto) 0.1 Lymph # (Auto) 0.6 L Calvert # (Auto) 0.4 Eos # (Auto) 0.0 Baso # (Auto) 0.0 Abs Immat Gran (auto) 0.14 H Absolute Neuts (auto) 16.4 H Absolute Nucleated RBC 0.000 Nucleated RBC % (auto) 0.0 Smear Tech's Comments VERIFIED O2 Saturation ABG pH at Pt Temp ABG pH (Temp Correct) ABG pCO2 at Pt Temp ABG pCO2 (Temp Corrct ABG pO2 at Pt Temp ABG pO2 (Temp Correct ABG HCO3 ABG Base Excess (Actual) Anion Gap 12 Estim Creat Clear Calc 78.9 Estimated GFR > 60 POC Glucose Random Glucose 142 H Calcium 7.8 L B-Natriuretic Peptide 395 H Triglycerides 120 Cholesterol 120 LDL Cholesterol, Calc 68 HDL Cholesterol 28 D 08/01/21 07:40 MCV MCH MCHC RDW Plt Count MPV Immature Gran % (Auto) Neut % (Auto) Lymph % (Auto) Calvert % (Auto) Eos % (Auto) Baso % (Auto) Lymph # (Auto) Calvert # (Auto) Eos # (Auto) Baso # (Auto) Abs Immat Gran (auto) Absolute Neuts (auto) Absolute Nucleated RBC Nucleated RBC % (auto) Smear Tech's Comments O2 Saturation ABG pH at Pt Temp ABG pH (Temp Correct) ABG pCO2 at Pt Temp ABG pCO2 (Temp Corrct ABG pO2 at Pt Temp ABG pO2 (Temp Correct ABG HCO3 ABG Base Excess (Actual) Anion Gap Estim Creat Clear Calc Estimated GFR POC Glucose 147 H Random Glucose Calcium B-Natriuretic Peptide Triglycerides Cholesterol LDL Cholesterol, Calc HDL Cholesterol Microbiology Microbiology Results: Microbiology 07/29/21 09:18 Blood Culture - Preliminary Blood - Venous No growth after 48 hours. 07/29/21 08:53 Blood Culture - Preliminary Blood - Venous No growth after 48 hours. Assessment and Plan (1) Acute and chronic respiratory failure with hypoxia: Status: Acute (2) Pneumonia: Status: Acute (3) Pulmonary emboli: Status: Acute Plan This is a 70 yo M with PMH of DM, recent prolonged COVID hospitalization who presents to the emergency room with fevers, generalized weakness and confusion. His work-up thus far reveals CT findings suggestive of lungs findings related to covid with ? superimposed bacterial pneumonia. Furthermore, he has profounding hypoxia requiring HFNC 100% (he was off oxygen for the last 16 days of his hospitalization previous prior to discharge). He will be admitted for further work up. Acute L MCA territory infarct occurred overnight, now with R hemiparesis and worsening confusion not a candidate for t-pa (on Eliquis and unknown onset of symptoms) Neurology consult speech / swallow evaluations (passed RN bed-side swallow eval) PT/OT Severe Sepsis secondary to suspected bacterial vs atypical pneumonia causing acute respiratory failure with hypoxemia Meets sepsis criteria with leukocytosis + tachypnea + tachycardia; severe features include elevated lactate; SOFA criteria met with degree of hypoxemia (see ABG) IV vancomcyin/cefepime; doxy for atypical coverage COVID PCR negative follow up cultures Infectious Disease conult seen and evaluated by pulmonology, extensive pneumonitis noted secondary to post-COVID pneumonitis, ARDS appearing, bacterial pneumonia Treat with Solumedrol 40mg Q8h, continue abx therapy and high flow oxygen Toxic/Metabolic Encephalopathy due to above Question Acute CHF repeat EKG showing ST depression in anterior leads; repeat trop now and obtain full Echol; Limited echo completed on admission BNP elevated, keep rising; empiric IV lasix Limited Echo completed, EF 55-60%; small loculated pericardial effusion HyperK resolved Uncontrolled DM with hyperglycemia basal+bolus (start lantus 10 qhs) HypoNa. resolved. suspected at least partially pseudo from hyperglycemia Hx PE on Eliquis Hypothryoidism synthroid Full Code DVT pptx, Eliquis will update family this afternoon. ? Quality Stroke Does the patient have a stroke diagnosis?: No VTE Prior VTE?: No VTE Risk Level:: Medical - moderate - high VTE Device Contraindication: Treatment Not Indicated VTE Drug Contraindication: N/A - Med Ordered
--- NOTE | 2021-08-01 10:13 | MHC.STROKE ---
07/31/[address] HEAD DONE AT 2206, FOLLOWED BY CTA H/N. FOR INCREASED DECREASED LOC CONFUSION, LETHARGY AND RIGHT SIDED WEAKNESS. NO BLEED, NO LVO (LARGE VESSEL OCCLUSION). LEFT MCA ISCHEMIC STROKE NOTED, SEE RADIOLOGY REPORT. PATIENT HAS BEEN ON ELIQUIS, THEREFORE EXCLUDED FROM TPA (ALTEPLASE). ALSO NO LVO SO NO A THROMBECTOMY CANDIDATE. ONSET OF SYMPTOMS ARE UNCLEAR POSSIBLY SOMETIME ON 07/30 OR 07/31/21. HE DID PASS NURSING SWALLOW SCREEN AFTER THIS NEW EVENT WAS IDENTIFIED. ALL STROKE MEASURES MET. UNABLE TO PROVIDE STROKE EDUCATION WITH THE PATIENT AT THIS TIME. I WILL NEED TO FOLLOW UP WITH THE FAMILY. HE HAS MULTIPLE CO-MORBIDITIES. I WILL CONTINUE TO FOLLOW. DR LUGO IS CONSULTED.
--- NOTE | 2021-08-01 10:34 | P.CNID_ITS ---
History of Present Illness Data of Consult Service Date: 07/31/21 Requesting physician: Juan Pablo Jacinto Primary Care Provider: Amina Hammer MD HPI Reason for consult: shortness of breath,infiltrates He presents with shortness of breath and hypoxia to 80 per cent He had COVID 06/18 and is not vaccinated He has no purulent sputum Procalcitonin is .46 Review of Systems Verdana 4l Review of Systems: Yes all other systems are reviewed and Verdana 4d are negative [facility] Past Medical History Medical History B12 deficiency Bicytopenia Daytime sleepiness Diabetes mellitus Diabetes type 2, uncontrolled Diabetic polyneuropathy associated with type 2 diabetes mellitus Dyslipidemia 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 Right shoulder pain Stable proliferative diabetic retinopathy Vitamin D deficiency Family History Family History Father Hypertension Mother Diabetes Anemia Hypothyroidism Family/Other Prostate cancer Hypertension Diabetes Brother Prostate cancer Daughter Hypothyroidism Family history: reviewed and not pertinent Surgical History Surgical History History of cardiac catheterization History of cataract surgery History of colonoscopy Social History Social History Household Members: Spouse Housing: Apartment Do you presently have visiting nurse or other home services: Yes Alcohol intake: former Patient Tobacco Use Status: Former Tobacco user Tobacco use type: Cigarette e-Cigarette/Vaping Use: Never Used Second Hand Smoke Exposure: No service: No Current occupational status: retired and disabled Meds Allergies Allergy/AdvReac Type Severity Reaction Status Date / Time penicillin V Allergy Intermediate rash, hives Verified 06/25/21 22:49 acetaminophen AdvReac Intermediate vomitting Verified 06/25/21 22:49 [Percocet] lisinopril AdvReac Intermediate angioedema Verified 06/25/21 22:49 oxycodone [From AdvReac Intermediate STOMACH Verified 06/25/21 22:49 PERCOCET] UPSET statins AdvReac Intermediate myalgia Uncoded 05/21/21 10:10 Active Medications: Current Medications Acetaminophen (Acetaminophen 325 Mg Tablet) 650 mg PO Q6H PRN PRN Reason: Pain, Mild (Pain Scale 1-3) Apixaban (Apixaban 5 Mg Tablet) 5 mg PO BID [facility] Last Admin: 08/01/21 09:20 Dose: 5 mg Documented by: Aspirin (Aspirin 81 Mg Tab.Chew) 81 mg PO DAILY [facility] Atorvastatin Calcium (Atorvastatin Calcium 80 Mg Tablet) 80 mg PO BEDTIME [facility] Furosemide (Furosemide 40 Mg/4 Ml Vial) 40 mg IVPUSH DAILY [facility]; Protocol Last Admin: 08/01/21 09:20 Dose: 40 mg Documented by: Cefepime HCl 2 gm/ Sodium (Chloride) 50 mls @ 100 mls/hr IV Q12H [facility] Last Infusion: 08/01/21 01:44 Dose: Infused Documented by: Doxycycline Hyclate 100 mg/ (Sodium Chloride) 250 mls @ 166.67 mls/hr IV Q12H [facility] Last Infusion: 08/01/21 06:47 Dose: Infused Documented by: Vancomycin HCl 1,250 mg/ (Sodium Chloride) 250 mls @ 166.667 mls/hr IV Q24H [facility] Last Infusion: 07/31/21 14:26 Dose: Infused Documented by: Insulin Glargine (Insulin Glargine,Hum.Rec.Anlog 100 Unit/Ml 10 Ml Vial) 10 u nit SUBCUT BEDTIME [facility] Last Admin: 07/31/21 21:18 Dose: 10 unit Documented by: Insulin Human Lispro (Insulin Lispro 100 Unit/Ml 3 Ml Vial) 0 unit SUBCUT QIDACHS [facility]; Protocol Last Admin: 08/01/21 07:50 Dose: Not Given Documented by: Levothyroxine Sodium (Levothyroxine Sodium 125 Mcg Tablet) 125 mcg PO DAILY@0630 [facility] Last Admin: 08/01/21 05:46 Dose: 125 mcg Documented by: Methylprednisolone Sodium Succinate (Methylprednisolone Sod Succ 40 Mg/Ml Vial) 40 mg IVPUSH Q8H [facility] Last Admin: 08/01/21 09:20 Dose: 40 mg Documented by: Morphine Sulfate (Morphine Sulfate 4 Mg/Ml Cartridge) 2 mg IVPUSH Q2H PRN; Protocol PRN Reason: Shortness of Breath Last Admin: 07/30/21 02:05 Dose: 2 mg Documented by: Ondansetron HCl (Ondansetron Hcl 4 Mg/2 Ml Vial) 4 mg IVPUSH Q8H PRN PRN Reason: Nausea and Vomiting Pharmacy Consult (Consult Rx Perform Med Rec) 1 each MISCELLANE ONCE PRN PRN Reason: Consult order Pharmacy Consult (Consult Rx Vancomycin Dosing) 1 each MISCELLANE DAILY PRN PRN Reason: Consult order Sodium Chloride (0.9 % Sodium Chloride Flush 3 Ml Syringe) 3 ml IVFLUSH QSHIFT [facility] Last Admin: 08/01/21 09:19 Dose: 3 ml Documented by: Vitamin D (Cholecalciferol (Vitamin D3) 25 Mcg Tablet) 50 mcg PO DAILY [facility] Last Admin: 08/01/21 09:20 Dose: 50 mcg Documented by: Home Medications Medication Instructions Recorded Confirmed Last Taken Type levothyroxine 125 125 mcg PO 06/30/21 07/29/21 Unknown History mcg tablet DAILY@0630 repaglinide 2 mg 1 tab PO DAILY 06/30/21 07/29/21 Unknown History tablet repaglinide 2 mg 2 tab PO 06/30/21 07/29/21 Unknown History tablet DAILY@1700 albuterol sulfate 2 puff 07/29/21 07/29/21 Unknown History 90 mcg/actuation INHALATION Q4H PRN aerosol inhaler (ProAir HFA) doxycycline 1 cap PO BID 07/29/21 07/29/21 Unknown History hyclate 100 mg capsule prednisone 50 mg 1 tab PO DAILY 07/29/21 07/29/21 Unknown History tablet Physical Exam Verdana 4l Vital Signs: Verdana 4d Verdana 4d Vital Signs: Verdana 4d Verdana 4Bd Last Vital Signs Verdana 4d Shaving Machine Operator New 4d Shaving Machine Operator New 4d Temp 98.5 F 08/01/21 08:00 Shaving Machine Operator New 4d Pulse 88 08/01/21 08:00 Shaving Machine Operator New 4d Resp 18 08/01/21 08:00 BP 126/74 08/01/21 08:00 Pulse Ox 89 L 08/01/21 08:00 BMI result Body Mass Index 21.0 Const: General: cooperative Eyes: General: appearance normal, both eyes and all related structures Resp: Effort & Inspection: decreased respiratory effort Cardio: Rate: regular rate Rhythm: regular rhythm GI: Palpation (GI): Soft to palpation and nontender Extrem: General: Yes normal to inspection Results Labs CBC & Chem 7: 08/03/21 06:14 08/03/21 06:14 Labs: Short CBC 0107/31/21 08/01/21 Range/Units 08:53 06:10 05:56 WBC 17.5 H (4.8-10.8) X10*3/uL Hgb 12.2 L (14.0-18.0) g/dl Hct 36.6 L (42.0-52.0) % Plt Count 215 (160-400) X10*3/uL Procalcitonin 0.48 0.46 ng/mL BMP 07/31/21 08/01/21 12:47 05:56 Sodium 138 Potassium 4.1 Chloride 103 Carbon Dioxide 27 BUN 20 H Creatinine 0.74 0.73 Calcium 7.8 L Microbiology Microbiology Results: Microbiology 07/29/21 09:18 Blood - Venous Blood Culture - Preliminary No growth after 48 hours. 07/29/21 08:53 Blood - Venous Blood Culture - Preliminary No growth after 48 hours. Assessment and Plan (1) Acute and chronic respiratory failure with hypoxia: Status: Acute He has had COVID and pulmonary emboli There is no evidence seen of acute bacterial pneumonia with unremarkable procalcitonin and nonlobar consolidation,more groundglass inflammatory process post COVID He has no HIV and has been on steroids and Doxycycline within prior month (2) Pneumonia: Status: Acute (3) Pulmonary emboli: Status: Acute Plan Check nares MRSA Recheck HIV test Steroids and Vancomycin for now Increased ferritin still concerning,but COVID test negative on repeat Consider Pulmonary consider bronchoscopy ?fungus /other causes/doubt malignancy or PCP but possible lung since on steroids Can givePCP treatment with Atovaquone,unlikely however
[2021-08-01 11:08] LABS: Glucose, Whole Blood 309 mg/dL (60-115)
[2021-08-01 11:30] LABS: Troponin-I High Sensitivity 31.5 ng/L (<3.5-35.0)
[2021-08-01 11:33] LABS: Vancomycin Trough 6.1 mcg/mL (10.0-20.0)
[2021-08-01 11:37] LABS: HIV AB/AG Nonreactive (Nonreactive)
--- NOTE | 2021-08-01 12:01 | HE.PHANOTE ---
Vancomycin Dosing Addendum Based on new trough of 6.1 changed to 1500 q 24h with next trough on 08/03/21 @ 1000
[2021-08-01] MEDS: Aspirin 81 MG TAB.CHEW PO (12:04)
[2021-08-01] MEDS: Insulin Lispro 100 UNIT/ML 3 ML VIAL SUBCUT ×2 (12:04→17:15)
--- NOTE | 2021-08-01 12:14 | P.CNNE_ITS ---
History of Present Illness Data of Consult Service Date: 08/01/21 Primary Care Provider: Amina Hammer MD HPI Reason for consult: Encephalopathy 70 years old man with primarily pulmonary pathology including recent COVID infection and PEG was brought to hospital due again with generalized weakness. When I saw him he was on oxygen with a mask unresponsive and not communicating. Oxygen was placed after his saturation was noted to be in 60s to 70s. History could not be obtained. There was no recent history of a seizure or focal weakness. Review of Systems Verdana 4l Review of Systems: Verdana 4d Could not be Verdana 4d done. Verdana 4d [facility] Past Medical History Medical History B12 deficiency Bicytopenia Daytime sleepiness Diabetes mellitus Diabetes type 2, uncontrolled Diabetic polyneuropathy associated with type 2 diabetes mellitus Dyslipidemia Hypothyroid [facility]DC (current) use of insulin Right shoulder pain Stable proliferative diabetic retinopathy Vitamin D deficiency Family History Family History Father Hypertension Mother Diabetes Anemia Hypothyroidism Family/Other Prostate cancer Hypertension Diabetes Brother Prostate cancer Daughter Hypothyroidism Family history: reviewed and not pertinent Surgical History Surgical History History of cardiac catheterization History of cataract surgery History of colonoscopy Social History Social History Household Members: Spouse Housing: Apartment Do you presently have visiting nurse or other home services: Yes Alcohol intake: former Patient Tobacco Use Status: Former Tobacco user Tobacco use type: Cigarette e-Cigarette/Vaping Use: Never Used Second Hand Smoke Exposure: No service: No Current occupational status: retired and disabled Meds Allergies Allergy/AdvReac Type Severity Reaction Status Date / Time penicillin V Allergy Intermediate rash, hives Verified 06/25/21 22:49 acetaminophen AdvReac Intermediate vomitting Verified 06/25/21 22:49 [Percocet] lisinopril AdvReac Intermediate angioedema Verified 06/25/21 22:49 oxycodone [From AdvReac Intermediate STOMACH Verified 06/25/21 22:49 PERCOCET] UPSET statins AdvReac Intermediate myalgia Uncoded 05/21/21 10:10 Active Medications: Current Medications Acetaminophen (Acetaminophen 325 Mg Tablet) 650 mg PO Q6H PRN PRN Reason: Pain, Mild (Pain Scale 1-3) Apixaban (Apixaban 5 Mg Tablet) 5 mg PO BID [facility] Last Admin: 08/01/21 09:20 Dose: 5 mg Documented by: Aspirin (Aspirin 81 Mg Tab.Chew) 81 mg PO DAILY [facility] Last Admin: 08/01/21 12:04 Dose: 81 mg Documented by: Atorvastatin Calcium (Atorvastatin Calcium 80 Mg Tablet) 80 mg PO BEDTIME [facility] Atovaquone (Atovaquone 750 Mg/5 Ml Oral.Susp) 750 mg PO BID [facility] Furosemide (Furosemide 40 Mg/4 Ml Vial) 40 mg IVPUSH DAILY [facility]; Protocol Last Admin: 08/01/21 09:20 Dose: 40 mg Documented by: Cefepime HCl 2 gm/ Sodium (Chloride) 50 mls @ 100 mls/hr IV Q12H [facility] Last Admin: 08/01/21 12:05 Dose: 100 mls/hr Documented by: Doxycycline Hyclate 100 mg/ (Sodium Chloride) 250 mls @ 166.67 mls/hr IV Q12H [facility] Last Infusion: 08/01/21 06:47 Dose: Infused Documented by: Vancomycin HCl 1,500 mg/ (Sodium Chloride) 500 mls @ 333.333 mls/hr IV Q24H [facility] Insulin Glargine (Insulin Glargine,Hum.Rec.Anlog 100 Unit/Ml 10 Ml Vial) 10 unit SUBCUT BEDTIME [facility] Last Admin: 07/31/21 21:18 Dose: 10 unit Documented by: Insulin Human Lispro (Insulin Lispro 100 Unit/Ml 3 Ml Vial) 0 unit SUBCUT QIDACHS [facility]; Protocol Last Admin: 08/01/21 12:04 Dose: 8 unit Documented by: Levothyroxine Sodium (Levothyroxine Sodium 125 Mcg Tablet) 125 mcg PO DAILY@0630 [facility] Last Admin: 08/01/21 05:46 Dose: 125 mcg Documented by: Methylprednisolone Sodium Succinate (Methylprednisolone Sod Succ 40 Mg/Ml Vial) 40 mg IVPUSH Q8H [facility] Last Admin: 08/01/21 09:20 Dose: 40 mg Documented by: Morphine Sulfate (Morphine Sulfate 4 Mg/Ml Cartridge) 2 mg IVPUSH Q2H PRN; Prot ocol PRN Reason: Shortness of Breath Last Admin: 07/30/21 02:05 Dose: 2 mg Documented by: Ondansetron HCl (Ondansetron Hcl 4 Mg/2 Ml Vial) 4 mg IVPUSH Q8H PRN PRN Reason: Nausea and Vomiting Pharmacy Consult (Consult Rx Perform Med Rec) 1 each MISCELLANE ONCE PRN PRN Reason: Consult order Pharmacy Consult (Consult Rx Vancomycin Dosing) 1 each MISCELLANE DAILY PRN PRN Reason: Consult order Sodium Chloride (0.9 % Sodium Chloride Flush 3 Ml Syringe) 3 ml IVFLUSH QSHIFT [facility] Last Admin: 08/01/21 09:19 Dose: 3 ml Documented by: Vitamin D (Cholecalciferol (Vitamin D3) 25 Mcg Tablet) 50 mcg PO DAILY [facility] Last Admin: 08/01/21 09:20 Dose: 50 mcg Documented by: Home Medications Medication Instructions Recorded Confirmed Last Taken Type levothyroxine 125 125 mcg PO 06/30/21 07/29/21 Unknown History mcg tablet DAILY@0630 repaglinide 2 mg 1 tab PO DAILY 06/30/21 07/29/21 Unknown History tablet repaglinide 2 mg 2 tab PO 06/30/21 07/29/21 Unknown History tablet DAILY@1700 albuterol sulfate 2 puff 07/29/21 07/29/21 Unknown History 90 mcg/actuation INHALATION Q4H PRN aerosol inhaler (ProAir HFA) doxycycline 1 cap PO BID 07/29/21 07/29/21 Unknown History hyclate 100 mg capsule prednisone 50 mg 1 tab PO DAILY 07/29/21 07/29/21 Unknown History tablet Physical Exam Verdana 4l Vital Signs: Verdana 4d Verdana 4d Vital Signs: Verdana 4d Verdana 4Bd Last Vital Signs Verdana 4d Staining Machine Operator New 4d Staining Machine Operator New 4d Temp 97.4 F 08/01/21 11:44 Staining Machine Operator New 4d Pulse 91 08/01/21 11:44 Staining Machine Operator New 4d Resp 18 08/01/21 11:44 BP 128/71 08/01/21 11:44 Pulse Ox 92 08/01/21 11:44 BMI result Body Mass Index 21.0 Neuro: Other: Quite drowsy and not opening eyes. With painful stimuli his right side did not respond as well as left. Pupils were about 3-4 mm round reactive with roving eye motions. There was no obvious facial asymmetry. There was no abnormal posturing. Plantars were flat. Results Labs CBC & Chem 7: 08/01/21 05:56 08/01/21 05:56 Labs: Short CBC 08/01/21 Range/Units 05:56 WBC 17.5 H (4.8-10.8) X10*3/uL Hgb 12.2 L (14.0-18.0) g/dl Hct 36.6 L (42.0-52.0) % Plt Count 215 (160-400) X10*3/uL BMP 07/31/21 08/01/21 12:47 05:56 Sodium 138 Potassium 4.1 Chloride 103 Carbon Dioxide 27 BUN 20 H Creatinine 0.74 0.[address] and CTA of brain did not reveal any obvious acute abnormality. There were m ultiple chronic embolic looking infarct more so in left middle cerebral artery territory and left cerebellum. Microbiology Microbiology Results: Microbiology 07/29/21 09:18 Blood - Venous Blood Culture - Preliminary No growth after 48 hours. 07/29/21 08:53 Blood - Venous Blood Culture - Preliminary No growth after 48 hours. Assessment and Plan (1) Toxic metabolic encephalopathy: Status: Acute 70 years old man with significant pulmonary pathology. As far as neurological issues are concerned, he has multiple embolic looking anterior posterior circ ulation ischemic infarctions. This can a pathology can happen due to cardiac source of embolism but also due to intracranial atherosclerotic disease. There is no clear evidence of any new stroke or seizure-like episode. As far as reason for infection is concern it primarily seems to be in lungs. Ideally, to rule out meningoencephalitis a lumbar puncture is needed. Clinical correlation is recommended. (2) Multiple cerebral infarctions: Status: Acute Procedures Date of Service Date of Service: 08/01/21
--- NOTE | 2021-08-01 12:24 | MHC.SL.SWA ---
Speech Pathologist Impression: Dysphagia Nonspecific Risk of Aspiration Due to: History of Pneumonia Poor PO Intake Dysphasia Diet Status: Liquid Consistency and Strategies for Safe Swallow: Liquid Intake Recommendation: Thin Liquid Intake Strategies: Small Sips Solid Food Consistency: Dietary Recommendations: Pureed (NDD1) Additional Modifications to Solid Foods: Puree is recommended in order to be the safest for this patient who is displaying some issues with the orientation and congnition. Oral Medication Intake: Whole with Liquid Compensatory Strategies and Precautions to be Taken for Safe Swallow: Supervision While Eating and Drinking for Safe Swallow: Total Assistance Foods to Avoid: dry sticky hard to manage foods Swallowing Recommended Treatments: Recommendation for Speech: Inpatient Speech Therapy Comment: Potential upgrade as patient's orientation increases. Frequency/Duration: M-F Date Range for Service Req: while inpt Timeline to reassess: Collection Teller Clinican/Clinical Fellow: No Supervisory Statement: I have reviewed and agree with the student/clinical fellow's documentation: N/A Speech Language Pathologist: Rosa Barkley MA, CCC-TILE SPRAYER
--- NOTE | 2021-08-01 12:34 | MHC.SL.SWA ---
Speech Pathologist Impression: Dysphagia Nonspecific Risk of Aspiration Due to: History of Pneumonia Poor PO Intake Dysphasia Diet Status: Liquid Consistency and Strategies for Safe Swallow: Liquid Intake Recommendation: Thin Liquid Intake Strategies: Small Sips Solid Food Consistency: Dietary Recommendations: Pureed (NDD1) Additional Modifications to Solid Foods: Puree is recommended in order to be the safest for this patient who is displaying some issues with the orientation and congnition. Oral Medication Intake: Whole with Liquid Compensatory Strategies and Precautions to be Taken for Safe Swallow: Supervision While Eating and Drinking for Safe Swallow: Total Assistance Foods to Avoid: dry sticky hard to manage foods Swallowing Recommended Treatments: Recommendation for Speech: Inpatient Speech Therapy Comment: Potential upgrade as patient's orientation increases. Frequency/Duration: M through Wednesday Date Range for Service Req: while inpatient Timeline to reassess: Creative Writing Professor Clinican/Clinical Fellow: No Supervisory Statement: I have reviewed and agree with the student/clinical fellow's documentation: N/A Speech Language Pathologist: Rosa Barkley MA, CCC-MACHINIST APPRENTICE
[2021-08-01] MEDS: Atovaquone 750 MG/5 ML ORAL.SUSP PO (13:31)
[2021-08-01] MEDS: vancomycin HCL 1,500 MG in 0.9 % Sodium Chloride 500 ML 333.33 MG IV (13:31)
--- NOTE | 2021-08-01 15:04 | PM.CNCAR ---
History of Present Illness History of Present Illness Date of Service: 08/01/21 Requesting physician: Alisa Mendieta Chief complaint: Elevated BNP, question CHF Narrative: I was requested to see Karan in cardiology consultation today for elevated BNP and increasing oxygen requirement. There is a question for congestive heart failure. Patient has progressive pulmonary infiltrates. He was admitted here in June with COVID and respiratory failure and also at that time a pulmonary embolism. Admitted to the hospital with acute respiratory failure with generalized weakness, fevers and confusion. He is requiring increasing oxygen level. Pulmonary has seen the patient and has noticed to have ARDS. Monitoring his BNP have been slightly elevated EKG shows right bundle-branch block with anterior ST/T-wave changes. Troponin on admission was slightly elevated. There is concern for congestive heart failure. Repeat CTA did not show any evidence of pulmonary embolism. He unfortunately developed multiple cerebral emboli. He has been on oral anticoagulation with Eliquis and also on aspirin therapy. Does not provide much history of questioning. Review of Systems Review of Systems: Yes Unobtainable due to mental condition PMFSH Past Medical History Medical History B12 deficiency Bicytopenia Daytime sleepiness Diabetes mellitus Diabetes type 2, uncontrolled Diabetic polyneuropathy associated with type 2 diabetes mellitus Dyslipidemia Hypothyroid [facility] (current) use of insulin Right shoulder pain Stable proliferative diabetic retinopathy Vitamin D deficiency Family History Family History Father Hypertension Mother Diabetes Anemia Hypothyroidism Family/Other Prostate cancer Hypertension Diabetes Brother Prostate cancer Daughter Hypothyroidism Family history: reviewed and not pertinent Surgical History Surgical History History of cardiac catheterization History of cataract surgery History of colonoscopy Social History Social History Household Members: Spouse Housing: Apartment Do you presently have visiting nurse or other home services: Yes Alcohol intake: former Patient Tobacco Use Status: Former Tobacco user Tobacco use type: Cigarette e-Cigarette/Vaping Use: Never Used Second Hand Smoke Exposure: No service: No Current occupational status: retired and disabled Meds Allergies Allergy/AdvReac Type Severity Reaction Status Date / Time penicillin V Allergy Intermediate rash, hives Verified 12/22/21 22:49 acetaminophen [Percocet] AdvReac Intermediate vomitting Verified 06/25/21 22:49 lisinopril AdvReac Intermediate angioedema Verified 06/25/21 22:49 oxycodone [From PERCOCET] AdvReac Intermediate STOMACH Verified 06/25/21 22:49 UPSET statins AdvReac Intermediate myalgia Uncoded 05/21/21 10:10 Active Medications: Current Medications Acetaminophen (Acetaminophen 325 Mg Tablet) 650 mg PO Q6H PRN PRN Reason: Pain, Mild (Pain Scale 1-3) Apixaban (Apixaban 5 Mg Tablet) 5 mg PO BID [facility] Last Admin: 08/01/21 09:20 Dose: 5 mg Documented by: Aspirin (Aspirin 81 Mg Tab.Chew) 81 mg PO DAILY [facility] Last Admin: 08/01/21 12:04 Dose: 81 mg Documented by: Atorvastatin Calcium (Atorvastatin Calcium 80 Mg Tablet) 80 mg PO BEDTIME [facility] Atovaquone (Atovaquone 750 Mg/5 Ml Oral.Susp) 750 mg PO BID [facility] Last Admin: 08/01/21 13:31 Dose: 750 mg Documented by: Cefepime HCl 2 gm/ Sodium (Chloride) 50 mls @ 100 mls/hr IV Q12H [facility] Last Infusion: 08/01/21 12:46 Dose: Infused Documented by: Doxycycline Hyclate 100 mg/ (Sodium Chloride) 250 mls @ 166.67 mls/hr IV Q12H [facility] Last Infusion: 08/01/21 06:47 Dose: Infused Documented by: Vancomycin HCl 1,500 mg/ (Sodium Chloride) 500 mls @ 333.333 mls/hr IV Q24H [facility] Last Admin: 08/01/21 13:31 Dose: 333.33 mls/hr Documented by: Insulin Glargine (Insulin Glargine,Hum.Rec.Anlog 100 Unit/Ml 10 Ml Vial) 10 unit SUBCUT BEDTIME [facility] Last Admin: 07/31/21 21:18 Dose: 10 unit Documented by: Insulin Human Lispro (Insulin Lispro 100 Unit/Ml 3 Ml Vial) 0 unit SUBCUT QIDACHS [facility]; Protocol Last Admin: 08/01/21 12:04 Dose: 8 unit Documented by: Levothyroxine Sodium (Levothyroxine Sodium 125 Mcg Tablet) 125 mcg PO DAILY@0630 [facility] Last Admin: 08/01/21 05:46 Dose: 125 mcg Documented by: Methylprednisolone Sodium Succinate (Methylprednisolone Sod Succ 40 Mg/Ml Vial) 40 mg IVPUSH Q8H [facility] Last Admin: 08/01/21 09:20 Dose: 40 mg Documented by: Morphine Sulfate (Morphine Sulfate 4 Mg/Ml Cartridge) 2 mg IVPUSH Q2H PRN; Protocol PRN Reason: Shortness of Breath Last Admin: 07/30/21 02:05 Dose: 2 mg Documented by: Ondansetron HCl (Ondansetron Hcl 4 Mg/2 Ml Vial) 4 mg IVPUSH Q8H PRN PRN Reason: Nausea and Vomiting Pharmacy Consult (Consult Rx Perform Med Rec) 1 each MISCELLANE ONCE PRN PRN Reason: Consult order Pharmacy Consult (Consult Rx Vancomycin Dosing) 1 each MISCELLANE DAILY PRN PRN Reason: Consult order Sodium Chloride (0.9 % Sodium Chloride Flush 3 Ml Syringe) 3 ml IVFLUSH QSHIFT [facility] Last Admin: 08/01/21 09:19 Dose: 3 ml Documented by: Vitamin D (Cholecalciferol (Vitamin D3) 25 Mcg Tablet) 50 mcg PO DAILY [facility] Last Admin: 08/01/21 09:20 Dose: 50 mcg Documented by: Home Medications Medication Instructions Recorded Confirmed Last Taken Type levothyroxine 125 mcg tablet 125 mcg PO DAILY@0630 06/30/21 07/29/21 Unknown History repaglinide 2 mg tablet 1 tab PO DAILY 06/30/21 07/29/21 Unknown History repaglinide 2 mg tablet 2 tab PO DAILY@1700 06/30/21 07/29/21 Unknown History albuterol sulfate 90 mcg/actuation 2 puff INHALATION Q4H PRN 07/29/21 07/29/21 Unknown History aerosol inhaler (ProAir HFA) doxycycline hyclate 100 mg capsule 1 cap PO BID 07/29/21 07/29/21 Unknown History prednisone 50 mg tablet 1 tab PO DAILY 07/29/21 07/29/21 Unknown History Physical Exam Vital Signs: Vital Signs: Last Vital Signs Temp 97.4 F 08/01/21 11:44 Pulse 91 08/01/21 11:44 Resp 18 08/01/21 11:44 BP 128/71 08/01/21 11:44 Pulse Ox 92 08/01/21 11:44 BMI result Body Mass Index 21.0 Const: General: alert, awake, in distress mild and respiratory and ill appearing Nutritional Appearance: thin Orientation/consciousness: patient oriented x3 HENMT: Head: Yes normocephalic and Yes atraumatic Neck: Neck: Yes trachea midline, Yes supple and Yes no JVD Resp: Effort & Inspection: normal respiratory effort Auscultation: no wheezes and diminished lung sounds Cardio: Jugular venous distension: no JVD Rate: regular rate Rhythm: regular rhythm Heart sounds: S1 normal heart sound present, S2 normal heart sound present, no click, no gallops and no murmurs GI: Auscultation: normal bowel sounds Skin: General skin exam: no rashes or lesions noted Neuro: General: patient oriented x3 Extrem: General: Yes no clubbing, cyanosis or edema Objective Labs and Meds Result diagrams: 08/01/21 05:56 08/01/21 05:56 Lab results: Laboratory Results - last 24 hr 07/31/21 07/31/21 07/31/21 15:46 19:55 23:18 WBC RBC Hgb Hct MCV MCH MCHC RDW Plt Count MPV Immature Gran % (Auto) Neut % (Auto) Lymph % (Auto) Blair % (Auto) Eos % (Auto) Baso % (Auto) Lymph # (Auto) Blair # (Auto) Eos # (Auto) Baso # (Auto) Abs Immat Gran (auto) Absolute Neuts (auto) Absolute Nucleated RBC Nucleated RBC % (auto) Smear Tech's Comments O2 Saturation 93.0 ABG pH at Pt Temp 7.49 H ABG pH (Temp Correct) 7.49 H ABG pCO2 at Pt Temp 35 ABG pCO2 (Temp Corrct 34 ABG pO2 at Pt Temp 66 L ABG pO2 (Temp Correct 64 L ABG HCO3 27 H ABG Base Excess (Actual) 4.1 Sodium Potassium Chloride Carbon Dioxide Anion Gap BUN Creatinine Estim Creat Clear Calc Estimated GFR POC Glucose 112 178 H Random Glucose Calcium Troponin I High Sens B-Natriuretic Peptide Triglycerides Cholesterol LDL Cholesterol, Calc HDL Cholesterol Vancomycin Trough HIV 1&2 Ab/P24 Ag 4thGn 08/01/21 08/01/21 08/01/21 00:11 05:56 05:56 WBC 17.5 H RBC 4.36 L Hgb 12.2 L Hct 36.6 L MCV 83.9 MCH 28.0 MCHC 33.3 RDW 13.3 Plt Count 215 MPV 9.6 Immature Gran % (Auto) 0.8 H Neut % (Auto) 93.6 H Lymph % (Auto) 3.3 L Blair % (Auto) 2.2 Eos % (Auto) 0.0 Baso % (Auto) 0.1 Lymph # (Auto) 0.6 L Blair # (Auto) 0.4 Eos # (Auto) 0.0 Baso # (Auto) 0.0 Abs Immat Gran (auto) 0.14 H Absolute Neuts (auto) 16.4 H Absolute Nucleated RBC 0.000 Nucleated RBC % (auto) 0.0 Smear Tech's Comments VERIFIED O2 Saturation ABG pH at Pt Temp ABG pH (Temp Correct) ABG pCO2 at Pt Temp ABG pCO2 (Temp Corrct ABG pO2 at Pt Temp ABG pO2 (Temp Correct ABG HCO3 ABG Base Excess (Actual) Sodium 138 Potassium 4.1 Chloride 103 Carbon Dioxide 27 Anion Gap 12 BUN 20 H Creatinine 0.73 Estim Creat Clear Calc 78.9 Estimated GFR > 60 POC Glucose 160 H Random Glucose 142 H Calcium 7.8 L Troponin I High Sens B-Natriuretic Peptide Triglycerides 120 Cholesterol 120 LDL Cholesterol, Calc 68 HDL Cholesterol 28 D Vancomycin Trough HIV 1&2 Ab/P24 Ag 4thGn 08/01/21 08/01/21 08/01/21 05:56 05:56 07:40 WBC RBC Hgb Hct MCV MCH MCHC RDW Plt Count MPV Immature Gran % (Auto) Neut % (Auto) Lymph % (Auto) Blair % (Auto) Eos % (Auto) Baso % (Auto) Lymph # (Auto) Blair # (Auto) Eos # (Auto) Baso # (Auto) Abs Immat Gran (auto) Absolute Neuts (auto) Absolute Nucleated RBC Nucleated RBC % (auto) Smear Tech's Comments O2 Saturation ABG pH at Pt Temp ABG pH (Temp Correct) ABG pCO2 at Pt Temp ABG pCO2 (Temp Corrct ABG pO2 at Pt Temp ABG pO2 (Temp Correct ABG HCO3 ABG Base Excess (Actual) Sodium Potassium Chloride Carbon Dioxide Anion Gap BUN Creatinine Estim Creat Clear Calc Estimated GFR POC Glucose 147 H Random Glucose Calcium Troponin I High Sens B-Natriuretic Peptide 395 H Triglycerides Cholesterol LDL Cholesterol, Calc HDL Cholesterol Vancomycin Trough HIV 1&2 Ab/P24 Ag 4thGn Nonreactive 08/01/21 08/01/21 08/01/21 09:53 09:53 10:53 WBC RBC Hgb Hct MCV MCH MCHC RDW Plt Count MPV Immature Gran % (Auto) Neut % (Auto) Lymph % (Auto) Blair % (Auto) Eos % (Auto) Baso % (Auto) Lymph # (Auto) Blair # (Auto) Eos # (Auto) Baso # (Auto) Abs Immat Gran (auto) Absolute Neuts (auto) Absolute Nucleated RBC Nucleated RBC % (auto) Smear Tech's Comments O2 Saturation ABG pH at Pt Temp ABG pH (Temp Correct) ABG pCO2 at Pt Temp ABG pCO2 (Temp Corrct ABG pO2 at Pt Temp ABG pO2 (Temp Correct ABG HCO3 ABG Base Excess (Actual) Sodium Potassium Chloride Carbon Dioxide Anion Gap BUN Creatinine Estim Creat Clear Calc Estimated GFR POC Glucose 309 H Random Glucose Calcium Troponin I High Sens 31.5 B-Natriuretic Peptide Triglycerides Cholesterol LDL Cholesterol, Calc HDL Cholesterol Vancomycin Trough 6.1 L HIV 1&2 Ab/P24 Ag 4thGn Imaging Radiologist's impression: Impressions Head CT 07/31/21 22:15 IMPRESSION: Large area of patchy low attenuation involving the left cerebral hemisphere in the left MCA territory is joint effusion consistent with developing infarct. MRI would be helpful for further evaluation. No intracranial hemorrhage. Head/Neck CTA 08/01/21 00:43 IMPRESSION: 1. No acute vascular abnormality. No large vessel occlusion or flow-limiting stenosis. 2. Redemonstration of the regions of hypoattenuation throughout the left MCA territory. This is suggestive of infarct of uncertain chronicity. This critical result was discussed with Ilya Bonner MD by telephone at 08/01/2021 12:58 AM and it was ascertained that the content and urgency of the report was understood at the time of direct communication. Assessment and Plan (1) Acute and chronic respiratory failure with hypoxia: Status: Acute Acute respiratory failure with persistent and significant hypoxemia with worsening pulmonary infiltrates suggestive ARDS with echocardiogram at bedside revealing dilated right ventricle with worsening RV systolic pressure as well as tricuspid regurgitation. EKG findings, BNP as well as troponins are due to RV strain. Clinically does not appear to be in significant heart failure. Would avoid diuretics. Continue treat underlying medical condition with correction of his underlying hypoxemia which is most likely responsible for worsening hypoxic pulmonary vaso constriction and pulmonary pressures. Supportive care. Question additional pulmonary embolism. Patient is already on full oral anticoagulation with Eliquis. Continue with pulmonary consultation. No further cardiac workup is indicated at this point in time. Findings most suggestive acute cor pulmonale. Will sign of the case. Thank you for allowing me to partake in his care Procedures Date of Service Date of Service: 08/01/21
[2021-08-01 16:41] LABS: Glucose, Whole Blood 220 mg/dL (60-115)
[2021-08-01 17:20] LABS: D Dimer High Sensitivity 2387 NG/ML
[2021-08-01 17:23] LABS: C Reactive Protein 12.37 mg/dL (< or = 0.50)
[2021-08-01 17:51] LABS: Erythrocyte Sedimentation Rate 38 MM/HR (0-15)
--- NOTE | 2021-08-01 18:47 | PM.CCN ---
Critical Care Event Note Summary Date of Service: 08/01/21 Code activated: No Narrative: Alisa Mendieta asked my opinion about Mr. Lofton's subsequent hospital course. I went up to look at him. He's lying in bed, breathing easy with no WOB, and looks thoroughly nontoxic. I discussed the patient this evening for [address] Rand, Dr. Sloan, and Dr. Timothy Hancock at the [facility]. Our best guess is that the patient's parenchymal lung infiltrates are some kind of immunosuppression-associated pneumonia, such as PCP. He should be treated for PCP. In regards to his CVA and cor pulmonale and right heart strain, it seems obvious that Eliquis is not working for him. We recommend switching him to heparin, and repeating a duplex scan of his legs and repeating his CTPA. The patient is not a candidate for any kind of lytic therapy. Time: 90 minutes ([id number]) Critical Care Time (minutes): 0 Critical Care Time Critical Care Time (minutes): 90 ([id number])
[2021-08-01 19:45] LABS: Prothrombin Time 23.4 SEC (9.9-13.0)
[2021-08-01 19:48] LABS: PTT Heparin Drip 26.6 SEC (53-77.9)
[2021-08-01] MEDS: Insulin Glargine,Hum.rec.anlog 100 UNIT/ML 10 ML VIAL 10 UNIT SUBCUT (21:02)
[2021-08-01 21:12] LABS: Glucose, Whole Blood 209 mg/dL (60-115)
[2021-08-01] MEDS: iohexoL 350 MG/ML 100 ML INFUS..BTL IV (22:00)
[2021-08-02] VITALS (13 sets, daily range): BP systolic 105–130; BP diastolic 54–70; PULSE 66–94; RESP 15–92; TEMP 36.1–36.6; O2SAT 84–98
[2021-08-02] MEDS: methylPREDNISolone Sod Succ 40 MG/ML VIAL IVPUSH ×3 (00:20→17:06)
[2021-08-02] MEDS: cefEPime HCl 2 GM in 0.9 % Sodium Chloride 50 ML IV ×2 (00:21→11:13)
[2021-08-02] MEDS: Doxycycline Hyclate 100 MG in 0.9 % Sodium Chloride 250 ML 166.67 MG IV ×2 (04:10→17:06)
[2021-08-02 07:22] LABS: Glucose, Whole Blood 124 mg/dL (60-115)
[2021-08-02 07:24] LABS: Hematocrit 36.1 % (42.0-52.0); Hemoglobin 11.6 g/dl (14.0-18.0); Mean Corpuscular HGB Conc 32.1 g/dl (31.0-36.0); Mean Corpuscular Hemoglobin 27.5 pg (27.0-33.0); Mean Corpuscular Volume 85.5 fL (80.0-98.0); Mean Platelet Volume 9.4 fL (9.4-12.4); Platelet Count 190 X10*3/uL (160-400); Red Blood Count 4.22 X10*6/uL (4.60-5.80); Red Cell Distribution Width 13.8 % (11.0-16.0); White Blood Count 14.7 X10*3/uL (4.8-10.8)
[2021-08-02 07:48] LABS: Anion Gap 13 (12-20); Blood Urea Nitrogen 24 mg/dL (9-16); Carbon Dioxide 27 mmol/L (22-29); Chloride 105 mmol/L (96-108); Estimated Glomerular Filt Rate > 60; Glucose Random 99 mg/dL (60-115); Potassium 4.2 mmol/L (3.3-5.1); Sodium 141 mmol/L (135-145)
[2021-08-02 07:49] LABS: Creatinine Clr Calc Pharmacy 81.1; Estimated Glomerular Filt Rate > 60
[2021-08-02] MEDS: Cholecalciferol (Vitamin D3) 25 MCG TABLET 50 MCG PO (08:16)
[2021-08-02] MEDS: Atovaquone 750 MG/5 ML ORAL.SUSP PO ×2 (08:16→20:57)
[2021-08-02] MEDS: 0.9 % Sodium Chloride Flush 3 ML SYRINGE IVFLUSH ×2 (08:16→17:07)
[2021-08-02] MEDS: Aspirin 81 MG TAB.CHEW PO (08:16)
[2021-08-02 08:22] LABS: Venous Blood Gas Refer to POC result
[2021-08-02 08:23] LABS: VBG HCO3 31 mmol/L (22-26); VBG pCO2 45 mmHg; VBG pH 7.45 (7.32-7.43); VBG pO2 35 mmHg
[2021-08-02 08:29] LABS: PTT Heparin Drip 26.8 SEC (53-77.9)
[2021-08-02] MEDS: Heparin Sodium,Porcine/1/2NS 25,000 UNIT/250 ML IV.SOLN 8.54 UNIT IVCONT (08:50)
[2021-08-02 09:37] LABS: MRSA Nasal PCR NEGATIVE (Negative); SA Nasal PCR POSITIVE (Negative)
[2021-08-02] MEDS: Insulin Lispro 100 UNIT/ML 3 ML VIAL SUBCUT ×3 (11:13→21:00)
[2021-08-02 11:19] LABS: Glucose, Whole Blood 248 mg/dL (60-115)
[2021-08-02] MEDS: vancomycin HCL 1,500 MG in 0.9 % Sodium Chloride 500 ML 333.33 MG IV (11:55)
--- NOTE | 2021-08-02 12:18 | P.PNIM_ITS ---
Subjective Subjective Date of Service: 08/02/21 Interval History: seen and examined this morning awake and alert,but still confused. only answers yes to all questions Review of Systems Review of Systems: Yes Unobtainable due to mental status Neurologic Neurologic: Reports confusion Psychiatric Psychiatric: Reports confusion Physical Exam Verdana 4l Vital Signs: Verdana 4d Verdana 4d Vital Signs: Verdana 4d Verdana 4Bd Last Vital Signs Verdana 4d Shelter Advocate New 4d Shelter Advocate New 4d Temp 97.8 F 08/02/21 11:03 Shelter Advocate New 4d Pulse 83 08/02/21 11:03 Shelter Advocate New 4d Resp 92 H 08/02/21 11:48 BP 125/68 08/02/21 11:03 Pulse Ox 93 08/02/21 11:03 BMI result Body Mass Index 21.0 Const: General: cooperative, alert, awake and confusion Nutritional Appearance: well nourished Orientation/consciousness: confusion Resp: Effort & Inspection: tachypneic Cardio: Rate: regular rate Rhythm: regular rhythm GI: Inspection: No distended Palpation (GI): Soft to palpation Neuro: General: confusion Objective Data Active Medications Acetaminophen (Acetaminophen 325 Mg Tablet) 650 mg PO Q6H PRN PRN Reason: Pain, Mild (Pain Scale 1-3) Aspirin (Aspirin 81 Mg Tab.Chew) 81 mg PO DAILY [facility] Last Admin: 08/02/21 08:16 Dose: 81 mg Documented by: EDEL Atorvastatin Calcium (Atorvastatin Calcium 80 Mg Tablet) 80 mg PO BEDTIME [facility] Last Admin: 08/01/21 21:03 Dose: Not Given Documented by: CAREN Non-Admin Reason: unsafe Atovaquone (Atovaquone 750 Mg/5 Ml Oral.Susp) 750 mg PO BID [facility] Last Admin: 08/02/21 08:16 Dose: 750 mg Documented by: EDEL Heparin Sodium (Porcine) (Heparin Sodium,Porcine 5,000 Unit/Ml Vial) 2,400 unit 40 unit/kg (2400 unit) IVPUSH PROTOCOL BOLUS PRN; Protocol PRN Reason: 40 unit/kg - Heparin Protocol Heparin Sodium (Porcine) (Heparin Sodium,Porcine 5,000 Unit/Ml Vial) 4,900 unit 80 unit/kg (4900 unit) IVPUSH PROTOCOL BOLUS PRN; Protocol PRN Reason: 80 unit/kg - Heparin Protocol Cefepime HCl 2 gm/ Sodium (Chloride) 50 mls @ 100 mls/hr IV Q12H [facility] Last Infusion: 08/02/21 11:54 Dose: 100 mls/hr Documented by: EDEL Doxycycline Hyclate 100 mg/ (Sodium Chloride) 250 mls @ 166.67 mls/hr IV Q12H [facility] Last Infusion: 08/02/21 06:06 Dose: 0 mls/hr Documented by: CAREN Vancomycin HCl 1,500 mg/ (Sodium Chloride) 500 mls @ 333.333 mls/hr IV Q24H [facility] Last Admin: 08/02/21 11:55 Dose: 333.33 mls/hr Documented by: EDEL Heparin Sodium/Sodium Chloride () 25,000 unit in 250 mls @ 0 mls/hr IVCONT .Q0M [facility]; Protocol Last Admin: 08/02/21 08:50 Dose: 14 units/kg/hr, 8.54 mls/hr Documented by: EDEL Cosigned by: NATHEN Insulin Glargine (Insulin Glargine,Hum.Rec.Anlog 100 Unit/Ml 10 Ml Vial) 10 unit SUBCUT BEDTIME [facility] Last Admin: 08/01/21 21:02 Dose: 10 unit Documented by: CAREN Insulin Human Lispro (Insulin Lispro 100 Unit/Ml 3 Ml Vial) 0 unit SUBCUT QIDACHS [facility]; Protocol Last Admin: 08/02/21 11:13 Dose: 4 unit Documented by: EDEL Levothyroxine Sodium (Levothyroxine Sodium 125 Mcg Tablet) 125 mcg PO DAILY@0630 [facility] Last Admin: 08/02/21 06:28 Dose: Not Given Documented by: CAREN Non-Admin Reason: unsafe Methylprednisolone Sodium Succinate (Methylprednisolone Sod Succ 40 Mg/Ml Vial) 40 mg IVPUSH Q8H [facility] Last Admin: 08/02/21 08:12 Dose: 40 mg Documented by: EDEL Morphine Sulfate (Morphine Sulfate 4 Mg/Ml Cartridge) 2 mg IVPUSH Q2H PRN; Pro tocol PRN Reason: Shortness of Breath Last Admin: 07/30/21 02:05 Dose: 2 mg Documented by: YENI Ondansetron HCl (Ondansetron Hcl 4 Mg/2 Ml Vial) 4 mg IVPUSH Q8H PRN PRN Reason: Nausea and Vomiting Pharmacy Consult (Consult Rx Perform Med Rec) 1 each MISCELLANE ONCE PRN PRN Reason: Consult order Pharmacy Consult (Consult Rx Vancomycin Dosing) 1 each MISCELLANE DAILY PRN PRN Reason: Consult order Sodium Chloride (0.9 % Sodium Chloride Flush 3 Ml Syringe) 3 ml IVFLUSH QSHIFT [facility] Last Admin: 08/02/21 08:16 Dose: 3 ml Documented by: EDEL Vitamin D (Cholecalciferol (Vitamin D3) 25 Mcg Tablet) 50 mcg PO DAILY [facility] Last Admin: 08/02/21 08:16 Dose: 50 mcg Documented by: EDEL Labs CBC & Chem 7: 08/02/21 06:23 08/02/21 06:23 Labs: Laboratory Results - last 24 hr 08/01/21 08/01/21 08/01/21 16:20 16:38 16:38 MCV MCH MCHC RDW Plt Count MPV Absolute Nucleated RBC Nucleated RBC % (auto) ESR 38 H PT INR PTT (Heparin Protocol) D-Dimer High Sensitivty VBG pH VBG pCO2 VBG pO2 VBG HCO3 VBG O2 Saturation VBG Base Excess Anion Gap Estim Creat Clear Calc Estimated GFR POC Glucose 220 H Random Glucose Calcium C-Reactive Protein 12.37 H Nasal Screen MRSA (PCR) Nasal S. aureus Screen Nasal MRSA/S.aureus Interp 08/01/21 08/01/21 08/01/21 16:39 18:15 19:26 MCV MCH MCHC RDW Plt Count MPV Absolute Nucleated RBC Nucleated RBC % (auto) ESR PT 23.4 H INR 2.0 H PTT (Heparin Protocol) 26.6 L D-Dimer High Sensitivty 2387 VBG pH VBG pCO2 VBG pO2 VBG HCO3 VBG O2 Saturation VBG Base Excess Anion Gap Estim Creat Clear Calc Estimated GFR POC Glucose Random Glucose Calcium C-Reactive Protein Nasal Screen MRSA (PCR) NEGATIVE Nasal S. aureus Screen POSITIVE A Nasal MRSA/S.aureus Interp SEE NOTE 08/01/21 08/02/21 08/02/21 20:57 06:23 06:23 MCV 85.5 MCH 27.5 MCHC 32.1 RDW 13.8 Plt Count 190 MPV 9.4 Absolute Nucleated RBC 0.000 Nucleated RBC % (auto) 0.0 ESR PT INR PTT (Heparin Protocol) D-Dimer High Sensitivty VBG pH VBG pCO2 VBG pO2 VBG HCO3 VBG O2 Saturation VBG Base Excess Anion Gap 13 Estim Creat Clear Calc 80.0 Estimated GFR > 60 POC Glucose 209 H Random Glucose 99 Calcium 8.0 L C-Reactive Protein Nasal Screen MRSA (PCR) Nasal S. aureus Screen Nasal MRSA/S.aureus Interp 08/02/21 08/02/21 08/02/21 06:23 07:19 08:05 MCV MCH MCHC RDW Plt Count MPV Absolute Nucleated RBC Nucleated RBC % (auto) ESR PT INR PTT (Heparin Protocol) 26.8 L D-Dimer High Sensitivty VBG pH VBG pCO2 VBG pO2 VBG HCO3 VBG O2 Saturation VBG Base Excess Anion Gap Estim Creat Clear Calc 81.1 Estimated GFR > 60 POC Glucose 124 H Random Glucose Calcium C-Reactive Protein Nasal Screen MRSA (PCR) Nasal S. aureus Screen Nasal MRSA/S.aureus Interp 08/02/21 08/02/21 08:11 11:05 MCV MCH MCHC RDW Plt Count MPV Absolute Nucleated RBC Nucleated RBC % (auto) ESR PT INR PTT (Heparin Protocol) D-Dimer High Sensitivty VBG pH 7.45 H VBG pCO2 45 VBG pO2 35 VBG HCO3 31 H VBG O2 Saturation 54.0 VBG Base Excess 7.0 Anion Gap Estim Creat Clear Calc Estimated GFR POC Glucose 248 H Random Glucose Calcium C-Reactive Protein Nasal Screen MRSA (PCR) Nasal S. aureus Screen Nasal MRSA/S.aureus Interp Assessment and Plan (1) Toxic metabolic encephalopathy: Status: Acute (2) Pulmonary emboli: Status: Acute (3) Multiple cerebral infarctions: Status: Acute (4) Cor pulmonale: Status: Acute Plan This is a 70 yo M with PMH of DM, recent prolonged COVID hospitalization who presents to the emergency room with fevers, generalized weakness and confusion. His work-up thus far reveals CT findings suggestive of lungs findings related to covid with ? superimposed bacterial pneumonia. Furthermore, he has profounding hypoxia requiring HFNC 100% (he was off oxygen for the last 16 days of his hospitalization previous prior to discharge). He will be admitted for further w ork up. Acute L MCA territory infarct now with R hemiparesis and worsening confusion CTA with no evidence of large vessel occlusion or flow limiting stenosis not a candidate for t-pa (on Eliquis and unknown onset of symptoms) seen by Neurology speech / swallow evaluations (passed RN bed-side swallow eval) continue ASA, statin PT/OT Acute respiratory failure with hypoxia multifactorial seen and evaluated by pulmonology - feels may have extensive pneumonitis noted secondary to ?post-COVID pneumonitis, ARDS appearing possible atypical or immunosuppresion-related pneumonia ? PCP seen and evaluated by ICU Continue Solumedrol 40mg Q8h repeat CTA negative for PE, diffuse pulmonary infiltrates worse from prior still requiring high flow oxygen Severe Sepsis secondary to pneumonia, initially suspected to be bacterial although procalcitonin low, ?atypical ?PCP pneumonia Initially met sepsis criteria with leukocytosis + tachypnea + tachycardia; severe features include elevated lactate; SOFA criteria met with degree of hypoxemia (see ABG) will continue IV vancomcyin/cefepime; doxy for atypical coverage for now Infectious Disease consult, started on mepron to cover for possible PCP COVID PCR negative acute cor pulmonale repeat EKG showing ST depression in anterior leads BNP elevated, keep rising; initially treated with IV lasix Limited Echo completed, EF 55-60%; small loculated pericardial effusion right heart strain seen on repeat echo- see report for full details seen by cardiology, doesn't feel patient is fluid overloaded, IV lasix stopped Due to CVA, cor pulmonale, right heart strain, seems to have failed Eliquis changed to heparin dripfor now Toxic/Metabolic Encephalopathy due to above Hx PE Eliquis d/c, changed to IV heparin for now Hypothryoidism synthroid HyperK resolved Uncontrolled DM with hyperglycemia basal+bolus (start lantus 10 qhs) HypoNa. resolved. suspected at least partially pseudo from hyperglycemia Full Code DVT pptx heparin attending: dr. costello Quality Stroke Does the patient have a stroke diagnosis?: No VTE Prior VTE?: No VTE Risk Level:: Medical - moderate - high VTE Device Contraindication: Treatment Not Indicated VTE Drug Contraindication: N/A - Med Ordered
[2021-08-02 13:51] LABS: Absolute CD3 Count 178 cells/uL (840-3060); Absolute CD4 Count 114 cells/uL (490-1740); Absolute CD8 Count 65 cells/uL (180-1170); Absolute Lymphocytes 477 cells/uL (850-3900); CD4 CD8 Ratio 1.74 (0.86-5.00); Percent CD3 Cells 37 % (57-85); Percent CD4 Cells 24 % (30-61); Percent CD8 Cells 14 % (12-42)
--- NOTE | 2021-08-02 16:19 | P.ACPN_ITS ---
Advanced Care Planning Note Advanced Care Planning Note Discussed with: family member(s) Time spent (in minutes): 50 Narrative: Called Amina ([phone]), the patient's to update her on the patients status. The severity of his illness and his poor prognosis was explained to her though the use of a waiter/waitress dining car. His lung disease/high oxygen requirements, stress on his heart/cor pulmonale, previous PE and stroke were all discussed in detail and I attempted to discuss code status with her. She did not seem to fully understand the extent of his illness or code status so she requested that I contact her daughter Laura. I spoke with Laura ([phone]) regarding the patient's illness and code status in detail as well. She understands that her father has not made any progress since being in the hospital and understands that his prognosis is poor. She is going to talk about everything with her mother as well as her other siblings and they will discuss changing his code status to DNR/DNI. Problems Discussed (1) Toxic metabolic encephalopathy: (2) Pulmonary emboli: (3) Multiple cerebral infarctions: (4) Cor pulmonale:
[2021-08-02 16:30] LABS: Glucose, Whole Blood 251 mg/dL (60-115)
[2021-08-02] MEDS: Heparin Sodium,Porcine 5,000 UNIT/ML VIAL 2400 UNIT IVPUSH (18:19)
[2021-08-02 20:34] LABS: Glucose, Whole Blood 241 mg/dL (60-115)
[2021-08-02] MEDS: Atorvastatin Calcium 80 MG TABLET PO (20:57)
[2021-08-02] MEDS: Insulin Glargine,Hum.rec.anlog 100 UNIT/ML 10 ML VIAL 10 UNIT SUBCUT (21:00)
[2021-08-03] VITALS (8 sets, daily range): BP systolic 128–147; BP diastolic 71–80; PULSE 74–95; RESP 18–20; TEMP 36.6–36.9; O2SAT 88–95
[2021-08-03] MEDS: 0.9 % Sodium Chloride Flush 3 ML SYRINGE IVFLUSH ×3 (00:02→16:51)
[2021-08-03] MEDS: methylPREDNISolone Sod Succ 40 MG/ML VIAL IVPUSH ×3 (00:02→16:51)
[2021-08-03] MEDS: cefEPime HCl 2 GM in 0.9 % Sodium Chloride 50 ML IV ×2 (00:08→11:46)
[2021-08-03 00:51] LABS: PTT Heparin Drip 53.2 SEC (53-77.9)
[2021-08-03] MEDS: Doxycycline Hyclate 100 MG in 0.9 % Sodium Chloride 250 ML 166.67 MG IV ×2 (06:01→16:51)
[2021-08-03] MEDS: Levothyroxine Sodium 125 MCG TABLET PO (06:03)
[2021-08-03 06:34] LABS: Basophils Percent Auto 0.1 % (0-2); Hematocrit 35.3 % (42.0-52.0); Hemoglobin 11.8 g/dl (14.0-18.0); Imm Gran Abs Auto 0.19 X10*3/uL (0.00-0.03); Imm Gran Pct Auto 1.1 % (0.0-0.4); Lymphocytes Absolute Auto 0.6 X10*3/uL (1.2-4.9); Lymphocytes Percent Auto 3.4 % (20-40); MANUAL DIFF FLAG SCAN; Mean Corpuscular HGB Conc 33.4 g/dl (31.0-36.0); Mean Corpuscular Volume 83.6 fL (80.0-98.0); Mean Platelet Volume 9.4 fL (9.4-12.4); Monocytes Absolute Auto 0.5 X10*3/uL (0.1-1.2); Monocytes Percent Auto 2.9 % (2-11); Neutrophils Absolute Auto 15.9 x10*3/uL (2.0-8.3); Neutrophils Percent Auto 92.5 % (45-73); Platelet Count 222 X10*3/uL (160-400); Red Blood Count 4.22 X10*6/uL (4.60-5.80); Red Cell Distribution Width 13.8 % (11.0-16.0); SCAN SMEAR FLAG 1; White Blood Count 17.2 X10*3/uL (4.8-10.8)
[2021-08-03 06:47] LABS: PTT Heparin Drip 52.7 SEC (53-77.9)
[2021-08-03 07:24] LABS: Glucose, Whole Blood 110 mg/dL (60-115)
[2021-08-03 07:25] LABS: Estimated Glomerular Filt Rate > 60
[2021-08-03] MEDS: Heparin Sodium,Porcine 5,000 UNIT/ML VIAL 2400 UNIT IVPUSH (07:37)
[2021-08-03] MEDS: Heparin Sodium,Porcine/1/2NS 25,000 UNIT/250 ML IV.SOLN 9.76 UNIT IVCONT (07:38)
[2021-08-03] MEDS: Aspirin 81 MG TAB.CHEW PO (07:45)
[2021-08-03] MEDS: Atovaquone 750 MG/5 ML ORAL.SUSP PO ×2 (07:45→21:42)
[2021-08-03] MEDS: Cholecalciferol (Vitamin D3) 25 MCG TABLET 50 MCG PO (07:46)
[2021-08-03 08:00] LABS: SLIDE REVIEW VERIFIED
[2021-08-03 08:08] LABS: VBG Base Excess 6.6 mmol/L; VBG HCO3 31 mmol/L (22-26); VBG pCO2 46 mmHg; VBG pH 7.44 (7.32-7.43); VBG pO2 29 mmHg
[2021-08-03 08:10] LABS: Venous Blood Gas Refer to POC result
[2021-08-03 10:45] LABS: Vancomycin Trough 7.7 mcg/mL (10.0-20.0)
[2021-08-03 11:27] LABS: Glucose, Whole Blood 253 mg/dL (60-115)
--- NOTE | 2021-08-03 11:35 | HE.PHANOTE ---
RE Vanco Dosing Trough was subtherapuetic at 7.7; AUC <400. Recommend increasing dose to 1750 q24h; auc 454; trough 9.4. If the patient is not therapuetic, I recommend Q12H dosing. Thanks Jeremie
[2021-08-03] MEDS: Insulin Lispro 100 UNIT/ML 3 ML VIAL SUBCUT ×3 (11:46→21:42)
--- NOTE | 2021-08-03 12:22 | P.PNIM_ITS ---
Subjective Subjective Date of Service: 08/03/21 Interval History: seen and examined this morning seems a little more tired this morning still confused, not able to obtain ROS Review of Systems Review of Systems: Yes Unobtainable due to mental condition and Unobtainable due to mental status Neurologic Neurologic: Reports confusion Psychiatric Psychiatric: Reports confusion Physical Exam Verdana 4l Vital Signs: Verdana 4d Verdana 4d Vital Signs: Verdana 4d Verdana 4Bd Last Vital Signs Verdana 4d Hydraulics Teacher New 4d Hydraulics Teacher New 4d Temp 98.2 F 08/03/21 11:04 Hydraulics Teacher New 4d Pulse 80 08/03/21 11:04 Hydraulics Teacher New 4d Resp 18 08/03/21 11:04 BP 136/75 08/03/21 11:04 Pulse Ox 95 08/03/21 11:04 BMI result Body Mass Index 21.0 Const: General: cooperative, alert, awake, confusion and ill appearing Nutritional Appearance: thin Orientation/consciousness: confusion Resp: Other: on high flow oxygen Effort & Inspection: no use of accessory muscles Auscultation: diminished lung sounds Cardio: Rate: regular rate Rhythm: regular rhythm GI: Inspection: No distended Palpation (GI): Soft to palpation Neuro: Other: still unable to move right arm or leg General: confusion Objective Data Active Medications Acetaminophen (Acetaminophen 325 Mg Tablet) 650 mg PO Q6H PRN PRN Reason: Pain, Mild (Pain Scale 1-3) Aspirin (Aspirin 81 Mg Tab.Chew) 81 mg PO DAILY [facility] Last Admin: 08/03/21 07:45 Dose: 81 mg Documented by: EDEL Atorvastatin Calcium (Atorvastatin Calcium 80 Mg Tablet) 80 mg PO BEDTIME [facility] Last Admin: 08/02/21 20:57 Dose: 80 mg Documented by: MELANIE Atovaquone (Atovaquone 750 Mg/5 Ml Oral.Susp) 750 mg PO BID [facility] Last Admin: 08/03/21 07:45 Dose: 750 mg Documented by: EDEL Heparin Sodium (Porcine) (Heparin Sodium,Porcine 5,000 Unit/Ml Vial) 2,400 unit 40 unit/kg (2400 unit) IVPUSH PROTOCOL BOLUS PRN; Protocol PRN Reason: 40 unit/kg - Heparin Protocol Last Admin: 08/03/21 07:37 Dose: 2,400 unit Documented by: EDEL Heparin Sodium (Porcine) (Heparin Sodium,Porcine 5,000 Unit/Ml Vial) 4,900 unit 80 unit/kg (4900 unit) IVPUSH PROTOCOL BOLUS PRN; Protocol PRN Reason: 80 unit/kg - Heparin Protocol Cefepime HCl 2 gm/ Sodium (Chloride) 50 mls @ 100 mls/hr IV Q12H [facility] Last Admin: 08/03/21 11:46 Dose: 100 mls/hr Documented by: EDEL Doxycycline Hyclate 100 mg/ (Sodium Chloride) 250 mls @ 166.67 mls/hr IV Q12H [facility] Last Infusion: 08/03/21 07:47 Dose: 166.67 mls/hr Documented by: EDEL Heparin Sodium/Sodium Chloride () 25,000 unit in 250 mls @ 0 mls/hr IVCONT .Q0M [facility]; Protocol Last Titration: 08/03/21 07:44 Dose: 18 units/kg/hr, 10.98 mls/hr Documented by: EDEL Cosigned by: NATHEN Vancomycin HCl 1,000 mg/Vancomycin HCl 750 mg/ Sodium Chloride 535 mls @ 267.5 mls/hr IV Q24H [facility] Insulin Glargine (Insulin Glargine,Hum.Rec.Anlog 100 Unit/Ml 10 Ml Vial) 10 unit SUBCUT BEDTIME [facility] Last Admin: 08/02/21 21:00 Dose: 10 unit Documented by: MELANIE Insulin Human Lispro (Insulin Lispro 100 Unit/Ml 3 Ml Vial) 0 unit SUBCUT QIDACHS [facility]; Protocol Last Admin: 08/03/21 11:46 Dose: 6 unit Documented by: EDEL Levothyroxine Sodium (Levothyroxine Sodium 125 Mcg Tablet) 125 mcg PO DAILY@0630 [facility] Last Admin: 08/03/21 06:03 Dose: 125 mcg Documented by: CAREN Methylprednisolone Sodium Succinate (Methylprednisolone Sod Succ 40 Mg/Ml Vial) 40 mg IVPUSH Q8H [facility] Last Admin: 08/03/21 07:46 Dose: 40 mg Documented by: EDEL Morphine Sulfate (Morphine Sulfate 4 Mg/Ml Cartridge) 2 mg IVPUSH Q2H PRN; Protocol PRN Reason: Shortness of Breath Last Admin: 07/30/21 02:05 Dose: 2 mg Documented by: HO.TESKEJE Ondansetron HCl (Ondansetron Hcl 4 Mg/2 Ml Vial) 4 mg IVPUSH Q8H PRN PRN Reason: Nausea and Vomiting Pharmacy Consult (Consult Rx Perform Med Rec) 1 each MISCELLANE ONCE PRN PRN Reason: Consult order Pharmacy Consult (Consult Rx Vancomycin Dosing) 1 each MISCELLANE DAILY PRN PRN Reason: Consult order Sodium Chloride (0.9 % Sodium Chloride Flush 3 Ml Syringe) 3 ml IVFLUSH QSHIFT [facility] Last Admin: 08/03/21 07:46 Dose: 3 ml Documented by: EDEL Vitamin D (Cholecalciferol (Vitamin D3) 25 Mcg Tablet) 50 mcg PO DAILY [facility] Last Admin: 08/03/21 07:46 Dose: 50 mcg Documented by: EDEL Labs CBC & Chem 7: 08/03/21 06:14 08/03/21 06:14 Labs: Laboratory Results - last 24 hr 08/01/21 08/02/21 08/02/21 11:22 16:20 16:44 MCV MCH MCHC RDW Plt Count MPV Immature Gran % (Auto) Neut % (Auto) Lymph % (Auto) [place] % (Auto) Eos % (Auto) Baso % (Auto) Lymph # (Auto) [place] # (Auto) Eos # (Auto) Baso # (Auto) Abs Immat Gran (auto) Absolute Neuts (auto) Absolute Nucleated RBC Nucleated RBC % (auto) Smear Tech's Comments PTT (Heparin Protocol) 37.0 L D VBG pH VBG pCO2 VBG pO2 VBG HCO3 VBG O2 Saturation VBG Base Excess Estim Creat Clear Calc Estimated GFR POC Glucose 251 H Vancomycin Trough Total Lymphocytes 477 L % CD3 Cells 37 L Absolute CD3 Count 178 L % CD4 Cells 24 L Absolute CD4 Count 114 L CD4/CD8 Ratio 1.74 % CD8 Cells 14 Absolute CD8 Count 65 L 08/02/21 08/03/21 08/03/21 20:26 00:12 06:14 MCV MCH MCHC RDW Plt Count MPV Immature Gran % (Auto) Neut % (Auto) Lymph % (Auto) [place] % (Auto) Eos % (Auto) Baso % (Auto) Lymph # (Auto) [place] # (Auto) Eos # (Auto) Baso # (Auto) Abs Immat Gran (auto) Absolute Neuts (auto) Absolute Nucleated RBC Nucleated RBC % (auto) Smear Tech's Comments PTT (Heparin Protocol) 53.2 D VBG pH VBG pCO2 VBG pO2 VBG HCO3 VBG O2 Saturation VBG Base Excess Estim Creat Clear Calc 90.0 Estimated GFR > 60 POC Glucose 241 H Vancomycin Trough Total Lymphocytes % CD3 Cells Absolute CD3 Count % CD4 Cells Absolute CD4 Count CD4/CD8 Ratio % CD8 Cells Absolute CD8 Count 08/03/21 08/03/21 08/03/21 06:14 06:14 07:09 MCV 83.6 MCH 28.0 MCHC 33.4 RDW 13.8 Plt Count 222 MPV 9.4 Immature Gran % (Auto) 1.1 H Neut % (Auto) 92.5 H Lymph % (Auto) 3.4 L [place] % (Auto) 2.9 Eos % (Auto) 0.0 Baso % (Auto) 0.1 Lymph # (Auto) 0.6 L [place] # (Auto) 0.5 Eos # (Auto) 0.0 Baso # (Auto) 0.0 Abs Immat Gran (auto) 0.19 H Absolute Neuts (auto) 15.9 H Absolute Nucleated RBC 0.000 Nucleated RBC % (auto) 0.0 Smear Tech's Comments VERIFIED PTT (Heparin Protocol) 52.7 L VBG pH VBG pCO2 VBG pO2 VBG HCO3 VBG O2 Saturation VBG Base Excess Estim Creat Clear Calc Estimated GFR POC Glucose 110 Vancomycin Trough Total Lymphocytes % CD3 Cells Absolute CD3 Count % CD4 Cells Absolute CD4 Count CD4/CD8 Ratio % CD8 Cells Absolute CD8 Count 08/03/21 08/03/21 08/03/21 08:02 10:08 11:07 MCV MCH MCHC RDW Plt Count MPV Immature Gran % (Auto) Neut % (Auto) Lymph % (Auto) [place] % (Auto) Eos % (Auto) Baso % (Auto) Lymph # (Auto) [place] # (Auto) Eos # (Auto) Baso # (Auto) Abs Immat Gran (auto) Absolute Neuts (auto) Absolute Nucleated RBC Nucleated RBC % (auto) Smear Tech's Comments PTT (Heparin Protocol) VBG pH 7.44 H VBG pCO2 46 VBG pO2 29 VBG HCO3 31 H VBG O2 Saturation 38.0 VBG Base Excess 6.6 Estim Creat Clear Calc Estimated GFR POC Glucose 253 H Vancomycin Trough 7.7 L Total Lymphocytes % CD3 Cells Absolute CD3 Count % CD4 Cells Absolute CD4 Count CD4/CD8 Ratio % CD8 Cells Absolute CD8 Count Microbiology Microbiology Results: Microbiology 07/29/21 09:18 Blood Culture - Final Blood - Venous No growth after 5 days. 07/29/21 08:53 Blood Culture - Final Blood - Venous No growth after 5 days. Assessment and Plan (1) Cor pulmonale: Status: Acute (2) Multiple cerebral infarctions: Status: Acute (3) Toxic metabolic encephalopathy: Status: Acute (4) Acute and chronic respiratory failure with hypoxia: Status: Acute (5) Pulmonary emboli: Status: Acute (6) Diabetes mellitus: Status: Acute Plan This is a 70 yo M with PMH of DM, recent prolonged COVID hospitalization who presents to the emergency room with fevers, generalized weakness and confusion. His work-up thus far reveals CT findings suggestive of lungs findings related to covid with ? superimposed bacterial pneumonia. Furthermore, he has profounding hypoxia requiring HFNC 100% (he was off oxygen for the last 16 days of his hospitalization previous prior to discharge). He will be admitted for further work up. Acute L MCA territory infarct with R hemiparesis and worsening confusion CTA with no evidence of large vessel occlusion or flow limiting stenosis not a candidate for t-pa (on Eliquis and unknown onset of symptoms) seen by Neurology speech / swallow evaluations (passed RN bed-side swallow eval) continue ASA, statin PT/OT Acute respiratory failure with hypoxia multifactorial seen and evaluated by pulmonology - feels may have extensive pneumonitis noted secondary to ?post-COVID pneumonitis, ARDS appearing possible atypical or immunosuppresion-related pneumonia ? PCP seen and evaluated by ICU Continue Solumedrol 40mg Q8h repeat CTA negative for PE, diffuse pulmonary infiltrates worse from prior still requiring high flow oxygen Severe Sepsis secondary to pneumonia, initially suspected to be bacterial although procalcitonin low, ?atypical ?PCP pneumonia Initially met sepsis criteria with leukocytosis + tachypnea + tachycardia; severe features include elevated lactate; SOFA criteria met with degree of hypoxemia (see ABG) will continue IV vancomcyin/cefepime; doxy for atypical coverage for now Infectious Disease consult, started on mepron to cover for possible PCP COVID PCR negative Blood cultures negative acute cor pulmonale repeat EKG showing ST depression in anterior leads BNP elevated, keep rising; initially treated with IV lasix Limited Echo completed, EF 55-60%; small loculated pericardial effusion right heart strain seen on repeat echo- see report for full details seen by cardiology, doesn't feel patient is fluid overloaded, IV lasix stopped concern for recurrent PE however repeat CTA negative for clot Due to CVA, cor pulmonale, right heart strain, ? failed Eliquis changed to heparin drip for now Toxic/Metabolic Encephalopathy due to above Hx PE Eliquis d/c, changed to IV heparin for now Hypothryoidism synthroid HyperK resolved Uncontrolled DM with hyperglycemia basal+bolus (start lantus 10 qhs) Full Code. extensive conversations with family re code status. see ACP note. will follow up with family this afternoon DVT pptx heparin attending: dr. Hollins Quality Stroke Does the patient have a stroke diagnosis?: No VTE Prior VTE?: No VTE Risk Level:: Medical - moderate - high VTE Device Contraindication: Treatment Not Indicated VTE Drug Contraindication: N/A - Med Ordered
[2021-08-03] MEDS: vancomycin HCL 1,000 MG, vancomycin HCL 750 MG in 0.9 % Sodium Chloride 500 ML 267.5 MG IV (13:39)
[2021-08-03 13:55] LABS: PTT Heparin Drip 94.2 SEC (53-77.9)
[2021-08-03 16:04] LABS: Glucose, Whole Blood 231 mg/dL (60-115)
[2021-08-03 20:44] LABS: Glucose, Whole Blood 184 mg/dL (60-115)
[2021-08-03] MEDS: Atorvastatin Calcium 80 MG TABLET PO (21:42)
[2021-08-03] MEDS: Insulin Glargine,Hum.rec.anlog 100 UNIT/ML 10 ML VIAL 10 UNIT SUBCUT (21:42)
[2021-08-03 22:25] LABS: PTT Heparin Drip 53.9 SEC (53-77.9)
[2021-08-04] VITALS (12 sets, daily range): BP systolic 132–154; BP diastolic 72–86; PULSE 78–100; RESP 18–24; TEMP 36.6–37.4; O2SAT 87–97
[2021-08-04] MEDS: 0.9 % Sodium Chloride Flush 3 ML SYRINGE IVFLUSH ×3 (01:04→21:01)
[2021-08-04] MEDS: methylPREDNISolone Sod Succ 40 MG/ML VIAL IVPUSH ×4 (01:04→23:12)
[2021-08-04] MEDS: cefEPime HCl 2 GM in 0.9 % Sodium Chloride 50 ML IV ×3 (01:04→23:12)
[2021-08-04 04:02] LABS: Basophils Percent Auto 0.1 % (0-2); Eosinophils Percent Auto 0.1 % (0-4); Hematocrit 37.1 % (42.0-52.0); Hemoglobin 12.1 g/dl (14.0-18.0); Imm Gran Abs Auto 0.23 X10*3/uL (0.00-0.03); Imm Gran Pct Auto 1.5 % (0.0-0.4); Lymphocytes Absolute Auto 0.4 X10*3/uL (1.2-4.9); Lymphocytes Percent Auto 2.5 % (20-40); MANUAL DIFF FLAG SCAN; Mean Corpuscular HGB Conc 32.6 g/dl (31.0-36.0); Mean Corpuscular Hemoglobin 27.8 pg (27.0-33.0); Mean Corpuscular Volume 85.1 fL (80.0-98.0); Mean Platelet Volume 9.3 fL (9.4-12.4); Monocytes Absolute Auto 0.6 X10*3/uL (0.1-1.2); Monocytes Percent Auto 3.9 % (2-11); Neutrophils Absolute Auto 13.9 x10*3/uL (2.0-8.3); Neutrophils Percent Auto 91.9 % (45-73); Platelet Count 256 X10*3/uL (160-400); Red Blood Count 4.36 X10*6/uL (4.60-5.80); Red Cell Distribution Width 13.9 % (11.0-16.0); SCAN SMEAR FLAG 1; White Blood Count 15.1 X10*3/uL (4.8-10.8)
[2021-08-04 04:04] LABS: SLIDE REVIEW VERIFIED
[2021-08-04 04:17] LABS: PTT Heparin Drip 56.9 SEC (53-77.9)
[2021-08-04 04:27] LABS: Anion Gap 13 (12-20); Blood Urea Nitrogen 16 mg/dL (9-16); Carbon Dioxide 26 mmol/L (22-29); Chloride 102 mmol/L (96-108); Creatinine Clr Calc Pharmacy 87.2; Estimated Glomerular Filt Rate > 60; Glucose Random 111 mg/dL (60-115); Potassium 4.3 mmol/L (3.3-5.1); Sodium 137 mmol/L (135-145)
[2021-08-04] MEDS: Doxycycline Hyclate 100 MG in 0.9 % Sodium Chloride 250 ML 166.67 MG IV ×2 (04:27→17:08)
[2021-08-04] MEDS: Levothyroxine Sodium 125 MCG TABLET PO (06:03)
[2021-08-04 07:05] LABS: Glucose, Whole Blood 112 mg/dL (60-115)
--- NOTE | 2021-08-04 07:50 | HE.PHANOTE ---
Addendum entered by Aixa Ruiz [facility] 08/04/21 07:53: next trough due on 08/05@1000 Original Note: Entered dose and creatinine for today, creatinine decreased.
[2021-08-04] MEDS: Atovaquone 750 MG/5 ML ORAL.SUSP PO ×2 (09:00→21:00)
[2021-08-04] MEDS: Aspirin 81 MG TAB.CHEW PO (09:00)
[2021-08-04] MEDS: Cholecalciferol (Vitamin D3) 25 MCG TABLET 50 MCG PO (09:00)
[2021-08-04] MEDS: Heparin Sodium,Porcine/1/2NS 25,000 UNIT/250 ML IV.SOLN 9.15 UNIT IVCONT (09:01)
[2021-08-04 11:09] LABS: Glucose, Whole Blood 265 mg/dL (60-115)
--- NOTE | 2021-08-04 11:21 | P.PNIM_ITS ---
Subjective Subjective Date of Service: 08/04/21 Review of Systems seen and examined this morning seems a little more tired this morning still confused, not able to obtain ROS Review of Systems: Yes Unobtainable due to mental status Physical Exam Verdana 4l Vital Signs: Verdana 4d Verdana 4d Vital Signs: Verdana 4d Verdana 4Bd Last Vital Signs Verdana 4d Regulatory Affairs Strategy Specialist New 4d Regulatory Affairs Strategy Specialist New 4d Temp 99.4 F 08/04/21 11:13 Regulatory Affairs Strategy Specialist New 4d Pulse 84 08/04/21 11:13 Regulatory Affairs Strategy Specialist New 4d Resp 20 08/04/21 11:13 BP 141/83 H 08/04/21 11:13 Pulse Ox 92 08/04/21 11:13 BMI result Body Mass Index 21.0 Appearing in no acute distress lung sounds are clear to auscultation heart regular rate rhythm, clear S1, S2 positive bowel sounds, abdomen is soft, nontender neuro patient is alert , Confused Objective Data Active Medications Acetaminophen (Acetaminophen 325 Mg Tablet) 650 mg PO Q6H PRN PRN Reason: Pain, Mild (Pain Scale 1-3) Aspirin (Aspirin 81 Mg Tab.Chew) 81 mg PO DAILY [facility] Last Admin: 08/04/21 09:00 Dose: 81 mg Documented by: RM Atorvastatin Calcium (Atorvastatin Calcium 80 Mg Tablet) 80 mg PO BEDTIME [facility] Last Admin: 08/03/21 21:42 Dose: 80 mg Documented by: MELANIE Atovaquone (Atovaquone 750 Mg/5 Ml Oral.Susp) 750 mg PO BID [facility] Last Admin: 08/04/21 09:00 Dose: 750 mg Documented by: RM Heparin Sodium (Porcine) (Heparin Sodium,Porcine 5,000 Unit/Ml Vial) 2,400 unit 40 unit/kg (2400 unit) IVPUSH PROTOCOL BOLUS PRN; Protocol PRN Reason: 40 unit/kg - Heparin Protocol Last Admin: 08/03/21 07:37 Dose: 2,400 unit Documented by: EDEL Heparin Sodium (Porcine) (Heparin Sodium,Porcine 5,000 Unit/Ml Vial) 4,900 unit 80 unit/kg (4900 unit) IVPUSH PROTOCOL BOLUS PRN; Protocol PRN Reason: 80 unit/kg - Heparin Protocol Cefepime HCl 2 gm/ Sodium (Chloride) 50 mls @ 100 mls/hr IV Q12H [facility] Last Infusion: 08/04/21 01:37 Dose: 0 mls/hr Documented by: NINO Doxycycline Hyclate 100 mg/ (Sodium Chloride) 250 mls @ 166.67 mls/hr IV Q12H [facility] Last Infusion: 08/04/21 06:07 Dose: 0 mls/hr Documented by: NINO Heparin Sodium/Sodium Chloride () 25,000 unit in 250 mls @ 0 mls/hr IVCONT .Q0M [facility]; Protocol Last Admin: 08/04/21 09:01 Dose: 15 units/kg/hr, 9.15 mls/hr Documented by: RM Cosigned by: ALEXEY Vancomycin HCl 1,000 mg/Vancomycin HCl 750 mg/ Sodium Chloride 535 mls @ 267.5 mls/hr IV Q24H [facility] Last Infusion: 08/03/21 15:53 Dose: 267 mls/hr Documented by: EDEL Insulin Glargine (Insulin Glargine,Hum.Rec.Anlog 100 Unit/Ml 10 Ml Vial) 10 unit SUBCUT BEDTIME [facility] Last Admin: 08/03/21 21:42 Dose: 10 unit Documented by: MELANIE Insulin Human Lispro (Insulin Lispro 100 Unit/Ml 3 Ml Vial) 0 unit SUBCUT QIDACHS [facility]; Protocol Last Admin: 08/04/21 07:44 Dose: Not Given Documented by: RM Non-Admin Reason: No Insulin Coverage Levothyroxine Sodium (Levothyroxine Sodium 125 Mcg Tablet) 125 mcg PO DAILY@0630 [facility] Last Admin: 08/04/21 06:03 Dose: 125 mcg Documented by: NINO Methylprednisolone Sodium Succinate (Methylprednisolone Sod Succ 40 Mg/Ml Vial) 40 mg IVPUSH Q8H [facility] Last Admin: 08/04/21 09:01 Dose: 40 mg Documented by: RM Ondansetron HCl (Ondansetron Hcl 4 Mg/2 Ml Vial) 4 mg IVPUSH Q8H PRN PRN Reason: Nausea and Vomiting Pharmacy Consult (Consult Rx Perform Med Rec) 1 each MISCELLANE ONCE PRN PRN Reason: Consult order Pharmacy Consult (Consult Rx Vancomycin Dosing) 1 each MISCELLANE DAILY PRN PRN Reason: Consult order Sodium Chloride (0.9 % Sodium Chloride Flush 3 Ml Syringe) 3 ml IVFLUSH QSHIFT [facility] Last Admin: 08/04/21 09:01 Dose: 3 ml Documented by: RM Vitamin D (Cholecalciferol (Vitamin D3) 25 Mcg Tablet) 50 mcg PO DAILY [facility] Last Admin: 08/04/21 09:00 Dose: 50 mcg Documented by: RM Labs CBC & Chem 7: 08/04/21 03:49 08/04/21 03:49 Labs: Laboratory Results - last 24 hr 08/01/21 08/03/21 08/03/21 11:22 11:07 13:37 MCV MCH MCHC RDW Plt Count MPV Immature Gran % (Auto) Neut % (Auto) Lymph % (Auto) [place] % (Auto) Eos % (Auto) Baso % (Auto) Lymph # (Auto) [place] # (Auto) Eos # (Auto) Baso # (Auto) Abs Immat Gran (auto) Absolute Neuts (auto) Absolute Nucleated RBC Nucleated RBC % (auto) Smear Tech's Comments PTT (Heparin Protocol) 94.2 H D Anion Gap Estim Creat Clear Calc Estimated GFR POC Glucose 253 H Random Glucose Calcium Lymphocyte Subset Cmmnt TNP 08/03/21 08/03/21 08/03/21 15:56 20:34 22:04 MCV MCH MCHC RDW Plt Count MPV Immature Gran % (Auto) Neut % (Auto) Lymph % (Auto) [place] % (Auto) Eos % (Auto) Baso % (Auto) Lymph # (Auto) [place] # (Auto) Eos # (Auto) Baso # (Auto) Abs Immat Gran (auto) Absolute Neuts (auto) Absolute Nucleated RBC Nucleated RBC % (auto) Smear Tech's Comments PTT (Heparin Protocol) 53.9 D Anion Gap Estim Creat Clear Calc Estimated GFR POC Glucose 231 H 184 H Random Glucose Calcium Lymphocyte Subset Cmmnt 08/04/21 08/04/21 08/04/21 03:49 03:49 03:49 MCV 85.1 MCH 27.8 MCHC 32.6 RDW 13.9 Plt Count 256 MPV 9.3 L Immature Gran % (Auto) 1.5 H Neut % (Auto) 91.9 H Lymph % (Auto) 2.5 L [place] % (Auto) 3.9 Eos % (Auto) 0.1 Baso % (Auto) 0.1 Lymph # (Auto) 0.4 L [place] # (Auto) 0.6 Eos # (Auto) 0.0 Baso # (Auto) 0.0 Abs Immat Gran (auto) 0.23 H Absolute Neuts (auto) 13.9 H Absolute Nucleated RBC 0.000 Nucleated RBC % (auto) 0.0 Smear Tech's Comments VERIFIED PTT (Heparin Protocol) 56.9 Anion Gap 13 Estim Creat Clear Calc 87.2 Estimated GFR > 60 POC Glucose Random Glucose 111 Calcium 8.0 L Lymphocyte Subset Cmmnt 08/04/21 08/04/21 06:58 11:04 MCV MCH MCHC RDW Plt Count MPV Immature Gran % (Auto) Neut % (Auto) Lymph % (Auto) [place] % (Auto) Eos % (Auto) Baso % (Auto) Lymph # (Auto) [place] # (Auto) Eos # (Auto) Baso # (Auto) Abs Immat Gran (auto) Absolute Neuts (auto) Absolute Nucleated RBC Nucleated RBC % (auto) Smear Tech's Comments PTT (Heparin Protocol) Anion Gap Estim Creat Clear Calc Estimated GFR POC Glucose 112 265 H Random Glucose Calcium Lymphocyte Subset Cmmnt Microbiology Microbiology Results: Microbiology 07/29/21 09:18 Blood Culture - Final Blood - Venous No growth after 5 days. 07/29/21 08:53 Blood Culture - Final Blood - Venous No growth after 5 days. Assessment and Plan (1) Cor pulmonale: Status: Acute (2) Multiple cerebral infarctions: Status: Acute (3) Toxic metabolic encephalopathy: Status: Acute (4) Acute and chronic respiratory failure with hypoxia: Status: Acute (5) Pulmonary emboli: Status: Acute (6) Diabetes mellitus: Status: Acute Plan This is a 70 yo M with PMH of DM, recent prolonged COVID hospitalization who presents to the emergency room with fevers, generalized weakness and confusion. His work-up thus far reveals CT findings suggestive of lungs findings related to covid with ? superimposed bacterial pneumonia. Furthermore, he has profounding hypoxia requiring HFNC 100% (he was off oxygen for the last 16 days of his hospi talization previous prior to discharge). He will be admitted for further work up. Acute L MCA territory infarct. No change with R hemiparesis and worsening confusion CTA with no evidence of large vessel occlusion or flow limiting stenosis not a candidate for t-pa (on Eliquis and unknown onset of symptoms) seen by Neurology speech / swallow evaluations (passed RN bed-side swallow eval) continue ASA, statin PT/OT Acute respiratory failure with hypoxia multifactorial seen and evaluated by pulmonology - feels may have extensive pneumonitis noted secondary to ?post-COVID pneumonitis, ARDS appearing possible atypical or immunosuppresion-related pneumonia ? PCP seen and evaluated by ICU Continue Solumedrol 40mg Q8h repeat CTA negative for PE, diffuse pulmonary infiltrates worse from prior still requiring high flow oxygen Severe Sepsis secondary to pneumonia, initially suspected to be bacterial although procalcitonin low, ?atypical ?PCP pneumonia Initially met sepsis criteria with leukocytosis + tachypnea + tachycardia; severe features include elevated lactate; SOFA criteria met with degree of hypoxemia (see ABG) will continue IV vancomcyin/cefepime; doxy for atypical coverage for now Infectious Disease consult, started on mepron to cover for possible PCP COVID PCR negative Blood cultures negative acute cor pulmonale repeat EKG showing ST depression in anterior leads BNP elevated, keep rising; initially treated with IV lasix Limited Echo completed, EF 55-60%; small loculated pericardial effusion right heart strain seen on repeat echo- see report for full details seen by cardiology, doesn't feel patient is fluid overloaded, IV lasix stopped concern for recurrent PE however repeat CTA negative for clot Due to CVA, cor pulmonale, right heart strain, ? failed Eliquis changed to heparin drip for now Toxic/Metabolic Encephalopathy due to above Hx PE Eliquis d/c, changed to IV heparin for now Hypothryoidism synthroid HyperK resolved Uncontrolled DM with hyperglycemia basal+bolus (start lantus 10 qhs) Full Code. extensive conversations with family re code status. see ACP note. will follow up with family this afternoon DVT pptx heparin attending: Dr. Orville Plunkett Stroke Does the patient have a stroke diagnosis?: No VTE Prior VTE?: No VTE Risk Level:: Medical - moderate - high VTE Device Contraindication: Treatment Not Indicated VTE Drug Contraindication: N/A - Med Ordered
[2021-08-04] MEDS: Insulin Lispro 100 UNIT/ML 3 ML VIAL SUBCUT (11:51)
--- NOTE | 2021-08-04 13:20 | MHC.SL.SWA ---
Speech Pathologist Impression: Dysphagia Nonspecific Risk of Aspiration Due to: History of Pneumonia Poor PO Intake Dysphasia Diet Status: Upgrade Liquid Consistency and Strategies for Safe Swallow: Liquid Intake Recommendation: Thin Liquid Intake Strategies: Small Sips Solid Food Consistency: Dietary Recommendations: Chopped/Advanced (NDD3) Additional Modifications to Solid Foods: Recommend UPGRADE to CHOPPED/ADVANCED (NDD3) solids and maintain THIN liquids, pills whole with liquid or puree per tolerance/preference. Recommend total supervision, with assistance as needed during meals. Patient's tolerance of PO is dependent on mental status- Patient to be awake and alert for meals. Continue aspiration precautions. Diet order updated by [employer]. Stripe message sent to , RD, RN. [employer] will continue to follow. Oral Medication Intake: Whole with Liquid Compensatory Strategies and Precautions to be Taken for Safe Swallow: Sitting Upright (90 deg) Small Bites and Sips Alternate Liquids/Solids Rate of Ingestion Change Oral Check Supervision While Eating and Drinking for Safe Swallow: Total Supervision (1:1) Foods to Avoid: dry sticky hard to manage foods Swallowing Recommended Treatments: Compens. Strategy Educat. Recommendation for Speech: Inpatient Speech Therapy General Road Foreman Clinican/Clinical Fellow: No Supervisory Statement: I have reviewed and agree with the student/clinical fellow's documentation: N/A Speech Language Pathologist: Lillian Calix M.A., [facility]
[2021-08-04] MEDS: vancomycin HCL 1,000 MG, vancomycin HCL 750 MG in 0.9 % Sodium Chloride 500 ML 267 MG IV (13:27)
[2021-08-04 16:31] LABS: Glucose, Whole Blood 149 mg/dL (60-115)
[2021-08-04 20:21] LABS: Glucose, Whole Blood 143 mg/dL (60-115)
[2021-08-04] MEDS: Atorvastatin Calcium 80 MG TABLET PO (21:00)
[2021-08-05] VITALS (14 sets, daily range): BP systolic 131–160; BP diastolic 78–91; PULSE 87–110; RESP 20–30; TEMP 36.6–36.9; O2SAT 87–96
[2021-08-05] MEDS: Doxycycline Hyclate 100 MG in 0.9 % Sodium Chloride 250 ML 166.67 MG IV (03:56)
[2021-08-05 06:08] LABS: Venous Blood Gas Refer to POC result
[2021-08-05 06:09] LABS: VBG Base Excess 2.1 mmol/L; VBG HCO3 25 mmol/L (22-26); VBG pCO2 35 mmHg; VBG pH 7.46 (7.32-7.43); VBG pO2 96 mmHg
[2021-08-05 06:10] LABS: Hematocrit 36.7 % (42.0-52.0); Hemoglobin 12.2 g/dl (14.0-18.0); Mean Corpuscular HGB Conc 33.2 g/dl (31.0-36.0); Mean Corpuscular Hemoglobin 27.9 pg (27.0-33.0); Mean Platelet Volume 9.3 fL (9.4-12.4); Platelet Count 270 X10*3/uL (160-400); Red Blood Count 4.37 X10*6/uL (4.60-5.80); Red Cell Distribution Width 13.9 % (11.0-16.0); White Blood Count 15.2 X10*3/uL (4.8-10.8)
[2021-08-05 06:14] LABS: PTT Heparin Drip 59.3 SEC (53-77.9)
[2021-08-05 06:21] LABS: Anion Gap 12 (12-20); Blood Urea Nitrogen 18 mg/dL (9-16); Calcium 7.9 mg/dL (8.4-10.2); Carbon Dioxide 26 mmol/L (22-29); Chloride 102 mmol/L (96-108); Creatinine Clr Calc Pharmacy 85.9; Estimated Glomerular Filt Rate > 60; Glucose Random 178 mg/dL (60-115); Potassium 4.4 mmol/L (3.3-5.1); Sodium 136 mmol/L (135-145)
[2021-08-05 07:12] LABS: Glucose, Whole Blood 159 mg/dL (60-115)
[2021-08-05] MEDS: methylPREDNISolone Sod Succ 40 MG/ML VIAL IVPUSH ×2 (09:13→21:05)
[2021-08-05] MEDS: Insulin Lispro 100 UNIT/ML 3 ML VIAL SUBCUT (09:13)
[2021-08-05] MEDS: 0.9 % Sodium Chloride Flush 3 ML SYRINGE IVFLUSH ×3 (09:13→21:06)
[2021-08-05] MEDS: Enoxaparin Sodium 60 MG/0.6 ML SYRINGE SUBCUT ×2 (09:42→21:05)
[2021-08-05 10:18] LABS: INTERNATIONAL NORM RATIO 1.6 (0.9-1.1); Prothrombin Time 18.1 SEC (9.9-13.0)
[2021-08-05 10:32] LABS: Vancomycin Trough 7.9 mcg/mL (10.0-20.0)
--- NOTE | 2021-08-05 10:53 | HE.PHANOTE ---
pt trough 7.9, according to insight after next dose auc will be >400, currently 383, will order next trough for 2.3, if not in range, may need to increase dose.
--- NOTE | 2021-08-05 11:01 | P.PNIM_ITS ---
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 4d Temp 98.2 F 08/05/21 07:13 [employer] Text[employer] Teacher New 4d Pulse 93 08/05/21 07:13 [employer] Text[employer] Teacher New 4d Resp 20 08/05/21 07:34 BP 131/80 08/05/21 07:13 Pulse Ox 95 08/05/21 07:13 BMI result Body Mass Index 21.0 Const: Other: General - ill appearing, opens eyes, but not alking Cardiovascular - regular rate and rhythm, S1-S2 Lungs - mild tachypnea Abdomen - soft, nontender, no rebound or guarding Extremities - no edema bilaterally Neuro - lethargic; dense R tayla-plegia Objective Data Active Medications Acetaminophen (Acetaminophen 325 Mg Tablet) 650 mg PO Q6H PRN PRN Reason: Pain, Mild (Pain Scale 1-3) Aspirin (Aspirin 81 Mg Tab.Chew) 81 mg PO DAILY [facility] Last Admin: 08/05/21 10:25 Dose: Not Given Documented by: KELVIN Non-Admin Reason: patients condition Atorvastatin Calcium (Atorvastatin Calcium 80 Mg Tablet) 80 mg PO BEDTIME [facility] Last Admin: 08/04/21 21:00 Dose: 80 mg Documented by: JENNIFER Atovaquone (Atovaquone 750 Mg/5 Ml Oral.Susp) 750 mg PO BID [facility] Last Admin: 08/05/21 10:25 Dose: Not Given Documented by: KELVIN Non-Admin Reason: patients condition Enoxaparin Sodium (Enoxaparin Sodium 60 Mg/0.6 Ml Syringe) 60 mg 1 mg/kg (60 mg) SUBCUT Q12H [facility] Last Admin: 08/05/21 09:42 Dose: 60 mg Documented by: KELVIN Cefepime HCl 2 gm/ Sodium (Chloride) 50 mls @ 100 mls/hr IV Q12H [facility] Last Infusion: 08/05/21 00:14 Dose: 0 mls/hr Documented by: JENNIFER Doxycycline Hyclate 100 mg/ (Sodium Chloride) 250 mls @ 166.67 mls/hr IV Q12H [facility] Last Infusion: 08/05/21 05:41 Dose: 0 mls/hr Documented by: JENNIFER Vancomycin HCl 1,000 mg/Vancomycin HCl 750 mg/ Sodium Chloride 535 mls @ 267.5 mls/hr IV Q24H [facility] Last Infusion: 08/04/21 15:30 Dose: 0 mls/hr Documented by: RM Insulin Glargine (Insulin Glargine,Hum.Rec.Anlog 100 Unit/Ml 10 Ml Vial) 10 unit SUBCUT BEDTIME [facility] Last Admin: 08/04/21 21:00 Dose: Not Given Documented by: JENNIFER Non-Admin Reason: No Insulin Coverage Insulin Human Lispro (Insulin Lispro 100 Unit/Ml 3 Ml Vial) 0 unit SUBCUT QIDACHS [facility]; Protocol Last Admin: 08/05/21 09:13 Dose: 2 unit Documented by: KELVIN Levothyroxine Sodium (Levothyroxine Sodium 125 Mcg Tablet) 125 mcg PO DAILY@0630 [facility] Last Admin: 08/05/21 05:43 Dose: Not Given Documented by: JENNIFER Non-Admin Reason: Patient Refused Methylprednisolone Sodium Succinate (Methylprednisolone Sod Succ 40 Mg/Ml Vial) 40 mg IVPUSH Q12H [facility] Last Admin: 08/05/21 09:13 Dose: 40 mg Documented by: KELVIN Ondansetron HCl (Ondansetron Hcl 4 Mg/2 Ml Vial) 4 mg IVPUSH Q8H PRN PRN Reason: Nausea and Vomiting Pharmacy Consult (Consult Rx Perform Med Rec) 1 each MISCELLANE ONCE PRN PRN Reason: Consult order Pharmacy Consult (Consult Rx Vancomycin Dosing) 1 each MISCELLANE DAILY PRN PRN Reason: Consult order Sodium Chloride (0.9 % Sodium Chloride Flush 3 Ml Syringe) 3 ml IVFLUSH QSHIFT [facility] Last Admin: 08/05/21 09:13 Dose: 3 ml Documented by: KELVIN Vitamin D (Cholecalciferol (Vitamin D3) 25 Mcg Tablet) 50 mcg PO DAILY [facility] Last Admin: 08/05/21 10:26 Dose: Not Given Documented by: KELVIN Non-Admin Reason: patients condition Warfarin Sodium (Warfarin Sodium 5 Mg Tablet) 5 mg PO ONCE@1800 ONE Stop: 08/05/21 18:01 Labs CBC & Chem 7: 08/05/21 05:55 08/05/21 05:55 Labs: Laboratory Results - last 24 hr 08/04/21 08/04/21 08/04/21 11:04 16:28 20:08 MCV MCH MCHC RDW Plt Count MPV Absolute Nucleated RBC Nucleated RBC % (auto) PT INR PTT (Heparin Protocol) VBG pH VBG pCO2 VBG pO2 VBG HCO3 VBG O2 Saturation VBG Base Excess Anion Gap Estim Creat Clear Calc Estimated GFR POC Glucose 265 H 149 H 143 H Random Glucose Calcium Vancomycin Trough 08/05/21 08/05/21 08/05/21 05:55 05:55 05:55 MCV 84.0 MCH 27.9 MCHC 33.2 RDW 13.9 Plt Count 270 MPV 9.3 L Absolute Nucleated RBC 0.000 Nucleated RBC % (auto) 0.0 PT INR PTT (Heparin Protocol) 59.3 VBG pH VBG pCO2 VBG pO2 VBG HCO3 VBG O2 Saturation VBG Base Excess Anion Gap 12 Estim Creat Clear Calc 85.9 Estimated GFR > 60 POC Glucose Random Glucose 178 H D Calcium 7.9 L Vancomycin Trough 08/05/21 08/05/21 08/05/21 06:02 07:02 09:48 MCV MCH MCHC RDW Plt Count MPV Absolute Nucleated RBC Nucleated RBC % (auto) PT INR PTT (Heparin Protocol) VBG pH 7.46 H VBG pCO2 35 VBG pO2 96 VBG HCO3 25 VBG O2 Saturation 97.0 VBG Base Excess 2.1 Anion Gap Estim Creat Clear Calc Estimated GFR POC Glucose 159 H Random Glucose Calcium Vancomycin Trough 7.9 L 08/05/21 09:48 MCV MCH MCHC RDW Plt Count MPV Absolute Nucleated RBC Nucleated RBC % (auto) PT 18.1 H INR 1.6 H PTT (Heparin Protocol) VBG pH VBG pCO2 VBG pO2 VBG HCO3 VBG O2 Saturation VBG Base Excess Anion Gap Estim Creat Clear Calc Estimated GFR POC Glucose Random Glucose Calcium Vancomycin Trough Assessment and Plan (1) Cor pulmonale: Status: Acute (2) Multiple cerebral infarctions: Status: Acute (3) Toxic metabolic encephalopathy: Status: Acute (4) Acute and chronic respiratory failure with hypoxia: Status: Acute (5) Pulmonary emboli: Status: Acute (6) Diabetes mellitus: Status: Acute Plan This is a 70 yo M with PMH of DM, recent prolonged COVID hospitalization who presents to the emergency room with fevers, generalized weakness and confusion. His work-up thus far reveals CT findings suggestive of lungs findings related to covid with ? superimposed bacterial pneumonia. Furthermore, he has profounding hypoxia requiring HFNC 100% (he was off oxygen for the last 16 days of his hospitalization previous prior to discharge). He will be admitted for further work up. Acute L MCA territory infarct. with R hemiparesis and worsening confusion -- now unable to safely take PO this AM, will have speech re-eval CTA with no evidence of large vessel occlusion or flow limiting stenosis not a candidate for t-pa (on Eliquis and unknown onset of symptoms) seen by Neurology speech / swallow evaluations (passed RN bed-side swallow eval) continue ASA, statin PT/OT Acute respiratory failure with hypoxia multifactorial seen and evaluated by pulmonology - feels may have extensive pneumonitis noted secondary to ?post-COVID pneumonitis, ARDS appearing possible atypical or immunosuppresion-related pneumonia ? PCP seen and evaluated by ICU Start tapering steroids repeat CTA negative for PE, diffuse pulmonary infiltrates worse from prior still requiring high flow oxygen + NRM on day #7 of broad spec antibiotics + day #4 of Mepron (empirically for pcp) Severe Sepsis secondary to pneumonia, initially suspected to be bacterial although procalcitonin low, ?atypical ?PCP pneumonia Initially met sepsis criteria with leukocytosis + tachypnea + tachycardia; severe features include elevated lactate; SOFA criteria met with degree of hypoxemia (see ABG) will continue IV vancomcyin/cefepime; doxy for atypical coverage for now Infectious Disease consult, started on mepron to cover for possible PCP COVID PCR negative Blood cultures negative acute cor pulmonale repeat EKG showing ST depression in anterior leads BNP elevated, keep rising; initially treated with IV lasix Limited Echo completed, EF 55-60%; small loculated pericardial effusion right heart strain seen on repeat echo- see report for full details seen by cardiology, doesn't feel patient is fluid overloaded, IV lasix stopped concern for recurrent PE however repeat CTA negative for clot Due to CVA, cor pulmonale, right heart strain, ? failed Eliquis transition from heparin gtt to lovenox + coumadin Toxic/Metabolic Encephalopathy due to above Hx PE Eliquis d/c, changed to IV heparin for now Hypothryoidism synthroid HyperK resolved Uncontrolled DM with hyperglycemia basal+bolus (start lantus 10 qhs) Full Code for now; Will call family again this afternoon -- patients prognosis is extremely poor Quality Stroke Does the patient have a stroke diagnosis?: No VTE Prior VTE?: No VTE Risk Level:: Medical - moderate - high VTE Device Contraindication: Treatment Not Indicated VTE Drug Contraindication: N/A - Med Ordered
[2021-08-05 11:24] LABS: Glucose, Whole Blood 150 mg/dL (60-115)
[2021-08-05] MEDS: cefEPime HCl 2 GM in 0.9 % Sodium Chloride 50 ML IV (11:38)
--- NOTE | 2021-08-05 14:31 | MHC.SLORD ---
Speech Language Pathology Order Status: Attempted to see Pt this am for TX. Pt refused oral trials of liquid/solid. Pt currently on non-rebreather, appeared uncomfortable, agitated. Will re-attempt tomorrow.
--- NOTE | 2021-08-05 15:04 | PM.IDPN ---
Subjective Subjective Date of Service: 08/05/21 Critical Care Time (minutes): 15 Comment: He has been more confused Objective Data Labs CBC & Chem 7: 08/14/21 05:26 08/14/21 05:26 Labs: Laboratory Results - last 24 hr 08/04/21 08/04/21 08/05/21 16:28 20:08 05:55 WBC RBC Hgb Hct MCV MCH MCHC RDW Plt Count MPV Absolute Nucleated RBC Nucleated RBC % (auto) PT INR PTT (Heparin Protocol) 59.3 VBG pH VBG pCO2 VBG pO2 VBG HCO3 VBG O2 Saturation VBG Base Excess Sodium Potassium Chloride Carbon Dioxide Anion Gap BUN Creatinine Estim Creat Clear Calc Estimated GFR POC Glucose 149 H 143 H Random Glucose Calcium Vancomycin Trough 08/05/21 08/05/21 08/05/21 05:55 05:55 06:02 WBC 15.2 H RBC 4.37 L Hgb 12.2 L Hct 36.7 L MCV 84.0 MCH 27.9 MCHC 33.2 RDW 13.9 Plt Count 270 MPV 9.3 L Absolute Nucleated RBC 0.000 Nucleated RBC % (auto) 0.0 PT INR PTT (Heparin Protocol) VBG pH 7.46 H VBG pCO2 35 VBG pO2 96 VBG HCO3 25 VBG O2 Saturation 97.0 VBG Base Excess 2.1 Sodium 136 Potassium 4.4 Chloride 102 Carbon Dioxide 26 Anion Gap 12 BUN 18 H Creatinine 0.67 Estim Creat Clear Calc 85.9 Estimated GFR > 60 POC Glucose Random Glucose 178 H D Calcium 7.9 L Vancomycin Trough 08/05/21 08/05/21 08/05/21 07:02 09:48 09:48 WBC RBC Hgb Hct MCV MCH MCHC RDW Plt Count MPV Absolute Nucleated RBC Nucleated RBC % (auto) PT 18.1 H INR 1.6 H PTT (Heparin Protocol) VBG pH VBG pCO2 VBG pO2 VBG HCO3 VBG O2 Saturation VBG Base Excess Sodium Potassium Chloride Carbon Dioxide Anion Gap BUN Creatinine Estim Creat Clear Calc Estimated GFR POC Glucose 159 H Random Glucose Calcium Vancomycin Trough 7.9 L 08/05/21 10:53 WBC RBC Hgb Hct MCV MCH MCHC RDW Plt Count MPV Absolute Nucleated RBC Nucleated RBC % (auto) PT INR PTT (Heparin Protocol) VBG pH VBG pCO2 VBG pO2 VBG HCO3 VBG O2 Saturation VBG Base Excess Sodium Potassium Chloride Carbon Dioxide Anion Gap BUN Creatinine Estim Creat Clear Calc Estimated GFR POC Glucose 150 H Random Glucose Calcium Vancomycin Trough Microbiology Microbiology Results: Microbiology 07/29/21 09:18 Blood - Venous Blood Culture - Final No growth after 5 days. 07/29/21 08:53 Blood - Venous Blood Culture - Final No growth after 5 days. Physical Exam Vital Signs: Vital Signs: Last Vital Signs Temp 98.0 F 08/05/21 11:34 Pulse 97 08/05/21 11:34 Resp 24 H 08/05/21 11:34 BP 160/91 H 08/05/21 11:34 Pulse Ox 92 08/05/21 11:34 BMI result Body Mass Index 21.0 Const: General: cooperative HENMT: Mouth: Normal oral and palatal mucosa present Resp: Effort & Inspection: normal respiratory effort Cardio: Rate: regular rate Rhythm: regular rhythm GI: Palpation (GI): Soft to palpation and nontender Neuro: Other: somewhat dysarthritic Assessment and Plan Assessment and plan (1) Toxic metabolic encephalopathy: Status: Acute Assessment and Plan: Would stop Cefepime and Mepron and continue Doxycycline alone (doubt helpful) Time Spent With Patient Time: Total time spent is greater than 50% in coordination of care (as documented) at patient's floor/unit and/or counseling patient: Time with patient: 15 - 24 minutes
[2021-08-05 16:20] LABS: Glucose, Whole Blood 161 mg/dL (60-115)
--- NOTE | 2021-08-05 16:34 | P.ACPN_ITS ---
Advanced Care Planning Note Advanced Care Planning Note Discussed with: patient and family member(s) ( and Daughter) Time spent (in minutes): 35 Narrative: Multiple discussion held, initially on the phone (family unable to come in at that due to hospital restrictions on visitations) and later in person (after obtaining approval for family to be allowed to come visit) with the patient's Amina @ [phone] with the use of a Maori speaking educational interpreter and daughter Laura @ [phone] about the patients current conditions and overall status. I informed (in layman's terms) them that despite 1 week of broad spec IV and PO antibiotics, IV steroids, supplemental oxygen, his condition has not improved and in fact it is progressively worsening. He has sustained a stroke and he has evidence of RV dsyfunction on the echo and evidence of acute cor pulmonale. I informed them that his it was my medical opinion that he would not recover from this event. When the family arrived, I again explained this to the patient's . (Her daughter interpreted). Laura, tells me that she has had a discussion with her brothers about their fathers condition but it appears that Amina () is having a difficult time with accepting the current status. Despite another round of explanation, Amina did not seem to be ready for a conversation, to at least, have a code status change. Will continue with daily updates to the family. Total Time between phone and in person: 35 minutes. Problems Discussed (1) Toxic metabolic encephalopathy: (2) Acute and chronic respiratory failure with hypoxia:
[2021-08-05 20:07] LABS: Glucose, Whole Blood 154 mg/dL (60-115)
[2021-08-05] MEDS: Morphine Sulfate 2 MG/ML CARTRIDGE 1 MG IVPUSH (21:56)
[2021-08-06] VITALS (30 sets, daily range): BP systolic 85–147; BP diastolic 53–88; PULSE 93–113; RESP 8–32; TEMP 33–37.4; O2SAT 85–98
--- NOTE | 2021-08-06 02:18 | PC.NURSE ---
SpO2 remains 85-89% on high flow 55L, 100% and nrb mask. Dr Fritz made aware. Prn morphine ordered for increased work of breathing and anxiety.
[2021-08-06] MEDS: Morphine Sulfate 2 MG/ML CARTRIDGE 1 MG IVPUSH ×4 (02:24→11:31)
[2021-08-06 07:04] LABS: Hematocrit 37.8 % (42.0-52.0); Hemoglobin 12.3 g/dl (14.0-18.0); Mean Corpuscular HGB Conc 32.5 g/dl (31.0-36.0); Mean Corpuscular Hemoglobin 27.5 pg (27.0-33.0); Mean Corpuscular Volume 84.4 fL (80.0-98.0); Mean Platelet Volume 9.7 fL (9.4-12.4); Platelet Count 325 X10*3/uL (160-400); Red Blood Count 4.48 X10*6/uL (4.60-5.80); Red Cell Distribution Width 14.4 % (11.0-16.0); White Blood Count 17.4 X10*3/uL (4.8-10.8)
[2021-08-06 07:08] LABS: INTERNATIONAL NORM RATIO 1.6 (0.9-1.1); Prothrombin Time 18.4 SEC (9.9-13.0)
[2021-08-06 07:15] LABS: Glucose, Whole Blood 233 mg/dL (60-115)
[2021-08-06 07:24] LABS: Anion Gap 15 (12-20); Blood Urea Nitrogen 25 mg/dL (9-16); Calcium 8.3 mg/dL (8.4-10.2); Carbon Dioxide 26 mmol/L (22-29); Chloride 100 mmol/L (96-108); Creatinine Clr Calc Pharmacy 78.9; Estimated Glomerular Filt Rate > 60; Glucose Random 231 mg/dL (60-115); Potassium 5.1 mmol/L (3.3-5.1); Sodium 136 mmol/L (135-145)
[2021-08-06 07:29] LABS: Alanine Aminotransferase 74 U/L (0-40); Albumin Level 2.6 g/dL (3.5-5.0); Alkaline Phosphatase 151 U/L (39-117); Aspartate Amino Transferase 21 U/L (5-37); Bilirubin Direct 0.5 mg/dL (0.0-0.5); Bilirubin Total 0.8 mg/dL (0.0-1.0); Total Protein 5.9 g/dL (6.5-8.0)
[2021-08-06] MEDS: 0.9 % Sodium Chloride Flush 3 ML SYRINGE IVFLUSH ×2 (07:50→14:59)
[2021-08-06] MEDS: methylPREDNISolone Sod Succ 40 MG/ML VIAL IVPUSH ×2 (07:54→19:59)
[2021-08-06] MEDS: Enoxaparin Sodium 60 MG/0.6 ML SYRINGE SUBCUT ×2 (07:55→21:55)
[2021-08-06 11:13] LABS: Glucose, Whole Blood 271 mg/dL (60-115)
[2021-08-06] MEDS: Insulin Lispro 100 UNIT/ML 3 ML VIAL SUBCUT (11:32)
--- NOTE | 2021-08-06 12:58 | P.PNIM_ITS ---
Subjective Subjective Date of Service: 08/06/21 Review of Systems seen and examined this AM not responding much, opens eyes worsening resp status plan to tx to ICU for intubation Physical Exam Verdana 4l Vital Signs: Verdana 4d Verdana 4d Vital Signs: Verdana 4d Verdana 4Bd Last Vital Signs Verdana 4d Chest [employer] Se[employer] Supervisor New 4d Chest [employer] Se[employer] Supervisor New 4d Temp 98.5 F 08/06/21 10:56 Chest Pain[employer] Se[employer] Supervisor New 4d Pulse 110 H 08/06/21 11:39 Chest Painting And Sealing Supervisor New 4d Resp 24 H 08/06/21 11:39 BP 147/88 H 08/06/21 10:56 Pulse Ox 85 L 08/06/21 11:39 BMI result Body Mass Index 21.0 Appearing in no acute distress lungs increased WOB heart regular rate rhythm, clear S1, S2, tachy positive bowel sounds, abdomen is soft, nontender neuro patient is lethargic Objective Data Active Medications Acetaminophen (Acetaminophen 325 Mg Tablet) 650 mg PO Q6H PRN PRN Reason: Pain, Mild (Pain Scale 1-3) Aspirin (Aspirin 81 Mg Tab.Chew) 81 mg PO DAILY [facility] Last Admin: 08/06/21 07:38 Dose: Not Given Documented by: ANTONIA Non-Admin Reason: NPO Atorvastatin Calcium (Atorvastatin Calcium 80 Mg Tablet) 80 mg PO BEDTIME [facility] Last Admin: 08/05/21 20:59 Dose: Not Given Documented by: TASH Non-Admin Reason: NPO Enoxaparin Sodium (Enoxaparin Sodium 60 Mg/0.6 Ml Syringe) 60 mg 1 mg/kg (60 mg) SUBCUT Q12H [facility] Last Admin: 08/06/21 07:55 Dose: 60 mg Documented by: ANTONIA Insulin Glargine (Insulin Glargine,Hum.Rec.Anlog 100 Unit/Ml 10 Ml Vial) 10 unit SUBCUT BEDTIME [facility] Last Admin: 08/05/21 20:59 Dose: Not Given Documented by: TASH Non-Admin Reason: NPO Insulin Human Lispro (Insulin Lispro 100 Unit/Ml 3 Ml Vial) 0 unit SUBCUT QIDACHS [facility]; Protocol Last Admin: 08/06/21 11:32 Dose: 6 unit Documented by: ANTONIA Levothyroxine Sodium (Levothyroxine Sodium 125 Mcg Tablet) 125 mcg PO DAILY@0630 [facility] Last Admin: 08/06/21 05:07 Dose: Not Given Documented by: TASH Non-Admin Reason: NPO Methylprednisolone Sodium Succinate (Methylprednisolone Sod Succ 40 Mg/Ml Vial) 40 mg IVPUSH Q12H [facility] Last Admin: 08/06/21 07:54 Dose: 40 mg Documented by: COTEMA Morphine Sulfate (Morphine Sulfate 2 Mg/Ml Cartridge) 1 mg IVPUSH Q4H PRN; Protocol PRN Reason: pain/SOB/Anxiety Last Admin: 08/06/21 11:31 Dose: 1 mg Documented by: COTEMA Ondansetron HCl (Ondansetron Hcl 4 Mg/2 Ml Vial) 4 mg IVPUSH Q8H PRN PRN Reason: Nausea and Vomiting Pharmacy Consult (Consult Rx Perform Med Rec) 1 each MISCELLANE ONCE PRN PRN Reason: Consult order Sodium Chloride (0.9 % Sodium Chloride Flush 3 Ml Syringe) 3 ml IVFLUSH QSHIFT [facility] Last Admin: 08/06/21 07:50 Dose: 3 ml Documented by: ANTONIA Vitamin D (Cholecalciferol (Vitamin D3) 25 Mcg Tablet) 50 mcg PO DAILY [facility] Last Admin: 08/06/21 07:38 Dose: Not Given Documented by: ANTONIA Non-Admin Reason: NPO Labs CBC & Chem 7: 08/06/21 06:21 08/06/21 06:21 Labs: Laboratory Results - last 24 hr 08/05/21 08/05/21 08/06/21 16:17 20:01 06:21 MCV 84.4 MCH 27.5 MCHC 32.5 RDW 14.4 Plt Count 325 MPV 9.7 Absolute Nucleated RBC 0.000 Nucleated RBC % (auto) 0.0 PT INR Anion Gap Estim Creat Clear Calc Estimated GFR POC Glucose 161 H 154 H Random Glucose Calcium Total Bilirubin Direct Bilirubin AST ALT Alkaline Phosphatase Total Protein Albumin 08/06/21 08/06/21 08/06/21 06:21 06:21 06:21 MCV MCH MCHC RDW Plt Count MPV Absolute Nucleated RBC Nucleated RBC % (auto) PT 18.4 H INR 1.6 H Anion Gap 15 Estim Creat Clear Calc 78.9 Estimated GFR > 60 POC Glucose Random Glucose 231 H Calcium 8.3 L Total Bilirubin 0.8 Direct Bilirubin 0.5 AST 21 D ALT 74 H Alkaline Phosphatase 151 H D Total Protein 5.9 L Albumin 2.6 L 08/06/21 08/06/21 07:11 11:09 MCV MCH MCHC RDW Plt Count MPV Absolute Nucleated RBC Nucleated RBC % (auto) PT INR Anion Gap Estim Creat Clear Calc Estimated GFR POC Glucose 233 H 271 H Random Glucose Calcium Total Bilirubin Direct Bilirubin AST ALT Alkaline Phosphatase Total Protein Albumin Assessment and Plan (1) Cor pulmonale: Status: Acute (2) Multiple cerebral infarctions: Status: Acute (3) Toxic metabolic encephalopathy: Status: Acute (4) Acute and chronic respiratory failure with hypoxia: Status: Acute (5) Pulmonary emboli: Status: Acute (6) Diabetes mellitus: Status: Acute Plan This is a 70 yo M with PMH of DM, recent prolonged COVID hospitalization who presents to the emergency room with fevers, generalized weakness and confusion. His work-up thus far reveals CT findings suggestive of lungs findings related to covid with ? superimposed bacterial pneumonia. Furthermore, he has profounding hypoxia requiring HFNC 100% (he was off oxygen for the last 16 days of his hospitalization previous prior to discharge). He will be admitted for further work up. Patients condition continues to worsen. He is maxed on on high flow with sats in the low 80's, more work of breathing and ecephalopathy. Spoke with his and explained his poor prognosis. She continues to agree with Full code and intubation. Discussed case with Dr. Roblero. The patient will be tx to ICU and intubated for worsening respiratory status. Acute L MCA territory infarct. with R hemiparesis and worsening confusion -- now unable to safely take PO this AM, will have speech re-eval CTA with no evidence of large vessel occlusion or flow limiting stenosis not a candidate for t-pa (on Eliquis and unknown onset of symptoms) seen by Neurology speech / swallow evaluations (passed RN bed-side swallow eval) continue ASA, statin PT/OT Acute respiratory failure with hypoxia multifactorial seen and evaluated by pulmonology - feels may have extensive pneumonitis noted secondary to ?post-COVID pneumonitis, ARDS appearing possible atypical or immunosuppresion-related pneumonia ? PCP seen and evaluated by ICU Start tapering steroids repeat CTA negative for PE, diffuse pulmonary infiltrates worse from prior still requiring high flow oxygen + NRM on day #7 of broad spec antibiotics + day #4 of Mepron (empirically for pcp) Severe Sepsis secondary to pneumonia, initially suspected to be bacterial although procalcitonin low, ?atypical ?PCP pneumonia Initially met sepsis criteria with leukocytosis + tachypnea + tachycardia; severe features include elevated lactate; SOFA criteria met with degree of hypoxemia (see ABG) will continue IV vancomcyin/cefepime; doxy for atypical coverage for now Infectious Disease consult, started on mepron to cover for possible PCP COVID PCR negative Blood cultures negative acute cor pulmonale repeat EKG showing ST depression in anterior leads BNP elevated, keep rising; initially treated with IV lasix Limited Echo completed, EF 55-60%; small loculated pericardial effusion right heart strain seen on repeat echo- see report for full details seen by cardiology, doesn't feel patient is fluid overloaded, IV lasix stopped concern for recurrent PE however repeat CTA negative for clot Due to CVA, cor pulmonale, right heart strain, ? failed Eliquis transition from heparin gtt to lovenox + coumadin Toxic/Metabolic Encephalopathy due to above Hx PE Eliquis d/c, changed to IV heparin for now Hypothryoidism synthroid HyperK resolved Uncontrolled DM with hyperglycemia basal+bolus (start lantus 10 qhs) Full Code for now; Will call family again this afternoon -- patients prognosis is extremely poor Quality Stroke Does the patient have a stroke diagnosis?: No VTE Prior VTE?: No VTE Risk Level:: Medical - moderate - high VTE Device Contraindication: Treatment Not Indicated VTE Drug Contraindication: N/A - Med Ordered
--- NOTE | 2021-08-06 13:55 | MHC.SLORD ---
Speech Language Pathology Order Status: Pt was not able to tolerate any trials at this visit due to O2 status
--- NOTE | 2021-08-06 13:56 | MHC.CLN ---
F/U PT BEING TRANSFERRED TO ICU FOR INTUBATION FULL NUTRITION ASSESSMENT TO FOLLOW
[2021-08-06] MEDS: propofoL 200 MG/20 ML VIAL 40 MG IVPUSH (14:36)
[2021-08-06] MEDS: Rocuronium Bromide 50 MG/5 ML VIAL 30 MG IVPUSH ×2 (14:36→15:46)
[2021-08-06] MEDS: propofoL 1,000 MG/100 ML VIAL 7.32 MG IVCONT (14:40)
[2021-08-06] MEDS: 0.9 % Sodium Chloride 1,000 ML 999 ML IVCONT (15:11)
[2021-08-06 16:14] LABS: Glucose, Whole Blood 171 mg/dL (60-115)
--- NOTE | 2021-08-06 16:36 | W.PM.CCHP ---
Procedures Date of Service Date of Service: 08/06/21 Central Line Placement Left IJ: Central Line Comments: after sterile preparation and draping utilizing ultrasound guidance a gained easy entry to the left internal jugular vein passing retrograde with Seldinger technique a J tipped guidewire over which triple-lumen CVP line was then passed confirmed to be in the superior vena cava without pneumothorax or complication and the line was sterilely dressed and secured and CVP measurement is pending Consent for Procedure: Emergent-no informed consent obtained Time out performed: Yes Sterile Technique Used: Yes Patient placed on monitor/pulse ox: Yes MD prep: mask and gown Central line prep: Chlorhexidine scrub Local anesthesia used: lidocaine 1% Ultrasound used for placement: Yes Central line lumen inserted: triple Post procedure: sutured in place, good blood return, all ports aspirated, flushed, capped and sterile dressing applied Post procedure x-ray: tip of catheter in good position and no pneumothorax seen Patient tolerated procedure: well and no complications Complications: none
--- NOTE | 2021-08-06 16:44 | W.PM.CCHP ---
Procedures Date of Service Date of Service: 08/06/21 Intubation Intubation Comments: and due to excessive work of breathing and maximum noninvasive support with altered mental status and oxygen saturation in the mid 80s patient was intubated utilizing glide scope guidance and a 7.5 endotracheal tube with excellent visualization of the vocal cords excellent end-tidal CO2 response chest x-ray showing tip just above the riky Consent for Procedure: Emergent-no informed consent obtained Time out performed: Yes Sedative: propofol Paralytic: rocuronium Laryngoscope: fiber optic video scope ET tube size: 7.5 ET tube uncuffed: No Tube secured depth (cm): 23 Tube secured location: lips Tube placement confirmation: visualized tube passing through cords, equal breath sounds bilaterally, no breath sounds over epigastrium and confirmation by capnometry Patient tolerated procedure: well Intubation complications: none
[2021-08-06] MEDS: Midazolam HCl/PF 2 MG/2 ML VIAL IVPUSH (16:46)
[2021-08-06] MEDS: Midazolam HCl/NS 50 MG/50 ML PLAST..BAG IVCONT (16:47)
--- NOTE | 2021-08-06 16:48 | P.CONCC_ITS ---
History of Present Illness Data of Consult Service Date: 08/06/21 Requesting physician: Molly Casanova Primary Care Provider: Amina Hammer MD HPI Reason for consult: Progressive hypoxemic respiratory failure 70-year-old male will over a month ago was COVID positive with an initial hospitalization for several weeks during which time he had as a complication bilateral pulmonary emboli and and bilateral strokes and became hemiparetic was discharged for 4-5 days returned with the hypoxemic respiratory failure and was failing maximum noninvasive ventilation transfer down stairs for emergent intubation central line placement and he remains on anticoagulation and ventilator support with markedly noncompliant lungs and therefore very small volume probably close to 5 cc/kilos with low flow rates it to keep from exceeding the maximum inspiratory pressure or transpulmonary pressure and maintaining oxygen saturations at 95% and doing comfortably well but is requiring deeper sedation now with combination of Versed and propofol Review of Systems Verdana 4l Review of Systems: Yes Unobtainable due to mental status Verdana 4d PMFSH Past Medical History Medical History B12 deficiency Bicytopenia Daytime sleepiness Diabetes mellitus Diabetes type 2, uncontrolled Diabetic polyneuropathy associated with type 2 diabetes mellitus Dyslipidemia Hypothyroid half-way (current) use of insulin Right shoulder pain Stable proliferative diabetic retinopathy Vitamin D deficiency Family History Family History Father Hypertension Mother Diabetes Anemia Hypothyroidism Family/Other Prostate cancer Hypertension Diabetes Brother Prostate cancer Daughter Hypothyroidism Family history: reviewed and not pertinent Surgical History Surgical History History of cardiac catheterization History of cataract surgery History of colonoscopy Social History Social History Household Members: Spouse Housing: Apartment Do you presently have visiting nurse or other home services: Yes Alcohol intake: former Patient Tobacco Use Status: Former Tobacco user Tobacco use type: Cigarette e-Cigarette/Vaping Use: Never Used Second Hand Smoke Exposure: No service: No Current occupational status: retired and disabled Meds Allergies Allergy/AdvReac Type Severity Reaction Status Date / Time penicillin V Allergy Intermediate rash, hives Verified 06/25/21 22:49 acetaminophen AdvReac Intermediate vomitting Verified 06/25/21 22:49 [Percocet] lisinopril AdvReac Intermediate angioedema Verified 06/25/21 22:49 oxycodone [From AdvReac Intermediate STOMACH Verified 06/25/21 22:49 PERCOCET] UPSET statins AdvReac Intermediate myalgia Uncoded 05/21/21 10:10 Active Medications: Current Medications Albuterol/Ipratropium (Albuterol/Iprat 2.5/0.5mg 3 Ml Ampul.Neb) 3 ml INHALE RQ4H WHILE AWAKE [facility] Aspirin (Aspirin 81 Mg Tab.Chew) 81 mg PO DAILY YURI Last Admin: 08/06/21 07:38 Dose: Not Given Documented by: Atorvastatin Calcium (Atorvastatin Calcium 80 Mg Tablet) 80 mg PO BEDTIME YURI Last Admin: 08/05/21 20:59 Dose: Not Given Documented by: Enoxaparin Sodium (Enoxaparin Sodium 60 Mg/0.6 Ml Syringe) 60 mg 1 mg/kg (60 mg) SUBCUT Q12H YURI Last Admin: 08/06/21 07:55 Dose: 60 mg Documented by: Propofol (Diprivan) 1,000 mg in 100 mls @ 0 mls/hr IVCONT .Q0M YURI; Protocol Last Titration: 08/06/21 15:12 Dose: 40 mcg/kg/min, 14.64 mls/hr Documented by: Norepinephrine Bitartrate (Levophed) 8 mg in 250 mls @ 0 mls/hr IVCONT .Q0M YURI; Protocol Last Titration: 08/06/21 15:44 Dose: 0.2 mcg/kg/min, 22.88 mls/hr Documented by: Midazolam HCl (Versed) 50 mg in 50 mls @ 2 mls/hr IVCONT .Q24H YURI Last Admin: 08/06/21 16:47 Dose: 2 mg/hr, 2 mls/hr Documented by: Insulin Glargine (Insulin Glargine,Hum.Rec.Anlog 100 Unit/Ml 10 Ml Vial) 10 unit SUBCUT BEDTIME YURI Last Admin: 08/05/21 20:59 Dose: Not Given Documented by: Insulin Human Lispro (Insulin Lispro 100 Unit/Ml 3 Ml Vial) 0 unit SUBCUT QIDACHS [facility]; Protocol Last Admin: 08/06/21 16:25 Dose: Not Given Documented by: Levothyroxine Sodium (Levothyroxine Sodium 125 Mcg Tablet) 125 mcg PO DAILY@0630 [facility] Last Admin: 08/06/21 05:07 Dose: Not Given Documented by: Methylprednisolone Sodium Succinate (Methylprednisolone Sod Succ 40 Mg/Ml Vial) 40 mg IVPUSH Q12H [facility] Last Admin: 08/06/21 07:54 Dose: 40 mg Documented by: Pharmacy Consult (Consult Rx Perform Med Rec) 1 each MISCELLANE ONCE PRN PRN Reason: Consult order Sodium Chloride (0.9 % Sodium Chloride Flush 3 Ml Syringe) 3 ml IVFLUSH QSHIFT [facility] Last Admin: 08/06/21 14:59 Dose: 3 ml Documented by: Vitamin D (Cholecalciferol (Vitamin D3) 25 Mcg Tablet) 50 mcg PO DAILY [facility] Last Admin: 08/06/21 07:38 Dose: Not Given Documented by: Home Medications Medication Instructions Recorded Confirmed Last Taken Type levothyroxine 125 125 mcg PO 06/30/21 07/29/21 Unknown History mcg tablet DAILY@0630 repaglinide 2 mg 1 tab PO DAILY 06/30/21 07/29/21 Unknown History tablet repaglinide 2 mg 2 tab PO 06/30/21 07/29/21 Unknown History tablet DAILY@1700 albuterol sulfate 2 puff 07/29/21 07/29/21 Unknown History 90 mcg/actuation INHALATION Q4H PRN aerosol inhaler (ProAir HFA) doxycycline 1 cap PO BID 07/29/21 07/29/21 Unknown History hyclate 100 mg capsule prednisone 50 mg 1 tab PO DAILY 07/29/21 07/29/21 Unknown History tablet Physical Exam Verdana 4l Vital Signs: Verdana 4d Verdana 4d Vital Signs: Verdana 4d Verdana 4Bd Last Vital Signs Verdana 4d Blood Donor Recruiter New 4d Blood Donor Recruiter New 4d Temp 98.3 F 08/06/21 16:00 Blood Donor Recruiter New 4d Pulse 93 08/06/21 16:00 Blood Donor Recruiter New 4d Resp 19 08/06/21 16:00 BP 103/79 08/06/21 16:00 Pulse Ox 97 08/06/21 16:00 BMI result Body Mass Index 21.0 Vital signs were excellent but he is on a small dose of Levophed due to the sedation and also a relative degree of hypovolemia so his CVP was less than 2 and he is getting volume replacement Nonfocal neurologically Cardiac exam by bedside echo with class 1 LV function no primary valve or pericardial disease Abdomen soft with no again a megaly Before intubation he he was marked accessory muscle and diaphragmatic effort which is now all relaxed Skin intact with no acrocyanosis Results Labs CBC & Chem 7: 08/07/21 05:40 08/07/21 05:40 Labs: Short CBC 08/06/21 Range/Units 06:21 WBC 17.4 H (4.8-10.8) X10*3/uL Hgb 12.3 L (14.0-18.0) g/dl Hct 37.8 L (42.0-52.0) % Plt Count 325 (160-400) X10*3/uL BMP 08/06/21 06:21 Sodium 136 Potassium 5.1 Chloride 100 Carbon Dioxide 26 BUN 25 H Creatinine 0.73 Calcium 8.3 L Liver Function 08/06/21 Range/Units 06:21 Total Bilirubin 0.8 (0.0-1.0) mg/dL Direct Bilirubin 0.5 (0.0-0.5) mg/dL AST 21 D (5-37) U/L ALT 74 H (0-40) U/L Alkaline Phosphatase 151 H D (39-117) U/L Albumin 2.6 L (3.5-5.0) g/dL Microbiology Microbiology Results: Microbiology 07/29/21 09:18 Blood - Venous Blood Culture - Final No growth after 5 days. 07/29/21 08:53 Blood - Venous Blood Culture - Final No growth after 5 days. Assessment and Plan (1) Cor pulmonale: Status: Acute (2) Multiple cerebral infarctions: Status: Acute (3) Toxic metabolic encephalopathy: Status: Acute (4) Acute and chronic respiratory failure with hypoxia: Status: Acute (5) Pneumonia: Status: Acute (6) Hypoxia: Status: Acute (7) Sepsis: Status: Acute (8) Acute respiratory alkalosis: Status: Acute (9) Pulmonary emboli: Status: Acute (10) Diabetes mellitus: Status: Acute (11) Right shoulder pain: Status: Acute (12) Bicytopenia: Status: Acute (13) Hypothyroid: Qualifiers: Hypothyroidism type: unspecified Qualified Code(s): E03.9 - Hypothyroidism, unspecified Status: Acute (14) Daytime sleepiness: Status: Acute (15) Bicytopenia: Status: Acute (16) Stable proliferative diabetic retinopathy: Status: Acute (17) Vitamin D deficiency: Status: Acute (18) B12 deficiency: Status: Acute (19) Dyslipidemia: Status: Acute (20) Hypertension: Qualifiers: Hypertension type: essential hypertension Qualified Code(s): I10 - Essential (primary) hypertension Status: Acute (21) Diabetic polyneuropathy associated with type 2 diabetes mellitus: Status: Acute (22) half-way (current) use of insulin: Status: Acute (23) Diabetes type 2, uncontrolled: Status: Acute Plan Plan is to maintain support as above with low volume on the ventilator to prevent any lung trauma and use a paralytic as needed to keep him synchronous with the ventilator and try to obtain a surveillance sputum if we can to rule out any nosocomial superimposed infection and maintain his anticoagulation
[2021-08-06] MEDS: Rocuronium Bromide 50 MG/5 ML VIAL 35 MG IVPUSH ×3 (17:00→23:57)
--- NOTE | 2021-08-06 18:17 | PC.NURSE ---
Patient arrived to unit via bed at 1500 - patient appeared in distress, disorientated, not following commands, not tracking, RR low 40's, abdominal breathing, accessory muscle use. Patient intubated with 7.5 ETT, 25cm at lip - intubated with 40mg Propofol IVP & 30mg Rocuronium - Propofol gtt started - positive CO2 color change & breath sounds auscultated bilaterally. OGT and L IJ TLC placed by MD - CXR ordered and confirmed all placements - ETT pulled back to 24cm by RT per MD. SBP down to 80's - levophed gtt started and titrated per EMAR. Patient stacking breaths, high peak pressures - RT at bedside. Versed 2mg IVP & Versed gtt ordered - patient continued to stack breaths/high peak pressures. Rocuronium 35mg IVP q2hr PRN ordered for vent synchrony. Administered at 1700 with good effect. VSS stable at this time. Urine output 10-15cc/hr - MD aware. Patient placed on Prevlon system and air loss mattress in place. Skin C/D/I - no skin integity concerns noted - barrier cream applied to buttocks and patient repo q2hr.
[2021-08-06 18:29] LABS: Glucose, Whole Blood 166 mg/dL (60-115)
[2021-08-06] MEDS: propofoL 1,000 MG/100 ML VIAL 10.98 MG IVCONT (19:59)
[2021-08-06] MEDS: Atorvastatin Calcium 80 MG TABLET PO (19:59)
[2021-08-06 20:39] LABS: Glucose, Whole Blood 174 mg/dL (60-115)
[2021-08-06] MEDS: Albuterol/Iprat 2.5/0.5MG 3 ML AMPUL.NEB INHALE (21:12)
[2021-08-06] MEDS: Chlorhexidine Gluc Oral Rinse 15 ML MOUTHWASH BUCCAL (21:55)
[2021-08-07] VITALS (38 sets, daily range): BP systolic 91–134; BP diastolic 53–76; PULSE 87–107; RESP 11–30; TEMP 33.6–37.5; O2SAT 90–96; BMI 21.0
[2021-08-07] MEDS: Cisatracurium Besylate 100 MG in 0.9 % Sodium Chloride 40 ML IVCONT ×2 (02:15→07:28)
[2021-08-07] MEDS: propofoL 1,000 MG/100 ML VIAL 10.98 MG IVCONT ×3 (04:53→17:28)
[2021-08-07] MEDS: Levothyroxine Sodium 125 MCG TABLET PO ×2 (05:51)
[2021-08-07 05:52] LABS: VBG Base Excess 3.8 mmol/L; VBG HCO3 32 mmol/L (22-26); VBG pCO2 70 mmHg; VBG pH 7.27 (7.32-7.43); VBG pO2 55 mmHg
[2021-08-07 05:54] LABS: Basophils Percent Auto 0.1 % (0-2); Hematocrit 39.4 % (42.0-52.0); Hemoglobin 12.3 g/dl (14.0-18.0); Imm Gran Abs Auto 0.23 X10*3/uL (0.00-0.03); Imm Gran Pct Auto 1.1 % (0.0-0.4); Lymphocytes Absolute Auto 0.7 X10*3/uL (1.2-4.9); MANUAL DIFF FLAG SCAN; Mean Corpuscular HGB Conc 31.2 g/dl (31.0-36.0); Mean Corpuscular Hemoglobin 27.8 pg (27.0-33.0); Mean Corpuscular Volume 88.9 fL (80.0-98.0); Mean Platelet Volume 9.7 fL (9.4-12.4); Monocytes Percent Auto 4.7 % (2-11); NRBC Pct Auto 0.1 /100WBC (0.0-0.2); Neutrophils Absolute Auto 19.8 x10*3/uL (2.0-8.3); Neutrophils Percent Auto 91.1 % (45-73); Platelet Count 398 X10*3/uL (160-400); Red Blood Count 4.43 X10*6/uL (4.60-5.80); Red Cell Distribution Width 14.7 % (11.0-16.0); SCAN SMEAR FLAG 1; White Blood Count 21.8 X10*3/uL (4.8-10.8)
[2021-08-07 06:01] LABS: INTERNATIONAL NORM RATIO 1.3 (0.9-1.1); Prothrombin Time 14.9 SEC (9.9-13.0)
[2021-08-07 06:05] LABS: Venous Blood Gas Refer to POC result
[2021-08-07 06:15] LABS: B Type Natriuretic Peptide 735 pg/mL (<100)
[2021-08-07 06:26] LABS: Anion Gap 13 (12-20); Blood Urea Nitrogen 35 mg/dL (9-16); Calcium 8.3 mg/dL (8.4-10.2); Carbon Dioxide 30 mmol/L (22-29); Chloride 101 mmol/L (96-108); Creatinine Clr Calc Pharmacy 63.3; Estimated Glomerular Filt Rate > 60; Glucose Random 289 mg/dL (60-115); Lactate Dehydrogenase 599 U/L (118-273); Magnesium 2.4 mg/dL (1.6-2.6); Phosphorus 4.4 mg/dL (2.7-4.5); Potassium 5.9 mmol/L (3.3-5.1); Sodium 138 mmol/L (135-145)
[2021-08-07 06:35] LABS: Ferritin 1031 ng/mL (20-250)
[2021-08-07 06:42] LABS: SLIDE REVIEW VERIFIED
[2021-08-07 07:23] LABS: Glucose, Whole Blood 211 mg/dL (60-115)
[2021-08-07] MEDS: Cholecalciferol (Vitamin D3) 25 MCG TABLET 50 MCG PO (07:28)
[2021-08-07] MEDS: Chlorhexidine Gluc Oral Rinse 15 ML MOUTHWASH BUCCAL ×3 (07:28→21:46)
[2021-08-07] MEDS: Aspirin 81 MG TAB.CHEW PO (07:28)
[2021-08-07] MEDS: Insulin Lispro 100 UNIT/ML 3 ML VIAL SUBCUT ×4 (07:31→21:46)
[2021-08-07] MEDS: methylPREDNISolone Sod Succ 40 MG/ML VIAL IVPUSH ×2 (07:32→21:46)
[2021-08-07] MEDS: 0.9 % Sodium Chloride Flush 3 ML SYRINGE IVFLUSH ×2 (07:32→16:17)
[2021-08-07] MEDS: Midazolam HCl/NS 50 MG/50 ML PLAST..BAG IVCONT ×2 (07:36→21:47)
[2021-08-07] MEDS: Albuterol/Iprat 2.5/0.5MG 3 ML AMPUL.NEB INHALE ×4 (08:02→20:23)
[2021-08-07] MEDS: Enoxaparin Sodium 60 MG/0.6 ML SYRINGE SUBCUT ×2 (09:27→21:47)
[2021-08-07] MEDS: Sodium Polystyrene Sulfon/Sorb 15 GM/60 ML ORAL.SUSP PO (09:50)
[2021-08-07 11:00] LABS: Vancomycin Trough < 3.0 mcg/mL (10.0-20.0)
[2021-08-07 11:18] LABS: Glucose, Whole Blood 254 mg/dL (60-115)
[2021-08-07] MEDS: Midazolam HCl/PF 2 MG/2 ML VIAL 4 MG IVPUSH (13:08)
--- NOTE | 2021-08-07 14:09 | MHC.CM.PN ---
Pt is now in ICU on ventilatory support: D/C plan may need to be revisited: originally, pt was to return to home with family and ARLETTE RN . CM to follow
[2021-08-07 15:56] LABS: Glucose, Whole Blood 233 mg/dL (60-115)
--- NOTE | 2021-08-07 17:53 | P.PNCC_ITS ---
Subjective Subjective Date of Service: 08/07/21 <Fredrick Roblero MD - Last Filed: 08/08/21 11:44> Interval History: No significant changes in this 70-year-old who were originally diagnosed with COVID pneumonitis a month ago was discharged between the and of this month readmitted with worsening hypoxic respiratory failure resulting in intubation and severely noncompliant lung on very low tidal volume below 6 cc /kilos in the low 300s FiO2 75% and with a permissive degree of hypercapnia at 64 for the pCO2 and oxygen saturations 92% bedside echocardiogram shows concentric left ventricular hypertrophy but greater than 60% ejection fraction with comfortable CVP of approximately 5 no significant right heart issues but there is but borderline increase in right ventricular end-diastolic dimension no primary valve or pericardial disease and probably mild levels of pulmonary hypertension No laboratory issues either <Fredrick Roblero MD - Last Filed: 08/08/21 11:44> Critical Care Time (minutes): 45 <Fredrick Roblero MD - Last Filed: 08/08/21 11:44> Physical Exam Verdana 4l Vital Signs: Verdana 4d Verdana 4d Vital Signs: Verdana 4d Verdana 4Bd Last Vital Signs Verdana 4d Frame Operator New 4d Frame Operator New 4d Temp 98.4 F 08/07/21 17:00 Frame Operator New 4d Pulse 87 08/07/21 17:00 Frame Operator New 4d Resp 18 08/07/21 17:00 BP 115/65 08/07/21 17:00 Pulse Ox 94 08/07/21 17:00 BMI result Body Mass Index 21.0 <Fredrick Roblero MD - Last Filed: 08/08/21 11:44> Synchronous with ventilator on the sedation no focal neurologic issues Skin is intact Abdomen is benign with no organomegaly and tolerating feedings Lungs with diminished bilateral breath sounds Cardiac by bedside echo as previously described <Fredrick Roblero MD - Last Filed: 08/08/21 11:44> Objective Data Labs CBC & Chem 7: : 08/08/21 05:15 08/08/21 05:15 <Fredrick Roblero MD - Last Filed: 08/08/21 11:44> Labs: Laboratory Results - last 24 hr 08/06/21 08/06/21 08/07/21 17:46 20:27 05:40 WBC RBC Hgb Hct MCV MCH MCHC RDW Plt Count MPV Immature Gran % (Auto) Neut % (Auto) Lymph % (Auto) [place] % (Auto) Eos % (Auto) Baso % (Auto) Lymph # (Auto) [place] # (Auto) Eos # (Auto) Baso # (Auto) Abs Immat Gran (auto) Absolute Neuts (auto) Absolute Nucleated RBC Nucleated RBC % (auto) Smear Tech's Comments PT 14.9 H INR 1.3 H VBG pH VBG pCO2 VBG pO2 VBG HCO3 VBG O2 Saturation VBG Base Excess Sodium Potassium Chloride Carbon Dioxide Anion Gap BUN Creatinine Estim Creat Clear Calc Estimated GFR POC Glucose 166 H 174 H Random Glucose Calcium Phosphorus Magnesium Ferritin Lactate Dehydrogenase C-Reactive Protein B-Natriuretic Peptide Vancomycin Trough 08/07/21 08/07/21 08/07/21 05:40 05:40 05:40 WBC 21.8 H RBC 4.43 L Hgb 12.3 L Hct 39.4 L MCV 88.9 MCH 27.8 MCHC 31.2 RDW 14.7 Plt Count 398 MPV 9.7 Immature Gran % (Auto) 1.1 H Neut % (Auto) 91.1 H Lymph % (Auto) 3.0 L [place] % (Auto) 4.7 Eos % (Auto) 0.0 Baso % (Auto) 0.1 Lymph # (Auto) 0.7 L [place] # (Auto) 1.0 Eos # (Auto) 0.0 Baso # (Auto) 0.0 Abs Immat Gran (auto) 0.23 H Absolute Neuts (auto) 19.8 H Absolute Nucleated RBC 0.030 H Nucleated RBC % (auto) 0.1 Smear Tech's Comments VERIFIED PT INR VBG pH VBG pCO2 VBG pO2 VBG HCO3 VBG O2 Saturation VBG Base Excess Sodium 138 Potassium 5.9 H Chloride 101 Carbon Dioxide 30 H Anion Gap 13 BUN 35 H Creatinine 0.91 Estim Creat Clear Calc 63.3 Estimated GFR > 60 POC Glucose Random Glucose 289 H Calcium 8.3 L Phosphorus 4.4 Magnesium 2.4 Ferritin 1031 H Lactate Dehydrogenase 599 H C-Reactive Protein 7.10 H B-Natriuretic Peptide 735 H Vancomycin Trough 08/07/21 08/07/21 08/07/21 05:45 07:18 10:16 WBC RBC Hgb Hct MCV MCH MCHC RDW Plt Count MPV Immature Gran % (Auto) Neut % (Auto) Lymph % (Auto) [place] % (Auto) Eos % (Auto) Baso % (Auto) Lymph # (Auto) [place] # (Auto) Eos # (Auto) Baso # (Auto) Abs Immat Gran (auto) Absolute Neuts (auto) Absolute Nucleated RBC Nucleated RBC % (auto) Smear Tech's Comments PT INR VBG pH 7.27 L VBG pCO2 70 VBG pO2 55 VBG HCO3 32 H VBG O2 Saturation 80.0 VBG Base Excess 3.8 Sodium Potassium Chloride Carbon Dioxide Anion Gap BUN Creatinine Estim Creat Clear Calc Estimated GFR POC Glucose 211 H Random Glucose Calcium Phosphorus Magnesium Ferritin Lactate Dehydrogenase C-Reactive Protein B-Natriuretic Peptide Vancomycin Trough < 3.0 L 08/07/21 08/07/21 11:10 15:49 WBC RBC Hgb Hct MCV MCH MCHC RDW Plt Count MPV Immature Gran % (Auto) Neut % (Auto) Lymph % (Auto) [place] % (Auto) Eos % (Auto) Baso % (Auto) Lymph # (Auto) [place] # (Auto) Eos # (Auto) Baso # (Auto) Abs Immat Gran (auto) Absolute Neuts (auto) Absolute Nucleated RBC Nucleated RBC % (auto) Smear Tech's Comments PT INR VBG pH VBG pCO2 VBG pO2 VBG HCO3 VBG O2 Saturation VBG Base Excess Sodium Potassium Chloride Carbon Dioxide Anion Gap BUN Creatinine Estim Creat Clear Calc Estimated GFR POC Glucose 254 H 233 H Random Glucose Calcium Phosphorus Magnesium Ferritin Lactate Dehydrogenase C-Reactive Protein B-Natriuretic Peptide Vancomycin Trough <Fredrick Roblero MD - Last Filed: 08/08/21 11:44> Microbiology Microbiology Results: Microbiology 07/29/21 09:18 Blood - Venous Blood Culture - Final No growth after 5 days. 07/29/21 08:53 Blood - Venous Blood Culture - Final No growth after 5 days. <Fredrick Roblero MD - Last Filed: 08/08/21 11:44> Progress Note: A&P Assessment and plan (1) Cor pulmonale: Status: Acute <Fredrick Roblero MD - Last Filed: 08/08/21 11:44> (2) Multiple cerebral infarctions: Status: Acute <Fredrick Roblero MD - Last Filed: 08/08/21 11:44> (3) Toxic metabolic encephalopathy: Status: Acute <Fredrick Roblero MD - Last Filed: 08/08/21 11:44> (4) Acute and chronic respiratory failure with hypoxia: Status: Acute <Fredrick Roblero MD - Last Filed: 08/08/21 11:44> (5) Pneumonia: Status: Acute <Fredrick Roblero MD - Last Filed: 08/08/21 11:44> (6) Hypoxia: Status: Acute <Fredrick Roblero MD - Last Filed: 08/08/21 11:44> (7) Sepsis: Status: Acute <Fredrick Roblero MD - Last Filed: 08/08/21 11:44> (8) Acute respiratory alkalosis: Status: Acute <Fredrick Roblero MD - Last Filed: 08/08/21 11:44> (9) Pulmonary emboli: Status: Acute <Fredrick Roblero MD - Last Filed: 08/08/21 11:44> (10) Diabetes mellitus: Status: Acute <Fredrick Roblero MD - Last Filed: 08/08/21 11:44> (11) Right shoulder pain: Status: Acute <Fredrick Roblero MD - Last Filed: 08/08/21 11:44> (12) Bicytopenia: Status: Acute <Fredrick Roblero MD - Last Filed: 08/08/21 11:44> (13) Hypothyroid: Status: Acute <Fredrick Roblero MD - Last Filed: 08/08/21 11:44> (14) Daytime sleepiness: Status: Acute <Fredrick Roblero MD - Last Filed: 08/08/21 11:44> (15) Bicytopenia: Status: Acute <Fredrick Roblero MD - Last Filed: 08/08/21 11:44> (16) Stable proliferative diabetic retinopathy: Status: Acute <Fredrick Roblero MD - Last Filed: 08/08/21 11:44> (17) Vitamin D deficiency: Status: Acute <Fredrick Roblero MD - Last Filed: 08/08/21 11:44> (18) B12 deficiency: Status: Acute <Fredrick Roblero MD - Last Filed: 08/08/21 11:44> (19) Dyslipidemia: Status: Acute <Fredrick Roblero MD - Last Filed: 08/08/21 11:44> (20) Hypertension: Status: Acute <Fredrick Roblero MD - Last Filed: 08/08/21 11:44> (21) Diabetic polyneuropathy associated with type 2 diabetes mellitus: Status: Acute <Fredrick Roblero MD - Last Filed: 08/08/21 11:44> (22) oil heaterman (current) use of insulin: Status: Acute <Fredrick Roblero MD - Last Filed: 08/08/21 11:44> (23) Diabetes type 2, uncontrolled: Status: Acute <Fredrick Roblero MD - Last Filed: 08/08/21 11:44> Plan Unchanged and will maintain his ventilator support as above which is all that were doing for the time being no other direct therapy for the COVID virus and of course with doing surveillance for secondary infected aunts Pt's , Leydi, gave permission for her daughter to get information for her, Laura Casanova [phone] <Fredrick Roblero MD - Last Filed: 08/08/21 11:44> Pt's , Leydi, gave permission for her daughter to get information for her, Laura Casanova [phone] <Chiquis Hall PA-C - Last Filed: 08/07/21 21:08> Quality Stroke Does the patient have a stroke diagnosis?: No <Fredrick Roblero MD - Last Filed: 08/08/21 11:44> VTE Prior VTE?: No <Fredrick Roblero MD - Last Filed: 08/08/21 11:44> VTE Risk Level:: Medical - moderate - high <Fredrick Roblero MD - Last Filed: 08/08/21 11:44> VTE Device Contraindication: Treatment Not Indicated <Fredrick Roblero MD - Last Filed: 08/08/21 11:44> VTE Drug Contraindication: N/A - Med Ordered <Fredrick Roblero MD - Last Filed: 08/08/21 11:44>
[2021-08-07 21:28] LABS: Glucose, Whole Blood 207 mg/dL (60-115)
[2021-08-07] MEDS: Insulin Glargine,Hum.rec.anlog 100 UNIT/ML 10 ML VIAL 10 UNIT SUBCUT (21:46)
[2021-08-07] MEDS: Atorvastatin Calcium 80 MG TABLET PO (21:46)
[2021-08-07] MEDS: propofoL 1,000 MG/100 ML VIAL 14.64 MG IVCONT (23:45)
[2021-08-08] VITALS (35 sets, daily range): BP systolic 111–130; BP diastolic 54–75; PULSE 87–108; RESP 11–26; TEMP 33.4–37.9; O2SAT 89–95
[2021-08-08] MEDS: Rocuronium Bromide 50 MG/5 ML VIAL IVPUSH ×3 (04:22→23:01)
[2021-08-08] MEDS: propofoL 1,000 MG/100 ML VIAL 14.64 MG IVCONT ×4 (04:44→18:01)
[2021-08-08 05:25] LABS: VBG Base Excess 9.8 mmol/L; VBG HCO3 37 mmol/L (22-26); VBG pCO2 64 mmHg; VBG pH 7.37 (7.32-7.43); VBG pO2 54 mmHg
[2021-08-08 05:49] LABS: Venous Blood Gas Refer to POC result
[2021-08-08 05:52] LABS: Basophils Percent Auto 0.1 % (0-2); Hemoglobin 11.7 g/dl (14.0-18.0); Imm Gran Abs Auto 0.22 X10*3/uL (0.00-0.03); Imm Gran Pct Auto 1.2 % (0.0-0.4); Lymphocytes Absolute Auto 0.5 X10*3/uL (1.2-4.9); Lymphocytes Percent Auto 2.8 % (20-40); MANUAL DIFF FLAG SCAN; Mean Corpuscular HGB Conc 31.6 g/dl (31.0-36.0); Mean Corpuscular Hemoglobin 28.4 pg (27.0-33.0); Mean Corpuscular Volume 89.8 fL (80.0-98.0); Mean Platelet Volume 10.1 fL (9.4-12.4); Monocytes Absolute Auto 0.7 X10*3/uL (0.1-1.2); Monocytes Percent Auto 3.8 % (2-11); NRBC Pct Auto 0.2 /100WBC (0.0-0.2); Neutrophils Absolute Auto 16.9 x10*3/uL (2.0-8.3); Neutrophils Percent Auto 92.1 % (45-73); Platelet Count 350 X10*3/uL (160-400); Red Blood Count 4.12 X10*6/uL (4.60-5.80); Red Cell Distribution Width 14.6 % (11.0-16.0); SCAN SMEAR FLAG 1; White Blood Count 18.3 X10*3/uL (4.8-10.8)
[2021-08-08 06:02] LABS: INTERNATIONAL NORM RATIO 1.3 (0.9-1.1); Prothrombin Time 14.4 SEC (9.9-13.0)
[2021-08-08 06:08] LABS: B Type Natriuretic Peptide 182 pg/mL (<100)
[2021-08-08 06:14] LABS: Anion Gap 12 (12-20); Blood Urea Nitrogen 31 mg/dL (9-16); Calcium 7.9 mg/dL (8.4-10.2); Carbon Dioxide 31 mmol/L (22-29); Chloride 101 mmol/L (96-108); Creatinine Clr Calc Pharmacy 70.2; Estimated Glomerular Filt Rate > 60; Glucose Random 331 mg/dL (60-115); Lactate Dehydrogenase 563 U/L (118-273); Magnesium 2.4 mg/dL (1.6-2.6); Potassium 5.3 mmol/L (3.3-5.1); Sodium 139 mmol/L (135-145)
[2021-08-08 06:36] LABS: Ferritin 841 ng/mL (20-250)
[2021-08-08 06:53] LABS: SLIDE REVIEW VERIFIED
[2021-08-08 07:17] LABS: Glucose, Whole Blood 300 mg/dL (60-115)
[2021-08-08] MEDS: Insulin Lispro 100 UNIT/ML 3 ML VIAL SUBCUT ×4 (07:20→20:19)
[2021-08-08] MEDS: Aspirin 81 MG TAB.CHEW PO (07:20)
[2021-08-08] MEDS: 0.9 % Sodium Chloride Flush 3 ML SYRINGE IVFLUSH ×3 (07:20→23:36)
[2021-08-08] MEDS: Cholecalciferol (Vitamin D3) 25 MCG TABLET 50 MCG PO (07:20)
[2021-08-08] MEDS: methylPREDNISolone Sod Succ 40 MG/ML VIAL IVPUSH ×2 (07:21→20:19)
[2021-08-08] MEDS: Chlorhexidine Gluc Oral Rinse 15 ML MOUTHWASH BUCCAL ×3 (07:21→20:19)
[2021-08-08] MEDS: Midazolam HCl/NS 50 MG/50 ML PLAST..BAG IVCONT ×2 (07:44→18:00)
[2021-08-08] MEDS: Albuterol/Iprat 2.5/0.5MG 3 ML AMPUL.NEB INHALE ×4 (08:41→20:02)
--- NOTE | 2021-08-08 11:05 | MHC.CLN ---
F/U PT WITH INCREASED NUTRITION RISK R/T FRAGILE SKIN PT IS NOW INTUBATED AND SEDATED DISCUSSED AT ROUNDS PT IS CURRENTLY TOLERATING TF AT HALF STRENGTH; GLUCERNA AT 30ML/HR WITH 120CC FREE WATER FLUSHES Q 6HRS PROVIDES 720KCALS (1106KCALS WITH SEDATION), 30G PROTEIN, 1094ML TOTAL WATER FROM FORMULA AND FLUSHES RECOMMEND SLOWLY INCREASING TF GLUCERNA AT MAX GOAL RATE 60ML/HR WITH 120CC FREE WATER FLUSHES Q 6HRS TO PROVIDE 1440KCALS (1826KCALS WITH SEDATION; 30KCALS/KG), 60G PROTEIN (.98G/KG), 1708ML TOTAL WATER FROM FORMULA AND FLUSHES (28ML/KG) MONITOR TOLERANCE, RESIDUALS AND LYTES
[2021-08-08] MEDS: Enoxaparin Sodium 60 MG/0.6 ML SYRINGE SUBCUT ×2 (11:28→21:24)
[2021-08-08 11:34] LABS: Glucose, Whole Blood 268 mg/dL (60-115)
--- NOTE | 2021-08-08 11:44 | P.PNCC_ITS ---
Subjective Subjective Date of Service: 08/08/21 Critical Care Time (minutes): 45 Comment: 70-year-old with COVID-19 pneumonitis diagnosed a month ago spent 3 weeks in the hospital discharged on the and readmitted on the with worsening hypoxemic respiratory failure but looks like evolving ARDS coming to intubation today being day 3 and no other complicating issues he did have evidence of hyper coagulability with bilateral cerebral infarcts in bilateral pulmonary infarcts and he is fully anticoagulated and remains sedated on the ventilator with no oth er specific therapy and still not producing any secretions and no major changes on the ventilator with FiO2 of 75% and oxygen saturation of 92% and he is in sinus rhythm at 95 with concentric left ventricular hypertrophy but globally normal systolic function Physical Exam Verdana 4l Vital Signs: Verdana 4d Verdana 4d Vital Signs: Verdana 4d Verdana 4Bd Last Vital Signs Verdana 4d Sanitation Technician New 4d Sanitation Technician New 4d Temp 98.6 F 08/08/21 11:00 Sanitation Technician New 4d Pulse 91 08/08/21 11:31 Sanitation Technician New 4d Resp 22 H 08/08/21 11:31 BP 128/69 08/08/21 11:00 Pulse Ox 91 L 08/08/21 11:00 BMI result Body Mass Index 21.0 Sedated/intubated and nonfocal neurologically and good ventilator synchrony Chest with diminished bilateral breath sounds Cardiac by bedside echo with concentric LVH normal LV systolic function Abdomen soft no organomegaly Objective Data Labs CBC & Chem 7: 08/08/21 05:15 08/08/21 05:15 Labs: Laboratory Results - last 24 hr 08/07/21 08/07/21 08/08/21 15:49 21:19 05:15 WBC RBC Hgb Hct MCV MCH MCHC RDW Plt Count MPV Immature Gran % (Auto) Neut % (Auto) Lymph % (Auto) [place] % (Auto) Eos % (Auto) Baso % (Auto) Lymph # (Auto) [place] # (Auto) Eos # (Auto) Baso # (Auto) Abs Immat Gran (auto) Absolute Neuts (auto) Absolute Nucleated RBC Nucleated RBC % (auto) Smear Tech's Comments PT 14.4 H INR 1.3 H VBG pH VBG pCO2 VBG pO2 VBG HCO3 VBG O2 Saturation VBG Base Excess Sodium Potassium Chloride Carbon Dioxide Anion Gap BUN Creatinine Estim Creat Clear Calc Estimated GFR POC Glucose 233 H 207 H Random Glucose Calcium Phosphorus Magnesium Ferritin Lactate Dehydrogenase C-Reactive Protein B-Natriuretic Peptide 08/08/21 08/08/21 08/08/21 05:15 05:15 05:15 WBC 18.3 H RBC 4.12 L Hgb 11.7 L Hct 37.0 L MCV 89.8 MCH 28.4 MCHC 31.6 RDW 14.6 Plt Count 350 MPV 10.1 Immature Gran % (Auto) 1.2 H Neut % (Auto) 92.1 H Lymph % (Auto) 2.8 L [place] % (Auto) 3.8 Eos % (Auto) 0.0 Baso % (Auto) 0.1 Lymph # (Auto) 0.5 L [place] # (Auto) 0.7 Eos # (Auto) 0.0 Baso # (Auto) 0.0 Abs Immat Gran (auto) 0.22 H Absolute Neuts (auto) 16.9 H Absolute Nucleated RBC 0.030 H Nucleated RBC % (auto) 0.2 Smear Tech's Comments VERIFIED PT INR VBG pH VBG pCO2 VBG pO2 VBG HCO3 VBG O2 Saturation VBG Base Excess Sodium 139 Potassium 5.3 H Chloride 101 Carbon Dioxide 31 H Anion Gap 12 BUN 31 H Creatinine 0.82 Estim Creat Clear Calc 70.2 Estimated GFR > 60 POC Glucose Random Glucose 331 H Calcium 7.9 L Phosphorus 3.0 Magnesium 2.4 Ferritin 841 H Lactate Dehydrogenase 563 H C-Reactive Protein 4.20 H B-Natriuretic Peptide 182 H 08/08/21 08/08/21 08/08/21 05:17 07:13 11:30 WBC RBC Hgb Hct MCV MCH MCHC RDW Plt Count MPV Immature Gran % (Auto) Neut % (Auto) Lymph % (Auto) [place] % (Auto) Eos % (Auto) Baso % (Auto) Lymph # (Auto) [place] # (Auto) Eos # (Auto) Baso # (Auto) Abs Immat Gran (auto) Absolute Neuts (auto) Absolute Nucleated RBC Nucleated RBC % (auto) Smear Tech's Comments PT INR VBG pH 7.37 VBG pCO2 64 VBG pO2 54 VBG HCO3 37 H VBG O2 Saturation 83.0 VBG Base Excess 9.8 Sodium Potassium Chloride Carbon Dioxide Anion Gap BUN Creatinine Estim Creat Clear Calc Estimated GFR POC Glucose 300 H 268 H Random Glucose Calcium Phosphorus Magnesium Ferritin Lactate Dehydrogenase C-Reactive Protein B-Natriuretic Peptide Microbiology Microbiology Results: Microbiology 07/29/21 09:18 Blood - Venous Blood Culture - Final No growth after 5 days. 07/29/21 08:53 Blood - Venous Blood Culture - Final No growth after 5 days. Progress Note: A&P Assessment and plan (1) Cor pulmonale: Status: Acute (2) Multiple cerebral infarctions: Status: Acute (3) Toxic metabolic encephalopathy: Status: Acute (4) Acute and chronic respiratory failure with hypoxia: Status: Acute (5) Pneumonia: Status: Acute (6) Hypoxia: Status: Acute (7) Sepsis: Status: Acute (8) Acute respiratory alkalosis: Status: Acute (9) Pulmonary emboli: Status: Acute (10) Diabetes mellitus: Status: Acute (11) Right shoulder pain: Status: Acute (12) Bicytopenia: Status: Acute (13) Hypothyroid: Status: Acute (14) Daytime sleepiness: Status: Acute (15) Bicytopenia: Status: Acute (16) Stable proliferative diabetic retinopathy: Status: Acute (17) Vitamin D deficiency: Status: Acute (18) B12 deficiency: Status: Acute (19) Dyslipidemia: Status: Acute (20) Hypertension: Status: Acute (21) Diabetic polyneuropathy associated with type 2 diabetes mellitus: Status: Acute (22) intermediate card tender (current) use of insulin: Status: Acute (23) Diabetes type 2, uncontrolled: Status: Acute Quality Stroke Does the patient have a stroke diagnosis?: No VTE Prior VTE?: No VTE Risk Level:: Medical - moderate - high VTE Device Contraindication: Treatment Not Indicated VTE Drug Contraindication: N/A - Med Ordered
[2021-08-08 16:12] LABS: Glucose, Whole Blood 262 mg/dL (60-115)
[2021-08-08] MEDS: Sodium Polystyrene Sulfon/Sorb 15 GM/60 ML ORAL.SUSP PO (20:02)
[2021-08-08 20:17] LABS: Glucose, Whole Blood 194 mg/dL (60-115)
[2021-08-08] MEDS: Insulin Glargine,Hum.rec.anlog 100 UNIT/ML 10 ML VIAL 10 UNIT SUBCUT (20:19)
[2021-08-08] MEDS: Atorvastatin Calcium 80 MG TABLET PO (20:19)
[2021-08-09] VITALS (37 sets, daily range): BP systolic 94–139; BP diastolic 53–73; PULSE 18–102; RESP 18–21; TEMP 33.4–37.6; O2SAT 87–94
[2021-08-09] MEDS: propofoL 1,000 MG/100 ML VIAL 14.64 MG IVCONT ×5 (00:34→23:36)
[2021-08-09] MEDS: Rocuronium Bromide 50 MG/5 ML VIAL IVPUSH ×2 (02:10→06:36)
[2021-08-09] MEDS: Midazolam HCl/NS 50 MG/50 ML PLAST..BAG IVCONT ×3 (03:15→20:27)
[2021-08-09 05:37] LABS: VBG Base Excess 16.4 mmol/L; VBG HCO3 44 mmol/L (22-26); VBG pCO2 69 mmHg; VBG pH 7.41 (7.32-7.43); VBG pO2 42 mmHg
[2021-08-09 05:38] LABS: Venous Blood Gas Refer to POC result
[2021-08-09 06:09] LABS: Basophils Percent Auto 0.1 % (0-2); Eosinophils Percent Auto 0.1 % (0-4); Hematocrit 35.6 % (42.0-52.0); Hemoglobin 11.1 g/dl (14.0-18.0); Imm Gran Abs Auto 0.13 X10*3/uL (0.00-0.03); Imm Gran Pct Auto 0.7 % (0.0-0.4); Lymphocytes Absolute Auto 0.6 X10*3/uL (1.2-4.9); Lymphocytes Percent Auto 3.2 % (20-40); MANUAL DIFF FLAG SCAN; Mean Corpuscular HGB Conc 31.2 g/dl (31.0-36.0); Mean Corpuscular Hemoglobin 28.6 pg (27.0-33.0); Mean Corpuscular Volume 91.8 fL (80.0-98.0); Monocytes Absolute Auto 0.8 X10*3/uL (0.1-1.2); Monocytes Percent Auto 4.4 % (2-11); Neutrophils Percent Auto 91.5 % (45-73); Platelet Count 288 X10*3/uL (160-400); Red Blood Count 3.88 X10*6/uL (4.60-5.80); SCAN SMEAR FLAG 1; White Blood Count 17.4 X10*3/uL (4.8-10.8)
[2021-08-09 06:16] LABS: INTERNATIONAL NORM RATIO 1.2 (0.9-1.1); Prothrombin Time 13.9 SEC (9.9-13.0)
[2021-08-09 06:28] LABS: B Type Natriuretic Peptide 176 pg/mL (<100)
[2021-08-09 06:36] LABS: Anion Gap 10 (12-20); Blood Urea Nitrogen 26 mg/dL (9-16); C Reactive Protein 2.35 mg/dL (< or = 0.50); Calcium 7.8 mg/dL (8.4-10.2); Carbon Dioxide 36 mmol/L (22-29); Chloride 100 mmol/L (96-108); Creatinine Clr Calc Pharmacy 75.8; Estimated Glomerular Filt Rate > 60; Glucose Random 226 mg/dL (60-115); Magnesium 2.3 mg/dL (1.6-2.6); Phosphorus 2.7 mg/dL (2.7-4.5); Sodium 141 mmol/L (135-145)
[2021-08-09 06:37] LABS: SLIDE REVIEW VERIFIED
[2021-08-09 06:45] LABS: Lactate Dehydrogenase 622 U/L (118-273)
[2021-08-09 06:59] LABS: Ferritin 854 ng/mL (20-250)
[2021-08-09] MEDS: Albuterol/Iprat 2.5/0.5MG 3 ML AMPUL.NEB INHALE ×4 (07:29→19:28)
[2021-08-09] MEDS: 0.9 % Sodium Chloride Flush 3 ML SYRINGE IVFLUSH (07:36)
[2021-08-09] MEDS: Insulin Lispro 100 UNIT/ML 3 ML VIAL SUBCUT ×4 (07:41→23:36)
[2021-08-09 07:44] LABS: Glucose, Whole Blood 226 mg/dL (60-115)
[2021-08-09] MEDS: Aspirin 81 MG TAB.CHEW PO (08:37)
[2021-08-09] MEDS: Cholecalciferol (Vitamin D3) 25 MCG TABLET 50 MCG PO (08:37)
[2021-08-09] MEDS: Chlorhexidine Gluc Oral Rinse 15 ML MOUTHWASH BUCCAL ×3 (08:37→20:25)
[2021-08-09] MEDS: methylPREDNISolone Sod Succ 40 MG/ML VIAL IVPUSH ×2 (08:37→20:26)
--- NOTE | 2021-08-09 10:35 | P.PNCC_ITS ---
Subjective Subjective Date of Service: 08/09/21 Interval History: 70-year-old who a month ago was positive for COVID-19 with with bilateral pneumonitis he was discharged on the of this month after a 3 week hospitalization and initially he was also thought to have had bilateral segmen umesh pulmonary arterial thrombi and was started on apixaban came back 5 days later here on the and and this time was noted to have had being above CVA bilateral involvement but the biggest was the left parietal area and leaving him with some degree of hemiparesis but in addition he had hypoxemic respiratory failure and a CT scan picture consistent with ARDS and then eventually failed noninvasive therapy and is currently on ARDS protocol ventilator with very low tidal volumes because of very poor lung compliance and and a permissive degree of hypercapnia with a pCO2 of 69 at this point but were maintaining oxygen saturations of about 90% on an FiO2 of 80% pressures of 130/70 and he is hem odynamically stable Critical Care Time (minutes): 45 Physical Exam Verdana 4l Vital Signs: Verdana 4d Verdana 4d Vital Signs: Verdana 4d Verdana 4Bd Last Vital Signs Verdana 4d Bottom Saw Operator New 4d Bottom Saw Operator New 4d Temp 98.6 F 08/09/21 10:00 Bottom Saw Operator New 4d Pulse 96 08/09/21 10:00 Bottom Saw Operator New 4d Resp 20 08/09/21 10:00 BP 128/70 08/09/21 10:00 Pulse Ox 89 L 08/09/21 10:00 BMI result Body Mass Index 21.0 And bedside echo with normal LV and RV systolic performance and no primary valve or pericardial disease but he did have left ventricular hypertrophy Benign abdomen with no organomegaly Diminished bilateral breath sounds Neurologically nonfocal Objective Data Labs CBC & Chem 7: 08/09/21 05:20 08/09/21 05:20 Labs: Laboratory Results - last 24 hr 08/08/21 08/08/21 08/08/21 11:30 16:08 20:14 WBC RBC Hgb Hct MCV MCH MCHC RDW Plt Count MPV Immature Gran % (Auto) Neut % (Auto) Lymph % (Auto) [place] % (Auto) Eos % (Auto) Baso % (Auto) Lymph # (Auto) [place] # (Auto) Eos # (Auto) Baso # (Auto) Abs Immat Gran (auto) Absolute Neuts (auto) Absolute Nucleated RBC Nucleated RBC % (auto) Smear Tech's Comments PT INR VBG pH VBG pCO2 VBG pO2 VBG HCO3 VBG O2 Saturation VBG Base Excess Sodium Potassium Chloride Carbon Dioxide Anion Gap BUN Creatinine Estim Creat Clear Calc Estimated GFR POC Glucose 268 H 262 H 194 H Random Glucose Calcium Phosphorus Magnesium Ferritin Lactate Dehydrogenase C-Reactive Protein B-Natriuretic Peptide 08/09/21 08/09/21 08/09/21 05:20 05:20 05:20 WBC 17.4 H RBC 3.88 L Hgb 11.1 L Hct 35.6 L MCV 91.8 MCH 28.6 MCHC 31.2 RDW 15.0 Plt Count 288 MPV 10.0 Immature Gran % (Auto) 0.7 H Neut % (Auto) 91.5 H Lymph % (Auto) 3.2 L [place] % (Auto) 4.4 Eos % (Auto) 0.1 Baso % (Auto) 0.1 Lymph # (Auto) 0.6 L [place] # (Auto) 0.8 Eos # (Auto) 0.0 Baso # (Auto) 0.0 Abs Immat Gran (auto) 0.13 H Absolute Neuts (auto) 16.0 H Absolute Nucleated RBC 0.000 Nucleated RBC % (auto) 0.0 Smear Tech's Comments VERIFIED PT 13.9 H INR 1.2 H VBG pH VBG pCO2 VBG pO2 VBG HCO3 VBG O2 Saturation VBG Base Excess Sodium 141 Potassium 5.0 Chloride 100 Carbon Dioxide 36 H Anion Gap 10 L BUN 26 H Creatinine 0.76 Estim Creat Clear Calc 75.8 Estimated GFR > 60 POC Glucose Random Glucose 226 H Calcium 7.8 L Phosphorus 2.7 Magnesium 2.3 Ferritin 854 H Lactate Dehydrogenase 622 H C-Reactive Protein 2.35 H B-Natriuretic Peptide 08/09/21 08/09/21 08/09/21 05:20 05:30 07:40 WBC RBC Hgb Hct MCV MCH MCHC RDW Plt Count MPV Immature Gran % (Auto) Neut % (Auto) Lymph % (Auto) [place] % (Auto) Eos % (Auto) Baso % (Auto) Lymph # (Auto) [place] # (Auto) Eos # (Auto) Baso # (Auto) Abs Immat Gran (auto) Absolute Neuts (auto) Absolute Nucleated RBC Nucleated RBC % (auto) Smear Tech's Comments PT INR VBG pH 7.41 VBG pCO2 69 VBG pO2 42 VBG HCO3 44 H VBG O2 Saturation 70.0 VBG Base Excess 16.4 Sodium Potassium Chloride Carbon Dioxide Anion Gap BUN Creatinine Estim Creat Clear Calc Estimated GFR POC Glucose 226 H Random Glucose Calcium Phosphorus Magnesium Ferritin Lactate Dehydrogenase C-Reactive Protein B-Natriuretic Peptide 176 H Microbiology Microbiology Results: Microbiology 08/08/21 20:30 Sputum - Suctioned Gram Stain - Final 08/08/21 20:30 Sputum - Suctioned Sputum Culture - Preliminary Culture in progress. 07/29/21 09:18 Blood - Venous Blood Culture - Final No growth after 5 days. 07/29/21 08:53 Blood - Venous Blood Culture - Final No growth after 5 days. Progress Note: A&P Assessment and plan (1) Cor pulmonale: Status: Acute (2) Multiple cerebral infarctions: Status: Acute (3) Toxic metabolic encephalopathy: Status: Acute (4) Acute and chronic respiratory failure with hypoxia: Status: Acute (5) Pneumonia: Status: Acute (6) Hypoxia: Status: Acute (7) Sepsis: Status: Acute (8) Acute respiratory alkalosis: Status: Acute (9) Pulmonary emboli: Status: Acute (10) Diabetes mellitus: Status: Acute (11) Right shoulder pain: Status: Acute (12) Bicytopenia: Status: Acute (13) Hypothyroid: Status: Acute (14) Daytime sleepiness: Status: Acute (15) Bicytopenia: Status: Acute (16) Stable proliferative diabetic retinopathy: Status: Acute (17) Vitamin D deficiency: Status: Acute (18) B12 deficiency: Status: Acute (19) Dyslipidemia: Status: Acute (20) Hypertension: Status: Acute (21) Diabetic polyneuropathy associated with type 2 diabetes mellitus: Status: Acute (22) intermediate (current) use of insulin: Status: Acute (23) Diabetes type 2, uncontrolled: Status: Acute Plan Plan is to continue to maintain him on the ventilator no specific treatment otherwise being offered at this time no evidence of any other form of secondary infection Quality Stroke Does the patient have a stroke diagnosis?: No VTE Prior VTE?: No VTE Risk Level:: Medical - moderate - high VTE Device Contraindication: Treatment Not Indicated VTE Drug Contraindication: N/A - Med Ordered
[2021-08-09] MEDS: Enoxaparin Sodium 60 MG/0.6 ML SYRINGE SUBCUT ×2 (10:52→20:27)
[2021-08-09 12:12] LABS: Glucose, Whole Blood 176 mg/dL (60-115)
[2021-08-09 17:37] LABS: Glucose, Whole Blood 198 mg/dL (60-115)
[2021-08-09] MEDS: Atorvastatin Calcium 80 MG TABLET PO (20:25)
[2021-08-09] MEDS: Insulin Glargine,Hum.rec.anlog 100 UNIT/ML 10 ML VIAL 10 UNIT SUBCUT (20:25)
[2021-08-09 23:31] LABS: Glucose, Whole Blood 196 mg/dL (60-115)
[2021-08-10] VITALS (35 sets, daily range): BP systolic 98–121; BP diastolic 46–63; PULSE 15–104; RESP 14–32; TEMP 33.4–38.2; O2SAT 84–98
[2021-08-10] MEDS: Midazolam HCl/NS 50 MG/50 ML PLAST..BAG IVCONT ×2 (04:54→14:26)
[2021-08-10] MEDS: propofoL 1,000 MG/100 ML VIAL 14.64 MG IVCONT ×3 (04:54→17:00)
[2021-08-10] MEDS: Levothyroxine Sodium 125 MCG TABLET PO (05:33)
[2021-08-10 05:40] LABS: VBG Base Excess 20.9 mmol/L; VBG HCO3 49 mmol/L (22-26); VBG pCO2 74 mmHg; VBG pH 7.42 (7.32-7.43); VBG pO2 47 mmHg
[2021-08-10 05:42] LABS: Venous Blood Gas Refer to POC result
[2021-08-10 05:49] LABS: Glucose, Whole Blood 180 mg/dL (60-115)
[2021-08-10] MEDS: Insulin Lispro 100 UNIT/ML 3 ML VIAL SUBCUT ×3 (05:54→17:44)
[2021-08-10 06:13] LABS: Basophils Percent Auto 0.1 % (0-2); Hematocrit 33.5 % (42.0-52.0); Hemoglobin 10.3 g/dl (14.0-18.0); Imm Gran Abs Auto 0.09 X10*3/uL (0.00-0.03); Imm Gran Pct Auto 0.7 % (0.0-0.4); Lymphocytes Absolute Auto 0.4 X10*3/uL (1.2-4.9); Lymphocytes Percent Auto 2.7 % (20-40); MANUAL DIFF FLAG SCAN; Mean Corpuscular HGB Conc 30.7 g/dl (31.0-36.0); Mean Corpuscular Hemoglobin 28.2 pg (27.0-33.0); Mean Corpuscular Volume 91.8 fL (80.0-98.0); Mean Platelet Volume 10.2 fL (9.4-12.4); Monocytes Absolute Auto 0.5 X10*3/uL (0.1-1.2); Monocytes Percent Auto 3.7 % (2-11); Neutrophils Absolute Auto 12.2 x10*3/uL (2.0-8.3); Neutrophils Percent Auto 92.8 % (45-73); Platelet Count 214 X10*3/uL (160-400); Red Blood Count 3.65 X10*6/uL (4.60-5.80); Red Cell Distribution Width 14.9 % (11.0-16.0); SCAN SMEAR FLAG 1; White Blood Count 13.1 X10*3/uL (4.8-10.8)
[2021-08-10 06:20] LABS: INTERNATIONAL NORM RATIO 1.2 (0.9-1.1); Prothrombin Time 13.1 SEC (9.9-13.0)
[2021-08-10 06:35] LABS: B Type Natriuretic Peptide 537 pg/mL (<100)
[2021-08-10 06:41] LABS: Anion Gap 10 (12-20); Blood Urea Nitrogen 26 mg/dL (9-16); C Reactive Protein 2.24 mg/dL (< or = 0.50); Calcium 7.6 mg/dL (8.4-10.2); Carbon Dioxide 38 mmol/L (22-29); Chloride 97 mmol/L (96-108); Creatinine Clr Calc Pharmacy 87.2; Estimated Glomerular Filt Rate > 60; Glucose Random 206 mg/dL (60-115); Magnesium 2.3 mg/dL (1.6-2.6); Phosphorus 2.8 mg/dL (2.7-4.5); Potassium 4.8 mmol/L (3.3-5.1); Sodium 140 mmol/L (135-145)
[2021-08-10 06:43] LABS: SLIDE REVIEW VERIFIED
[2021-08-10 06:48] LABS: Lactate Dehydrogenase 541 U/L (118-273)
[2021-08-10 07:04] LABS: Ferritin 640 ng/mL (20-250)
[2021-08-10] MEDS: Albuterol/Iprat 2.5/0.5MG 3 ML AMPUL.NEB INHALE ×4 (07:29→19:49)
[2021-08-10] MEDS: Chlorhexidine Gluc Oral Rinse 15 ML MOUTHWASH BUCCAL ×3 (08:35→21:19)
[2021-08-10] MEDS: Aspirin 81 MG TAB.CHEW PO (08:35)
[2021-08-10] MEDS: Cholecalciferol (Vitamin D3) 25 MCG TABLET 50 MCG PO (08:35)
[2021-08-10] MEDS: Enoxaparin Sodium 60 MG/0.6 ML SYRINGE SUBCUT ×2 (08:35→21:21)
[2021-08-10] MEDS: methylPREDNISolone Sod Succ 40 MG/ML VIAL IVPUSH ×2 (08:36→21:20)
[2021-08-10 11:18] LABS: Glucose, Whole Blood 202 mg/dL (60-115)
--- NOTE | 2021-08-10 12:15 | P.PNCC_ITS ---
Subjective Subjective Date of Service: 08/10/21 Interval History: Remains sedated and intubated but every day there is a gradual and continual increase in the pCO2 at the same level of minute ventilation and still remains on a high FiO2 of 90% No fever white count to slightly diminished but still significant left shift and metabolically otherwise unchanged Critical Care Time (minutes): 45 Physical Exam Verdana 4l Vital Signs: Verdana 4d Verdana 4d Vital Signs: Verdana 4d Verdana 4Bd Last Vital Signs Verdana 4d Net Programmer Analyst New 4d Net Programmer Analyst New 4d Temp 98.6 F 08/10/21 11:00 Net Programmer Analyst New 4d Pulse 89 08/10/21 11:38 Net Programmer Analyst New 4d Resp 22 H 08/10/21 11:38 BP 117/59 L 08/10/21 11:24 Pulse Ox 89 L 08/10/21 11:00 BMI result Body Mass Index 21.0 Sedated and intubated without any significant respiratory effort Cardiovascular is is stable by bedside echo Abdomen is soft no organomegaly except excepting feedings Skin is intact Objective Data Labs CBC & Chem 7: 08/10/21 05:20 08/10/21 05:20 Labs: Laboratory Results - last 24 hr 08/09/21 08/09/21 08/10/21 17:33 23:15 05:20 WBC RBC Hgb Hct MCV MCH MCHC RDW Plt Count MPV Immature Gran % (Auto) Neut % (Auto) Lymph % (Auto) [place] % (Auto) Eos % (Auto) Baso % (Auto) Lymph # (Auto) [place] # (Auto) Eos # (Auto) Baso # (Auto) Abs Immat Gran (auto) Absolute Neuts (auto) Absolute Nucleated RBC Nucleated RBC % (auto) Smear Tech's Comments PT 13.1 H INR 1.2 H VBG pH VBG pCO2 VBG pO2 VBG HCO3 VBG O2 Saturation VBG Base Excess Sodium Potassium Chloride Carbon Dioxide Anion Gap BUN Creatinine Estim Creat Clear Calc Estimated GFR POC Glucose 198 H 196 H Random Glucose Calcium Phosphorus Magnesium Ferritin Lactate Dehydrogenase C-Reactive Protein B-Natriuretic Peptide 08/10/21 08/10/21 08/10/21 05:20 05:20 05:20 WBC 13.1 H RBC 3.65 L Hgb 10.3 L Hct 33.5 L MCV 91.8 MCH 28.2 MCHC 30.7 L RDW 14.9 Plt Count 214 D MPV 10.2 Immature Gran % (Auto) 0.7 H Neut % (Auto) 92.8 H Lymph % (Auto) 2.7 L [place] % (Auto) 3.7 Eos % (Auto) 0.0 Baso % (Auto) 0.1 Lymph # (Auto) 0.4 L [place] # (Auto) 0.5 Eos # (Auto) 0.0 Baso # (Auto) 0.0 Abs Immat Gran (auto) 0.09 H Absolute Neuts (auto) 12.2 H Absolute Nucleated RBC 0.000 Nucleated RBC % (auto) 0.0 Smear Tech's Comments VERIFIED PT INR VBG pH VBG pCO2 VBG pO2 VBG HCO3 VBG O2 Saturation VBG Base Excess Sodium 140 Potassium 4.8 Chloride 97 Carbon Dioxide 38 H Anion Gap 10 L BUN 26 H Creatinine 0.66 Estim Creat Clear Calc 87.2 Estimated GFR > 60 POC Glucose Random Glucose 206 H Calcium 7.6 L Phosphorus 2.8 Magnesium 2.3 Ferritin 640 H Lactate Dehydrogenase 541 H C-Reactive Protein 2.24 H B-Natriuretic Peptide 537 H 08/10/21 08/10/21 08/10/21 05:27 05:34 11:14 WBC RBC Hgb Hct MCV MCH MCHC RDW Plt Count MPV Immature Gran % (Auto) Neut % (Auto) Lymph % (Auto) [place] % (Auto) Eos % (Auto) Baso % (Auto) Lymph # (Auto) [place] # (Auto) Eos # (Auto) Baso # (Auto) Abs Immat Gran (auto) Absolute Neuts (auto) Absolute Nucleated RBC Nucleated RBC % (auto) Smear Tech's Comments PT INR VBG pH 7.42 VBG pCO2 74 VBG pO2 47 VBG HCO3 49 H VBG O2 Saturation 79.0 VBG Base Excess 20.9 Sodium Potassium Chloride Carbon Dioxide Anion Gap BUN Creatinine Estim Creat Clear Calc Estimated GFR POC Glucose 180 H 202 H Random Glucose Calcium Phosphorus Magnesium Ferritin Lactate Dehydrogenase C-Reactive Protein B-Natriuretic Peptide Microbiology Microbiology Results: Microbiology 08/08/21 20:30 Sputum - Suctioned Gram Stain - Final 08/08/21 20:30 Sputum - Suctioned Sputum Culture - Final 07/29/21 09:18 Blood - Venous Blood Culture - Final No growth after 5 days. 07/29/21 08:53 Blood - Venous Blood Culture - Final No growth after 5 days. Progress Note: A&P Assessment and plan (1) Cor pulmonale: Status: Acute (2) Multiple cerebral infarctions: Status: Acute (3) Toxic metabolic encephalopathy: Status: Acute (4) Acute and chronic respiratory failure with hypoxia: Status: Acute (5) Pneumonia: Status: Acute (6) Hypoxia: Status: Acute (7) Sepsis: Status: Acute (8) Acute respiratory alkalosis: Status: Acute (9) Pulmonary emboli: Status: Acute (10) Diabetes mellitus: Status: Acute (11) Right shoulder pain: Status: Acute (12) Bicytopenia: Status: Acute (13) Hypothyroid: Status: Acute (14) Daytime sleepiness: Status: Acute (15) Bicytopenia: Status: Acute (16) Stable proliferative diabetic retinopathy: Status: Acute (17) Vitamin D deficiency: Status: Acute (18) B12 deficiency: Status: Acute (19) Dyslipidemia: Status: Acute (20) Diabetes type 2, uncontrolled: Status: Acute (21) FDC (current) use of insulin: Status: Acute (22) Diabetic polyneuropathy associated with type 2 diabetes mellitus: Status: Acute (23) Hypertension: Status: Acute Plan For no significant change in the chest x-ray with persistent bilateral infiltrates but in discussion with Radiology question the possibility of bilateral apical pneumothoraces up probably seek further definition by CT scan of the chest look for any reversible issue that could help wean him from the ventilator Quality Stroke Does the patient have a stroke diagnosis?: No VTE Prior VTE?: No VTE Risk Level:: Medical - moderate - high VTE Device Contraindication: Treatment Not Indicated VTE Drug Contraindication: N/A - Med Ordered
--- NOTE | 2021-08-10 13:19 | PC.NURSE ---
O2 sat trending 89-91% on 90% Fio2 throughout morning - 1300 sats down to 69% on same settings - This RN at bedside and patient hand ventilated with 100% O2 -RT and MD at bedside. Breath sounds auscultated bilaterally, even chest wall expansion. Moderate amount of new cream inline secretions suctioned - Sputum sample obtained and sent. CXR ordered and completed. Current vitals temp 99.1 core, HR 83, RR 22, BP 117/53, 90% on 100% Fio2, end tidal 31. Abx to be ordered per MD - Hold chest CT at this time per Dr Castillo.
[2021-08-10] MEDS: vancomycin HCL 1,250 MG in 0.9 % Sodium Chloride 250 ML 166.67 MG IV (14:14)
[2021-08-10 17:45] LABS: Glucose, Whole Blood 191 mg/dL (60-115)
[2021-08-10] MEDS: Atorvastatin Calcium 80 MG TABLET PO (21:19)
[2021-08-10] MEDS: Insulin Glargine,Hum.rec.anlog 100 UNIT/ML 10 ML VIAL 10 UNIT SUBCUT (21:20)
[2021-08-10] MEDS: fentaNYL citrate/PF 100 MCG/2 ML VIAL 50 MCG IVPUSH (23:01)
[2021-08-10] MEDS: Rocuronium Bromide 50 MG/5 ML VIAL IVPUSH (23:01)
[2021-08-10 23:57] LABS: Glucose, Whole Blood 186 mg/dL (60-115)
[2021-08-11] VITALS (41 sets, daily range): BP systolic 92–146; BP diastolic 46–84; PULSE 95–113; RESP 18–30; TEMP 33.8–38.5; O2SAT 88–97
[2021-08-11] MEDS: Albuterol Sulfate (0.083%) 2.5 MG/3 ML VIAL.NEB INHALE (00:12)
[2021-08-11] MEDS: 0.9 % Sodium Chloride Flush 3 ML SYRINGE IVFLUSH ×3 (00:16→11:46)
[2021-08-11] MEDS: Insulin Lispro 100 UNIT/ML 3 ML VIAL SUBCUT ×2 (00:16→06:30)
[2021-08-11] MEDS: Midazolam HCl/NS 50 MG/50 ML PLAST..BAG IVCONT (00:19)
[2021-08-11] MEDS: propofoL 1,000 MG/100 ML VIAL 18.3 MG IVCONT ×2 (00:20→04:51)
[2021-08-11 00:55] LABS: Lactic Acid 1.9 mmol/L (0.5-2.0)
--- NOTE | 2021-08-11 03:28 | PC.NURSE ---
Assumed care at 19:00 from Sherie SAHU. Patient was initially sedated on 40 Propofol and 5 versed gtt doserates, was with positive cough, no gag, PERRL, pupils 3 mm, flaccid throughout, overbreathes ventilator, satting 94% on 100% FiO2. Sedation paused at 20:15 to assess neurological status, and initially was well tolerated---sedation restarted about 15 minutes later at 50% lowered doserates, due to patient's coughing. Patient then was able to be repositioned to right side down semi-fowlers, with Sp2 96% for some time, and discussed with PA, and FiO2 was titrated down to 80%. Unfortunately, this was not tolerated, and patient seemed to desaturate repeatedly in episodes to the mid 80's%, with minimal dysynchrony, but high peak pressures and tachypnea. Bagging was attempted with no improvement. Sedation had to be uptitrated to 50 propofol and 5 versed gtt doserates, and patient required one time 50 mcg fentanyl IVP and 50 mg rocuronium per PA, and patient ventilator settings were changed by RT with PA assisting at bedside, such that Peep was raised from 5 to 7.5 and TV was lowered from 340 to 325.Now patient has had SpO2 89-90% for some time, after long periods of 86-88% slowly resolved. Now still with #7.5 ETT 24 cm at the lip; ACVC+ settings with Rate 22, TV 325; Peep 7.5; FiO2 100%. minute volumes around 7.6-7.4. Have had to add 1 cc of air to ETT baloon at least twice after repositioning, and RT aware and monitoring cuff pressure. Peak pressures still 36-44, and PA and RT aware. PA determined that we should not take down to radiology for CT scan this evening due to instability as well as staffing limitations at this time. On telemetry, sinus rhythm to sinus tachycardia, currently 108 BPM, prolonged QTc, and borderline QRS at 117 ms. No pressors this shift. Edema to right hand +1. Abdi output 20-55 cc/hour, pale yellow urine. No BM this shift. TF was running at maximum rate of 60 cc/hour, but was placed on hold around rocuronium dose, and was subsequently continued on hold and H2O flush was held at 0000. PA aware. Patient with skin intact, slightly reddened buttocks bilaterally. Noted to have had serum calcium 7.6 today and albumin was last checked 2/ and was 2.6, and discussed with PA, labs to be checked this morning. Due to patient having temperature of 101.3, tachycardia 100's-120, and tachypnea, was thought to be meeting sepsis criteria. Noted to have had sputum cx checked 2/6; checked blood cx and lactic acid checked and returned at 1.9.
[2021-08-11] MEDS: Levothyroxine Sodium 125 MCG TABLET PO (05:20)
[2021-08-11 05:23] LABS: VBG HCO3 48 mmol/L (22-26); VBG pCO2 75 mmHg; VBG pH 7.41 (7.32-7.43); VBG pO2 44 mmHg
[2021-08-11 05:24] LABS: Venous Blood Gas Refer to POC result
[2021-08-11 05:41] LABS: Basophils Percent Auto 0.2 % (0-2); Hematocrit 31.3 % (42.0-52.0); Hemoglobin 9.6 g/dl (14.0-18.0); Imm Gran Abs Auto 0.19 X10*3/uL (0.00-0.03); Lymphocytes Absolute Auto 0.3 X10*3/uL (1.2-4.9); Lymphocytes Percent Auto 1.5 % (20-40); MANUAL DIFF FLAG SCAN; Mean Corpuscular HGB Conc 30.7 g/dl (31.0-36.0); Mean Corpuscular Hemoglobin 28.1 pg (27.0-33.0); Mean Corpuscular Volume 91.5 fL (80.0-98.0); Mean Platelet Volume 10.5 fL (9.4-12.4); Monocytes Absolute Auto 0.4 X10*3/uL (0.1-1.2); Monocytes Percent Auto 2.2 % (2-11); NRBC Pct Auto 0.2 /100WBC (0.0-0.2); Neutrophils Absolute Auto 17.2 x10*3/uL (2.0-8.3); Neutrophils Percent Auto 95.1 % (45-73); Platelet Count 219 X10*3/uL (160-400); Red Blood Count 3.42 X10*6/uL (4.60-5.80); Red Cell Distribution Width 15.1 % (11.0-16.0); SCAN SMEAR FLAG 1; White Blood Count 18.1 X10*3/uL (4.8-10.8)
[2021-08-11 05:46] LABS: INTERNATIONAL NORM RATIO 1.2 (0.9-1.1); Prothrombin Time 14.2 SEC (9.9-13.0)
[2021-08-11 06:01] LABS: B Type Natriuretic Peptide 652 pg/mL (<100)
[2021-08-11 06:09] LABS: Alanine Aminotransferase 61 U/L (0-40); Albumin Level 2.3 g/dL (3.5-5.0); Alkaline Phosphatase 114 U/L (39-117); Anion Gap 11 (12-20); Aspartate Amino Transferase 63 U/L (5-37); Bilirubin Direct 0.3 mg/dL (0.0-0.5); Bilirubin Total 0.5 mg/dL (0.0-1.0); Blood Urea Nitrogen 37 mg/dL (9-16); Calcium 7.6 mg/dL (8.4-10.2); Carbon Dioxide 38 mmol/L (22-29); Chloride 97 mmol/L (96-108); Creatinine Clr Calc Pharmacy 74.8; Estimated Glomerular Filt Rate > 60; Glucose Random 219 mg/dL (60-115); Magnesium 2.4 mg/dL (1.6-2.6); Phosphorus 2.6 mg/dL (2.7-4.5); Potassium 4.9 mmol/L (3.3-5.1); Sodium 141 mmol/L (135-145)
[2021-08-11 06:15] LABS: SLIDE REVIEW VERIFIED
[2021-08-11 06:20] LABS: Glucose, Whole Blood 212 mg/dL (60-115)
[2021-08-11] MEDS: Albuterol/Iprat 2.5/0.5MG 3 ML AMPUL.NEB INHALE ×4 (07:53→20:28)
[2021-08-11] MEDS: Albumin Human 25 % 100 ML IV ×3 (08:54→20:46)
[2021-08-11] MEDS: Enoxaparin Sodium 60 MG/0.6 ML SYRINGE SUBCUT ×2 (08:54→20:46)
[2021-08-11] MEDS: Aspirin 81 MG TAB.CHEW PO (08:55)
[2021-08-11] MEDS: Sodium,Potassium Phosphates POWD.PACK 2 PACKET PO ×2 (08:55→20:46)
[2021-08-11] MEDS: Furosemide 200 MG in 0.9 % Sodium Chloride 80 ML IVCONT (09:21)
[2021-08-11] MEDS: Chlorhexidine Gluc Oral Rinse 15 ML MOUTHWASH BUCCAL ×3 (09:22→20:45)
--- NOTE | 2021-08-11 09:51 | MHC.CLN ---
F/U PT WITH INCREASED NUTRITION RISK R/T FRAGILE SKIN PT REMAINS INTUBATED AND SEDATED DISCUSSED AT ROUNDS; NSG TO ASSESS BOWEL FUNCTION CURRENTLY TF ON HOLD R/T HIGH RESIDUALS AND PARALYTIC USE RECOMMEND SLOWLY INCREASING TF GLUCERNA AT MAX GOAL RATE 60ML/HR WITH 120CC FREE WATER FLUSHES Q 6HRS TO PROVIDE 1440KCALS (1923KCALS WITH SEDATION; 31.5KCALS/KG), 60G PROTEIN (.98G/KG), 1708ML TOTAL WATER FROM FORMULA AND FLUSHES (28ML/KG) MONITOR TOLERANCE, RESIDUALS AND LYTES
[2021-08-11] MEDS: fentaNYL citrate/PF 100 MCG/2 ML VIAL IVPUSH (11:45)
[2021-08-11] MEDS: fentaNYL citrate/NS 1,000 MCG/100 ML PLAST..BAG 10 MCG IVCONT ×2 (11:51→21:17)
[2021-08-11] MEDS: propofoL 1,000 MG/100 ML VIAL 14.64 MG IVCONT ×3 (11:55→23:10)
[2021-08-11 12:14] LABS: Glucose, Whole Blood 170 mg/dL (60-115)
--- NOTE | 2021-08-11 12:19 | P.PNCC_ITS ---
Subjective Subjective Date of Service: 08/11/21 Interval History: 70-year-old gentleman with underlying history of diabetes mellitus, CAD status post JUAN 2007, hypothyroidism, cytopenia, COVID-19 in June of 2021 requiring hospitalization from June 30 to July 24 further complicated by pulmonary emboli, discharged home on room air, readmitted on July 29 with dyspnea and hypoxia requiring high-level of FiO2 support ( 100% high-flow), empirically covered for PCP and treated with systemic glucocorticoids with hospital course complicated by acute bilateral CVA and progressive hypoxemia requiring transfer to intensive care unit and intubation on 08/06/2021. Now remains on maximum ventilatory support with no significant improvement. No events overnight. Requires intermittent paralytic boluses for ventilator synchrony. Critical Care Time (minutes): 45 Physical Exam Verdana 4l Vital Signs: Verdana 4d Verdana 4d Vital Signs: Verdana 4d Verdana 4Bd Last Vital Signs Verdana 4d Analytics Analyst New 4d Analytics Analyst New 4d Temp 99.7 F 08/11/21 12:00 Analytics Analyst New 4d Pulse 107 H 08/11/21 12:00 Analytics Analyst New 4d Resp 23 H 08/11/21 12:00 BP 133/66 08/11/21 12:13 Pulse Ox 93 08/11/21 12:00 BMI result Body Mass Index 21.0 Const: General: no acute distress and other ( Sedated on the vent) Eyes: Sclerae: sclerae normal EOM: EOMs intact bilaterally Neck: Neck: Yes no lymphadenopathy, Yes trachea midline and Yes supple Resp: Auscultation: crackles ( diffuse bilateral) Cardio: Rate: tachycardic Rhythm: regular rhythm Heart sounds: no gallops, no murmurs and no rubs GI: Palpation (GI): Soft to palpation and Other GI palpation findings present ( Nontender) Auscultation: normal bowel sounds Extrem: General: No clubbing, No cyanosis and Yes pedal edema ( 1+ bilateral) Objective Data Labs CBC & Chem 7: 08/11/21 05:16 08/11/21 05:16 Labs: Laboratory Results - last 24 hr 08/10/21 08/10/21 08/11/21 17:41 23:51 00:36 WBC RBC Hgb Hct MCV MCH MCHC RDW Plt Count MPV Immature Gran % (Auto) Neut % (Auto) Lymph % (Auto) [place] % (Auto) Eos % (Auto) Baso % (Auto) Lymph # (Auto) [place] # (Auto) Eos # (Auto) Baso # (Auto) Abs Immat Gran (auto) Absolute Neuts (auto) Absolute Nucleated RBC Nucleated RBC % (auto) Smear Tech's Comments PT INR VBG pH VBG pCO2 VBG pO2 VBG HCO3 VBG O2 Saturation VBG Base Excess Sodium Potassium Chloride Carbon Dioxide Anion Gap BUN Creatinine Estim Creat Clear Calc Estimated GFR POC Glucose 191 H 186 H Random Glucose Lactic Acid 1.9 Calcium Phosphorus Magnesium Total Bilirubin Direct Bilirubin AST ALT Alkaline Phosphatase B-Natriuretic Peptide Total Protein Albumin 08/11/21 08/11/21 08/11/21 05:16 05:16 05:16 WBC 18.1 H RBC 3.42 L Hgb 9.6 L Hct 31.3 L MCV 91.5 MCH 28.1 MCHC 30.7 L RDW 15.1 Plt Count 219 MPV 10.5 Immature Gran % (Auto) 1.0 H Neut % (Auto) 95.1 H Lymph % (Auto) 1.5 L [place] % (Auto) 2.2 Eos % (Auto) 0.0 Baso % (Auto) 0.2 Lymph # (Auto) 0.3 L [place] # (Auto) 0.4 Eos # (Auto) 0.0 Baso # (Auto) 0.0 Abs Immat Gran (auto) 0.19 H Absolute Neuts (auto) 17.2 H Absolute Nucleated RBC 0.030 H Nucleated RBC % (auto) 0.2 Smear Tech's Comments VERIFIED PT 14.2 H INR 1.2 H VBG pH VBG pCO2 VBG pO2 VBG HCO3 VBG O2 Saturation VBG Base Excess Sodium 141 Potassium 4.9 Chloride 97 Carbon Dioxide 38 H Anion Gap 11 L BUN 37 H Creatinine 0.77 Estim Creat Clear Calc 74.8 Estimated GFR > 60 POC Glucose Random Glucose 219 H Lactic Acid Calcium 7.6 L Phosphorus 2.6 L Magnesium 2.4 Total Bilirubin 0.5 Direct Bilirubin 0.3 AST 63 H ALT 61 H Alkaline Phosphatase 114 D B-Natriuretic Peptide Total Protein 5.0 L Albumin 2.3 L 08/11/21 08/11/21 08/11/21 05:16 05:16 05:37 WBC RBC Hgb Hct MCV MCH MCHC RDW Plt Count MPV Immature Gran % (Auto) Neut % (Auto) Lymph % (Auto) [place] % (Auto) Eos % (Auto) Baso % (Auto) Lymph # (Auto) [place] # (Auto) Eos # (Auto) Baso # (Auto) Abs Immat Gran (auto) Absolute Neuts (auto) Absolute Nucleated RBC Nucleated RBC % (auto) Smear Tech's Comments PT INR VBG pH 7.41 VBG pCO2 75 VBG pO2 44 VBG HCO3 48 H VBG O2 Saturation 73.0 VBG Base Excess 20.0 Sodium Potassium Chloride Carbon Dioxide Anion Gap BUN Creatinine Estim Creat Clear Calc Estimated GFR POC Glucose 212 H Random Glucose Lactic Acid Calcium Phosphorus Magnesium Total Bilirubin Direct Bilirubin AST ALT Alkaline Phosphatase B-Natriuretic Peptide 652 H Total Protein Albumin 08/11/21 12:06 WBC RBC Hgb Hct MCV MCH MCHC RDW Plt Count MPV Immature Gran % (Auto) Neut % (Auto) Lymph % (Auto) [place] % (Auto) Eos % (Auto) Baso % (Auto) Lymph # (Auto) [place] # (Auto) Eos # (Auto) Baso # (Auto) Abs Immat Gran (auto) Absolute Neuts (auto) Absolute Nucleated RBC Nucleated RBC % (auto) Smear Tech's Comments PT INR VBG pH VBG pCO2 VBG pO2 VBG HCO3 VBG O2 Saturation VBG Base Excess Sodium Potassium Chloride Carbon Dioxide Anion Gap BUN Creatinine Estim Creat Clear Calc Estimated GFR POC Glucose 170 H Random Glucose Lactic Acid Calcium Phosphorus Magnesium Total Bilirubin Direct Bilirubin AST ALT Alkaline Phosphatase B-Natriuretic Peptide Total Protein Albumin Microbiology Microbiology Results: Microbiology 08/10/21 13:13 Sputum - Suctioned Gram Stain - Final 08/10/21 13:13 Sputum - Suctioned Sputum Culture - Preliminary Culture in progress. 08/08/21 20:30 Sputum - Suctioned Gram Stain - Final 08/08/21 20:30 Sputum - Suctioned Sputum Culture - Final 07/29/21 09:18 Blood - Venous Blood Culture - Final No growth after 5 days. 07/29/21 08:53 Blood - Venous Blood Culture - Final No growth after 5 days. Progress Note: A&P Assessment and plan (1) Acute respiratory failure with hypoxia: Status: Acute (2) Multiple cerebral infarctions: Status: Acute (3) Cor pulmonale: Status: Acute (4) Diabetes mellitus: Status: Acute (5) Pulmonary emboli: Status: Acute (6) Diabetic polyneuropathy associated with type 2 diabetes mellitus: Status: Acute (7) CAD (coronary artery disease): Status: Acute Plan Assessment: 70-year-old gentleman with recent COVID-19 readmitted with acute hypoxic respiratory failure further complicated by bilateral CVA and right heart failure now requiring ventilatory support. Plan: Neuro: Subacute CVA. Neurology service care appreciated. Continue on anticoagulation. Cardiac: Acute right heart failure / cor pulmonale. Continue with diuresis. Pulmonary: Acute hypoxic respiratory failure, now on maximum ventilatory support. Possible post acute COVID fibrosis. outside of proliferative phase of ARDS, systemic glucocorticoids not indicated. Overall very poor prognosis. Renal: No acute issues. Endo: No acute issues. underlying diabetes mellitus. GI: No acute issues. ID: No acute issues Heme/Onc: No acute issues. Psych: No acute issues. Miscellaneous: discussions of goals of care are ongoing with the family. Prophylaxis: Lovenox, ppi Diet: tube feeds Critical care time spent: 45 minutes Quality Stroke Does the patient have a stroke diagnosis?: No VTE Prior VTE?: No VTE Risk Level:: Medical - moderate - high VTE Device Contraindication: Treatment Not Indicated VTE Drug Contraindication: N/A - Med Ordered
--- NOTE | 2021-08-11 13:16 | MHC.CM.PN ---
Pt continues on ventilatory and pressor support: MD cites poor prognosis: Family has been reluctanct to change goals of care to LEAVE COORDINATOR. MD to hold another family discussion today. CM to follow
[2021-08-11] MEDS: Lactulose 20 GM/30 ML SOLUTION 30 GM PO ×2 (14:24→20:45)
[2021-08-11 18:02] LABS: Glucose, Whole Blood 126 mg/dL (60-115)
--- NOTE | 2021-08-11 18:21 | PC.NURSE ---
TMAX 100.6. VSS WITH SUPPORT FROM LEVOPHED GTT. FENTANYL AND LASIX GTT ADDED - SEE EMAR. ON 2 OCCASIONS PATIENT WOULD DESAT TO THE 70S, MD AND RT CALLED BEDSIDE TO ADJUST VENT SETTINGS. CXR ORDERED AND OBTAINED. TUBE FEEDS HELD FOR HIGH RESIDUALS. AT START OF SHIFT 330 ML, NOON ASSESSMENT 200 ML, AND AFTERNOON 180 ML. LACTULOSE ORDERED AND ADMINISTERED. NO BM AT THIS TIME. Q2HR REPO, TOTAL BATH, BARRIER CREAM, PREVALON MATTRESS, PILLOWS, WEDGES AND HEELBOS UTILIZED. PATIENTS BEDSIDE TO VISIT AND UPDATED VIA OWNER ORAL SURGEON.
[2021-08-11 19:05] LABS: Anion Gap 9 (12-20); Blood Urea Nitrogen 35 mg/dL (9-16); Calcium 7.7 mg/dL (8.4-10.2); Carbon Dioxide 45 mmol/L (22-29); Chloride 94 mmol/L (96-108); Creatinine Clr Calc Pharmacy 71.1; Estimated Glomerular Filt Rate > 60; Glucose Random 121 mg/dL (60-115); Sodium 144 mmol/L (135-145)
[2021-08-11] MEDS: Atorvastatin Calcium 80 MG TABLET PO (20:45)
[2021-08-11 22:45] LABS: Glucose, Whole Blood 106 mg/dL (60-115)
[2021-08-12] VITALS (50 sets, daily range): BP systolic 51–140; BP diastolic 29–66; PULSE 91–116; RESP 18–22; TEMP 33.7–38.8; O2SAT 75–97
[2021-08-12] MEDS: Albumin Human 25 % 100 ML IV (01:56)
[2021-08-12] MEDS: propofoL 1,000 MG/100 ML VIAL 10.98 MG IVCONT (05:04)
[2021-08-12] MEDS: Rocuronium Bromide 50 MG/5 ML VIAL IVPUSH (05:05)
[2021-08-12 05:34] LABS: VBG Base Excess 33.3 mmol/L; VBG HCO3 61 mmol/L (22-26); VBG pCO2 77 mmHg; VBG pO2 45 mmHg
[2021-08-12 05:35] LABS: Glucose, Whole Blood 81 mg/dL (60-115)
[2021-08-12 05:39] LABS: Basophils Percent Auto 0.1 % (0-2); Eosinophils Absolute Auto 0.1 X10*3/uL (0.0-0.4); Eosinophils Percent Auto 0.7 % (0-4); Hematocrit 25.1 % (42.0-52.0); Imm Gran Abs Auto 0.17 X10*3/uL (0.00-0.03); Imm Gran Pct Auto 1.2 % (0.0-0.4); Lymphocytes Absolute Auto 0.4 X10*3/uL (1.2-4.9); Lymphocytes Percent Auto 2.5 % (20-40); MANUAL DIFF FLAG SCAN; Mean Corpuscular HGB Conc 30.3 g/dl (31.0-36.0); Mean Corpuscular Hemoglobin 28.1 pg (27.0-33.0); Mean Platelet Volume 10.3 fL (9.4-12.4); Monocytes Absolute Auto 0.1 X10*3/uL (0.1-1.2); Monocytes Percent Auto 0.7 % (2-11); NRBC Pct Auto 0.4 /100WBC (0.0-0.2); Neutrophils Absolute Auto 13.8 x10*3/uL (2.0-8.3); Neutrophils Percent Auto 94.8 % (45-73); Platelet Count 160 X10*3/uL (160-400); Red Cell Distribution Width 15.7 % (11.0-16.0); SCAN SMEAR FLAG 1; White Blood Count 14.5 X10*3/uL (4.8-10.8)
[2021-08-12] MEDS: fentaNYL citrate/NS 1,000 MCG/100 ML PLAST..BAG 10 MCG IVCONT ×2 (05:43→15:38)
[2021-08-12 05:46] LABS: INTERNATIONAL NORM RATIO 1.4 (0.9-1.1); Prothrombin Time 16.5 SEC (9.9-13.0)
[2021-08-12 05:51] LABS: Hemoglobin 7.6 g/dl (14.0-18.0)
[2021-08-12] MEDS: acetaZOLAMIDE sodium 500 MG VIAL 250 MG IVPUSH (05:57)
[2021-08-12] MEDS: Acetaminophen Oral Liquid 650 MG/20.3 ML SOLUTION PO (05:57)
[2021-08-12 06:03] LABS: SLIDE REVIEW VERIFIED
--- NOTE | 2021-08-12 06:06 | PC.NURSE ---
At approx 0500- pt desaturated to 80% via 100% FiO2, RT and COMMUNICATION CONSULTANT notified and at bedside. Attempted to bag/lavage pt with no effect. Given rocuronium 50 mg IVP with minimal effect, sedation increased per emar. Vent settings changed to PCV. Family contacted by COMMUNICATION CONSULTANT r/t change in pt condition- remains full code. SpO2 79% at this time. Temp 101.8, given acetaminophen 650 mg OGT x1. COMMUNICATION CONSULTANT aware of AM labs, EtCO2 50s- given diamox 250 mg IVP x1. Diuresing well on lasix gtt- see I&O. ST on tele, HR 110s. Levophed gtt titrated to maintain MAP > 65. TF turned off per COMMUNICATION CONSULTANT.
[2021-08-12 06:13] LABS: Albumin Level 4.2 g/dL (3.5-5.0); Anion Gap 18 (12-20); Blood Urea Nitrogen 31 mg/dL (9-16); Calcium 8.2 mg/dL (8.4-10.2); Carbon Dioxide 43 mmol/L (22-29); Chloride 88 mmol/L (96-108); Creatinine Clr Calc Pharmacy 65.4; Estimated Glomerular Filt Rate > 60; Glucose Random 101 mg/dL (60-115); Potassium 3.2 mmol/L (3.3-5.1); Sodium 146 mmol/L (135-145)
[2021-08-12 06:19] LABS: Venous Blood Gas Refer to POC result
[2021-08-12] MEDS: Potassium Chloride/H20 40 MEQ/100 ML PIGGYBACK 100 MEQ IV (07:34)
[2021-08-12] MEDS: 0.9 % Sodium Chloride Flush 3 ML SYRINGE IVFLUSH ×2 (07:35→15:39)
[2021-08-12] MEDS: Chlorhexidine Gluc Oral Rinse 15 ML MOUTHWASH BUCCAL ×3 (07:35→21:18)
[2021-08-12] MEDS: Aspirin 81 MG TAB.CHEW PO (07:35)
[2021-08-12] MEDS: Albuterol/Iprat 2.5/0.5MG 3 ML AMPUL.NEB INHALE ×4 (07:59→19:43)
[2021-08-12] MEDS: Furosemide 200 MG in 0.9 % Sodium Chloride 80 ML IVCONT (09:18)
[2021-08-12] MEDS: Enoxaparin Sodium 60 MG/0.6 ML SYRINGE SUBCUT ×2 (09:48→21:18)
[2021-08-12] MEDS: propofoL 1,000 MG/100 ML VIAL 18.3 MG IVCONT ×3 (10:19→20:59)
[2021-08-12 12:37] LABS: Glucose, Whole Blood 118 mg/dL (60-115)
--- NOTE | 2021-08-12 12:38 | P.PNCC_ITS ---
Subjective Subjective Date of Service: 08/12/21 Interval History: 70-year-old gentleman with underlying history of diabetes mellitus, CAD status post JUAN 2007, hypothyroidism, cytopenia, COVID-19 in June of 2021 requiring hospitalization from June 30 to July 24 further complicated by pulmonary emboli, discharged home on room air, readmitted on July 29 with dyspnea and hypoxia requiring high-level of FiO2 support ( 100% high-flow), empirically covered for PCP and treated with systemic glucocorticoids with hospital course complicated by acute bilateral CVA and progressive hypoxemia requiring transfer to intensive care unit and intubation on 08/06/2021. Now on maximum ventilatory support with O2 saturation in mid 80s. Overnight with worsening oxygenation despite maximum ventilatory support. Family notified and still wants to proceed with full support measures, despite essentially terminal prognosis. Critical Care Time (minutes): 45 Physical Exam Vital Signs: Vital Signs: Last Vital Signs Temp 100.6 F H 08/12/21 12:00 Pulse 107 H 08/12/21 12:00 Resp 20 08/12/21 12:00 BP 100/50 L 08/12/21 12:00 Pulse Ox 84 L 08/12/21 12:00 BMI result Body Mass Index 21.0 Const: General: no acute distress and other ( Sedated on the vent) Eyes: Sclerae: sclerae normal Neck: Neck: Yes no lymphadenopathy, Yes trachea midline and Yes supple Resp: Auscultation: crackles ( diffuse bilateral) Cardio: Rate: tachycardic Rhythm: regular rhythm Heart sounds: no gallops, no murmurs and no rubs GI: Palpation (GI): Soft to palpation and Other GI palpation findings present ( Nontender) Auscultation: normal bowel sounds Extrem: General: Yes no pedal edema, No clubbing and No cyanosis Objective Data Labs CBC & Chem 7: 08/12/21 05:22 08/12/21 05:22 Labs: Laboratory Results - last 24 hr 08/11/21 08/11/21 08/11/21 17:51 18:16 22:39 WBC RBC Hgb Hct MCV MCH MCHC RDW Plt Count MPV Immature Gran % (Auto) Neut % (Auto) Lymph % (Auto) [place] % (Auto) Eos % (Auto) Baso % (Auto) Lymph # (Auto) [place] # (Auto) Eos # (Auto) Baso # (Auto) Abs Immat Gran (auto) Absolute Neuts (auto) Absolute Nucleated RBC Nucleated RBC % (auto) Smear Tech's Comments PT INR VBG pH VBG pCO2 VBG pO2 VBG HCO3 VBG O2 Saturation VBG Base Excess Sodium 144 Potassium 4.0 Chloride 94 L Carbon Dioxide 45 H* Anion Gap 9 L BUN 35 H Creatinine 0.81 Estim Creat Clear Calc 71.1 Estimated GFR > 60 POC Glucose 126 H 106 Random Glucose 121 H D Calcium 7.7 L Phosphorus Magnesium Albumin 08/12/21 08/12/21 08/12/21 05:22 05:22 05:22 WBC 14.5 H RBC 2.70 L D Hgb 7.6 L D Hct 25.1 L MCV 93.0 MCH 28.1 MCHC 30.3 L RDW 15.7 Plt Count 160 D MPV 10.3 Immature Gran % (Auto) 1.2 H Neut % (Auto) 94.8 H Lymph % (Auto) 2.5 L [place] % (Auto) 0.7 L Eos % (Auto) 0.7 Baso % (Auto) 0.1 Lymph # (Auto) 0.4 L [place] # (Auto) 0.1 Eos # (Auto) 0.1 Baso # (Auto) 0.0 Abs Immat Gran (auto) 0.17 H Absolute Neuts (auto) 13.8 H Absolute Nucleated RBC 0.060 H Nucleated RBC % (auto) 0.4 H Smear Tech's Comments VERIFIED PT 16.5 H INR 1.4 H VBG pH VBG pCO2 VBG pO2 VBG HCO3 VBG O2 Saturation VBG Base Excess Sodium 146 H Potassium 3.2 L Chloride 88 L Carbon Dioxide 43 H* Anion Gap 18 BUN 31 H Creatinine 0.88 Estim Creat Clear Calc 65.4 Estimated GFR > 60 POC Glucose Random Glucose 101 Calcium 8.2 L D Phosphorus 4.0 Magnesium 2.0 Albumin 4.2 D 08/12/21 08/12/21 08/12/21 05:24 05:27 12:03 WBC RBC Hgb Hct MCV MCH MCHC RDW Plt Count MPV Immature Gran % (Auto) Neut % (Auto) Lymph % (Auto) [place] % (Auto) Eos % (Auto) Baso % (Auto) Lymph # (Auto) [place] # (Auto) Eos # (Auto) Baso # (Auto) Abs Immat Gran (auto) Absolute Neuts (auto) Absolute Nucleated RBC Nucleated RBC % (auto) Smear Tech's Comments PT INR VBG pH 7.50 H VBG pCO2 77 VBG pO2 45 VBG HCO3 61 H VBG O2 Saturation 79.0 VBG Base Excess 33.3 Sodium Potassium Chloride Carbon Dioxide Anion Gap BUN Creatinine Estim Creat Clear Calc Estimated GFR POC Glucose 81 118 H Random Glucose Calcium Phosphorus Magnesium Albumin Microbiology Microbiology Results: Microbiology 08/10/21 13:13 Sputum - Suctioned Gram Stain - Final 08/10/21 13:13 Sputum - Suctioned Sputum Culture - Preliminary Filamentous fungus 08/11/21 00:36 Blood - Venous Blood Culture - Preliminary No growth after 24 hours. 08/11/21 00:36 Blood - Venous Blood Culture - Preliminary No growth after 24 hours. 08/08/21 20:30 Sputum - Suctioned Gram Stain - Final 08/08/21 20:30 Sputum - Suctioned Sputum Culture - Final 07/29/21 09:18 Blood - Venous Blood Culture - Final No growth after 5 days. 07/29/21 08:53 Blood - Venous Blood Culture - Final No growth after 5 days. Progress Note: A&P Assessment and plan (1) CAD (coronary artery disease): Status: Acute (2) Acute respiratory failure with hypoxia: Status: Acute (3) Cor pulmonale: Status: Acute (4) Multiple cerebral infarctions: Status: Acute (5) Toxic metabolic encephalopathy: Status: Acute (6) Diabetic polyneuropathy associated with type 2 diabetes mellitus: Status: Acute Plan Assessment: 70-year-old gentleman with recent COVID-19 readmitted with acute hypoxic respiratory failure further complicated by bilateral CVA and right heart failure now with refractory hypoxia despite maximal ventilatory support Plan: Neuro: Subacute CVA. Neurology service care appreciated. Continue on anticoagulation. Cardiac: Acute right heart failure / cor pulmonale. Continue with diuresis. Pulmonary: Acute hypoxic respiratory failure, despite maximum ventilatory support. Possible post acute COVID fibrosis. outside of proliferative phase of ARDS, systemic glucocorticoids not indicated. Overall terminal prognosis. Renal: No acute issues. Endo: No acute issues. underlying diabetes mellitus. GI: No acute issues. ID: No acute issues Heme/Onc: No acute issues. Psych: No acute issues. Miscellaneous: discussions of goals of care are ongoing with the family. Prophylaxis: Lovenox, ppi Diet: tube feeds Critical care time spent: 45 minutes Quality Stroke Does the patient have a stroke diagnosis?: No VTE Prior VTE?: No VTE Risk Level:: Medical - moderate - high VTE Device Contraindication: Treatment Not Indicated VTE Drug Contraindication: N/A - Med Ordered
--- NOTE | 2021-08-12 15:40 | MHC.CM.PN ---
Pt noted with declining O2 sats despite 100% FiO2: family notified by MD for option of PRODUCTION MANUFACTURING WORKER status however, family wishes to continue full support / code status at this time despite what MD notes as a terminal dx. CM to follow
[2021-08-12 18:00] LABS: Glucose, Whole Blood 152 mg/dL (60-115)
[2021-08-12 21:14] LABS: Glucose, Whole Blood 147 mg/dL (60-115)
[2021-08-12] MEDS: Atorvastatin Calcium 80 MG TABLET PO (21:18)
[2021-08-12 23:36] LABS: Glucose, Whole Blood 136 mg/dL (60-115)
[2021-08-13] VITALS (33 sets, daily range): BP systolic 92–131; BP diastolic 41–58; PULSE 93–99; RESP 20–24; TEMP -17.4–38.1; O2SAT 85–93
[2021-08-13] MEDS: fentaNYL citrate/NS 1,000 MCG/100 ML PLAST..BAG 10 MCG IVCONT ×3 (01:02→20:37)
[2021-08-13] MEDS: propofoL 1,000 MG/100 ML VIAL 18.3 MG IVCONT ×5 (02:25→20:39)
[2021-08-13 05:31] LABS: Glucose, Whole Blood 143 mg/dL (60-115)
[2021-08-13 05:31] LABS: VBG Base Excess 24.9 mmol/L; VBG HCO3 54 mmol/L (22-26); VBG pCO2 99 mmHg; VBG pH 7.34 (7.32-7.43); VBG pO2 49 mmHg
[2021-08-13 06:26] LABS: Basophils Percent Auto 0.1 % (0-2); Eosinophils Absolute Auto 0.1 X10*3/uL (0.0-0.4); Eosinophils Percent Auto 0.3 % (0-4); Hematocrit 23.2 % (42.0-52.0); Hemoglobin 7.1 g/dl (14.0-18.0); Imm Gran Abs Auto 0.19 X10*3/uL (0.00-0.03); Imm Gran Pct Auto 0.8 % (0.0-0.4); Lymphocytes Absolute Auto 0.7 X10*3/uL (1.2-4.9); Lymphocytes Percent Auto 2.9 % (20-40); MANUAL DIFF FLAG SCAN; Mean Corpuscular HGB Conc 30.6 g/dl (31.0-36.0); Mean Corpuscular Hemoglobin 28.6 pg (27.0-33.0); Mean Corpuscular Volume 93.5 fL (80.0-98.0); Mean Platelet Volume 10.9 fL (9.4-12.4); Monocytes Absolute Auto 0.6 X10*3/uL (0.1-1.2); Monocytes Percent Auto 2.6 % (2-11); NRBC Pct Auto 0.4 /100WBC (0.0-0.2); Neutrophils Absolute Auto 21.2 x10*3/uL (2.0-8.3); Neutrophils Percent Auto 93.3 % (45-73); Platelet Count 174 X10*3/uL (160-400); Red Blood Count 2.48 X10*6/uL (4.60-5.80); Red Cell Distribution Width 15.9 % (11.0-16.0); SCAN SMEAR FLAG 1; White Blood Count 22.8 X10*3/uL (4.8-10.8)
[2021-08-13 06:31] LABS: Venous Blood Gas Refer to POC result
[2021-08-13] MEDS: Levothyroxine Sodium 125 MCG TABLET PO (06:31)
[2021-08-13 07:27] LABS: Albumin Level 3.2 g/dL (3.5-5.0); Anion Gap 21 (12-20); Blood Urea Nitrogen 57 mg/dL (9-16); Calcium 6.8 mg/dL (8.4-10.2); Carbon Dioxide 38 mmol/L (22-29); Chloride 90 mmol/L (96-108); Creatinine Clr Calc Pharmacy 23.1; Estimated Glomerular Filt Rate 26; Glucose Random 129 mg/dL (60-115); Magnesium 2.3 mg/dL (1.6-2.6); Phosphorus 7.5 mg/dL (2.7-4.5); Potassium 4.7 mmol/L (3.3-5.1); Sodium 144 mmol/L (135-145)
[2021-08-13] MEDS: Albuterol/Iprat 2.5/0.5MG 3 ML AMPUL.NEB INHALE ×3 (07:52→15:15)
[2021-08-13] MEDS: 0.9 % Sodium Chloride Flush 3 ML SYRINGE IVFLUSH ×2 (07:54→15:22)
[2021-08-13 08:23] LABS: INTERNATIONAL NORM RATIO 1.8 (0.9-1.1); Prothrombin Time 20.3 SEC (9.9-13.0)
[2021-08-13] MEDS: Chlorhexidine Gluc Oral Rinse 15 ML MOUTHWASH BUCCAL ×3 (08:26→20:41)
[2021-08-13] MEDS: Aspirin 81 MG TAB.CHEW PO (08:26)
[2021-08-13 08:30] LABS: SLIDE REVIEW VERIFIED
[2021-08-13] MEDS: Calcium Gluconate/NaCl,Iso-Osm 2 GM/100 ML PLAST..BAG IV (08:56)
[2021-08-13] MEDS: Albumin Human 25 % 100 ML IV ×2 (08:56→09:58)
[2021-08-13] MEDS: Enoxaparin Sodium 60 MG/0.6 ML SYRINGE SUBCUT ×2 (09:04→22:56)
--- NOTE | 2021-08-13 10:08 | MHC.CLN ---
F/U PT REMAINS INTUBATED AND SEDATED DISCUSSED AT ROUNDS; PROGNOSIS VERY POOR PER MD CURRENTLY TF ON HOLD R/T HIGH RESIDUALS AND PARALYTIC USE PT WITH DIFFICULTY TOLERATING TF FORMULA SINCE INITIATION RECOMMEND CHANGING TF FORMULA NEPRO AT MAX GOAL RATE 30ML/HR WITH 240CC FREE WATER FLUSHES Q 6HRS TO PROVIDE 1296KCALS (1779KCALS WITH SEDATION; 28KCALS/KG), 54G PROTEIN (.9G/KG), 1483ML TOTAL WATER FROM FORMULA AND FLUSHES (24ML/KG) START AT 10ML/HR AND INCREASE BY 10ML/HR Q 6 HRS UNTIL MAX GOAL IS ACHIEVED MONITOR TOLERANCE, RESIDUALS AND LYTES
--- NOTE | 2021-08-13 10:42 | P.PNCC_ITS ---
Subjective Subjective Date of Service: 08/13/21 Interval History: 70-year-old gentleman with underlying history of diabetes mellitus, CAD status post JUAN 2007, hypothyroidism, cytopenia, COVID-19 in June of 2021 requiring hospitalization from June 30 to July 24 further complicated by pulmonary emboli, discharged home on room air, readmitted on July 29 with dyspnea and hypoxia requiring high-level of FiO2 support ( 100% high-flow), empirically covered for PCP and treated with systemic glucocorticoids with hospital course complicated by acute bilateral CVA and progressive hypoxemia requiring transfer to intensive care unit and intubation on 08/06/2021. Now on maximum ventilatory support with O2 saturation in mid 80s. Overnight patient continues to decline despite maximum support with development of acute kidney injury and anuria. Critical Care Time (minutes): 45 Physical Exam Vital Signs: Vital Signs: Last Vital Signs Temp 99.7 F 08/13/21 10:00 Pulse 97 08/13/21 10:00 Resp 20 08/13/21 10:00 BP 131/57 L 08/13/21 10:04 Pulse Ox 90 L 08/13/21 10:00 BMI result Body Mass Index 21.0 Const: General: no acute distress and other ( sedated on the vent) Eyes: Sclerae: sclerae normal EOM: EOMs intact bilaterally Neck: Neck: Yes no lymphadenopathy, Yes trachea midline and Yes supple Resp: Auscultation: crackles ( diffuse bilateral) Cardio: Rate: regular rate Rhythm: regular rhythm Heart sounds: no gallops, no murmurs and no rubs GI: Palpation (GI): Soft to palpation and Other GI palpation findings present ( Nontender) Auscultation: normal bowel sounds Extrem: General: No clubbing, No cyanosis and Yes pedal edema ( 1+ bilateral) Objective Data Labs CBC & Chem 7: 08/13/21 05:30 08/13/21 05:25 Labs: Laboratory Results - last 24 hr 08/12/21 08/12/21 08/12/21 12:03 17:56 21:11 WBC RBC Hgb Hct MCV MCH MCHC RDW Plt Count MPV Immature Gran % (Auto) Neut % (Auto) Lymph % (Auto) [place] % (Auto) Eos % (Auto) Baso % (Auto) Lymph # (Auto) [place] # (Auto) Eos # (Auto) Baso # (Auto) Abs Immat Gran (auto) Absolute Neuts (auto) Absolute Nucleated RBC Nucleated RBC % (auto) Smear Tech's Comments PT INR VBG pH VBG pCO2 VBG pO2 VBG HCO3 VBG O2 Saturation VBG Base Excess Sodium Potassium Chloride Carbon Dioxide Anion Gap BUN Creatinine Estim Creat Clear Calc Estimated GFR POC Glucose 118 H 152 H 147 H Random Glucose Calcium Phosphorus Magnesium Albumin 08/12/21 08/13/21 08/13/21 23:17 05:07 05:24 WBC RBC Hgb Hct MCV MCH MCHC RDW Plt Count MPV Immature Gran % (Auto) Neut % (Auto) Lymph % (Auto) [place] % (Auto) Eos % (Auto) Baso % (Auto) Lymph # (Auto) [place] # (Auto) Eos # (Auto) Baso # (Auto) Abs Immat Gran (auto) Absolute Neuts (auto) Absolute Nucleated RBC Nucleated RBC % (auto) Smear Tech's Comments PT INR VBG pH 7.34 VBG pCO2 99 VBG pO2 49 VBG HCO3 54 H VBG O2 Saturation 77.0 VBG Base Excess 24.9 Sodium Potassium Chloride Carbon Dioxide Anion Gap BUN Creatinine Estim Creat Clear Calc Estimated GFR POC Glucose 136 H 143 H Random Glucose Calcium Phosphorus Magnesium Albumin 08/13/21 08/13/21 08/13/21 05:25 05:25 05:30 WBC 22.8 H RBC 2.48 L Hgb 7.1 L Hct 23.2 L MCV 93.5 MCH 28.6 MCHC 30.6 L RDW 15.9 Plt Count 174 MPV 10.9 Immature Gran % (Auto) 0.8 H Neut % (Auto) 93.3 H Lymph % (Auto) 2.9 L [place] % (Auto) 2.6 Eos % (Auto) 0.3 Baso % (Auto) 0.1 Lymph # (Auto) 0.7 L [place] # (Auto) 0.6 Eos # (Auto) 0.1 Baso # (Auto) 0.0 Abs Immat Gran (auto) 0.19 H Absolute Neuts (auto) 21.2 H Absolute Nucleated RBC 0.080 H Nucleated RBC % (auto) 0.4 H Smear Tech's Comments VERIFIED PT 20.3 H INR 1.8 H VBG pH VBG pCO2 VBG pO2 VBG HCO3 VBG O2 Saturation VBG Base Excess Sodium 144 Potassium 4.7 D Chloride 90 L Carbon Dioxide 38 H Anion Gap 21 H BUN 57 H D Creatinine 2.49 H Estim Creat Clear Calc 23.1 Estimated GFR 26 POC Glucose Random Glucose 129 H Calcium 6.8 L D Phosphorus 7.5 H Magnesium 2.3 Albumin 3.2 L D Microbiology Microbiology Results: Microbiology 08/11/21 00:36 Blood - Venous Blood Culture - Preliminary No growth after 48 hours. 08/11/21 00:36 Blood - Venous Blood Culture - Preliminary No growth after 48 hours. 08/10/21 13:13 Sputum - Suctioned Gram Stain - Final 08/10/21 13:13 Sputum - Suctioned Sputum Culture - Preliminary Filamentous fungus 08/08/21 20:30 Sputum - Suctioned Gram Stain - Final 08/08/21 20:30 Sputum - Suctioned Sputum Culture - Final 07/29/21 09:18 Blood - Venous Blood Culture - Final No growth after 5 days. 07/29/21 08:53 Blood - Venous Blood Culture - Final No growth after 5 days. Progress Note: A&P Assessment and plan (1) Acute respiratory failure with hypoxia: Status: Acute (2) CAD (coronary artery disease): Status: Acute (3) Cor pulmonale: Status: Acute (4) Multiple cerebral infarctions: Status: Acute (5) Toxic metabolic encephalopathy: Status: Acute (6) Diabetic polyneuropathy associated with type 2 diabetes mellitus: Status: Acute (7) Acute kidney injury: Status: Acute Plan Assessment: 70-year-old gentleman with recent COVID-19 readmitted with acute hypoxic respiratory failure further complicated by bilateral CVA and right heart failure now with refractory hypoxia despite maximal ventilatory support and acute kidney injury with anuria Plan: Neuro: Subacute CVA. Neurology service care appreciated. Continue on anticoagulation. Cardiac: Acute right heart failure / cor pulmonale. now with increasing pressor requirements. Diuresis stopped. Pulmonary: Acute hypoxic respiratory failure, despite maximum ventilatory support. Possible post acute COVID fibrosis. outside of proliferative phase of ARDS, systemic glucocorticoids not indicated. Overall terminal prognosis. Renal: acute kidney injury with anuria secondary to multiorgan failure from progressive hypoxemia. Endo: No acute issues. underlying diabetes mellitus. GI: No acute issues. ID: No acute issues Heme/Onc: No acute issues. Psych: No acute issues. Miscellaneous: discussions of goals of care are ongoing with the family. Prophylaxis: Lovenox, ppi Diet: tube feeds Critical care time spent: 45 minutes Quality Stroke Does the patient have a stroke diagnosis?: No VTE Prior VTE?: No VTE Risk Level:: Medical - moderate - high VTE Device Contraindication: Treatment Not Indicated VTE Drug Contraindication: N/A - Med Ordered
--- NOTE | 2021-08-13 12:14 | MHC.CM.PN ---
Pt continues to show signs of respiratory failure while on ventilatory support : family has been updated on pt's poor prognosis almost daily but continues to advocate for full supportive measures. CM to follow for any changes in d/c needs
[2021-08-13 12:22] LABS: Glucose, Whole Blood 126 mg/dL (60-115)
--- NOTE | 2021-08-13 13:07 | PC.NURSE ---
Addendum entered by Sheila Oliveros RN 08/13/21 18:07: AFTERNOON TUBE FEED RESIDUAL 340 ML, DARK BROWN. MD NOTIFIED AND TUBE FEEDS REMAIN ON HOLD. SWIFT OUTPUT FROM [id number] = 5 ML TOTAL. MD AWARE. Original Note: TUBE FEED RESIDUALS AT START OF SHIFT 240 ML, DARK BROWN - MD NOTIFIED AND ORDERED TO HOLD TUBE FEEDS AT THIS TIME. NOON ASSESSMENT FOR RESIDUALS WAS 35 ML, DARK BROWN REMAINS - MD NOTIFIED AND ORDERED TO FEEDS TO REMAIN ON HOLD AT THIS TIME. WILL CONTINUE TO MONITOR. PATIENT DAUGHTER CHRISTINE BEDSIDE TO VISIT AND UPDATED ON CURRENT STATUS. DURING VISIT PATIENT DESAT TO 70%, PATIENT SUCTIONED WITH NO ORAL OR INLINE SECRETIONS NOTED. PER MD INCREASE FI02 INCREASE TO 100%, RT CALLED AND NOTIFIED. CURRENTLY 88% ON 100% FI02 - WILL CONTINUE TO MONITOR.
[2021-08-13 18:00] LABS: Glucose, Whole Blood 97 mg/dL (60-115)
[2021-08-13 20:14] LABS: Glucose, Whole Blood 91 mg/dL (60-115)
[2021-08-13 23:42] LABS: Glucose, Whole Blood 79 mg/dL (60-115)
[2021-08-14] VITALS (33 sets, daily range): BP systolic 69–123; BP diastolic 21–64; PULSE 74–94; RESP 16–20; TEMP 33.2–37.9; O2SAT 90–100
[2021-08-14] MEDS: propofoL 1,000 MG/100 ML VIAL 18.3 MG IVCONT ×5 (01:24→19:59)
[2021-08-14 05:31] LABS: VBG Base Excess 4.7 mmol/L; VBG HCO3 32 mmol/L (22-26); VBG pCO2 70 mmHg; VBG pH 7.26 (7.32-7.43); VBG pO2 61 mmHg
[2021-08-14 05:34] LABS: Glucose, Whole Blood 58 mg/dL (60-115)
[2021-08-14 05:36] LABS: Venous Blood Gas Refer to POC result
[2021-08-14] MEDS: Levothyroxine Sodium 125 MCG TABLET PO (05:47)
[2021-08-14] MEDS: Dextrose 50 % 25 GM/50 ML SYRINGE IVPUSH (05:47)
[2021-08-14] MEDS: fentaNYL citrate/NS 1,000 MCG/100 ML PLAST..BAG 10 MCG IVCONT ×2 (05:53→15:30)
[2021-08-14 06:15] LABS: Basophils Percent Auto 0.1 % (0-2); Imm Gran Pct Auto 1.9 % (0.0-0.4); Lymphocytes Absolute Auto 0.6 X10*3/uL (1.2-4.9); Lymphocytes Percent Auto 2.7 % (20-40); MANUAL DIFF FLAG SCAN; Mean Corpuscular HGB Conc 32.8 g/dl (31.0-36.0); Mean Corpuscular Hemoglobin 30.6 pg (27.0-33.0); Mean Corpuscular Volume 93.2 fL (80.0-98.0); Mean Platelet Volume 11.8 fL (9.4-12.4); Monocytes Absolute Auto 0.6 X10*3/uL (0.1-1.2); Monocytes Percent Auto 2.7 % (2-11); NRBC Pct Auto 0.6 /100WBC (0.0-0.2); Neutrophils Percent Auto 92.6 % (45-73); Platelet Count 102 X10*3/uL (160-400); Red Blood Count 2.06 X10*6/uL (4.60-5.80); SCAN SMEAR FLAG 1; White Blood Count 21.6 X10*3/uL (4.8-10.8)
[2021-08-14 06:16] LABS: INTERNATIONAL NORM RATIO 2.1 (0.9-1.1); Prothrombin Time 24.5 SEC (9.9-13.0)
[2021-08-14 06:20] LABS: Glucose, Whole Blood 118 mg/dL (60-115)
[2021-08-14 06:22] LABS: Hematocrit 19.2 % (42.0-52.0); Hemoglobin 6.3 g/dl (14.0-18.0)
[2021-08-14 06:36] LABS: SLIDE REVIEW VERIFIED
[2021-08-14] MEDS: 0.9 % Sodium Chloride Flush 3 ML SYRINGE IVFLUSH (07:29)
[2021-08-14 08:39] LABS: Albumin Level 3.1 g/dL (3.5-5.0); Anion Gap 31 (12-20); Blood Urea Nitrogen 76 mg/dL (9-16); Calcium 6.1 mg/dL (8.4-10.2); Carbon Dioxide 25 mmol/L (22-29); Chloride 92 mmol/L (96-108); Creatinine Clr Calc Pharmacy 13.9; Estimated Glomerular Filt Rate 14; Glucose Random 49 mg/dL (60-115); Magnesium 2.4 mg/dL (1.6-2.6); Phosphorus 10.1 mg/dL (2.7-4.5); Potassium 5.6 mmol/L (3.3-5.1); Sodium 142 mmol/L (135-145)
[2021-08-14 08:42] LABS: Glucose, Whole Blood 111 mg/dL (60-115)
[2021-08-14] MEDS: Chlorhexidine Gluc Oral Rinse 15 ML MOUTHWASH BUCCAL ×3 (09:50→19:59)
[2021-08-14 11:26] LABS: Glucose, Whole Blood 106 mg/dL (60-115)
--- NOTE | 2021-08-14 11:47 | PM.CCPN ---
Subjective Subjective Date of Service: 08/14/21 Interval History: 70-year-old gentleman with underlying history of diabetes mellitus, CAD status post JUAN 2007, hypothyroidism, cytopenia, COVID-19 in June of 2021 requiring hospitalization from June 30 to July 24 further complicated by pulmonary emboli, discharged home on room air, readmitted on July 29 with dyspnea and hypoxia requiring high-level of FiO2 support ( 100% high-flow), empirically covered for PCP and treated with systemic glucocorticoids with hospital course complicated by acute bilateral CVA and progressive hypoxemia requiring transfer to intensive care unit and intubation on 08/06/2021. Now on maximum ventilatory support with O2 saturation in high 80s. Overnight patient continues to further decline despite maximum support with progressive renal failure and now development of bone marrow failure and ileus with intestinal ischemia. Critical Care Time (minutes): 45 Physical Exam Vital Signs: Vital Signs: Last Vital Signs Temp 97.7 F 08/14/21 11:00 Pulse 87 08/14/21 11:00 Resp 20 08/14/21 11:00 BP 112/46 L 08/14/21 11:00 Pulse Ox 91 L 08/14/21 11:00 BMI result Body Mass Index 21.0 Const: General: no acute distress and other ( sedated on the vent) Neck: Neck: Yes no lymphadenopathy, Yes trachea midline and Yes supple Resp: Auscultation: crackles ( diffuse bilateral) Cardio: Rate: regular rate Rhythm: regular rhythm Heart sounds: no gallops, no murmurs and no rubs GI: Palpation (GI): Soft to palpation and Other GI palpation findings present ( Nontender) Auscultation: normal bowel sounds Extrem: General: No clubbing, No cyanosis and Yes edema ( trace bilateral) Objective Data Labs CBC & Chem 7: 08/14/21 05:26 08/14/21 05:26 Labs: Laboratory Results - last 24 hr 08/13/21 08/13/21 08/13/21 12:08 17:57 20:09 WBC RBC Hgb Hct MCV MCH MCHC RDW Plt Count MPV Immature Gran % (Auto) Neut % (Auto) Lymph % (Auto) Hardeman % (Auto) Eos % (Auto) Baso % (Auto) Lymph # (Auto) Hardeman # (Auto) Eos # (Auto) Baso # (Auto) Abs Immat Gran (auto) Absolute Neuts (auto) Absolute Nucleated RBC Nucleated RBC % (auto) Smear Tech's Comments Smear Path Review PT INR VBG pH VBG pCO2 VBG pO2 VBG HCO3 VBG O2 Saturation VBG Base Excess Sodium Potassium Chloride Carbon Dioxide Anion Gap BUN Creatinine Estim Creat Clear Calc Estimated GFR POC Glucose 126 H 97 91 Random Glucose Calcium Phosphorus Magnesium Albumin 08/13/21 08/14/21 08/14/21 23:26 05:24 05:26 WBC RBC Hgb Hct MCV MCH MCHC RDW Plt Count MPV Immature Gran % (Auto) Neut % (Auto) Lymph % (Auto) Hardeman % (Auto) Eos % (Auto) Baso % (Auto) Lymph # (Auto) Hardeman # (Auto) Eos # (Auto) Baso # (Auto) Abs Immat Gran (auto) Absolute Neuts (auto) Absolute Nucleated RBC Nucleated RBC % (auto) Smear Tech's Comments Smear Path Review PT 24.5 H INR 2.1 H VBG pH 7.26 L VBG pCO2 70 VBG pO2 61 VBG HCO3 32 H VBG O2 Saturation 81.0 VBG Base Excess 4.7 Sodium Potassium Chloride Carbon Dioxide Anion Gap BUN Creatinine Estim Creat Clear Calc Estimated GFR POC Glucose 79 Random Glucose Calcium Phosphorus Magnesium Albumin 08/14/21 08/14/21 08/14/21 05:26 05:26 05:31 WBC 21.6 H RBC 2.06 L Hgb 6.3 L* Hct 19.2 L* MCV 93.2 MCH 30.6 MCHC 32.8 RDW 16.0 Plt Count 102 L D MPV 11.8 Immature Gran % (Auto) 1.9 H Neut % (Auto) 92.6 H Lymph % (Auto) 2.7 L Hardeman % (Auto) 2.7 Eos % (Auto) 0.0 Baso % (Auto) 0.1 Lymph # (Auto) 0.6 L Hardeman # (Auto) 0.6 Eos # (Auto) 0.0 Baso # (Auto) 0.0 Abs Immat Gran (auto) 0.40 H Absolute Neuts (auto) 20.0 H Absolute Nucleated RBC 0.120 H Nucleated RBC % (auto) 0.6 H Smear Tech's Comments VERIFIED Smear Path Review SEE NOTE PT INR VBG pH VBG pCO2 VBG pO2 VBG HCO3 VBG O2 Saturation VBG Base Excess Sodium 142 Potassium 5.6 H Chloride 92 L Carbon Dioxide 25 Anion Gap 31 H BUN 76 H Creatinine 4.13 H* Estim Creat Clear Calc 13.9 Estimated GFR 14 POC Glucose 58 L* Random Glucose 49 L* Calcium 6.1 L D Phosphorus 10.1 H Magnesium 2.4 Albumin 3.1 L 08/14/21 08/14/21 08/14/21 06:16 08:39 11:19 WBC RBC Hgb Hct MCV MCH MCHC RDW Plt Count MPV Immature Gran % (Auto) Neut % (Auto) Lymph % (Auto) Hardeman % (Auto) Eos % (Auto) Baso % (Auto) Lymph # (Auto) Hardeman # (Auto) Eos # (Auto) Baso # (Auto) Abs Immat Gran (auto) Absolute Neuts (auto) Absolute Nucleated RBC Nucleated RBC % (auto) Smear Tech's Comments Smear Path Review PT INR VBG pH VBG pCO2 VBG pO2 VBG HCO3 VBG O2 Saturation VBG Base Excess Sodium Potassium Chloride Carbon Dioxide Anion Gap BUN Creatinine Estim Creat Clear Calc Estimated GFR POC Glucose 118 H 111 106 Random Glucose Calcium Phosphorus Magnesium Albumin Microbiology Microbiology Results: Microbiology 08/10/21 13:13 Sputum - Suctioned Gram Stain - Final 08/10/21 13:13 Sputum - Suctioned Sputum Culture - Preliminary Filamentous fungus 08/11/21 00:36 Blood - Venous Blood Culture - Preliminary No growth after 48 hours. 08/11/21 00:36 Blood - Venous Blood Culture - Preliminary No growth after 48 hours. 08/08/21 20:30 Sputum - Suctioned Gram Stain - Final 08/08/21 20:30 Sputum - Suctioned Sputum Culture - Final 07/29/21 09:18 Blood - Venous Blood Culture - Final No growth after 5 days. 07/29/21 08:53 Blood - Venous Blood Culture - Final No growth after 5 days. Progress Note: A&P Assessment and plan (1) Acute kidney injury: Status: Acute (2) CAD (coronary artery disease): Status: Acute (3) Acute respiratory failure with hypoxia: Status: Acute (4) Cor pulmonale: Status: Acute (5) Multiple cerebral infarctions: Status: Acute (6) Toxic metabolic encephalopathy: Status: Acute (7) Diabetes mellitus: Status: Acute (8) Bone marrow failure: Status: Acute (9) Ileus: Status: Acute (10) Intestinal ischemia: Status: Acute Plan Assessment: 70-year-old gentleman with recent COVID-19 readmitted with acute hypoxic respiratory failure further complicated by bilateral CVA and right heart failure now with refractory hypoxia despite maximal ventilatory support and progressive multiorgan failure Plan: Neuro: Subacute CVA. Neurology service care appreciated. anticoagulation. Secondary to development of bone marrow failure Cardiac: Acute right heart failure / cor pulmonale. now with increasing pressor requirements. Diuresis stopped secondary to development of acute kidney injury. Pulmonary: Acute hypoxic respiratory failure, despite maximum ventilatory support. Possible post acute COVID fibrosis. outside of proliferative phase of ARDS, systemic glucocorticoids not indicated. Overall terminal prognosis. Renal: Progressive acute kidney injury with anuria secondary to multiorgan failure from progressive hypoxemia. Endo: No acute issues. underlying diabetes mellitus. GI: ileus and intestinal ischemia with underlying multiorgan failure ID: No acute issues Heme/Onc: now with development of bone marrow failure Psych: No acute issues. Miscellaneous: discussions of goals of care are ongoing with the family, overall prognosis is terminal. Prophylaxis: intermittent pneumatic compression, ppi Diet: NPO Critical care time spent: 45 minutes Quality Stroke Does the patient have a stroke diagnosis?: No VTE Prior VTE?: No VTE Risk Level:: Medical - moderate - high VTE Device Contraindication: Treatment Not Indicated VTE Drug Contraindication: N/A - Med Ordered
[2021-08-14 17:32] LABS: Glucose, Whole Blood 64 mg/dL (60-115)
[2021-08-14 17:54] LABS: Glucose, Whole Blood 145 mg/dL (60-115)
[2021-08-14 18:06] LABS: Glucose, Whole Blood 147 mg/dL (60-115)
[2021-08-14] MEDS: Dextrose 10 % 1,000 ML 30 ML IVCONT (18:20)
[2021-08-14 19:47] LABS: Glucose, Whole Blood 106 mg/dL (60-115)
[2021-08-14] MEDS: Sodium Bicarbonate 8.4% 50 MEQ/50 ML SYRINGE IVPUSH (23:28)
[2021-08-15] MEDS: fentaNYL citrate/NS 1,000 MCG/100 ML PLAST..BAG 10 MCG IVCONT
[2021-08-15 00:28] LABS: Glucose, Whole Blood 112 mg/dL (60-115)
[2021-08-15 00:49] VITALS: BP 70/33; PULSE 77; RESP 20; TEMP 34.8; O2SAT 90
[2021-08-15] MEDS: propofoL 1,000 MG/100 ML VIAL 18.3 MG IVCONT (01:17)
[2021-08-15 01:50] VITALS: BP 73/27; PULSE 77; RESP 20; TEMP 34.4; O2SAT 99
--- NOTE | 2021-08-15 02:28 | PM.CCN ---
Critical Care Event Note Summary Date of Service: 08/15/21 Code activated: Yes Narrative: This case had a high probability of a clinically significant, sudden, or life threatening deterioration of this patient's condition which required my full and direct attention, intervention and personal management. Critical Care Time (minutes): 30 Comment: Deterioration of patient's clinical status over the last few hours, including hypoxemia refractory to ventilatory support, bradycardia and profound hypotension despite being on max pressor support. Family wanting full code status to continue. At 0157 patient pulseless. ACLS initiated. Please see code sheet for full list of interventions/medications. At 0214 patient continued to be pulseless and asystole on monitor. ACLS stopped.? On my exam, the patient had absent peripheral pulses.? Pupils fixed and dilated.? Absent heart sounds? and no spontaneous breathing.? Patient pronounced at 0214.? Daughter Laura notified via phone.? Autopsy was declined by the family. ? Not a medical exam candidate.? Organ donation was notified by nursing.? Attending Dr Sloan notified? Critical Care Time Critical Care Time (minutes): 30
--- NOTE | 2021-08-15 02:58 | PC.NURSE ---
Pt MAP 30-40 throughout the night, maxed on levophed. TROLLEY COLLECTOR Allyson aware. At 0157, pt began to shirley to 30s, spO2 50s. Lost pulse at 0157, code blue called. See code flowsheet. Unable to achieve ROSC, time of 021. Daughter of pt, Laura notified. Organ bank notified, declined pt. Post mortem care completed, belongings to be sent to [facility] [place] with pt.
--- NOTE | 2021-08-15 03:15 | PC.RT ---
Extubated pt post code; ordered by STORE ADMINISTRATIVE ASSISTANT verbal confirmation
[2021-08-15 05:34] LABS: Glucose, Whole Blood 111 mg/dL (60-115)
--- NOTE | 2021-08-15 13:49 | PM.DDS ---
Discharge Sum: Prov Provider Primary care physician: Amina Hammer MD Consults: 07/29/21 15:54 Consult to Pulmonology Routine Consulting Provider: Racheal Lyons Reason for consultation: Respiratory failure, recent covid, ? bacterial pneumonia 07/31/21 08:49 Consult to Infectious Diseases Routine Consulting Provider: Kelle Abdalla Reason for consultation: recent covid, now ? superimposed bacterial vs atypical pneumonia 07/31/21 23:46 Consult to Neurology Routine Consulting Provider: [facility] Reason for consultation: CVA Has provider been notified: No 08/01/21 08:27 Consult to Cardiology Routine Consulting Provider: Renny Mo Reason for consultation: chf, abnormal ekg Has provider been notified: No 08/10/21 13:29 Consult to Infectious Diseases Routine Consulting Provider: Kelle Abdalla Reason for consultation: nosocomial infection Has provider been notified: Yes Discharge Sum: Diag Contributing Factors (1) Acute kidney injury: (2) CAD (coronary artery disease): (3) Acute respiratory failure with hypoxia: (4) Cor pulmonale: (5) Multiple cerebral infarctions: (6) Toxic metabolic encephalopathy: (7) Bone marrow failure: (8) Ileus: (9) Intestinal ischemia: (10) Diabetes type 2, uncontrolled: (11) Pulmonary emboli: Discharge Sum: Summary Date and Time Date of admission: 07/29/21 14:39 Date of : 08/15/21 Time of : 02:14 Summary Details: 70-year-old gentleman with underlying history of diabetes mellitus, CAD status post JUAN 2007, hypothyroidism, cytopenia, COVID-19 in June of 2021 requiring hospitalization from June 30 to July 24 further complicated by pulmonary emboli, discharged home on room air, readmitted on July 29 with dyspnea and hypoxia requiring high-level of FiO2 support ( 100% high-flow), empirically covered for PCP and treated with systemic glucocorticoids with hospital course complicated by acute bilateral CVA and progressive hypoxemia requiring transfer to intensive care unit and intubation on 08/06/2021. In the intensive care unit patient continues with progressive hypoxemia despite maximal ventilatory support resulting in multiorgan failure with development acute kidney injury, ileus, intestinal ischemia, bone marrow failure. Multiple family family discussions were held to discuss overall terminal prognosis with family wanting to continue with full support. On 08/15/2021 early in a.m. patient's clinical status further deteriorated with progressive bradycardia resulting in PEA cardiac arrest. ACLS protocol base CPR was initiated, it was unsuccessful in patient was pronounced at 02:14a.m. Additional Data Confirmation of as documented by pronouncing clinician: no pulse, no respirations, no heart sounds and pupils fixed and dilated Family: contacted Attending physician: Berlin Sloan MD
--- NOTE | 2021-08-29 08:15 | P.CDIR_ITS ---
Documented by User: Maria Isabel Gonzalez CCS, CDIS 08/29/21 08:23 Retrospective Query PHYSICIAN'S DOCUMENTATION REQUEST Date of Query: 08/29/21814 Patient Name: Karan Mc Admit Date: 07/29/21 Dear Doctor, A review of the medical record indicates additional documentation may be needed. Please review below and update the documentation accordingly. Possible, suspected, probable: CHF Risk Factors/Clinical Indicators/Treatments H&P: 07/29 - Question acute CHF BNP elevated and has rales on Echo/BNP 395 H IV Lasix PN 08/01 -BNP keeps rising, empiric Lasix. Limited Echo EF 55-60%, follow BNP Abnormal EKG - Echo showed impaired diastolic relaxation. No known history of CHF. Please provide further specificity regarding the most likely type and acuity of CHF you are evaluating, treating, or monitoring. Type: * Systolic * Diastolic * Combined Systolic/Diastolic * Other ? please specify * Unable to determine Acuity: * Acute * Chronic * Acute on chronic * Unable to determine Use of terms such as suspected, likely, concern for, or probable (associated with a specific diagnosis that is being evaluated, monitored, or treated as if it exists) are acceptable and can be coded in the inpatient setting, when documented at the time of discharge. Thank you, Maria Isabel Gonzalez CCS, CDIS Extension: [phone] Please use your independent medical judgment in providing your response. THIS QUERY IS PART OF THE PERMANENT MEDICAL RECORD Documented by User: Berlin Sloan MD 08/29/21 10:54 Retrospective Query Provider Response: Acute Diastolic CHF
== END 2021-08-15 04:10 | disposition expired | DRG 870 ==
LOC: HO.ED 13:57 → HO.EDOVER 15:00 → HO.IMC 07-30 00:12 → HO.ICU 08-06 13:19
PROVIDERS: Anesthesiology; Internal Medicine; Internal Medicine Cardiovascular Disease; Nurse Practitioner Acute Care; Physician Assistant; Physician Assistant Medical; Admitting Provider Family Medicine; Emergency Provider Emergency Medicine; PCP Internal Medicine; Visit Provider Internal Medicine Pulmonary Disease
DX: A41.9 Sepsis, unspecified organism (principal); J15.9 Unspecified bacterial pneumonia; I26.09 Other pulmonary embolism with acute cor pulmonale; G92.8 Other toxic encephalopathy; J80 Acute respiratory distress syndrome; I63.512 Cerebral infarction due to unspecified occlusion or stenosis of left middle cerebral artery; I50.31 Acute diastolic (congestive) heart failure; G81.91 Hemiplegia, unspecified affecting right dominant side; D61.9 Aplastic anemia, unspecified; K55.9 Vascular disorder of intestine, unspecified; N17.9 Acute kidney failure, unspecified; E03.9 Hypothyroidism, unspecified; E78.5 Hyperlipidemia, unspecified; E87.5 Hyperkalemia; E11.42 Type 2 diabetes mellitus with diabetic polyneuropathy; E11.65 Type 2 diabetes mellitus with hyperglycemia; I50.811 Acute right heart failure; Z86.16 Personal history of COVID-19; R65.20 Severe sepsis without septic shock; Z86.711 Personal history of pulmonary embolism; Z20.822 Contact with and (suspected) exposure to COVID-19; Z87.891 Personal history of nicotine dependence; Z88.0 Allergy status to penicillin; Z79.4 Long term (current) use of insulin; Z79.01 Long term (current) use of anticoagulants; Z79.51 Long term (current) use of inhaled steroids; Z79.890 Hormone replacement therapy; Z79.899 Other long term (current) drug therapy
CPT/HCPCS: 0241U; 36415; 36600; 70450; 70496; 70498; 71045; 71275; 80048; 80053; 80061; 80076; 80202; 81001; 82040; 82565; 82728; 82803; 82947; 83605; 83615; 83735; 83880; 84100; 84132; 84145; 84484; 85025; 85027; 85379; 85610; 85652; 85730; 86140; 86359; 86360; 87040; 87070; 87107; 87205; 87389; 87635; 87640; 87641; 92526; 92610; 93005; 93306; 93308; 93970; 94002; 94003; 94640; 94799; 96361; 96365; 96375; 97163; 97167; 99285; 99291; 99292; 99497; 99498; J0171; J0282; J0610; J0692; J1100; J1650; J1940; J1956; J2185; J2250; J2270; J2920; J3010; J3370; P9047; Q9967